=== PATIENT | male | born 1945 | race Caucasian/White ===

== ENCOUNTER → 2016-10-26 | Outpatient (CLI) | payer BC | END | disposition home or self-care (01) | LOC: C.MAMM 09:15 | PROVIDERS: ATTEND Family Medicine | DX: M40.209 Unspecified kyphosis, site unspecified (principal); R29.890 Loss of height ==

== ENCOUNTER → 2017-01-03 | Outpatient (CLI) | payer BC ==
--- NOTE | 2017-01-03 16:02 | DIAGNOSTIC IMAGING REPORT ---
Brain MRI WITHOUT CONTRAST HISTORY: G20 [id number] Memory [id number] TECHNIQUE: Multiplanar multisequence MRI of the brain was performed without the use of contrast. COMPARISON STUDY: None. FINDINGS: There are no areas of restricted diffusion to suggest acute infarction. The midline structures are intact. The paranasal sinuses are clear. The mastoid air cells are clear. The ventricles and sulci are within normal limits for age. There is no mass, hematoma, midline shift. The major vascular flow-voids at the skull base are well maintained. Best seen on axial T2 image 11 within the left occipital lobe there is a linear focus of increased T2 signal. This likely represents a small developmental venous anomaly. This is considered to be a normal variant. IMPRESSION: No acute intracranial abnormality. Electronically signed by: Sandoval Garibay M.D. 01/03/2017 4:01 PM Dictated Date/Time: 01/03/2017 3:54 PM
== END | disposition home or self-care (01) ==
LOC: C.MRIBC 14:23
PROVIDERS: ATTEND Psychiatry & Neurology Neurology
DX: G20 Parkinson's disease (principal); R41.3 Other amnesia

== ENCOUNTER → 2018-06-03 | Outpatient (CLI) | payer BC ==
--- NOTE | 2018-06-03 12:34 | DIAGNOSTIC IMAGING REPORT ---
VIDEO SWALLOW HISTORY: SILENT ASPIRATION,PARKINSONS DISEASE TECHNIQUE: Video fluoroscopic evaluation of swallowing was performed in the AP and lateral projections by the speech pathology staff. The patient is fed nectar-thick and thin liquid barium, a barium coated wafer, and barium pudding. FLUOROSCOPY TIME: 3.5 minutes. NUMBER OF FLUOROSCOPY IMAGES: 0 COMPARISON STUDY: Conventional barium swallow dated 04/04/2018 FINDINGS: With swallowing thin liquid barium via teaspoon there was no aspiration. When swallowing liquid barium via a cup, there was intermittent trace silent aspiration. There is no aspiration when swallowing nectar thick liquids putting or a cracker with paste. Note is made of a delayed initiation of swallowing with diminished epiglottic motion. There is disordered esophageal motility. IMPRESSION: 1. Small amount of silent aspiration when swallowing thin liquids. 2. Please see the speech pathologist report for detailed findings and recommendations. Electronically signed by: Giovanni Mejia M.D. 06/03/2018 12:33 PM Dictated Date/Time: 06/03/2018 12:30 PM
--- NOTE | 2018-06-03 14:24 | SWALLOWING EVALUATION ---
HISTORY: This 72 year old man was referred to [facility] ([facility]) for a Video Fluoroscopic Swallow Study (VFSS) in order to rule out aspiration, and identify the safest consistencies for oral intake. The patient participated in a Barium Swallow study on 04/04/18, which reported a small amount of SILENT aspiration and therefore the study had to be terminated. The patient reports he "coughs occasionally" with food and that more recently medications have become "stuck" in his throat and he has had to cough them up. PMH is significant for: Parkinson's Disease, HLD, and kyphosis. Current diet is regular. PROCEDURE: The patient was seen in the Radiology Department of [facility] for the VFSS. Cursory examination of the oral cavity revealed the patient to have natural upper and lower dentition in fair condition. Movement of the articulators was wnl, however a very mild lingual tremor was noted. This did not impact speech intelligibility. The patient was positioned upright on a stool for the procedure and was viewed in both the Anterior-Posterior (A-P) and Lateral planes. Volitional phonation exercises completed in the A-P plane revealed bilateral vocal fold movement. Vocal intensity was low. In the lateral plane, the patient was given the following boluses: 1 tsp. thin liquid barium x 2, single swallow thin liquid barium self-presented from a cup x4 (2 with a chin tuck), 1 tsp. nectar-thick liquid barium, single swallow nectar-thick liquid barium self-presented from a cup, 1 tsp. barium pudding, and 1 club cracker coated in barium pudding. The patient was then repositioned into the A-P plane and given the following boluses: 1 tsp. nectar thick barium, and 1 tsp. barium pudding. RESULTS: Oral Stage: Lip closure was adequate. The patient was able to maintain a cohesive liquid bolus in the oral cavity upon command. Mastication was slow and prolonged, as was lingual motion for bolus transport. There was a collection of residue along the tongue and palate after the initial swallow. The initiation of the pharyngeal swallow was delayed and triggered when the bolus head reached the pyriforms. Pharyngeal Stage: Soft palate elevation was complete. Laryngeal elevation revealed partial superior movement of the thyroid cartilage and partial approximation of the arytenoids to the epiglottic base. Anterior hyoid excursion was partially reduced. Epiglottic deflection was absent. Laryngeal vestibular closure was in-complete, as evidenced by a narrow column of contrast located in the vestibule at the height of the swallow. The pharyngeal stripping wave was present yet diminished. Pharyngeal contraction revealed bilateral bulging indicating weakness. There was partial distention and duration to the opening of the pharyngoesophageal segment (PES). Tongue base retraction was reduced, with a wide column of contrast located between the tongue base and pharyngeal wall during the swallow. There was retention in the valleculae and pyriforms after the swallow. There was evidence of inconsistent laryngeal penetration and small amounts of aspiration/micro-aspiration with thin liquid barium. At times this is SILENT. When the patient did have a cough response, a majority of aspirated liquid did redirect but not fully. A chin tuck did assist to improve airway protection but he did continue to have some small amounts of aspiration below the vocal folds inconsistently. A throat clear (self- generated) appeared to clear this as well. However, the throat clear and cued cough was weak in general. There was no aspiration of the nectar thick liquid, pudding, or cracker boluses. There was increased retention located in the valleculae and pyriforms as viscosity increased. Effortful swallowing did assist to clear this, however he did require 2-3 effortful swallows per presentation to clear. A liquid wash did not assist to fully clear. Aspiration and retention is attributed to the patient's delayed swallow and generally weak pharyngeal swallow (to include poor tongue base retraction, lack of epiglottic deflection, and reduced anterior hyoid excursion). Esophageal Stage: There was mid to distal esophageal retention with retrograde flow below the PES. This is suggestive of esophageal dysmotility and reflux. A liquid wash assisted to clear some of this but not fully. SUMMARY/RECOMMENDATIONS: The patient presents with moderate elyse-pharyngeal dysphagia. He also presents with s/s esophageal dysfunction. 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 Due to his active lifestyle, he appears to be tolerating the aspiration at this time. Therefore the following is recommended: 1. Regular (soft) "SLIPPERY" diet and THIN liquids: choose foods that are moist, loose, slippery; avoid foods that are doughy, thick, dry (e.g., soft breads, thick meat, etc.). Add condiments to foods such as sauce or gravy to assist in keeping foods moist. May need to consider modification of liquids to NECTAR thick should the patient present with worsening dysphagia with thins and repeated pneumonias. 2. Aspiration and GERD precautions: NO STRAWS. FULLY UPRIGHT for meals and for 30 minutes after meals; head of bed at least 30-degrees at all times. 3. Safe swallow strategies: Use chin tuck while swallowing thin liquids, (Small sip of liquid from the cup, hold liquid in mouth, move the chin to the chest, swallow the liquid while the chin is down), 2-3 effortful swallows per bite of food. Rest breaks while eating. Small frequent meals. 4. Stringent oral care: brush all surfaces of the mouth and tongue prior to and after meals, and before bed. This will decrease the amount of oral bacteria that can be aspirated in saliva. 5. Follow up with GI for management for esophageal dysfunction as appropriate. 6. Follow up with outpatient speech therapy for further education on study results, carryover of diet/safe swallow strategies, and establishing a generalized pharyngeal strengthening program. A summary of the results and recommendations were provided to the patient with verbal understanding. Verbal and Written education was provided as well for the components of a slippery diet, stringent oral care, and safe swallow strategies. Verbal understanding given. Thank you for referral of this patient. Please contact me at if any additional information is needed.
== END | disposition home or self-care (01) ==
LOC: C.RAD 11:05
PROVIDERS: ATTEND Family Medicine
DX: T17.900A Unspecified foreign body in respiratory tract, part unspecified causing asphyxiation, initial encounter (principal); G20 Parkinson's disease; X58.XXXA Exposure to other specified factors, initial encounter

== ENCOUNTER 2021-01-18 10:55 | Inpatient (IN) ==
--- NOTE | 2021-01-10 13:28 | PAT Medication Instructions ---
Medication Instructions Date of Service January 10, 2021 Home Medications Medication Instructions Recorded carbidopa ER 50 mg-levodopa 200 mg 1 tab PO BID #60 tab 12/23/20 tablet,extended release atorvastatin 40 mg tablet 40 mg PO HS cholecalciferol (vitamin D3) 25 mcg (1,000 unit) capsule 25 mcg PO QAM coenzyme Q10 100 mg capsule 100 mg PO QAM mecobalamin (vitamin B12) 1,000 mcg chewable tablet 1,000 mcg PO QAM omeprazole 20 mg capsule,delayed release 20 mg PO QAM carbidopa ER 50 mg-levodopa 200 mg tablet,extended release 1 tab PO BID multivitamin 1 tab PO QAM [Vitamin C Plus Zinc] 1 tab PO 3XWK STOP taking 2 weeks before surgery If surgery is within 2 weeks, stop taking as soon as possible. coenzyme Q10 100 mg capsule 100 mg PO QAM DO NOT take the morning of surgery cholecalciferol (vitamin D3) 25 mcg (1,000 unit) capsule 25 mcg PO QAM mecobalamin (vitamin B12) 1,000 mcg chewable tablet 1,000 mcg PO QAM multivitamin 1 tab PO QAM [Vitamin C Plus Zinc] 1 tab PO 3XWK Take morning of surgery With a small sip of water, OTHERWISE NOTHING TO EAT OR DRINK AFTER MIDNIGHT: omeprazole 20 mg capsule,delayed release 20 mg PO QAM carbidopa ER 50 mg-levodopa 200 mg tablet,extended release 1 tab PO BID Take evening before surgery atorvastatin 40 mg tablet 40 mg PO HS carbidopa ER 50 mg-levodopa 200 mg tablet,extended release 1 tab PO BID Other Notes If you have any questions please call us at [phone] or [phone] or [phone] or [phone]
--- NOTE | 2021-01-11 14:23 | Anesthesiology Consultation ---
Date of Service January 11, 2021 Assessment & Plan (1) Encounter for pre-operative examination: Chart Review Chart Review: Acceptable Risk for Surgery and Patient seen in Pre Admission Testing Per [facility] appt on 01/11/21, patient denies any recent travel or large group activities. No known Covid positive contacts or Covid related symptoms. No known Covid infection in the past 90 days. Preop Covid testing done at [facility] appt on 01/11/21= negative. Educated on importance of self quarantining, social distancing and wearing mask in public both for the patient and household contacts. Teaching & Discussion Pre-Anesthesia Teaching/Discussion Notes: Instructed NPO after midnight before surgery,except medications with 15 cc of water. Medication instructions provided according to the [facility] guidelines. History Surgery Operation Date: 01/18/21 12:40 Proposed Procedures p Cystoscopy, Bladder Biopsies, Possible Tumor Resection, Possible Bilateral Retrograde Pyelograms, Possible Fulguration - Hang Almeida MD Height/Weight Height: 5 ft 11 in Weight: 71.3 kg Allergies Allergy/AdvReac Type Severity Reaction Status Date / Time No Known Drug Allergies Allergy Unknown Verified 01/18/21 11:24 Medications Home Medications Medication Instructions Recorded Confirmed Last Taken atorvastatin 40 mg tablet 40 mg PO HS 07/21/20 01/18/21 01/17/21 21:30 cholecalciferol (vitamin D3) 25 25 mcg PO QAM 07/21/20 01/18/21 01/16/21 18:00 mcg (1,000 unit) capsule coenzyme Q10 100 mg capsule 100 mg PO QAM 07/21/20 01/18/21 2 Weeks Ago ~01/04/21 mecobalamin (vitamin B12) 1,000 1,000 mcg PO QAM 07/21/20 01/18/21 01/16/21 18:00 mcg chewable tablet omeprazole 20 mg capsule,delayed 20 mg PO QAM 07/21/20 01/18/21 01/18/21 06:30 release carbidopa ER 50 mg-levodopa 200 mg 1 tab PO BID #60 tab 12/23/20 01/18/21 01/18/21 07:00 tablet,extended release multivitamin 1 tab PO QAM 01/07/21 01/18/21 01/16/21 18:00 zinc sulfate-vitamin C [Vitamin C 1 tab PO 3XWK 01/07/21 01/18/21 01/12/21 Plus Zinc] Active Medications Generic Name Dose Route Start Last Admin Trade Name Stacey PRN Reason Stop Dose Admin Lactated Ringer's 1,000 mls @ 15 mls/hr 01/18/21 06:00 01/18/21 11:22 Lr IV 01/19/21 05:59 15 mls/hr .Q24H JAMIA Administration Past Medical History Medical History BPH (benign prostatic hyperplasia) History of asthma A CHILD ONLY- NO CURRENT ISSUES Hyperlipidemia Parkinson disease "MILD CASE"- STABLE - FOLLOWS WITH DR ALLEN Per 12/23/20 office note: Pt has akineto-rigid form of Parkinson's- pt is bradykinetic with abnormal gait- mildly rigidity. 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 Exercise / Class Metabolic Activity II 4-5 Yardwork/Stairs/Walk up hill (ONE FLIGHT OF STAIRS - NO CHEST PAIN OR SOB) Past Family History Family History Family/Other Lung cancer Other No family history of adverse response to anesthesia Past Surgical History Surgical History History of colonoscopy History of esophagogastroduodenoscopy (EGD) History of hernia surgery INGUINAL History of tooth extraction Past Anesthesia History No Hx of Anesthesia Complications and No Family Hx of Anesthesia Complications History of PONV No Hx of PONV and No Hx of Motion Sickness Social History Smoking Status: Never smoker Hx Alcohol Use: Yes alcohol intake frequency: holidays/special occasions only Hx Substance Use: No substance use type: does not use Review of Systems Minimal snoring- no witnessed apnea- no hx of sleep study. Patient denies chest pain, shortness of breath, dyspnea on exertion, reflux, cough, wheezing, palpitations. No hx of seizures, stroke, DC. No hx of blood clots or blood transfusions Physical Exam Vital Signs Last Vital Signs Temp 36.9 C 01/18/21 11:28 Pulse 59 L 01/18/21 11:28 Resp 18 01/18/21 11:28 BP 131/71 01/18/21 11:28 Pulse Ox 100 01/18/21 11:28 VITALS BP 99/66 (BP is normal for patient- no current dizziness) P 66 TEMP 98.5 SP02 99% RESP 16 Constitutional no acute distress ENMT Mouth: no TMJ clicking Thyromental Distance: > or= 3.5 Finger Breadths (3.5) Mallampati Class: I Neck neck extension not limited Respiratory normal respiratory effort; no respiratory distress Auscultation: lungs clear to auscultation bilaterally; no wheezes Cardiovascular Rate/Rhythm: regular rate and regular rhythm Heart Sounds: no murmur Vessels: no carotid bruit Musculoskeletal Spine: no pain with cervical ROM Extremities: extremities normal to inspection Bradykinesia- presumed secondary to Parkinson disease Psychiatric Orientation: alert Testing Laboratory Results 01/11/21 14:35 01/11/21 14:35 Urine Color Dark Yellow 01/11/21 14:35 Urine Appearance Clear (Clear) 01/11/21 14:35 Urine pH 5.0 (4.5-7.5) 01/11/21 14:35 Ur Specific Earle 1.023 (1.000-1.030) 01/11/21 14:35 Urine Protein Trace (Negative) H 01/11/21 14:35 Urine Glucose (UA) Negative (Negative) 01/11/21 14:35 Urine Ketones Trace (Negative) H 01/11/21 14:35 Urine Nitrite Negative (Negative) 01/11/21 14:35 Ur Leukocyte Esterase Negative (Negative) 01/11/21 14:35 Urine WBC (Auto) 10-30 /hpf (0-5) H 01/11/21 14:35 Urine RBC (Auto) 5-10 /hpf (0-4) H 01/11/21 14:35 U Hyaline Cast (Auto) 1-5 /lpf (0-5) 01/11/21 14:35 U Epithel Cells (Auto) >30 /lpf (0-5) H 01/11/21 14:35 Urine Bacteria (Auto) 1+ (Negative) H 01/11/21 14:35 01/11/21 14:35 Urine Culture - Final Urine,Clean Catch More than three types of organisms present, all moderate counts mixed probable skin antwan. No further identifications or sensitivities to follow. Electrocardiogram Date: 01/11/21 Findings: + SB @ (58bpm ) Rightward axis. Chest X-Ray Date: 01/11/21 Findings: + NAD
[2021-01-11 15:04] LABS: Basophils # (auto) 0.03 K/uL (0-0.2); Basophils % (auto) 0.5 %; Eosinophils % (auto) 3.2 %; Hematocrit (blood only) 41.1 % (42-52); Hemoglobin 13.8 g/dL (14.0-18.0); Immature Granulocytes # (auto) 0.01 K/uL (0.00-0.02); Immature Granulocytes % (auto) 0.2 %; Lymphocytes # (auto) 1.66 K/uL (1.2-3.4); Lymphocytes % (auto) 26.6 %; Mean Corpuscular Hemoglobin 31.4 pg (25-34); Mean Corpuscular Hgb Conc 33.6 g/dL (32-36); Mean Corpuscular Volume 93.4 fL (80-100); Mean Platelet Volume 10.4 fL (7.4-10.4); Monocytes # (auto) 0.63 K/uL (0.11-0.59); Monocytes % (auto) 10.1 %; Neutrophils % (auto) 59.4 %; Platelet Count 180 K/uL (130-400); RDW Coefficient of Variation 13.3 % (11.5-14.5); RDW Standard Deviation 45.5 fL (36.4-46.3); White Blood Count 6.23 K/uL (4.8-10.8)
[2021-01-11 15:11] LABS: Appearance Urine Clear (Clear); Bilirubin Urine Negative (Negative); Blood Urine 1+ (Negative); Color Urine Dark Yellow; Epithelial Cell Urine Auto >30 /lpf (0-5); Glucose Urine UA Negative (Negative); Ketones Urine Trace (Negative); Leukocyte Esterase Urine Negative (Negative); Nitrite Urine Negative (Negative); Protein Urine Trace (Negative); Specific Gravity Urine 1.023 (1.000-1.030); Urobilinogen Urine Negative (Negative)
--- NOTE | 2021-01-11 15:19 | XRay Report ---
XR chest Pre-admission PA/Lat HISTORY: 75 years-old Male pat preoperative exam. No acute chest complaints COMPARISON: Chest radiograph 04/04/2020 TECHNIQUE: PA and lateral views of the chest FINDINGS: Cardiomediastinal and hilar silhouettes are within normal limits. Nipple shadows project of the lung bases. Hyperinflation. No pneumothorax, pleural effusion, airspace consolidation or overt pulmonary e ila. The bones of the chest appear grossly intact. IMPRESSION: No acute process. ACT 112: Negative or not required by law. The above report was generated using voice recognition software. It may contain grammatical, syntax o r spelling errors. Electronically signed by: Michael Briones M.D. 01/11/2021 3:17 PM
[2021-01-11 15:25] LABS: Bacteria Urine Automated 1+ (Negative); Sperm Urine Present (None Prsent)
[2021-01-11 15:30] LABS: BUN Creatinine Ratio 21.5 (10-20); Calcium 8.4 mg/dl (8.5-10.1); Creatinine Clr Calc Pharmacy 51.4 ml/min; Est GFR (African American) 63.3; Est GFR (Non-African American) 54.6; Potassium 4.4 mmol/L (3.5-5.1)
--- NOTE | 2021-01-12 14:29 | Electrocardiogram Report ---
Test Reason : Blood Pressure : / mmHG Vent. Rate : 058 BPM Atrial Rate : 058 BPM P-R Int : 160 ms QRS Dur : 082 ms QT Int : 428 ms P-R-T Axes : 085 091 083 degrees QTc Int : 420 ms Sinus bradycardia Rightward axis Borderline ECG No previous ECGs available Confirmed by Yakov Potts ([id number]) on 01/12/2021 2:29:11 PM Referred By: Hang Almeida Confirmed By:Yakov Potts
[~2021-01-18 10:55] MED LIST: CIPROFLOXACIN / D5W 400 MG/200 ML BAG IV SCH; LR 15ML/HR IV SCH
[2021-01-18] MEDS ORDERED: PROPOFOL IV EMULSION 10 MG/ML 20 ML VIAL IV ONE ×2 (10:59→14:12)
[2021-01-18] MEDS ORDERED: LIDOCAINE HCL 2% 2 ML VIAL/AMP(20MG/ML) INFIL ONE (10:59)
[2021-01-18] MEDS ORDERED: fentaNYL citrate 100 MCG/2 ML VIAL ONE (11:00)
[2021-01-18] MEDS ORDERED: ONDANSETRON INJ 2 MG/ML 2 ML VIAL ONE (11:00)
--- NOTE | 2021-01-18 12:37 | History & Physical Bridge Note ---
Date of Service January 18, 2021 History & Physical Bridge Note I have examined the patient, reviewed the History & Physical and in the interval since the performance of the History & Physical I have noted the following changes of clinical significance: no changes noted
[2021-01-18] MEDS ORDERED: HYDROmorphone INJ 1 MG/ML SYRINGE IV PRN (12:41)
[2021-01-18] MEDS ORDERED: ePHEDrine sulfate 50 MG/ML AMP IV PRN (12:41)
[2021-01-18] MEDS ORDERED: ONDANSETRON INJ 2 MG/ML 2 ML VIAL IV PRN ×2 (12:41→16:49)
[2021-01-18] MEDS ORDERED: fentaNYL citrate 100 MCG/2 ML VIAL IV PRN (12:41)
[2021-01-18] MEDS ORDERED: ATROPINE SULFATE 0.1 MG/ML 10ML SYR IV PRN (12:41)
[2021-01-18] MEDS ORDERED: GLYCOPYRROLATE 0.2 MG/ML VIAL ONE ×2 (13:22→14:53)
[2021-01-18] MEDS ORDERED: PHENYLEPHRINE 100MCG/ML 5ML SYR ONE (13:40)
[2021-01-18] MEDS ORDERED: SODIUM CHLORIDE 0.9% 250 ML IV PRN (14:09)
[2021-01-18] MEDS ORDERED: SUCCINYLCHOLINE 100MG/5ML SYR IV ONE (14:13)
[2021-01-18] MEDS ORDERED: ROCURONIUM BROMIDE 10 MG/ML 5 ML VIAL IV ONE (14:24)
[2021-01-18] MEDS ORDERED: NEOSTIGMINE METHYLSULFATE 5 MG/5 ML SYR ONE (14:53)
[2021-01-18] MEDS ORDERED: BUPIVACAINE 0.5 % 5 MG/1 ML MPF 30ML VIAL ONE (15:11)
[2021-01-18] MEDS ORDERED: DEXTRAN 10% / D5W 500 ML IV PRN (15:15)
--- NOTE | 2021-01-18 15:39 | Operative Report ---
PG Post Operative Report Pre & Post Diagnosis Operation Date: 01/18/21 12:40 Pre-Op Diagnosis: Gross Hematuria, Bladder Mass Post-Op Diagnosis: Gross Hematuria, Bladder Mass I identified the patient and participated in the time-out.: Yes Procedure Operation Date: 01/18/21 12:40 Actual Procedures p cystoscopy, TURBT, exploratory laparotomy, cystotomy with closure of bladder injury, ligation of bleeding vessel.(Not Applicable) - Hang Almeida MD Surgeon Yehuda Almeida MD Distribution Dispatcher Lenard Chu; Emely Fernández Estimated Blood Loss 600 Findings Consistent with Post-Op Diagnosis Specimens Bladder tumor Description of Procedure The patient was identified in the preoperative holding area, appropriate informed consents were reviewed and completed and the patient was transferred to the operative suite. Upon arrival, appropriate antibiotics and anesthesia were administered and the patient was placed in dorsal lithotomy position and prepped and draped in sterile fashion. To begin the case I passed a 27 [place] resectoscope with 30 degree lens and visual obturator. Inspection revealed a healthy-appearing urethra and a moderately enlarged prostate. Inspection of the bladder revealed tumor covering the majority of the right lateral portion of the bladder with several larger, more protuberant tumors. In total I would estimate 9 to 10 cm of bladder was covered by tumor. The majority of this was what I would describe as "carpeting" tumor. After my inspection I exchanged the visual obturator for resecting element using a loop electrode. I began by resecting the largest portions of the tumor. This was uneventful. I then began to fulgurate the carpeted areas of the tumor. As I approached the lateral wall, unfortunately it is provoked a severe obturator reflex. There was bleeding from the defect although it was not a through and through perforation injury at that time. Bleeding was relatively copious and I began to make a concerted effort to stop this bleeding. Unfortunately after 15 to 20 minutes of attempting to stop the bleeding unsuccessfully, I made a decision to open the bladder and close this with a suture. Emely Fernández and Lenard Chu joined me at that time surgical assistance. A low midline incision was made utilizing a 10 blade scalpel after the abdomen had been reprepped. This was carried through the midline until the anterior wall of the bladder was identified. A Inocencia retractor was placed. The lateral aspect of the bladder on the right was mobilized. No palpable through and through defect was immediately appreciated. There was a small vessel that was bleeding outside of the bladder but I suspect this occurred during the dissection. This was suture-ligated in the area and then packed with Surgicel. And then turned my attention to the bladder itself. It was irrigated without clear evidence of a through and through defect. Midline area cystotomy was created and inspection of the inside of the bladder revealed the area of bleeding. I was able to utilize a 3-0 Vicryl suture to close the muscular layer through this defect. This drastically improved hemostasis. A 3-0 chromic was then utilized to close the mucosa over the defect. Inspection revealed good hemostasis. There were several small tumors that were remaining that had not yet been resected during the cystoscopic portion of the case. I used the Bovie electrocautery to burn these areas. We then began to close the anterior cystotomy. A 3-0 chromic was utilized to reapproximate the mucosa. I then closed 2 additional layers, utilizing an imbricating 0 Vicryl to buttress the mucosal layer followed by a second imbricating layer to further buttress. The b ladder was irrigated copiously and there is no evidence of leak. I did place 2 buttressing sutures outside of the area where the original bleeding occurred to make sure there was appropriate external muscular support. I reinspected the area that had previously been bleeding and it was dry. We then began to reapproximate the rectus muscle by closing the fascia with a running 0 Vicryl. Half percent Marcaine was utilized under the fascia and under the skin. [place] were placed to the skin. A new three-way Forman catheter was inserted and draining. Gentle continuous bladder irrigation was initiated and the case was concluded. He was extubated and taken to the PACU in stable condition. He was not transfused during the case and remained hemodynamically stable throughout. I have estimated 600 cc of blood loss. The case was discussed with his immediately upon conclusion and she is aware of the issues during the surgery and the need to convert to an open case. He will be kept in the hospital and monitored for a minimum of 24 hours and a Forman catheter will be left in place for a minimum of 10 to 14 days followed by a cystogram before removal. Dr. Chu assisted from incision to closure throughout the open portion of the case. I attest to the content of the Intraoperative Record and any orders documented therein. Any exceptions are noted below.
[2021-01-18 15:59] LABS: Basophils # (auto) 0.01 K/uL (0-0.2); Basophils % (auto) 0.2 %; Eosinophils # (auto) 0.09 K/uL (0-0.5); Eosinophils % (auto) 2.1 %; Hematocrit (blood only) 25.4 % (42-52); Hemoglobin 8.6 g/dL (14.0-18.0); Immature Granulocytes # (auto) 0.01 K/uL (0.00-0.02); Immature Granulocytes % (auto) 0.2 %; Lymphocytes # (auto) 0.97 K/uL (1.2-3.4); Lymphocytes % (auto) 23.2 %; Mean Corpuscular Hemoglobin 31.3 pg (25-34); Mean Corpuscular Volume 92.4 fL (80-100); Mean Platelet Volume 9.7 fL (7.4-10.4); Monocytes # (auto) 0.39 K/uL (0.11-0.59); Monocytes % (auto) 9.3 %; Neutrophils # (auto) 2.72 K/uL (1.4-6.5); Platelet Count 110 K/uL (130-400); RDW Coefficient of Variation 13.3 % (11.5-14.5); Red Blood Count 2.75 M/uL (4.7-6.1); White Blood Count 4.19 K/uL (4.8-10.8)
--- NOTE | 2021-01-18 16:15 | Anesthesiology Progress Note ---
Date of Service January 18, 2021 Anesthesia Post Procedure Vital Signs Vital Signs: Temp Pulse Pulse Resp BP BP Pulse Ox 01/18/21 16:10 68 15 110/59 L 96 01/18/21 16:00 66 14 112/63 96 01/18/21 15:50 67 16 117/71 97 01/18/21 15:40 74 17 123/73 98 01/18/21 15:34 36 C L 94 H 15 129/76 99 01/18/21 11:28 36.9 C 59 L 18 131/71 100 Transfer of Care Handoff Completed per policy Notes Mental Status: alert / awake / arousable and participated in evaluation Patient Amnestic to Procedure: Yes Nausea / Vomiting: adequately controlled Pain: adequately controlled Airway Patency, RR, SpO2: stable & adequate BP & HR: stable & adequate Hydration State: stable & adequate Anesthetic Complications: no major complications apparent and Pt Satisfied with anesthetic care
[2021-01-18 16:21] LABS: BUN Creatinine Ratio 24.6 (10-20); Calcium 6.9 mg/dl (8.5-10.1); Creatinine Clr Calc Pharmacy 61.7 ml/min; Est GFR (African American) 82.2; Est GFR (Non-African American) 70.9; Potassium 3.8 mmol/L (3.5-5.1)
[2021-01-18 16:40] LABS: Echinocytes 1+; Mean Corpuscular Hgb Conc 33.9 g/dL (32-36); Ovalocytes 1+
[2021-01-18] MEDS ORDERED: MoRPHine SULFATE 2 MG/ML CARP IV PRN (16:49)
[2021-01-18] MEDS ORDERED: MoRPHine SULFATE 4 MG/ML 1 ML CARP\\VIAL IV PRN (16:49)
[2021-01-18] MEDS ORDERED: oxyCODONE HCL IR 5 MG TAB (IMMEDIATE RELEASE) PO PRN ×2 (16:49)
[2021-01-18] MEDS ORDERED: ACETAMINOPHEN 325 MG TAB PO PRN (16:49)
[2021-01-18] MEDS: LACTATED RINGER'S 1,000 ML IV SCH (19:33)
[2021-01-18] MEDS: ceFAZolin 2000MG 2,000 MG/15 ML SYR IV SCH (19:49)
[2021-01-18] MEDS ORDERED: ATORVASTATIN 40 MG TAB PO SCH (21:00)
[2021-01-18] MEDS: CARBIDOPA/LEVODOPA 50/200MG EXT REL TAB PO SCH (21:03)
[2021-01-18] MEDS: HEPARIN SOD 5,000 UNIT/0.5 ML VIAL SQ SCH (21:07)
[2021-01-19] MEDS: LACTATED RINGER'S 1,000 ML IV SCH (02:49)
[2021-01-19] MEDS: ceFAZolin 2000MG 2,000 MG/15 ML SYR IV SCH (03:52)
[2021-01-19 06:15] LABS: Basophils # (auto) 0.01 K/uL (0-0.2); Basophils % (auto) 0.1 %; Hemoglobin 9.3 g/dL (14.0-18.0); Immature Granulocytes # (auto) 0.01 K/uL (0.00-0.02); Immature Granulocytes % (auto) 0.1 %; Lymphocytes # (auto) 0.82 K/uL (1.2-3.4); Lymphocytes % (auto) 8.6 %; Mean Corpuscular Hemoglobin 31.4 pg (25-34); Mean Corpuscular Hgb Conc 34.4 g/dL (32-36); Mean Corpuscular Volume 91.2 fL (80-100); Mean Platelet Volume 10.2 fL (7.4-10.4); Monocytes # (auto) 1.02 K/uL (0.11-0.59); Monocytes % (auto) 10.7 %; Neutrophils # (auto) 7.67 K/uL (1.4-6.5); Neutrophils % (auto) 80.5 %; Platelet Count 159 K/uL (130-400); RDW Coefficient of Variation 13.3 % (11.5-14.5); RDW Standard Deviation 44.8 fL (36.4-46.3); Red Blood Count 2.96 M/uL (4.7-6.1); White Blood Count 9.53 K/uL (4.8-10.8)
[2021-01-19 06:41] LABS: BUN Creatinine Ratio 17.1 (10-20); Calcium 7.8 mg/dl (8.5-10.1); Creatinine Clr Calc Pharmacy 49.7 ml/min; Est GFR (African American) 63.3; Est GFR (Non-African American) 54.6; Potassium 4.3 mmol/L (3.5-5.1)
[2021-01-19] MEDS: CARBIDOPA/LEVODOPA 50/200MG EXT REL TAB PO SCH (07:07)
[2021-01-19] MEDS: HEPARIN SOD 5,000 UNIT/0.5 ML VIAL SQ SCH (08:20)
--- NOTE | 2021-01-19 08:31 | Urology Progress Note ---
Date of Service January 19, 2021 Assessment & Plan (1) Bladder mass: s/p TURBT complicated by bleeding - had to convert to open - cystotomy with suture ligation of the bleeding vessels - cbi off this am - ok to dc cbi - cap extra port - will go home with catheter - cystogram next week with voiding trial if no leak - likely return to the OR in ~ 6 weeks for repeat TURBT - hope for dc home this afternoon Admission and Anticipated Discharge Date Admission Date: January 18, 2021 Subjective Doing well this AM CBI was very slow overnight and his urine remained clear denies any pain hasnt ambulated yet tolerating a diet anxious to go home Physical Exam Physical Exam: abd soft, non-tender incision still dressed bruising across the penis moderate edema urine clear with CBI clamped Results & Data ([facility]) Vital Signs (Past 12 Hours) Vital Signs Temp Pulse Pulse Resp BP BP Pulse Ox 01/19/21 06:59 37 C 71 16 95/58 L 99 01/18/21 22:20 37.4 C 84 18 110/67 98 PG Care Time/CCT Total # of Minutes Spent Total Time Spent with Patient: Total time spent is greater than 50% in coordination of care (as documented) at patient's floor/unit and/or counseling patient: Coding Level of Care Code 32247 Subseq Hosp Care Lvl 2 Diagnoses Bladder mass N32.89
[2021-01-19] MEDS ORDERED: MULTIVITAMIN TAB PO SCH (09:00)
[2021-01-19] MEDS ORDERED: PANTOprazole 40 MG TAB PO SCH (09:00)
--- NOTE | 2021-01-27 12:43 | Discharge Summary ---
Date of Service January 27, 2021 Admission HPI Per Admitting Provider Patient with a large bladder tumor admitted for TURBT. Principal Diagnosis Bladder cancer Discharge Data Allergies Allergy/AdvReac Type Severity Reaction Status Date / Time No Known Drug Allergies Allergy Unknown Verified 01/18/21 11:24 Procedures Performed Operation Date: 01/18/21 12:40 Actual Procedures s Cystoscopy, TURBT, (Not Applicable) - Hang Almeida MD p Exploratory laparotomy, cystotomy with closure of bladder injury, ligation of bleeding vessel.(Not Applicable) - Hang Almeida MD Hospital Course (1) Primary bladder malignant neoplasm: Patient was admitted for cystoscopy and TURBT, however we encountered significant bleeding during the course and converted to an open surgery. Detai ls of the procedure as dictated previously in the operative report, however he was kept in the hospital overnight with a Forman catheter in place. He progressed extremely well. Had no issues overnight, labs remained stable, hemodynamically stable. Discharged home on postoperative day 1 in stable condition. Total Time Total Time Spent Total Time Spent (In Minutes): 25 Discharge Plan Discharge Items Patient Disposition: Home - Self-Care Reason For Visit: Gross Hematuria, Bladder Mass Discharge Diagnosis: Gross hematuria, bladder mass Activity: Per Instructions section Lifting: No more than 25 pounds Bathing Comment: No tub baths/soaking. Okay to shower tomorrow. Sexual Activity: Wait until after follow-up appointment Exercise/Sports: Wait until after follow-up appointment Driving/Machine Use: Do not drive after taking narcotic pain medication Non-emergency contact: Surgeon and Urologist Call non-emergency contact if: you have any medication questions, your pain is not controlled, your temperature is above 101, your wound has increased redness, your wound has increased drainage and your wound pain has increased Follow-up/Referrals: Jeramy Ballard MD [Primary Care Provider] - 01/20/21 1:30 pm [facility],Nurse [FAKE FOR SCHEDULES] - 01/28/21 10:00 am Diet: Heart Healthy Addtl Attending Provider Instructions: Please take all medications as prescribed and keep all follow-ups as scheduled. Please call our office at [phone] with any questions, concerns or need to reschedule appointments for any reason. We are happy to assist you. We would like you to have a cystogram next week to assess for any leaking from the bladder prior to your catheter removal. The cystogram is scheduled January 28 at 8:00 am. Please arrive at the hospital, main entrance, at 7:30 am. Your voiding trial with nursing staff is scheduled January 28 at 10:00 am at [address] [place] [address]. We will likely remove your stapes from your incision at that appointment. We will call you with your postop appointment with Dr. Almeida once this is scheduled. Tips for your recovery at home: Dont be alarmed by brownish or reddish blood or clots in your urine. This is a result of the procedure. However, if this does not improve after 1 week, please contact our office. Drink plenty of fluids during the day (enough to keep your urine very light colored). This will help keep a healthy flow of urine. Do not lift >25 lbs until your followup Avoid constipation. Please use a stool softener (Colace) for the first two weeks after your procedure Be sure to finish the antibiotics as prescribed. If you go home with a catheter, please wash tubing where it enters your body twice daily with mild soap (Dove or Dial). Once your catheter is removed, expect some blood in your urine and some burning when you urinate. You should have an appointment to have this removed, if you do not please call our office to arrange. When to call [facility] at [phone]: Your urine contains heavy blood clots You are constantly leaking urine Fever of 101F or higher, chills, nausea, or vomiting Your pain is not relieved with medication Pending Studies at Discharge: Yes Studies:: Pathology Stand-Alone Forms: [employer], Smoking Cessation Medications and DC Order Prescriptions: New oxycodone-acetaminophen [Percocet] 5-325 mg tablet 1 tab PO TID PRN (Reason: pain) Qty: 10 RF: 0 Continued carbidopa-levodopa 50-200 mg tablet extended release 1 tab PO BID Qty: 60 RF: 2 cholecalciferol (vitamin D3) 25 mcg (1,000 unit) capsule 25 mcg PO QAM RF: 0 mecobalamin (vitamin B12) 1,000 mcg tablet,chewable 1,000 mcg PO QAM RF: 0 coenzyme Q10 [CoQ-10] 100 mg capsule 100 mg PO QAM RF: 0 omeprazole 20 mg capsule,delayed release(DR/EC) 20 mg PO QAM RF: 0 atorvastatin 40 mg tablet 40 mg PO HS RF: 0 multivitamin Tablet 1 tab PO QAM RF: 0 zinc sulfate-vitamin C 200-100 mg Tablet 1 tab PO 3XWK RF: 0 No Action oxybutynin chloride 5 mg tablet 5 mg PO BID PRN (Reason: bladder spasms) Qty: 30 RF: 0 Discharge Orders: Discharge Order (Routine); Ordered 01/19/21 Ordered By: Amanda Howell Admission Data Admit Date/Time: 01/18/21 15:29 Attending Provider: Hang Almeida Admit Provider: Hang Almeida Primary Care Provider: Jeramy Ballard Other Interventions: Discharge Summary Assessment (RN) Last Done: 01/19/21 13:48 Coding Level of Care Code D/C Day Management <30 mins Diagnoses Primary bladder malignant neoplasm C67.9
--- NOTE | 2021-01-31 05:57 | Coding Query ---
CODING QUERY To promote full compliance with coding requirements relating to patient care, provider participation is requested in all cases of inpatient coder uncertainty. Please assist us with the question(s) below: Coding Question(s): Patient admitted for cystoscopic bladder tumor removal. Op report mentions : " there was not a thru-and thru perforation injury at that time". Procedure converted to Open and opened bladder revealed bleeding & defect in the bladder wall which was closed. Seeking to clarify the bladder defect and perforation. Please specify the type of bladder injury that required suturing. Thanks for your hep! Doug Rutherford [facility] Physician's Response(s): There was not a full thickness bladder perforation, but there was a large bleeding vessel from the bladder wall that I could not treat cystoscopically and required an open conversion. Principal Diagnosis: "that condition established after study, to be chiefly responsible for occasioning the admission of the patient to the hospital for care." Co-Existing Principal Diagnosis: "when two or more diagnoses equally meet the criteria for principal diagnosis as determined by the circumstances of admission, diagnostic work up, and/or therapy provided, and the Alphabetic Index, Tabular List, or another coding guideline does not provide sequencing direction, any one of the diagnoses may be sequenced first." "When the physician has documented what appears to be a current diagnosis in the body of the record, but has not included the diagnosis in the final diagnostic statement, the physician should be asked whether the diagnosis should be added." (Source Coding Clinic 2 QTR90. p3-4) MARISELA
== END 2021-01-19 15:14 | disposition home or self-care (01) | DRG 654 ==
LOC: ASU 10:55 → 3N 15:29

== ENCOUNTER 2024-07-04 21:29 | Inpatient (IN) ==
[2024-07-04 22:22] LABS: Basophils # (auto) 0.02 K/uL (0.00-0.20); Basophils % (auto) 0.2 %; Hematocrit (blood only) 40.2 % (42.0-52.0); Hemoglobin 13.4 g/dl (14.0-18.0); Immature Granulocytes # (auto) 0.04 K/uL (0.01-0.20); Immature Granulocytes % (auto) 0.5 %; Lymphocytes % (auto) 9.6 %; Mean Corpuscular Hemoglobin 30.6 pg (25.0-34.0); Mean Corpuscular Hgb Conc 33.3 g/dL (32.0-36.0); Mean Corpuscular Volume 91.8 fL (80.0-100.0); Mean Platelet Volume 10.7 fL (9.4-12.4); Monocytes # (auto) 0.95 K/uL (0.11-0.59); Monocytes % (auto) 11.4 %; Neutrophils # (auto) 6.49 K/uL (1.40-6.50); Neutrophils % (auto) 78.3 %; Platelet Count 118 K/uL (130-400); RDW Coefficient of Variation 13.5 % (11.5-14.5); RDW Standard Deviation 46.3 fL (36.4-46.3); Red Blood Count 4.38 M/uL (4.70-6.10)
[2024-07-04 22:37] LABS: Alanine Aminotransferase 3 U/L (7-52); Albumin Globulin Ratio 1.2 (0.9-2); Albumin Level 4.1 gm/dl (3.4-5.0); Alkaline Phosphatase 63 U/L (34-104); Anion Gap 7 (3-11); Aspartate Aminotransferase 29 U/L (13-39); Bilirubin,Total 1.9 mg/dl (0.2-1.0); Blood Urea Nitrogen 21 mg/dl (6-23); Calcium 8.9 mg/dl (8.6-10.3); Carbon Dioxide 28 mmol/L (21-32); Chloride 96 mmol/L (98-107); Est GFR (African American) 60.9 ml/min; Est GFR (Non-African American) 52.5 ml/min; Globulin 3.3 gm/dl (2.5-4.0); Glucose 120 mg/dl (70-99(Fasting)); Potassium 4.1 mmol/L (3.5-5.1); Sodium 131 mmol/L (136-145); Total Protein 7.4 gm/dl (6.0-8.3)
[2024-07-04 22:42] LABS: Troponin I High Sensitivity 15.7 pg/ml (0-20)
[2024-07-04 23:16] LABS: INR 1.1 (0.9-1.1); Partial Thromboplastin Ratio 1.2; Partial Thromboplastin Time 33 Seconds (21-31)
--- NOTE | 2024-07-04 23:57 | Emergency Department Note ---
Impression & Plan Dysphagia, Respiratory distress, COVID Admit to the [facility] ED Provider Note NAME: DANIEL NOONAN AGE: 78 SEX: Male INFORMANT: Patient and his ED PROVIDER(S): Mena Osborn DO CHIEF COMPLAINT: choking episodes PLAN: Disposition: admit to the [facility] MEDICAL DECISION MAKING: this is a 78-year-old male patient with a past medical history of Parkinson's disease who was diagnosed with COVID today and presents to the emergency department as he is unable to take his medications because he cannot swallow them. He is also now choking on his own secretions. Patient has no previous history of dysphagia or aspiration associated with his Parkinson's. Patient appears to be in some mild respiratory distress. He was placed on supplemental oxygen. O2 saturations were stable. Chest x-ray was unremarkable. Laboratory studies revealed no leukocytosis or significant anemia. Sodium was slightly low at 131. Glucose was 120. Troponin was negative. Patient does exhibit fairly significant weakness and the dysphagia could be an exacerbation of his Parkinson's. I discussed the case with the [facility] and they will evaluate for further inpatient care. Care/management discussed with: plant hr manager and [facility] Triage Nursing notes: reviewed and agree with them. Vital Signs: reviewed and unremarkable Additional History obtained from: is at the bedside Chronic Medical/Social Conditions affecting care: Parkinson's disease Differential Diagnosis: exacerbation of Parkinson's disease, pneumonia, bronchitis, COVID-19 Diagnostics, independently interpreted by me: ECG: normal sinus rhythm at a rate of [address] segment elevation or signs of ischemia. There is no ectopy. Cardiac Monitoring: normal sinus rhythm at a rate of 68 Imaging studies: Portable chest x-ray: Scoliosis present. No pulmonary infiltrates or consolidation. No obvious signs of aspiration as per my independent interpretation HPI: 78 year old Male arrives for evaluation of shortness of breath and inability to swallow medication. patient's had COVID over the past couple of days and patient developed a significant cough and was unable to swallow his pills over the past 24 hours. Patient now is unable to tolerate his own secretions. PAST MEDICAL HISTORY: See Below, PAST SURGICAL HISTORY: See Below, SOCIAL HISTORY: See Below, HOME MEDICATIONS: See Below ALLERGIES: See Below VITALS: See Below PHYSICAL EXAMINATION: HEENT: Head - normocephalic and atraumatic. Pupils are equal, round, and reactive to light. Extraocular eye muscles are intact, and sclera are anicteric. Nose - moist nasal mucosa without discharge. Mouth - moist buccal mucosa. Oropharynx is nonerythematous and there is no tonsillar exudate or edema noted. Neck: Supple; no JVD Or cervical lymphadenopathy Heart: Regular rate and rhythm. There is a normal S1 and S2 with no murmurs, clicks, or gallops appreciated. Lungs: Patient has significant upper airway sounds. lungs are clear to auscultation bilaterally with no wheezes, rales, or rhonchi. Abdomen: Soft, completely nontender, nondistended, with good bowel sounds. There are no palpable pulsatile masses or hepatosplenomegaly. There is no guarding, rigidity, or rebound noted. Extremities: No evidence of cyanosis, clubbing, or edema. There are easily palpable peripheral pulses. Skin: warm and dry with poor turgor and no rashes. Emergency Department course: The patient was evaluated in room C5. A complete history and physical was performed. An order was placed for continuous cardiac monitoring. The patient was in a normal sinus rhythm at a rate of 68. Patient appeared to be in some respiratory distress and was placed on supplemental oxygen. A portable chest x-ray was performed. A twelve-lead EKG was obtained as described above. The patient was bolused with 500 cc of normal saline solution. He was started on normal saline drip. Case was discussed with the [facility] Hospitalist and they will evaluate for further inpatient care. Past Med/Surg History Problem List (Updated 07/06/24 @ 16:12 by Mena Osborn DO) COVID (Acute) Respiratory distress (Acute) Dysphagia (Acute) COVID Fatigue Gait disturbance Drooling GERD (gastroesophageal reflux disease) Swallowing impairment Parkinsonism Tremor Gross hematuria Bladder mass Primary bladder malignant neoplasm Encounter for pre-operative examination Hammer toes of both feet Hyperlipidemia Medical History Benign essential tremor Bladder cancer BPH (benign prostatic hyperplasia) History of asthma Hyperlipidemia Parkinson disease Twitching Zenkers diverticulum Surgical History History of bladder surgery History of colonoscopy History of esophagogastroduodenoscopy (EGD) History of hernia surgery History of tooth extraction Family History Family/Other Lung cancer Other No family history of adverse response to anesthesia Social History Smoking Status: Never smoker Second Hand Exposure: Yes ( A CHILD); Do You Dip or Chew Tobacco: No; Hx Alcohol Use: Yes Alcohol type: beer and wine Hx Substance Use: No Preferred Language: Arabic Communication Ability: Effective Machine Lead Burner Required: No Beliefs That Will Affect Care: Cheondoism Cheondoism Beliefs: DRUZE marital status: Current Living Situation: Spouse Current Living Situation Comment: AND SON current occupational status: employed 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 Feels Safe at Home: Yes Safety Concerns: Feels Safe At This Time Assistive Devices: Glasses Allergies Allergies Allergy/AdvReac Type Severity Reaction Status Date / Time No Known Drug Allergies Allergy Unknown Verified 07/05/24 08:22 Home Meds Home Medications Medication Instructions Recorded Confirmed atorvastatin 40 mg tablet 40 mg PO HS 07/21/20 07/05/24 omeprazole 20 mg capsule,delayed 20 mg PO QAM 07/21/20 07/05/24 release aspirin 81 mg tablet,delayed 81 mg PO 3XWK 12/20/21 07/05/24 release cholecalciferol (vitamin D3) 25 25 mcg PO DAILY 12/20/21 07/05/24 mcg (1,000 unit) tablet (Vitamin D3) cyanocobalamin (vitamin B-12) 1,000 mcg PO DAILY 12/20/21 07/05/24 1,000 mcg tablet nirmatrelvir 150 mg-ritonavir 100 1 ea PO UD 07/05/24 07/05/24 mg tablets in a dose pack (Paxlovid) Previous Rx's Medication Instructions Recorded solifenacin 10 mg tablet (Vesicare) 10 mg PO DAILY #90 tabs 10/22/23 carbidopa ER 50 mg-levodopa 200 mg 1 tab PO TID 90 days #270 tabs 01/14/24 tablet,extended release ropinirole 2 mg tablet,extended 2 mg PO DAILY #90 tabs 03/07/24 release 24 hr Results & Data (ED) Vital Signs Vital Signs - 24 hr 07/04/24 21:33 07/04/24 22:16 09/20/24 22:17 Temperature 36.7 C Temperature Source Temporal Artery Scan Pulse Rate 68 70 Pulse Rate from SpO2 Sensor Pulse Rhythm Regular Respiratory Rate 18 22 Blood Pressure 116/71 Blood Pressure Mean 86 Pulse Oximetry 98 96 96 Oxygen Delivery Method Room Air Room Air Room Air Oxygen Flow Rate 0 Sepsis Recent Fever Within 48 Hours Yes Sepsis New/Unexplained Change in Mental Status No Sepsis Action Taken by Nursing No Action Required 07/04/24 22:18 07/04/24 22:30 Temperature Temperature Source Pulse Rate 68 68 Pulse Rate from SpO2 Sensor 69 68 Pulse Rhythm Respiratory Rate 15 21 Blood Pressure 124/66 Blood Pressure Mean 85 Pulse Oximetry 96 95 Oxygen Delivery Method Oxygen Flow Rate Sepsis Recent Fever Within 48 Hours Sepsis New/Unexplained Change in Mental Status Sepsis Action Taken by Nursing Laboratory Data 07/06/24 05:11 07/06/24 05:11 Lab Results 07/04/24 Range/Units 21:54 WBC 8.30 (4.8-10.8) K/ul RBC 4.38 L (4.70-6.10) M/uL Hgb 13.4 L (14.0-18.0) g/dl Hct 40.2 L (42.0-52.0) % MCV 91.8 (80.0-100.0) fL MCH 30.6 (25.0-34.0) pg MCHC 33.3 (32.0-36.0) g/dL RDW Std Deviation 46.3 (36.4-46.3) fL RDW Coeff of Vijaya 13.5 (11.5-14.5) % Plt Count 118 L (130-400) K/uL MPV 10.7 (9.4-12.4) fL Immature Gran % (Auto) 0.5 % Neut % (Auto) 78.3 % Lymph % (Auto) 9.6 % Spalding % (Auto) 11.4 % Eos % (Auto) 0.0 % Baso % (Auto) 0.2 % Neut # (Auto) 6.49 (1.40-6.50) K/uL Lymph # (Auto) 0.80 L (1.20-3.40) K/uL Spalding # (Auto) 0.95 H (0.11-0.59) K/uL Eos # (Auto) 0.00 (0.00-0.50) K/uL Baso # (Auto) 0.02 (0.00-0.20) K/uL Immature Gran # (Auto) 0.04 (0.01-0.20) K/uL PT 12.0 (9.0-12.0) Seconds INR 1.1 (0.9-1.1) APTT 33 H (21-31) Seconds PTT Ratio 1.2 Sodium 131 L (136-145) mmol/L Potassium 4.1 (3.5-5.1) mmol/L Chloride 96 L (98-107) mmol/L Carbon Dioxide 28 (21-32) mmol/L Anion Gap 7 (3-11) BUN 21 (6-23) mg/dl Creatinine 1.31 (0.6-1.4) mg/dl Est Cr Clr Drug Dosing Not Reportable Est GFR ( Amer) 60.9 ml/min Est GFR (Non-Af Amer) 52.5 ml/min BUN/Creatinine Ratio 16.0 (10-20) Glucose 120 H (70-99(Fasting)) mg/dl Calcium 8.9 (8.6-10.3) mg/dl Total Bilirubin 1.9 H (0.2-1.0) mg/dl AST 29 (13-39) U/L ALT 3 L (7-52) U/L Alkaline Phosphatase 63 (34-104) U/L Troponin I High Sens 15.7 (0-20) pg/ml Total Protein 7.4 (6.0-8.3) gm/dl Albumin 4.1 (3.4-5.0) gm/dl Globulin 3.3 (2.5-4.0) gm/dl Albumin/Globulin Ratio 1.2 (0.9-2) Administered Medications Carbidopa/Levodopa (Carbidopa/Levodopa 50/200mg Ext Rel Tab) 1 tab PO TID JAMIA Stop: 08/04/24 08:59 Last Admin: 07/06/24 11:33 Dose: Not Given Documented By: Admin: 07/06/24 07:58 Dose: 1 tab Documented By: Admin: 07/05/24 21:18 Dose: 1 tab Documented By: Admin: 07/05/24 12:27 Dose: Not Given Documented By: Admin: 07/05/24 09:14 Dose: Not Given Documented By: KAYLYNN Enoxaparin Sodium (Enoxaparin Inj 40 Mg/0.4 Ml Syr) 40 mg SQ Q24H JAMIA Stop: 08/04/24 08:59 Last Admin: 07/06/24 07:58 Dose: 40 mg Documented By: Admin: 07/05/24 09:14 Dose: 40 mg Documented By: KAYLYNN Pantoprazole Sodium 40 mg/ (Syringe) 10 mls @ 5 mls/min IV DAILY@1100 JAMIA Stop: 08/04/24 10:59 Last Admin: 07/06/24 11:29 Dose: 5 mls/min Documented By: Admin: 07/05/24 12:42 Dose: 5 mls/min Documented By: KAYLYNN Acetaminophen (Ofirmev) 1,000 mg in 100 mls @ 400 mls/hr IV Q8H PRN PRN Reason: Fever Stop: 07/08/24 08:18 Last Infusion: 07/05/24 18:18 Dose: Infused Documented By: Admin: 07/05/24 17:59 Dose: 400 mls/hr Documented By: Infusion: 07/05/24 09:49 Dose: Infused Documented By: Admin: 07/05/24 09:14 Dose: 400 mls/hr Documented By: KAYLYNN Sodium Chloride (Nss) 1,000 mls @ 80 mls/hr IV .[id number] JAMIA Stop: 08/04/24 08:59 Last Infusion: 07/06/24 15:01 Dose: 80 mls/hr Documented By: Admin: 07/06/24 08:02 Dose: 125 mls/hr Documented By: Infusion: 07/06/24 08:02 Dose: Infused Documented By: Admin: 07/06/24 00:56 Dose: 125 mls/hr Documented By: Infusion: 07/06/24 00:56 Dose: Infused Documented By: Admin: 07/05/24 17:01 Dose: 125 mls/hr Documented By: Infusion: 07/05/24 17:01 Dose: Infused Documented By: Admin: 07/05/24 09:13 Dose: 125 mls/hr Documented By: KAYLYNN Dexamethasone 6 mg/ Syringe 1.5 mls @ 1 mls/min IV Q24H JAMIA Stop: 07/15/24 11:59 Last Admin: 07/06/24 11:29 Dose: 1 mls/min Documented By: Admin: 07/05/24 12:42 Dose: 1 mls/min Documented By: KAYLYNN Discontinued Medications Sodium Chloride (Nss) 500 mls @ 999 mls/hr IV .Q31M ONE Stop: 07/05/24 00:21 Last Infusion: 07/05/24 02:10 Dose: Infused Documented By: Admin: 07/05/24 00:10 Dose: 999 mls/hr Documented By: TENZIN Sodium Chloride (Nss) 500 mls @ 125 mls/hr IV .Q4H JAMIA Stop: 08/03/24 23:44 Last Admin: 07/05/24 09:18 Dose: Not Given Documented By: Infusion: 07/05/24 09:17 Dose: Infused Documented By: Admin: 07/05/24 05:37 Dose: 125 mls/hr Documented By: Infusion: 07/05/24 04:10 Dose: Infused Documented By: Admin: 07/05/24 00:10 Dose: 125 mls/hr Documented By: TENZIN Discharge Plan Visit Data Chief Complaint: Shortness of Breath/Dyspnea Stated Complaint: SOB,[facility] ED Provider: Mena Osborn Discharge Problem: Dysphagia, Respiratory distress, COVID Patient Disposition: Admitted As Inpatient Discharge Instructions Interventions: ED Discharge Assessment Last Done: 07/05/24 02:13
[2024-07-05] MEDS: SODIUM CHLORIDE 0.9% 500 ML IV ONE (00:10)
[2024-07-05] MEDS: SODIUM CHLORIDE 0.9% 500 ML IV SCH (00:10)
--- NOTE | 2024-07-05 00:15 | History & Physical Report ---
Date of Service July 05, 2024 Assessment & Plan (1) COVID: Plan: Pt is a 78 yo male with PMH of zenker's diverticulum, parkinson's disease, hx of asthma in childhood (no inhaler tx), essential tremor, and bladder cancer (2020) presenting d/t increased choking/inability to keep fluids down in the setting of COVID. COVID - positive per pt and pt's on home test; ordered COVID test for confirmation - lab work significant for no leukocytosis; VSS- satting well on room air - CXR w/o consolidations or opacities - d/t clinical stability, will defer steroids/anti-virals upon admission - continue to monitor O2 sats; if lung exam worsens, consider addition of duoneb as pt does have a remote hx of asthma Concern for aspiration/Zenker's diverticulum/Parkinson's - pt with long standing hx of parkinson's; however, no hx of dysphagia - do not suspect trouble swallowing related to COVID, but could possibly represent progression of parkinson's - despite trouble swallowing, would recommend attempting carbidopa/levodopa if pt able - continue IVF - speech therapy consulted for evaluation Hx of GERD - IV PPI HLD - hold home atorvastatin 40 mg until speech eval Diet: NPO until evaluation by speech Code: full DVT ppx: lovenox Dispo: med/surg (2) Hyperlipidemia: (3) Swallowing impairment: (4) Parkinson disease: History of Present Illness Chief Complaint: COVID+, choking, dehydration Primary Care Provider: Yehuda Coles MD Pt is a 78 yo male with PMH of zenker's diverticulum, parkinson's disease, hx of asthma in childhood (no inhaler tx), essential tremor, and bladder cancer (2020) presenting d/t increased choking/inability to keep fluids down in the setting of COVID. Pt evaluated at bedside with his . Pt's sick earlier this week with COVID. Pt developed symptoms on Sunday, but did not test at home until when he tested positive. Main symptoms of congestion and fevers. Pt's notes that he had continual issues throughout the day Sunday with sw allowing- he describes it as food/liquid going down the wrong pipe. He was able to take his night time carbidopa-levodopa but had issues trying to take ibuprofen/tylenol. Pt has had some exertional SOB but otherwise no issues breathing. Pt's noted a home pulse ox was in the low 90s to high 80s. In the ER, pt was given 1L NS and started on NS at 125 mL/hr. Allergies Allergy/AdvReac Type Severity Reaction Status Date / Time No Known Drug Allergies Allergy Unknown Verified 09/13/23 09:42 Home Medications Medication Instructions Recorded Confirmed Type atorvastatin 40 mg tablet 40 mg PO HS 07/21/20 12/27/23 History omeprazole 20 mg capsule,delayed 20 mg PO QAM 07/21/20 12/27/23 History release aspirin 81 mg tablet,delayed 81 mg PO 3XWK 12/20/21 12/27/23 History release cholecalciferol (vitamin D3) 25 25 mcg PO DAILY 12/20/21 12/27/23 History mcg (1,000 unit) tablet (Vitamin D3) cyanocobalamin (vitamin B-12) 1,000 mcg PO DAILY 12/20/21 12/27/23 History 1,000 mcg tablet solifenacin 10 mg tablet (Vesicare) 10 mg PO DAILY #90 tabs 10/22/23 12/27/23 Rx carbidopa ER 50 mg-levodopa 200 mg 1 tab PO TID 90 days #270 tabs 01/14/24 Rx tablet,extended release ropinirole 2 mg tablet,extended 2 mg PO DAILY #90 tabs 03/07/24 Rx release 24 hr nitrofurantoin 100 mg PO BID #30 caps 03/17/24 Rx monohydrate/macrocrystals 100 mg capsule Past Med/Surg History Problem List (Updated 07/05/24 @ 00:20 by Nadine Salcido DO) COVID Fatigue Gait disturbance Drooling GERD (gastroesophageal reflux disease) Swallowing impairment Parkinsonism Tremor Gross hematuria Bladder mass Primary bladder malignant neoplasm Encounter for pre-operative examination Hammer toes of both feet Hyperlipidemia Medical History Benign essential tremor Bladder cancer BPH (benign prostatic hyperplasia) History of asthma Hyperlipidemia Parkinson disease Twitching Zenkers diverticulum Surgical History History of bladder surgery History of colonoscopy History of esophagogastroduodenoscopy (EGD) History of hernia surgery History of tooth extraction Family History Family/Other Lung cancer Other No family history of adverse response to anesthesia Social History Smoking Status: Never smoker Second Hand Exposure: Yes ( A CHILD); Do You Dip or Chew Tobacco: No; Hx Alcohol Use: Yes Alcohol type: beer and wine Hx Substance Use: No Preferred Language: Trinidadian Communication Ability: Effective Capacitor Tester Required: No Beliefs That Will Affect Care: Religion Religion Beliefs: JEWISH marital status: Current Living Situation: Spouse Current Living Situation Comment: AND SON current occupational status: employed 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 Eyes: Conjunctivae normal. Respiratory: Non labored breathing. Rhonchus breathing heard throughout- but suspect upper airway sounds secondary to congestion. No wheezing. Cardiovascular: RRR. No murmurs noted. No LE edema. Gastrointestinal (Abdomen): Nontender, +BS. No masses noted. Skin: No rashes or skin lesions noted. Neurologic: Sensation grossly intact. Psychiatric: Speech of normal pace and content. Mood and affect congruent. Results & Data Results & Data Vital Signs (Past 12 Hours) Vital Signs Temp Pulse Resp BP Pulse Ox O2 Del Method O2 Flow Rate 07/04/24 22:30 68 21 124/66 95 07/04/24 22:18 68 15 96 07/04/24 22:17 70 22 96 Room Air 07/04/24 22:16 96 Room Air 0 07/04/24 21:33 36.7 C 68 18 116/71 98 Room Air Supervising Physician Co-Signing Physician Notes Attending addendum: I have physically seen this patient, have supervised the medical residents activities, and agree with the H&P unless as otherwise noted. Assessment and Plan: COVID infection- Positive home test Chest x-ray without acute findings No active treatment needed at this time Monitor oxygenation, if pulse ox worsens, or clinical examination changes, will be treated at that time Presently 96% pulse ox on room air and afebrile Parkinson's- Patient with noted findings now of drooling and difficulty swallowing Continue carbidopa levodopa, otherwise n.p.o. IV fluids as noted Consult speech therapy, suspect difficulty swallowing may be progression of Parkinson's Gastroesophageal reflux disease/Zenker's diverticulum- Pantoprazole 40 mg IV daily Resident Activity Tracking Resident Involvement: Resident Care Provided Care Provided: Adult Hospital Medicine
[2024-07-05] MEDS ORDERED: ONDANSETRON INJ 2 MG/ML 2 ML VIAL IV PRN (00:47)
[2024-07-05] MEDS ORDERED: MELATONIN 3 MG TAB PO PRN (00:47)
[2024-07-05] MEDS ORDERED: ACETAMINOPHEN 325 MG TAB PO PRN (00:47)
--- OUTSIDE RECORDS SUMMARY | 2024-07-05 02:24 | External Medical Summary | Continuity of Care Document ---
Author Name Unknown Organization 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 [address] [facility] [address] [facility] [address] [place], [place] [phone] Encounter Diagnosis Pure hypercholesterolemia, unspecified(Final) - Encounter for screening for diabetes mellitus(Final) - Discharge Disposition: Home or Self Care Attending Physician: MD Coles Christopher Referring Physician: MD Coles Christopher Allergies, Adverse Reactions, Alerts No Known Allergies Immunizations Given and Recorded Vaccine Date Status Refusal Reason influenza virus vaccine, inactivated 07/15/23 Noam rded influenza virus vaccine, inactivated 06/15/22 Noam rded influenza virus vaccine, inactivated 1 09/07/21 Re corded influenza virus vaccine, inactivated 07/07/20 Noam rded influenza virus vaccine, inactivated 2 06/21/18 Gi suzi influenza virus vaccine, inactivated 06/21/18 Give n influenza virus vaccine, inactivated 08/29/17 Give n influenza virus vaccine, inactivated 09/27/16 Give n influenza virus vaccine, inactivated 09/27/15 Give n SARS-CoV-2 (COVID-19) mRNA BNT-162b2 vax 08/16/21 Recorded SARS-CoV-2 (COVID-19) mRNA BNT-162b2 vax 12/13/20 Recorded SARS-CoV-2 (COVID-19) mRNA BNT-162b2 vax 11/15/20 Recorded SARS-CoV-2 (COVID-19) ChAdOx1 vaccine 12/11/20 Rec orded SARS-CoV-2 (COVID-19) ChAdOx1 vaccine 11/20/20 Rec orded zoster vaccine, inactivated 07/17/19 Given zoster vaccine, inactivated 05/13/19 Given tetanus toxoids-diphtheria, Td (Adult) 3 03/13/18 Given tetanus toxoids-diphtheria, Td (Adult) 08/31/92 Re corded pneumococcal 13-valent vaccine 09/27/15 Given pneumococcal 23-valent vaccine 04/22/13 Given zoster vaccine live 09/02/08 Recorded tetanus/diphtheria/pertuss, acel (Tdap) 08/26/07 R ecorded hepatitis A adult vaccine 08/19/98 Recorded hepatitis A adult vaccine 11/28/96 Recorded 1Result Comment: [facility] 2Early/Late Reason: Other : Was on a pre clinic oos 3Early/Late Reason: Other : busy rooming pts Medications aspirin 81 mg oral delayed release tablet Start: 02/14/17 9:19:00 AM EDT, See Instructions, Disp# 100 tab, Refills: 10, 1 tab PO q48hr, given to patient Start Date: 02/14/17 Status: Ordered atorvastatin 40 mg oral tablet Start: 09/15/23 5:40:00 PM EST, 1 tab, PO, qhs, Disp# 90 tab, Refills: 4, Pharmacy: [id number] Start Date: 09/15/23 Status: Ordered carbidopa-levodopa 50 mg-200 mg oral tablet, extended release Start: 05/29/22 8:08:00 AM EDT, 1 tab, PO, q8h, Disp# 270 tab, Refills: 3, other Start Date: 05/29/22 Stop Date: 05/24/23 Status: Ordered glycopyrrolate 1 mg oral tablet TAKE 1 TABLET BY MOUTH TWICE DAILY NEEDED FOR SECRETIONS FOR 30 DAYS Start Date: 05/31/23 Status: Ordered omeprazole 20 mg oral delayed release capsule Start: 09/15/23 5:40:00 PM EST, 1 cap, PO, Daily, Disp# 90 cap, Refills: 4, Pharmacy: [id number] Start Date: 09/15/23 Status: Ordered rOPINIRole Start: 06/02/24 3:44:00 PM EDT Start Date: 06/02/24 Status: Ordered solifenacin Start: 06/02/24 3:45:00 PM EDT Start Date: 06/02/24 Status: Ordered Vitamin B12 1000 mcg oral tablet Start: 12/27/16 6:23:00 PM EDT, 1 tab, PO, Daily, Disp# 100 tab, Refills: 10, given to patient Start Date: 12/27/16 Status: Ordered Vitamin D3 1000 intl units oral capsule Start: 11/06/16 9:45:00 AM EST, 1 cap, PO, Daily Start Date: 11/06/16 Status: Ordered Problem List Condition Confirmation Course Effective Dates Status Health Status Informant Bilateral cataracts Confirmed Active Bradycardia Confirmed Active Vitamin B12 deficiency Confirmed Active Diverticulosis Confirmed Active Esophageal dysmotility Confirmed Active Silent aspiration Confirmed Active History of bladder cancer Confirmed Active History of bladder repair surgery Confirmed Active Hallux valgus, bilateral Confirmed Active Hammertoe, bilateral Confirmed Active Parkinson's disease Confirmed Active Impaired fasting glucose Confirmed Active IMPOTENCE OF ORGANIC ORIGIN 1 Confirmed Active LIPOPROTEIN DEFICIENCIES Confirmed Active Metatarsalgia, left foot Confirmed Active Onychomycosis of toenail Confirmed 06/02/13 Active Medicare annual wellness visit, subsequent Confirmed Active PURE HYPERCHOLESTEROLEMIA Confirmed Active Zenkers diverticulum Confirmed Active 1occasional Procedures Procedure Date Related Diagnosis Body Site Status Cystoscopy 10/15/23 Completed CYSTOSCOPY AND TREATMENT 1 01/18/[address] of abdomen and pelvis wit h and without IV contrast 2 12/31/20 Completed Barium swallow 3 06/03/18 Complete d Barium swallow 4 04/04/18 Complete d Colonoscopy 5 04/01/18 Completed MRI of brain 6 01/03/17 Completed DEXA - Dual energy X-ray deanna ton absorptiometry 7 10/26/16 Completed DEXA - Dual energy X-ray deanna ton absorptiometry 8 09/16/08 Completed right inguinal hernia repair 1979 Completed 1See scanned operative report 2Impression: 1. A. 3.6 x 1.2 cm lobular mass along the right bladder wall. This is consistent with a urothelial malignancy. Follow-up cystoscopy recommended for further evaluation. 2. No suspicious filling defects seen within the opacified bilateral renal collecting systems or ureters. 3. No renal stones or hydronephrosis. 4. Cholelithiasis 5. Additional findings as described above. 31. Small amount of silent aspiration when swallowing thin liguieds. 2. Plese see the speech pathologist report for detailed findings and recommendations 41) Small mount of silent tracheal spiration. Therefore, study not fully completed. 2) No Zenker's diverticulum identified although snensitivity diminshed on this incomplete exam. 3) No obvious esophageal mass or stricture. 5Diverticulosis in the sigmoid colon no specimens collected 6No actue intracranial abnormality. 7Spine T-score: -0.2 Femur T-score: 0.4 8Spine T-score: 0.4 Femur T-score: 0.6 Results Laboratory List Name Date Comprehensive Metabolic Panel (COMP META B PANEL) 06/19/24 Lipid Profile (LIPOPROTEINS) 06/19/24 Most recent to oldest [Reference Range]: 1 eGFR CKD-EPI [>60 mL/min/1.73 m2] 55 mL/ min/1.73 m2 1 *LOW* (06/19/24 7:16 AM) Non-HDL 72 mg/dL 2 (06/19/24 7:16 AM) Estimated CrCl 45.51 mL/min (06/19/24 7:59 AM) Anion Gap [5-14 mmol/L] 5 mmol/L (06/19/24 7:16 AM) Alb [3.5-5.0 g/dL] 4.1 g/dL (06/19/24 7:16 AM) Alk Phos [38-126 unit/L] 80 unit/L (06/19/24 7:16 AM) ALT [<50 unit/L] 8 unit/L (06/19/24 7:16 AM) AST [15-46 unit/L] 34 unit/L (06/19/24 7:16 AM) BUN [7-20 mg/dL] 23 mg/dL *HI* (06/19/24 7:16 AM) Ca [8.4-10.2 mg/dL] 9.3 mg/dL (06/19/24 7:16 AM) Chol/HDL 2 (06/19/24 7:16 AM) Chol [125-200 mg/dL] 125 mg/dL (06/19/24 7:16 AM) Cl- [96-107 mmol/L] 104 mmol/L (06/19/24 7:16 AM) HCO3 [22-30 mmol/L] 32 mmol/L *HI* (06/19/24 7:16 AM) Cret [0.70-1.30 mg/dL] 1.34 mg/dL *HI* (06/19/24 7:16 AM) Glu [74-106 mg/dL] 103 mg/dL (06/19/24 7:16 AM) HDL [>35 mg/dL] 53 mg/dL (06/19/24 7:16 AM) K [3.5-5.1 mmol/L] 4.4 mmol/L (06/19/24 7:16 AM) LDL Chol, Calculated [50-130 mg/dL] 57 m g/dL (06/19/24 7:16 AM) Na [137-145 mmol/L] 141 mmol/L (06/19/24 7:16 AM) T Bili [0.2-1.3 mg/dL] 2.3 mg/dL *HI* (06/19/24 7:16 AM) Prot [6.3-8.2 g/dL] 7.6 g/dL (06/19/24 7:16 AM) TG [<200 mg/dL] 74 mg/dL (06/19/24 7:16 AM) 1Result Comment: Testing Performed By: [facility] [place], [address] [place] [id number] 2Result Comment: Testing Performed By: Dept of Pathology [facility], [address] [place] [id number] Social History Social History Type Response Smoking Status Never smoked cigaret guillermo Sex Male Sex Representation Male (finding) Patient Care team information Care Team Personnel Name: MD Ballard Jonathan D Position: Physician - Family Med Member Role: Primary Care Provider Address: [facility] [address] [address] [place] Care Team Related Persons Name: HAYLEY NOONAN Name: HAYLEY NOONAN
--- OUTSIDE RECORDS SUMMARY | 2024-07-05 02:25 | External Medical Summary | Continuity of Care Document ---
Author Name Unknown Organization [facility] [id number] [address] [place] [address] [phone] Care Team Providers Care Oral Surgery Physician Name Role Phone Jeramy Ballard Primary Care Physician [phone] Encounter [facility] [id number] Date(s): 06/02/24 - 06/02/24 [facility] [address] [address] [place] [phone] Encounter Diagnosis Body mass index [BMI] 22.0-22.9, adult(Discharge Diagnosis) - 06/02/24 Parkinson's disease(Discharge Diagnosis) - 06/02/24 PURE HYPERCHOLESTEROLEMIA(Discharge Diagnosis) - 06/02/24 Silent aspiration(Discharge Diagnosis) - 06/02/24 Screening for diabetes mellitus(Discharge Diagnosis) - 06/02/24 Discharge Disposition: Home or Self Care Attending Physician: MD Coles Christopher Allergies, Adverse Reactions, [...] A adult vaccine 11/28/96 Recorded 1Result Comment: [facility] 2Early/Late Reason: Other : Was on a [...] qhs, Disp# 90 tab, Refills: 4, Pharmacy: [id number] Start Date: 09/15/23 Status: Ordered carbidopa-levodopa 50 [...] Daily, Disp# 90 cap, Refills: 4, Pharmacy: [id number] Start Date: 09/15/23 Status: Ordered rOPINIRole Start: [...] PO, Daily Start Date: 11/06/16 Status: Ordered Mental Status 06/02/24 Barriers to Learning one year None evide nt Communication Barrier Present No Health Literacy Communication Barriers N ever Primary Language Turkish Problem List Condition Confirmation Course Effective Dates [...] Confirmed Active Zenkers diverticulum Confirmed Active 1occasional Diagnosis Diagnosis Type Effective Dates Health Status Clinical Service Informant Parkinson's disease Discharge Diagnosis 06/02/24 Non-Specifie d PURE HYPERCHOLESTEROLEMIA Discharge Diagnosis 06/02/24 Non-Specifie d Body mass index [BMI] 22.0-22.9, adult Discharge Diagnosis 06/02/24 Non-Specifie d Silent aspiration Discharge Diagnosis 06/02/24 Non-Specifie d Screening for diabetes mellitus Discharge Diagnosis 06/02/24 Non-Specifie d Procedures Procedure Date Related Diagnosis Body Site [...] 0.4 8Spine T-score: 0.4 Femur T-score: 0.6 Vital Signs Most recent to oldest [Reference Range]: 1 Height 176.1 cm (06/02/24 3:45 PM) Patient Weight 68.6 kg (06/02/24 3:45 PM) Body Mass Index 22.12 kg/m2 (06/02/24 3:45 PM) Heart Rate 56 bpm (06/02/24 3:45 PM) Respiratory Rate 18 br/min (06/02/24 3:45 PM) Blood Pressure 118/64mmHg (06/02/24 3:45 PM) BP Location # 1 Left Arm (06/02/24 3:45 PM) Social History Social History Type Response Smoking Status Never smoked cigaret guillermo Sex Male Sex Representation Male (finding) Medicare Annual Wellness Visit Note * MD Coles Christopher: PERFORM Event Display: Medicare Annual Wellness Visit Note Authored Date: [id number] Name:DANIEL NOONAN Patient Number: [id number] : 1945 Date of Service: 06/02/2024 Medicare Annual Wellness Visit Subsequent MAWV: Any MAWV performed after the Initial xAdditional diagnosis with separately identified service provided per additional note. Vitals & Measurements HR:56(Monitored) RR:18 BP:118/64 SpO2:97% HT:176.1cm WT:68.600kg(Dosing) WT:68.6kg BMI:22.12 I reviewed the patient's BMI and it is within normal range Pain Assessment Pain Score: 0 Pain Severity: No Pain Acceptable pain score: 0 Opioid use Assessment: Opioid use and pain severity reviewed in medication reconciliation and vital signs. Chart review and inquiry of patient finds NO USE of opioids. PHQ2 Data(Data Documented on:06/02/2024 15:45) Emotional health assessment NEGATIVE Patient Self/Mood Assessment: _ Based on shared decision-making, no further intervention will be pursued at this time. _ This is a chronic problem and is addressed in continuity. _ Recommendations for resources, monitoring, support, safety, and surveillance were reviewed. _ This warrants further evaluation at a follow-up or concurrent visit. Assessment/Plan Hearing Screening Do you have any hearing problems, or have others told you that you might?None Comments Struggle to hear/understand conversation? No Have any known hearing problems? No Hearing Assessment PROVIDER DIRECT OBSERVATION-MUST COMPLETE xNo hearing problems were directly observed with this patient today. _Hearing problems were observed with this patient today and the plan is: _. PLAN-MUST COMPLETE FOR POSITIVE FINDING FROM PATIENT OR DIRECT OBSERVATION _Based on shared decision-making, no further intervention will be pursued at this time. _This is a chronic problem and is addressed in continuity. _Recommendations for resources, monitoring, support, safety, and surveillance were reviewed. _This warrants further evaluation at a follow-up or concurrent visit. Orientation Memory Concentration Test (OMCT) Orientation Score Indication:None or no significant cognitive impairment (0-4) Cognitive Screening (IF OMCT 0-4, no further assessment required) _Based on shared decision-making, no further intervention will be pursued at this time. _This is a chronic problem and is addressed in continuity. _Recommendations for resources, monitoring, support, safety, and surveillance were reviewed. _This warrants further evaluation at a follow-up or concurrent visit. Activities of Daily Living Assistance Assessment Comments Do you need help using the phone? No Do you need help managing your finances? No Do you need help shopping? (clothes, groceries, etc.) No Do you find you need help that is not available to you? No Do you need help preparing meals? Sometimes Spouse cooks to help him care for himself more than any limitations Do you need help keeping track of and taking your medications? No Do you need help getting to bed or to the toilet? No Do you need help to eat, bathe, or dress? No Do you need help walking? No Do you need help with transportation? No Do you ever go without a seatbelt in the car? No Do you need help with doing housework (cleaning, laundry)? No ADL/IADL Assessment PROVIDER DIRECT OBSERVATION-MUST COMPLETE xThe patient did not require help in the office today (e.g. with iADL/ADLs). _Patient required assistance in the office today (e.g. with iADL/ADLs) and the plan is: _. PLAN-MUST COMPLETE FOR POSITIVE FINDING FROM PATIENT OR DIRECT OBSERVATION _Based on shared decision-making, no further intervention will be pursued at this time. xThis is a chronic problem and is addressed in continuity. _Recommendations for resources, monitoring, support, safety, and surveillance were reviewed. _This warrants further evaluation at a follow-up or concurrent visit. Falls Assessment Are you permanently unable to walk? No Have you fallen more than once in the past year? No Have you fallen and hurt yourself in the past year? Yes - Tripped on kids toys, flower thing on the front porch ('caught his foot') Is it hard for you to climb stairs or walk short distances? No Do potential fall hazards exist in your home? (e.g. loose rugs, poor lighting, new/unfamiliar surroundings, uneven floors, household clutter) Household clutter Do these safety features exist in your home? (e.g. bathroom grab bars, stair handrails) Bathroom grab bars, Stair handrails Falls Assessment PROVIDER DIRECT OBSERVATION-MUST COMPLETE xThere was no difficulty with the patients ambulation observed today. _The patient was observed to have difficulty with ambulation today. The plan is: _. PLAN-MUST COMPLETE FOR POSITIVE FINDING FROM PATIENT OR DIRECT OBSERVATION _Based on shared decision-making, no further intervention will be pursued at this time. xThis is a chronic problem and is addressed in continuity. _Recommendations for resources, monitoring, support, safety, and surveillance were reviewed. _This warrants further evaluation at a follow-up or concurrent visit. Incontinence Plan Comments Do you have difficulty getting to the bathroom on time? No Do you leak urine when you do not want to, such as when coughing, sneezing, laughing? No Do you leak urine while sleeping? Sometimes following w/ urology Incontinence Assessment _Based on shared decision-making, no further intervention will be pursued at this time. xThis is a chronic problem and is addressed in continuity. _Recommendations for resources, monitoring, support, safety, and surveillance were reviewed. _This warrants further evaluation at a follow-up or concurrent visit. Patient Health Self Assessment (Indicate in Comments for each red/positive response an assessment and plan for the patient) COUNSELING/PLAN/REFERRAL Have you seen a dental or orthodontic provider in the last year? Yes Do you always wear a seat belt in moving vehicles? Yes Do you exercise at least 150 minutes a week? Yes Do you consider your diet unhealthy? No Do you use tobacco? No Have you had 5 or more servings of alcohol in one day within the past year? No Do you use illegal street or prescription drugs? No Do you have a new sexual partner this year? No Are you having difficulty completing or enjoying sex? No Would you consider your overall health to be poor? No Do you feel disappointed with your life as it is? No Do you feel you have poor sleep? No Do you often feel lonely? No Do you struggle with your temper? No Does pain impact your life? Yes Patient renegs this statement - no it does not. Do you often feel tired during the day? No Advance Directive End of Life Discussion Living Will: Living Will (05/08/18) Power Of Car Top Bolter: Power Of Car Top Bolter (05/08/18) If no qualifying data available, choose a discussion and planning intervention below. Advance directive saved to Electronic Health Record as of date above. Advance Care Planning (ACP) Discussion Did not occur at this visit. Language Barrier/Educational Preference Barriers to Learning one year: None evident Communication Barrier Present: No Educational Needs Assessed one year: Yes Health Literacy Communication Barriers: Never Learning Preferences one year: Verbal Explanation Primary Language: Turkish Medications The patients preferred pharmacy has been reviewed and confirmed. Home aspirin(aspirin 81 mg oral delayed release tablet), See Instructions, 10 refills atorvastatin(atorvastatin 40 mg oral tablet), 1 tab, PO, qhs carbidopa-levodopa(carbidopa-levodopa 50 mg-200 mg oral tablet, extended release), 1 tab, PO, q8h, 3 refills cholecalciferol(Vitamin D3 1000 intl units oral capsule), 1000 Int_Unit= 1 cap, PO, Daily cyanocobalamin(Vitamin B12 1000 mcg oral tablet), 1000 mcg= 1 tab, PO, Daily, 10 refills glycopyrrolate(glycopyrrolate 1 mg oral tablet) omeprazole(omeprazole 20 mg oral delayed release capsule), 1 cap, PO, Daily rOPINIRole solifenacin Problem List/Past Medical History Ongoing Bilateral cataracts Bradycardia Diverticulosis Esophageal dysmotility Hallux valgus, bilateral Hammertoe, bilateral History of bladder cancer History of bladder repair surgery Impaired fasting glucose IMPOTENCE OF ORGANIC ORIGIN LIPOPROTEIN DEFICIENCIES Medicare annual wellness visit, subsequent Metatarsalgia, left foot Onychomycosis of toenail PAIN IN JOINT INVOLVING SHOULDER REGION Parkinson's disease PURE HYPERCHOLESTEROLEMIA Silent aspiration Vitamin B12 deficiency Zenkers diverticulum Resolved GENERAL MEDICAL EXAMINATION Procedure/Surgical History Cystoscopy| Service Date: 10/15/2023YSTOSCOPY AND TREATMENT| Service Date: 01/18/2021T of abdomen and pelvis with and without IV contrast| Service Date: 12/31/2020arium swallow| Service Date: 06/03/2018Barium swallow| Service Date: 04/04/2018Colonoscopy| Service Date: 04/01/2018MRI of brain| Service Date: 01/03/2017DEXA - Dual energy X-ray photon absorptiometry| ServiceDate: 10/26/2016DEXA - Dual energy X-ray photon absorptiometry| Service Date: 09/16/2008rightinguinal hernia repair| Service Date: 1978 Procedure History Last Reviewed by:MD Sanket [place] on 06/02/2024 16:42 Family History Breast cancer: Maternal Aunt. Cigarette smoker: Father. Impaired fasting glucose: Father. Lung cancer..: Maternal Aunt. Psoriatic arthritis: Son. Rheumatic heart disease: Mother. Health Status Family Member(s) Brother: History is negative Brother: History is negative Son: History is negative Son: History is negative Son: History is negative Family Member(s) Relationship: Mother, Age: 65 Years, Cause: acute renal failure after surgery for a. fib. Relationship: Father, Age: 79 Years, Cause: emphysema, Family History Last Reviewed by:MD Coles Christopher on 06/02/2024 16:42 Allergies [facility] Care Team Neurologist Dr. Acosta Urology Dr. Elle Moreno Other team members (e.g. Logging Equipment Operator, Big Data Analytics Lead) Logging Equipment Operator - Dr. Ordonez Recommendations Health Maintenance Pending(in the next year) OverDue Medicare Annual Wellness Visit due05/29/23and every 1year Adult Influenza Vaccine due04/13/24and every 1year Due Adult COVID-19 Vaccination due06/02/24Unknown Frequency Adult Social Determinants of Health Screening due06/02/24Unknown Frequency Falls Plan of Care due06/02/24Unknown Frequency Hepatitis C Screening due06/02/24One-time only Satisfied(in the past 1 year) Satisfied Adult Influenza Vaccine on07/15/23.Satisfied by MD Coles Christopher Body Mass Index on06/02/24.Satisfied by MARIANA Cordova Kyla Lipid Screening on06/07/23.Satisfied by [employer]system, [facility] [place] [id number] Health Maintenance Schedule Colorectal Cancer Screening: Completed _ Diabetes screening: Ordered _ Cholesterol screening: Ordered _ HIV Screening: Completed _ Hepatitis C Screening: Completed _ Lung Cancer Screening: N/A _ AAA Screening: N/A _ Mammography: N/A _ Osteoporosis: N/A _ Prostate Cancer Screening: followingwith urology Welcome to Medicare ECG Screening: Completed _ Electronic Signature on File Electronically Reviewed/Signed by: Yehuda Coles MD Author Signature Dt/Tm:06/02/2024 04:51 PM Department of Family [facility] Patient Care team information Care Team Personnel Name: MD Ballard Jonathan D Position: Physician - Family Med Member Role: Primary Care Provider Address: [address] [place] [address] [place] Care Team Related Persons Name: HAYLEY NOONAN Name: HAYLEY NOONAN"
--- NOTE | 2024-07-05 06:13 | Billing Data ---
Date of Service July 05, 2024 Coding Level of Care Code 79759 INT INP/OBS CARE
--- NOTE | 2024-07-05 07:44 | XRay Report ---
XR chest 1V not portable HISTORY: 78 years-old Male Chest pain, nonspecific COMPARISON: 12/26/2021 TECHNIQUE: AP view of the chest FINDINGS: Cardiomediastinal and hilar silhouettes are unchanged. The patient is mildly rotated toward the left. No pneumothorax, pleural effusion or airspace consolidation. The bones appear intact. IMPRESSION: No acute process. ACT 112: Negative or not required by law. The above report was generated using voice recognition software. It may contain grammatical, syntax o r spelling errors. Electronically signed by: Valdemar Briones M.D. 07/05/2024 7:43 AM
[2024-07-05] MEDS ORDERED: Nursing to Pharmacy Communication SCH (09:00)
[2024-07-05] MEDS: SODIUM CHLORIDE 0.9% 1,000 ML IV SCH (09:13)
[2024-07-05] MEDS: ACETAMINOPHEN 1,000 MG/100 ML VIAL IV PRN (09:14)
[2024-07-05] MEDS: ENOXAPARIN INJ 40 MG/0.4 ML SYR SQ SCH (09:14)
[2024-07-05] MEDS: CARBIDOPA/LEVODOPA 50/200MG EXT REL TAB PO SCH (09:14)
--- NOTE | 2024-07-05 11:14 | Communication Note ---
Date of Service: July 05, 2024 (1) COVID: Plan: Pt is a 78 yo male with PMH of zenker's diverticulum, parkinson's disease, hx of asthma in childhood (no inhaler tx), essential tremor, and bladder cancer (2020) presenting d/t increased choking/inability to keep fluids down in the setting of COVID. COVID - positive per pt and pt's on home test; ordered COVID test for confirmation - lab work significant for no leukocytosis; VSS- satting well on room air - CXR w/o consolidations or opacities - added dexamethasone 6mg IV 07/05 - continue to monitor O2 sats; if lung exam worsens, consider addition of duoneb as pt does have a remote hx of asthma -CRP 07/05: 16.89 -CBC/BMP stable Concern for aspiration/Zenker's diverticulum/Parkinson's - pt with long standing hx of parkinson's; however, no hx of dysphagia - do not suspect trouble swallowing related to COVID, but could possibly represent progression of parkinson's - despite trouble swallowing, would still recommend attempting patients parkinson's medications. - continue IVF - speech therapy consulted for evaluation - recommended patient be made NPO. Video swallow to be performed 07/07 Hx of GERD - IV PPI HLD -statin on hold due to NPO status Diet: NPO until 07/07 pending video swallow Code: full DVT ppx: lovenox Dispo: med/surg
--- NOTE | 2024-07-05 11:30 | Electrocardiogram Report ---
Test Reason : Blood Pressure : */* mmHG Vent. Rate : 71 BPM Atrial Rate : 71 BPM P-R Int : 160 ms QRS Dur : 74 ms QT Int : 422 ms P-R-T Axes : 80 77 84 degrees QTcB Int : 458 ms Normal sinus rhythm Normal ECG When compared with ECG of 26-Dec-2021 14:34, QT has lengthened Confirmed by Yakov Potts ([id number]) on 07/05/2024 11:30:22 AM Referred By: Confirmed By: Yakov Potts
[2024-07-05 11:39] LABS: Hematocrit (blood only) 36.9 % (42.0-52.0); Hemoglobin 12.4 g/dl (14.0-18.0); Mean Corpuscular Hemoglobin 30.4 pg (25.0-34.0); Mean Corpuscular Hgb Conc 33.6 g/dL (32.0-36.0); Mean Corpuscular Volume 90.4 fL (80.0-100.0); Mean Platelet Volume 10.9 fL (9.4-12.4); Platelet Count 101 K/uL (130-400); RDW Coefficient of Variation 13.4 % (11.5-14.5); RDW Standard Deviation 44.7 fL (36.4-46.3); Red Blood Count 4.08 M/uL (4.70-6.10); White Blood Count 7.63 K/ul (4.8-10.8)
[2024-07-05 11:55] LABS: BUN Creatinine Ratio 16.2 (10-20); C Reactive Protein 16.89 mg/dl (0-0.5); Creatinine Clr Calc Pharmacy 46.6 ml/min; Est GFR (African American) 74.4 ml/min; Est GFR (Non-African American) 64.2 ml/min; Potassium 3.6 mmol/L (3.5-5.1)
[2024-07-05] MEDS: PANTOprazole 40 MG in SYRINGE 0 ML IV SCH (12:42)
[2024-07-05] MEDS: dexAMETHasone 6 MG in SYRINGE 0 ML IV SCH (12:42)
[2024-07-05 15:03] LABS: Appearance Urine Clear (Clear); Bacteria Urine Automated None Seen (None Seen); Bilirubin Urine Negative (Negative); Blood Urine 3+ (Negative); Cast Urine Automated 0-2 /lpf (0-2); Color Urine Yellow; Epithelial Cell Urine Auto 0-2 /hpf (0-2); Glucose Urine UA Negative (Negative); Ketones Urine 1+ (Negative); Leukocyte Esterase Urine Negative (Negative); Nitrite Urine Negative (Negative); Protein Urine 1+ (Negative); RBC Urine Automated >20 /hpf (0-2); Specific Gravity Urine 1.014 (1.000-1.030); Urobilinogen Urine Negative (Negative); WBC Urine Automated 0-5 /hpf (0-5); pH Urine 5.5 (4.5-7.5)
[2024-07-06 05:57] LABS: Hematocrit (blood only) 40.4 % (42.0-52.0); Hemoglobin 13.6 g/dl (14.0-18.0); Mean Corpuscular Hemoglobin 30.5 pg (25.0-34.0); Mean Corpuscular Hgb Conc 33.7 g/dL (32.0-36.0); Mean Corpuscular Volume 90.6 fL (80.0-100.0); Mean Platelet Volume 11.3 fL (9.4-12.4); Platelet Count 107 K/uL (130-400); RDW Coefficient of Variation 13.6 % (11.5-14.5); RDW Standard Deviation 45.6 fL (36.4-46.3); Red Blood Count 4.46 M/uL (4.70-6.10); White Blood Count 8.51 K/ul (4.8-10.8)
[2024-07-06 05:59] LABS: BUN Creatinine Ratio 22.2 (10-20); C Reactive Protein 22.04 mg/dl (0-0.5); Calcium 8.4 mg/dl (8.6-10.3); Creatinine Clr Calc Pharmacy 63.6 ml/min; Est GFR (African American) 95.8 ml/min; Est GFR (Non-African American) 82.7 ml/min; Potassium 4.1 mmol/L (3.5-5.1)
--- NOTE | 2024-07-06 13:31 | Hospitalist Progress Note ---
Date of Service July 06, 2024 Assessment & Plan (1) COVID: Plan: Pt is a 78 yo male with PMH of zenker's diverticulum, parkinson's disease, hx of asthma in childhood (no inhaler tx), essential tremor, and bladder cancer (2020) presenting d/t increased choking/inability to keep fluids down in the setting of COVID. COVID-positive per testing CBC reviewed 07/06: WC within normal limits, hemoglobin 13.6 BMP reviewed 07/06/2024: Electrolytes stable CRP reviewed 07/06: Increased 22.4 Started IV dexamethasone 6 mg 07/05. Continue to monitor O2 stats. If lung exam worsens, consider addition of DuoNeb as patient has remote history of asthma AM CBC, BMP, CRP (2) Swallowing impairment: Plan: Per , patient has history of dysphagia but this has recently worsened in setting of COVID-19. Patient evaluated by speech therapy, currently n.p.o. Despite trouble swallowing, would recommend attempting patient's Parkinson's medication Per , patient has issues w/ swallowing pills at home which is similar to his episodes here. Video swallow study to be performed on 07/07 Continue IV fluids Plan Chronic conditions: Parkinson's disease: Carbidopa levodopa GERD: IV PPI DVT prophylaxis: Lovenox CODE STATUS: Full code Diet: N.p.o. Disposition: Continued inpatient stay Updated at bedside 07/06 Admission and Anticipated Discharge Date Admission Date: July 05, 2024 Subjective Patient seen and examined this morning with at bedside. Patient reports to be feeling better today. He has been coughing less. states he coughed up a decent amount of mucus yesterday and his symptoms improved following that. Patient still having issues w/ swallowing. Was able to swallow his Parkinson's medication this morning. states that patient does have difficulty at home with pills occassionally. Physical Exam 2 Constitutional: WD/WN, vitals as above Eyes: PERRL, conjunctivae normal, anicteric sclerae Respiratory: +rhonchi present, improved exam from 06/16 1 Cardiovascular: RRR, no murmur, no edema Skin: no rashes, warm and dry Psychiatric: A+Ox3, euthymic affect Results & Data Results & Data Vital Signs (Past 12 Hours) Vital Signs Temp Pulse Resp BP Pulse Ox O2 Del Method O2 Flow Rate 07/06/24 08:00 Room Air 07/06/24 07:41 36.3 C L 55 L 16 117/69 96 Nasal Cannula 2 Laboratory Results 07/06/24 05:11 07/06/24 05:11 PG Care Time/CCT Total # of Minutes Spent Total Time Spent with Patient: Total time spent is greater than 50% in coordination of care (as documented) at patient's floor/unit and/or counseling patient: Coding Level of Care Code 50355 SUB INP/OBS CARE 3/50MIN Diagnoses COVID U07.1 Swallowing impairment R13.10
[2024-07-06 20:33] VITALS: RESP 18; O2SAT 96
[2024-07-07 06:22] LABS: Hematocrit (blood only) 37.1 % (42.0-52.0); Hemoglobin 12.6 g/dl (14.0-18.0); Mean Corpuscular Hemoglobin 30.5 pg (25.0-34.0); Mean Corpuscular Volume 89.8 fL (80.0-100.0); Mean Platelet Volume 10.9 fL (9.4-12.4); Platelet Count 120 K/uL (130-400); RDW Coefficient of Variation 13.6 % (11.5-14.5); RDW Standard Deviation 44.9 fL (36.4-46.3); Red Blood Count 4.13 M/uL (4.70-6.10); White Blood Count 7.79 K/ul (4.8-10.8)
[2024-07-07 06:35] LABS: BUN Creatinine Ratio 34.1 (10-20); C Reactive Protein 10.56 mg/dl (0-0.5); Calcium 8.1 mg/dl (8.6-10.3); Creatinine Clr Calc Pharmacy 67.4 ml/min; Est GFR (African American) 98.1 ml/min; Est GFR (Non-African American) 84.6 ml/min; Potassium 4.2 mmol/L (3.5-5.1)
[2024-07-07 08:40] VITALS: PULSE 64; TEMP 98.4
--- NOTE | 2024-07-07 11:51 | Fluoroscopy Report ---
FL video swallow CLINICAL HISTORY: 78 years-old Male with h/o aspiration. Dysphagia with possible aspiration TECHNIQUE: Video fluoroscopic evaluation of swallowing was performed in the AP and lateral projection s by the speech pathology staff. The patient is fed varying consistencies of barium.. FLUOROSCOPY TIME: 2.01 minutes. 3274 images.6.64 mGy COMPARISON STUDY: 06/03/2018. FINDINGS: There is decreased hyoid excursion and epiglottic deflection throughout the study. Silent a spiration with thin liquid and nectar consistencies. Additionally, there is aspiration with pudding c onsistency with vallecular retention and disorganized oral pharyngeal transit. IMPRESSION: 1. Multiple consistency aspiration as above. 2. Please see the speech pathologist report for detailed findings and recommendations. ACT 112: Negative or not required by law. Electronically signed by: Valdemar Briones M.D. 07/07/2024 11:49 AM
--- NOTE | 2024-07-07 12:50 | Discharge Summary ---
Discharge Summary Date of Service July 07, 2024 Principal Dx & Hospital Course #1 = Principal Diagnosis (1) COVID: Pt is a 78 yo male with PMH of zenker's diverticulum, parkinson's disease, hx of asthma in childhood (no inhaler tx), essential tremor, and bladder cancer (2020) presenting d/t increased choking/inability to keep fluids down in the setting of COVID. COVID-positive per testing - stable on room air, did receive dexamethasone IV but this was not continued at discharge for pill safety with swallowing Afebrile without WBC (2) Swallowing impairment: Per , patient has history of dysphagia but this has recently worsened in setting of COVID-19. have been allowing permissive aspiration at home for years without a formal diagnosis VSS - showed silent aspiration with all liquids/textures. - discussed with [facility] - no safe diet for patient - Discussed with pt and , would not be interested in a feeding tube. Now that he is able to get some liquids down, they are comfortable taking him home and allowing for permissive aspiration. - list of hospice agencies provided - outpatient palliative care appointment in the works - did discuss Sinemet would be the most important pill to keep taking, and they can decide and continue to work through other medications they would like to take or stop Plan Dispo discharge to home today Updated at bedside 07/06, 07/07 Notes For Next Care Provider Admitted with worsening dysphagia in the setting of covid. Stable from a COVID standpoint. VSS showed no safe diet. Patient and family opted to be discharged with permissive aspiration, outpatient palliative care appointment arranged. Did not want hospice at this time- i feel this is reasonable. They understand swallowing will likely continue to get worse. Home [facility] arranged Medication Changes From Visit No changes, but did discuss he could stop non-essential medications. Admission HPI Per Admitting Provider Pt is a 78 yo male with PMH of zenker's diverticulum, parkinson's disease, hx of asthma in childhood (no inhaler tx), essential tremor, and bladder cancer (2020) presenting d/t increased choking/inability to keep fluids down in the setting of COVID. Pt evaluated at bedside with his . Pt's sick earlier this week with COVID. Pt developed symptoms on Sunday, but did not test at home until when he tested positive. Main symptoms of congestion and fevers. Pt's notes that he had continual issues throughout the day Sunday with swallowing- he describes it as food/liquid going down the wrong pipe. He was able to take his night time carbidopa-levodopa but had issues trying to take ibuprofen/tylenol. Pt has had some exertional SOB but otherwise no issues breathing. Pt's noted a home pulse ox was in the low 90s to high 80s. In the ER, pt was given 1L NS and started on NS at 125 mL/hr. Discharge Exam General: NAD, VS as above Resp: normal respiratory effort, diminished in bases, no wheezing CV: RRR, no murmur, Extremities: Moves all extremities, no edema Neuro: A&O x3, Skin: intact, no lesions noted Discharge Plan Discharge Items Patient Disposition: Home - Home Health Services Reason For Visit: COVID, DYSPHAGIA Discharge Diagnosis: Dysphagia COVID Activity: Resume your previous activity Weightbearing: Full weightbearing Non-emergency contact: Primary Care Provider Call non-emergency contact if: you have any medication questions Follow-up/Referrals: Yehuda Coles MD [Primary Care Provider] - 07/11/24 1:00 pm (Follow up within 1 week. Appointment will be with ) Rosi Schneider DNP [Nurse Practitioner] - 08/14/24 11:00 am (establish care ) Diet: Regular Addtl Attending Provider Instructions: Mr. Lozano, You were hospitalized after difficulty swallowing in the setting of a COVID infection. Thankfully, you have done well from a COVID standpoint and are no longer requiring supplemental oxygen. Recommending continuing to use the incentive spirometer at discharge. Unfortunately, you had a video swallow study done that showed you were aspirating on all thickness liquids and that there is no safe diet texture for you that would prevent these aspirations. In discussion with your family, it sounds like you have been having problems with aspiration for many years. There are no good options to treat or reverse this swallowing dysfunction as it stems from your Parkinson's. We discussed that you would not want a feeding tube and would like to return home with permissive aspiration and eating the foods you can tolerate/enjoy. Would recommend continuing to take the Sinemet as you are able to hopefully prevent things from getting worse. The other medications are less imperative to be taken, but you can continue if you desire. I did put them as continue on your discharge instructions, but they CAN be stopped. You have been supplied with a list of hospice agencies - if it becomes that you are weaker or are not getting any food time, it may be time to consider this. Your PCP could order this referral for you if needed. I have placed a referral to see the palliative care provider in the outpatient setting, to be able to focus on your goals for the next stage in your life. Please follow up with your PCP within 7-10 days of discharge. Thank you for allowing us to participate in your care! Ibeth Nair PA-C Pending Studies at Discharge: No Stand-Alone Forms: My [facility] [id number], Smoking Cessation Medications and DC Order Prescriptions: Continued carbidopa-levodopa 50-200 mg tablet extended release 1 tab PO TID 90 Days Qty: 270 3RF ropinirole 2 mg tablet extended release 24 hr 2 mg PO DAILY Qty: 90 3RF omeprazole 20 mg capsule,delayed release(DR/EC) 20 mg PO QAM atorvastatin 40 mg tablet 40 mg PO HS solifenacin [Vesicare] 10 mg tablet 10 mg PO DAILY Qty: 90 3RF cyanocobalamin (vitamin B-12) 1,000 mcg Tablet 1,000 mcg PO DAILY aspirin 81 mg Tablet,Delayed Release (Dr/Ec) 81 mg PO 3XWK cholecalciferol (vitamin D3) [Vitamin D3] 25 mcg (1,000 unit) Tablet 25 mcg PO DAILY Discontinued Paxlovid 150-100 mg tablets,dose pack 1 ea PO UD Rx Instructions: Pt started medication on 07/04/24 and was only able to take one dose. Discharge Orders: Discharge Order (Routine); Ordered 07/07/24 Ordered By: Ibeth Nair Admission Data Admit Date/Time: 07/05/24 00:47 Attending Provider: Abigail Stratton Admit Provider: Nadien Salcido Primary Care Provider: Yehuda Coles Other Providers: Vishal Romero; [facility] Other Interventions: Discharge Summary Assessment (RN) Last Done: 07/07/24 12:50 Hospital Stay Data Consultations 07/04/24 23:50 ED Decision to Admit Stat Diagnostic Imagining Performed Chest X-Ray 07/04/24 21:38 XR chest 1V not portable HISTORY: 78 years-old Male Chest pain, nonspecific COMPARISON: 12/26/2021 TECHNIQUE: AP view of the chest FINDINGS: Cardiomediastinal and hilar silhouettes are unchanged. The patient is mildly rotated toward the left. No pneumothorax, pleural effusion or airspace consolidation. The bones appear intact. IMPRESSION: No acute process. ACT 112: Negative or not required by law. The above report was generated using voice recognition software. It may contain grammatical, syntax or spelling errors. Electronically signed by: Valdemar Briones M.D. 07/05/2024 7:43 AM Videofluoroscopic Swallow 07/07/24 07:00 FL video swallow CLINICAL HISTORY: 78 years-old Male with h/o aspiration. Dysphagia with possible aspiration TECHNIQUE: Video fluoroscopic evaluation of swallowing was performed in the AP and lateral projections by the speech pathology staff. The patient is fed varying consistencies of barium.. FLUOROSCOPY TIME: 2.01 minutes. 3274 images.6.64 mGy COMPARISON STUDY: 06/03/2018. FINDINGS: There is decreased hyoid excursion and epiglottic deflection throughout the study. Silent aspiration with thin liquid and nectar consistencies. Additionally, there is aspiration with pudding consistency with vallecular retention and disorganized oral pharyngeal transit. IMPRESSION: 1. Multiple consistency aspiration as above. 2. Please see the speech pathologist report for detailed findings and recommendations. ACT 112: Negative or not required by law. Electronically signed by: Valdemar Briones M.D. 07/07/2024 11:49 AM Pending Results Patient Have Any Pending Studies at Discharge: No Discharge Instructions Given to Patient (Per Discharging Provider) Mr. Lozano, Daron were hospitalized after difficulty swallowing in the setting of a COVID infection. Thankfully, you have done well from a COVID standpoint and are no longer requiring supplemental oxygen. Recommending continuing to use the incentive spirometer at discharge. Unfortunately, you had a video swallow study done that showed you were aspirating on all thickness liquids and that there is no safe diet texture for you that would prevent these aspirations. In discussion with your family, it sounds like you have been having problems with aspiration for many years. There are no good options to treat or reverse this swallowing dysfunction as it stems from your Parkinson's. We discussed that you would not want a feeding tube and would like to return home with permissive aspiration and eating the foods you can tolerate/enjoy. Would recommend continuing to take the Sinemet as you are able to hopefully prevent things from getting worse. The other medications are less imperative to be taken, but you can continue if you desire. I did put them as continue on your discharge instructions, but they CAN be stopped. You have been supplied with a list of hospice agencies - if it becomes that you are weaker or are not getting any food time, it may be time to consider this. Your PCP could order this referral for you if needed. I have placed a referral to see the palliative care provider in the outpatient setting, to be able to focus on your goals for the next stage in your life. Please follow up with your PCP within 7-10 days of discharge. Thank you for allowing us to participate in your care! Ibeth Nair PA-C Supervising Physician Co-Signing Physician Notes PA Supervision Note: I did not personally see or examine the patient today, but I verified all thomas points of RICK Nair's assessment and plan with the following exceptions/additions: None Time spent day of discharge 40 minutes including direct patient care, medication reconciliation, documentation, review of labs and images, and coordination of care. Total Time Total Time Spent Total Time Spent (In Minutes): Time spent day of discharge 45 minutes including direct patient care, medication reconciliation, documentation, review of labs and images, and coordination of care. Coding Level of Care Code 16181 INP/OBS DISCH >30 MIN Diagnoses COVID U07.1 Swallowing impairment R13.10
[2024-07-07 12:51] VITALS: BP 129/72
== END 2024-07-07 16:45 | disposition home health service (06) | DRG 179 ==
LOC: ED 21:29 → 3E 07-05 00:47 → SUATTDRO 07-05 00:47 → 3E 07-05 02:13

== ENCOUNTER 2024-10-23 19:11 | Inpatient (IN) ==
--- NOTE | 2024-10-23 19:34 | Emergency Department Note ---
Impression & Plan Sepsis, Acute UTI, Weakness ED Provider Note NAME: DANIEL NOONAN AGE: 79 SEX: M : 1945 ARRIVES VIA: Walk-In INFORMANT: Patient ED PROVIDER(S): Reggie Wellington DO CHIEF COMPLAINT: Altered mental status, fever HPI: Patient is a 79-year-old male with a past medical history of Parkinson's, GERD, bladder cancer who presents to the ER following having a cystoscopy performed yesterday. Per the who is present at bedside and provides additional history Dr. Almeida said to her that he was in there for prolonged period of time as it was a difficult procedure. She noticed that he became more confused this afternoon and was febrile and urinated himself. Patient denies any head pain chest pain. No belly pain. denies any trauma. ADDITIONAL HISTORY OBTAINED: Per HPI Chronic Medical/Social Conditions Affecting Care: Per HPI PAST MEDICAL HISTORY:See Below PAST SURGICAL HISTORY:See Below FAMILY HISTORY:See Below SOCIAL HISTORY:See Below HOME MEDICATIONS:See Below ALLERGIES:See Below VITALS:See Below PHYSICAL EXAMINATION: GENERAL: Sitting up in bed, alert, disheveled, cachectic, slightly ill-appearing EYE EXAM: normal conjunctiva. PERRL and EOM's grossly intact. OROPHARYNX: mucous membranes are moist NECK: supple, no nuchal rigidity, no adenopathy, non-tender LUNGS: Clear to auscultation. Normal chest wall mechanics HEART: Tachycardic, S1 normal and S2 normal ABDOMEN: abdomen soft, non-tender, normo-active bowel sounds, no masses, no rebound or guarding. UPPER EXTREMITIES: upper extremities are grossly normal. LOWER EXTREMITIES: No pitting edema. NEURO EXAM: Normal sensorium, cranial nerves II-XII grossly intact, normal speech, no gross weakness of arms, no gross weakness of legs. MEDICAL DECISION MAKING: Patient is a 79-year-old male who presents ER for the above-stated complaint. IV was established and blood work was obtained. He is found to be febrile and tachycardic with a temp of 39.1. IV was established and blood work was obtained. Labs show white count of 10.8. No significant anemia. INR unremarkable. BMP is fairly unremarkable. Lactate had 0.9. Mag at 1.6. LFTs and bilirubin were unremarkable. Troponin was negative. Pro-Anmol 0.03. UA consistent with UTI. Viral panel was negative. Patient was given 1.5 L of IV fluids as well as IV Rocephin. Case was discussed with the hospitalist for further evaluation management treatment of his sepsis likely secondary to the UTI from recent intervention. Consults/Care Managements Discussions: Per [facility] Triage Nursing notes reviewed. Limited review of prior medical records performed Vital Signs: reviewed and remarkable for febrile and tacky Differential diagnosis: Differential diagnosis includes etiologies such as sepsis, UTI, pneumonia, metabolic, electrolyte abnormalities, cardiac sources, intracerebral event, toxicologic, neurological, as well as others were entertained. ER treatment provided: See below Diagnostics interpreted by me include EKG and cardiac monitoring as listed below: -Cardiac Monitoring: An order was placed for continuous cardiac monitoring. The monitor shows a rate of 92 with sinus rhythm. -ECG: Sinus rhythm rate 92 Normal axis No PVCs QTc 403 -Laboratory studies:Interpreted by me as stated above in MDM and shown below. Imaging studies: Xrays: As interpreted by me: Portable AP upright 1 view of the chest shows no focal infiltrate CTs show: none Procedures:none Critical Care: None Past Med/Surg History Problem List (Updated 10/23/24 @ 21:51 by eRggie Wellington DO) Weakness (Acute) Acute UTI (Acute) Sepsis (Acute) Fatigue Gait disturbance Drooling Hammer toes of both feet Encounter for pre-operative examination Primary bladder malignant neoplasm Bladder mass Gross hematuria Tremor Parkinsonism GERD (gastroesophageal reflux disease) Medical History (Updated 10/23/24 @ 21:51 by Reggie Wellington DO) Gait disturbance Respiratory distress hx, w/recent Covid illness in 07/05/24, "no current issues" COVID Dysphagia Hyperlipidemia Hx of hyperlipidemia GERD (gastroesophageal reflux disease) History of dysphagia pt seen by [facility] [facility] while inpt 06/2024 for COVID; 'no safe diet for patient... allow for permissive aspiration'. pt denies issues currently History of COVID-19 07/05/24 admitted [facility] (through 07/07/24); sx resolved Bladder cancer Dx'ed Spring 2020 - Cysto, TURBT 01/18/21- initially uneventful until a severe obturator reflex was provoked- had increased bleeding- converted from LMA to ETT anesthesia per 01/18/21 anesthesia record. -Had repeat procedures 02/22/21 and 01/10/22 without noted issues; has also completed BCG tx Benign essential tremor Bilateral index fingers Twitching Only occurs when falling asleep or when asleep Zenkers diverticulum Parkinson disease following with [facility]; per most recent note 12/2023: "Parkinson's disease with Parkinson's gait and some bradykinesia with mild cogwheel. He is doing fairly well on his current dose of carbidopa/levodopa, 50/200 ER twice daily. His drooling is improved and his fatigue is stable. He does not have much in the way of tremor today"... stable- continue current medication regimen History of asthma A CHILD ONLY- NO CURRENT ISSUES BPH (benign prostatic hyperplasia) Surgical History (Updated 07/22/24 @ 10:35 by Christa Hemphill PA-C) History of bladder surgery TURBT X 3: most recent: 01/10/22: [place]: LMA#5, atraumatic placement x 1 History of esophagogastroduodenoscopy (EGD) History of colonoscopy History of tooth extraction History of hernia surgery INGUINAL Family History Family/Other Lung cancer Other No family history of adverse response to anesthesia Social History Smoking Status: Never smoker Second Hand Exposure: Yes (hx as child); Do You Dip or Chew Tobacco: No; Hx Alcohol Use: Yes Alcohol type: beer and wine Hx Substance Use: No Preferred Language: Gibraltarian Communication Ability: Effective 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 Beliefs That Will Affect Care: None marital status: Current Living Situation: Spouse Current Living Situation Comment: AND SON current occupational status: employed 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 Feels Safe at Home: Yes Assistive Devices: Glasses Allergies Allergies Allergy/AdvReac Type Severity Reaction Status Date / Time No Known Drug Allergies Allergy Unknown Verified 07/22/24 08:01 Home Meds Home Medications Medication Instructions Recorded Confirmed omeprazole 20 mg capsule,delayed 20 mg PO QAM 07/21/2025 release aspirin 81 mg tablet,delayed 81 mg PO 3XWK 12/20/2125 release cholecalciferol (vitamin D3) 25 25 mcg PO DAILY 12/20/2125 mcg (1,000 unit) tablet (Vitamin D3) cyanocobalamin (vitamin B-12) 1,000 mcg PO DAILY 12/20/21 10/23/24 1,000 mcg tablet ropinirole 2 mg tablet,extended 2 mg PO QAM 07/22/24 10/23/24 release 24 hr solifenacin 10 mg tablet 10 mg PO DAILY 10/23/24 10/23/24 Previous Rx's Medication Instructions Recorded carbidopa ER 50 mg-levodopa 200 mg 1 tab PO TID 90 days #270 tabs 01/14/24 tablet,extended release Results & Data (ED) Vital Signs Vital Signs - 24 hr 10/23/24 19:13 10/23/24 19:53 10/23/24 20:05 Temperature 39.1 C H Temperature Source Oral Pulse Rate 97 H 85 Pulse Rate [Apical] 94 H Respiratory Rate 18 22 Respiratory Effort / Characteristics Non-Labored Spontaneous Respiratory Depth Normal Respiratory Pattern Regular Blood Pressure 137/77 Blood Pressure [Right Arm] 122/68 Blood Pressure Mean 97 Blood Pressure Mean [Right Arm] 86 Blood Pressure Position Sitting Pulse Oximetry 98 98 Oxygen Delivery Method Room Air Room Air Sepsis Recent Fever Within 48 Hours Yes Sepsis New/Unexplained Change in Mental Status N/A Sepsis Action Taken by Nursing No Action Required 10/23/24 22:00 10/23/24 22:26 Temperature 37.4 C Temperature Source Oral Pulse Rate Pulse Rate [Apical] 90 Respiratory Rate 19 Respiratory Effort / Characteristics Respiratory Depth Respiratory Pattern Blood Pressure Blood Pressure [Right Arm] 102/59 L Blood Pressure Mean Blood Pressure Mean [Right Arm] 73 Blood Pressure Position Pulse Oximetry 96 Oxygen Delivery Method Room Air Sepsis Recent Fever Within 48 Hours Sepsis New/Unexplained Change in Mental Status Sepsis Action Taken by Nursing Laboratory Data 10/23/24 19:25 10/23/24 19:25 Lab Results 10/23/24 10/23/24 10/23/24 Range/Units 19:25 19:54 21:25 WBC 10.82 H (4.8-10.8) K/ul RBC 4.25 L (4.70-6.10) M/uL Hgb 13.2 L (14.0-18.0) g/dl Hct 39.2 L (42.0-52.0) % MCV 92.2 (80.0-100.0) fL MCH 31.1 (25.0-34.0) pg MCHC 33.7 (32.0-36.0) g/dL RDW Std Deviation 45.6 (36.4-46.3) fL RDW Coeff of Vijaya 13.5 (11.5-14.5) % Plt Count 159 (130-400) K/uL MPV 9.7 (9.4-12.4) fL Immature Gran % (Auto) 0.3 % Neut % (Auto) 89.0 % Lymph % (Auto) 4.3 % Meeker % (Auto) 5.8 % Eos % (Auto) 0.3 % Baso % (Auto) 0.3 % Neut # (Auto) 9.63 H (1.40-6.50) K/uL Lymph # (Auto) 0.47 L (1.20-3.40) K/uL Meeker # (Auto) 0.63 H (0.11-0.59) K/uL Eos # (Auto) 0.03 (0.00-0.50) K/uL Baso # (Auto) 0.03 (0.00-0.20) K/uL Immature Gran # (Auto) 0.03 (0.01-0.20) K/uL PT 11.6 (9.0-12.0) Seconds INR 1.1 (0.9-1.1) APTT 26 (21-31) Seconds PTT Ratio 1.0 Sodium 138 (136-145) mmol/L Potassium 4.3 (3.5-5.1) mmol/L Chloride 102 (98-107) mmol/L Carbon Dioxide 28 (21-32) mmol/L Anion Gap 8 (3-11) BUN 29 H (6-23) mg/dl Creatinine 1.29 (0.6-1.4) mg/dl Est Cr Clr Drug Dosing Not Reportable eGFR 57.11 BUN/Creatinine Ratio 22.5 H (10-20) Glucose 151 H (70-99(Fasting)) mg/dl Lactate 2.4 H* 0.9 (0.4-2.0) mmol/L Calcium 8.8 (8.6-10.3) mg/dl Magnesium 1.6 L (1.7-2.4) mg/dl Total Bilirubin 1.2 H (0.2-1.0) mg/dl AST 16 (13-39) U/L ALT 3 L (7-52) U/L Alkaline Phosphatase 62 (34-104) U/L Troponin I High Sens 6.4 (0-20) pg/ml Total Protein 6.8 (6.0-8.3) gm/dl Albumin 4.2 (3.4-5.0) gm/dl Globulin 2.6 (2.5-4.0) gm/dl Albumin/Globulin Ratio 1.6 (0.9-2) Procalcitonin 0.03 (0-0.5) ng/ml Urine Color Yellow Urine Appearance Slightly Cloudy (Clear) Urine pH 6.5 (4.5-7.5) Ur Specific Pritchett 1.025 (1.000-1.030) Urine Protein 2+ H (Negative) Urine Glucose (UA) Negative (Negative) Urine Ketones Negative (Negative) Urine Blood 3+ H (Negative) Urine Nitrite Negative (Negative) Urine Bilirubin Negative (Negative) Urine Urobilinogen Negative (Negative) Ur Leukocyte Esterase 2+ H (Negative) Urine RBC 3-5 H (0-2) /hpf Urine WBC 21-50 H (0-5) /hpf Ur Epithelial Cells 0-2 (0-2) /hpf Urine Bacteria 1+ H (None Seen) Adenovirus (PCR) Not Detected (NotDetected) B. pertussis DNA (PCR) Not Detected (NotDetected) B.parapertussis DNA PCR Not Detected (NotDetected) C. pneumoniae DNA (PCR) Not Detected (NotDetected) Coronavirus OC43 (PCR) Not Detected (NotDetected) Coronavirus HKU1 (PCR) Not Detected (NotDetected) Coronavirus 229E (PCR) Not Detected (NotDetected) SARS-CoV-2 (PCR) Not Detected (NotDetected) Coronavirus NL63 (PCR) Not Detected (NotDetected) Human Metapneumovir PCR Not Detected (NotDetected) Influenza Type A (PCR) Not Detected (NotDetected) Influenza Type B (PCR) Not Detected (NotDetected) M. pneumoniae (PCR) Not Detected (NotDetected) Parainfluenza 1 (PCR) Not Detected (NotDetected) Parainfluenza 2 (PCR) Not Detected (NotDetected) Parainfluenza 3 (PCR) Not Detected (NotDetected) Parainfluenza 4 (PCR) Not Detected (NotDetected) RSV (PCR) Not Detected (NotDetected) Entero/Rhino (PCR) Not Detected (NotDetected) Administered Medications Discontinued Medications Ceftriaxone Sodium (Rocephin) 2,000 mg in 50 mls @ 100 mls/hr IV NOW STA Stop: 10/23/24 19:58 Last Infusion: 10/23/24 20:52 Dose: Infused Documented By: Admin: 10/23/24 20:00 Dose: 100 mls/hr Documented By: BMK Sodium Chloride (Nss) 1,000 mls @ 999 mls/hr IV .Q1H1M ONE Stop: 10/23/24 20:29 Last Infusion: 10/23/24 21:37 Dose: Infused Documented By: Admin: 10/23/24 19:58 Dose: 999 mls/hr Documented By: BMK Sodium Chloride (Nss) 500 mls @ 999 mls/hr IV .Q31M ONE Stop: 10/23/24 21:38 Last Infusion: 10/23/24 21:57 Dose: Infused Documented By: Admin: 10/23/24 21:32 Dose: 999 mls/hr Documented By: BMK Sodium Chloride (Nss) 1,000 mls @ 999 mls/hr IV .Q1H1M ONE Stop: 10/23/24 22:10 Last Infusion: 10/23/24 21:57 Dose: Infused Documented By: Admin: 10/23/24 21:32 Dose: 999 mls/hr Documented By: PETTYK Ibuprofen (Ibuprofen 200 Mg Tab) 400 mg PO NOW STA Stop: 10/23/24 19:32 Last Admin: 10/23/24 20:02 Dose: 400 mg Documented By: BMK Imaging Data Radiologist's Impression: Chest X-Ray 10/23/24 19:21 Exam(s): XR CXR 1 VIEW EXAM: XR Chest, 1 View CLINICAL HISTORY: Reason for exam: Sepsis. TECHNIQUE: Frontal view of the chest. COMPARISON: July 04, 2024 FINDINGS: Lungs: Lung volumes are low with mild proximal vascular crowding in the lung bases. No acute infiltrate or consolidation is identified. Pleural space: Unremarkable. No pneumothorax. Heart: Unremarkable. No cardiomegaly. Mediastinum: Unremarkable. Normal mediastinal contour. Bones/joints: Unremarkable. No acute fracture. Upper abdomen: There is no pneumoperitoneum under the diaphragm. IMPRESSION: Lung volumes are low with mild proximal vascular crowding in the lung bases. No acute infiltrate or consolidation is identified. Electronically signed by: Amarjit Finnegan MD 10/23/24 21:15 PM Discharge Plan Visit Data Chief Complaint: Fever Stated Complaint: FEVER, CONFUSION, BALANCE ED Provider: Reggie Wellington Discharge Problem: Sepsis, Acute UTI, Weakness Forms Stand Alone Forms: [facility] Prescriptions Prescriptions: No Action carbidopa-levodopa 50-200 mg tablet extended release 1 tab PO TID 90 Days Qty: 270 3RF omeprazole 20 mg capsule,delayed release(DR/EC) 20 mg PO QAM cyanocobalamin (vitamin B-12) 1,000 mcg Tablet 1,000 mcg PO DAILY aspirin 81 mg Tablet,Delayed Release (Dr/Ec) 81 mg PO 3XWK cholecalciferol (vitamin D3) [Vitamin D3] 25 mcg (1,000 unit) Tablet 25 mcg PO DAILY ropinirole 2 mg tablet extended release 24 hr 2 mg PO QAM solifenacin 10 mg tablet 10 mg PO DAILY Referrals Referrals: Yehuda Coles MD [Primary Care Provider] - Discharge Problem: Sepsis Qualifiers: Sepsis type: sepsis due to unspecified organism Sepsis acute organ dysfunction status: unspecified Qualified Code(s): A41.9 - Sepsis, unspecified organism
[2024-10-23 19:58] LABS: Basophils # (auto) 0.03 K/uL (0.00-0.20); Basophils % (auto) 0.3 %; Eosinophils # (auto) 0.03 K/uL (0.00-0.50); Eosinophils % (auto) 0.3 %; Hematocrit (blood only) 39.2 % (42.0-52.0); Hemoglobin 13.2 g/dl (14.0-18.0); Immature Granulocytes # (auto) 0.03 K/uL (0.01-0.20); Immature Granulocytes % (auto) 0.3 %; Lymphocytes # (auto) 0.47 K/uL (1.20-3.40); Lymphocytes % (auto) 4.3 %; Mean Corpuscular Hemoglobin 31.1 pg (25.0-34.0); Mean Corpuscular Hgb Conc 33.7 g/dL (32.0-36.0); Mean Corpuscular Volume 92.2 fL (80.0-100.0); Mean Platelet Volume 9.7 fL (9.4-12.4); Monocytes # (auto) 0.63 K/uL (0.11-0.59); Monocytes % (auto) 5.8 %; Neutrophils # (auto) 9.63 K/uL (1.40-6.50); Platelet Count 159 K/uL (130-400); RDW Coefficient of Variation 13.5 % (11.5-14.5); RDW Standard Deviation 45.6 fL (36.4-46.3); Red Blood Count 4.25 M/uL (4.70-6.10); White Blood Count 10.82 K/ul (4.8-10.8)
[2024-10-23] MEDS: SODIUM CHLORIDE 0.9% 1,000 ML IV ONE ×2 (19:58→21:32)
[2024-10-23] MEDS: cefTRIAXone SODIUM 2,000 MG/50 ML BAG IV STA (20:00)
[2024-10-23] MEDS: IBUPROFEN 200 MG TAB PO STA (20:02)
[2024-10-23 20:04] LABS: Appearance Urine Slightly Cloudy (Clear); Bilirubin Urine Negative (Negative); Blood Urine 3+ (Negative); Color Urine Yellow; Glucose Urine UA Negative (Negative); Ketones Urine Negative (Negative); Leukocyte Esterase Urine 2+ (Negative); Nitrite Urine Negative (Negative); Protein Urine 2+ (Negative); Specific Gravity Urine 1.025 (1.000-1.030); Urobilinogen Urine Negative (Negative); pH Urine 6.5 (4.5-7.5)
[2024-10-23 20:05] LABS: Alanine Aminotransferase 3 U/L (7-52); Albumin Globulin Ratio 1.6 (0.9-2); Albumin Level 4.2 gm/dl (3.4-5.0); Alkaline Phosphatase 62 U/L (34-104); Anion Gap 8 (3-11); Aspartate Aminotransferase 16 U/L (13-39); BUN Creatinine Ratio 22.5 (10-20); Bilirubin,Total 1.2 mg/dl (0.2-1.0); Blood Urea Nitrogen 29 mg/dl (6-23); Calcium 8.8 mg/dl (8.6-10.3); Carbon Dioxide 28 mmol/L (21-32); Chloride 102 mmol/L (98-107); Globulin 2.6 gm/dl (2.5-4.0); Glucose 151 mg/dl (70-99(Fasting)); Magnesium 1.6 mg/dl (1.7-2.4); Potassium 4.3 mmol/L (3.5-5.1); Sodium 138 mmol/L (136-145); Total Protein 6.8 gm/dl (6.0-8.3)
[2024-10-23 20:10] LABS: Troponin I High Sensitivity 6.4 pg/ml (0-20)
[2024-10-23 20:14] LABS: Bacteria Urine 1+ (None Seen); Epithelial Cell Urine 0-2 /hpf (0-2); WBC Urine 21-50 /hpf (0-5)
[2024-10-23 20:22] LABS: INR 1.1 (0.9-1.1); Partial Thromboplastin Time 26 Seconds (21-31); Prothrombin Time 11.6 Seconds (9.0-12.0)
[2024-10-23 21:03] LABS: Adenovirus PCR Not Detected (NotDetected); Bordetella parapertussis PCR Not Detected (NotDetected); Bordetella pertussis PCR Not Detected (NotDetected); Chlamydia pneumoniae PCR Not Detected (NotDetected); Coronavirus 229E PCR Not Detected (NotDetected); Coronavirus CoV-2 (COVID19)PCR Not Detected (NotDetected); Coronavirus HKU1 PCR Not Detected (NotDetected); Coronavirus NL63 PCR Not Detected (NotDetected); Coronavirus OC43PCR Not Detected (NotDetected); Human Metapneumovirus PCR Not Detected (NotDetected); Influenza A PCR Not Detected (NotDetected); Influenza B PCR Not Detected (NotDetected); Mycoplasma pneumoniae PCR Not Detected (NotDetected); Parainfluenza Virus 1 PCR Not Detected (NotDetected); Parainfluenza Virus 2 PCR Not Detected (NotDetected); Parainfluenza Virus 3 PCR Not Detected (NotDetected); Parainfluenza Virus 4 PCR Not Detected (NotDetected); Respiratory Syncytial VirusPCR Not Detected (NotDetected); Rhinovirus/Enterovirus PCR Not Detected (NotDetected)
--- NOTE | 2024-10-23 21:16 | XRay Report ---
Exam(s): XR CXR 1 VIEW EXAM: XR Chest, 1 View CLINICAL HISTORY: Reason for exam: Sepsis. TECHNIQUE: Frontal view of the chest. COMPARISON: July 04, 2024 FINDINGS: Lungs: Lung volumes are low with mild proximal vascular crowding in the lung bases. No acute infiltrate or consolidation is identified. Pleural space: Unremarkable. No pneumothorax. Heart: Unremarkable. No cardiomegaly. Mediastinum: Unremarkable. Normal mediastinal contour. Bones/joints: Unremarkable. No acute fracture. Upper abdomen: There is no pneumoperitoneum under the diaphragm. IMPRESSION: Lung volumes are low with mild proximal vascular crowding in the lung bases. No acute infiltrate or consolidation is identified. Electronically signed by: Amarjit Finnegan MD 10/23/24 21:15 PM
[2024-10-23] MEDS: SODIUM CHLORIDE 0.9% 500 ML IV ONE (21:32)
[2024-10-23] MEDS: LIDOCAINE 2% JELLY 5 ML TUBE EXT ONE (23:06)
[2024-10-23] MEDS: SODIUM CHLORIDE 0.9% 1,000 ML IV STA (23:06)
[2024-10-23] MEDS ORDERED: ONDANSETRON INJ 2 MG/ML 2 ML VIAL IV PRN (23:46)
[2024-10-23] MEDS ORDERED: MAGNESIUM HYDROXIDE SUSP 30 ML UDC PO PRN (23:46)
[2024-10-23] MEDS ORDERED: ALUMINUM/MAGNESIUM SUSP 30 ML UDC PO PRN (23:46)
[2024-10-23] MEDS ORDERED: POLYETHYLENE (MIRALAX) 17 GM PACK PO PRN (23:46)
--- NOTE | 2024-10-24 00:07 | History & Physical Report ---
Date of Service October 23, 2024 Assessment & Plan (1) Sepsis: (2) Acute UTI: (3) Parkinsonism: (4) GERD (gastroesophageal reflux disease): (5) Hypomagnesemia: (6) Urinary retention: Plan 79 yo male PMHx Parkinson syndrome, GERD, bladder cancer admitted with fever, fatigue, meeting sepsis criteria. #Sepsis VSS on admission Likely urinary source after instrumentation, tumor resection 10/24/24 Total 2.5L crystalloid resuscitation provided Lactate recheck 0.9 Follow BCx, UCx Continue ceftriaxone CBC, CMP ordered for AM #Acute urinary retention Voided less than 100cc, bladder scan showed residual 452cc Forman catheter placed #Hypomagnesemia Will give 2g IV, recheck am #Parkinson disease Continue carbidopa/levodopa Continue ropinirole #GERD Protonix daily FENGI: s/p 2.5L NSS, Regular diet Code status: full DVT prophylaxis: Lovenox Isolation: none Disposition: medical Admission and Anticipated Discharge Date Admission Date: October 23, 2024 History of Present Illness Primary Care Provider: Yehuda Coles MD 79 yo male PMHx Parkinson syndrome, GERD, bladder cancer admitted with fever, fatigue, meeting sepsis criteria. He was feeling well today until around 1600 when he returned from his usual 2 mile walk. When he returned home he began feeling very fatigued. His also reports that he was confused and not acting normally. He underwent cystoscopy with resection of small tumor 10/22/23. Pt remains fatigued in the emergency department, but overall is felling slightly better. No acute complaints. Denies CP, SOB. ED Course: Received 1.5L NSS BCx, UCx sent Started on ceftriaxone CXR negative Labs remarkable for mild leukocytosis, lactate was 2.4 on admission, hypomagnesemia, procal was normal Allergies Allergy/AdvReac Type Severity Reaction Status Date / Time No Known Drug Allergies Allergy Unknown Verified 07/22/24 08:01 Home Medications Medication Instructions Recorded Confirmed Type omeprazole 20 mg capsule,delayed 20 mg PO QAM 07/21/20 10/23/24 History release aspirin 81 mg tablet,delayed 81 mg PO 3XWK 12/20/21 10/23/24 History release cholecalciferol (vitamin D3) 25 25 mcg PO DAILY 12/20/21 10/23/24 History mcg (1,000 unit) tablet (Vitamin D3) cyanocobalamin (vitamin B-12) 1,000 mcg PO DAILY 12/20/21 10/23/24 History 1,000 mcg tablet carbidopa ER 50 mg-levodopa 200 mg 1 tab PO TID 90 days #270 tabs 01/14/24 10/23/24 Rx tablet,extended release ropinirole 2 mg tablet,extended 2 mg PO QAM 07/22/24 10/23/24 History release 24 hr solifenacin 10 mg tablet 10 mg PO DAILY 10/23/24 10/23/24 History Past Med/Surg History Problem List (Updated 10/24/24 @ 14:41 by Saundra Jansen MD) Bacteremia Urinary retention Hypomagnesemia Weakness (Acute) Acute UTI (Acute) Sepsis (Acute) Fatigue Gait disturbance Drooling Hammer toes of both feet Encounter for pre-operative examination Primary bladder malignant neoplasm Bladder mass Gross hematuria Tremor Parkinsonism GERD (gastroesophageal reflux disease) Medical History Gait disturbance Respiratory distress hx, w/recent Covid illness in 07/05/24, "no current issues" COVID Dysphagia Hyperlipidemia Hx of hyperlipidemia GERD (gastroesophageal reflux disease) History of dysphagia pt seen by HOME DAY CARE PROVIDER while inpt 06/2024 for COVID; 'no safe diet for patient... allow for permissive aspiration'. pt denies issues currently History of COVID-19 07/05/24 admitted [facility] (through 07/07/24); sx resolved Bladder cancer Dx'ed Spring 2020 - Cysto, TURBT 01/18/21- initially uneventful until a severe obturator reflex was provoked- had increased bleeding- converted from LMA to ETT anesthesia per 01/18/21 anesthesia record. -Had repeat procedures 02/22/21 and 01/10/22 without noted issues; has also completed BCG tx Benign essential tremor Bilateral index fingers Twitching Only occurs when falling asleep or when asleep [place] diverticulum Parkinson disease following with [facility]; per most recent note 12/2023: "Parkinson's disease with Parkinson's gait and some bradykinesia with mild cogwheel. He is doing fairly well on his current dose of carbidopa/levodopa, 50/200 ER twice daily. His drooling is improved and his fatigue is stable. He does not have much in the way of tremor today"... stable- continue current medication regimen History of asthma A CHILD ONLY- NO CURRENT ISSUES BPH (benign prostatic hyperplasia) Surgical History (Reviewed 10/24/24 @ :23 by Ella Finnegan DO) History of bladder surgery TURBT X 3: most recent: 01/10/22: [place]: LMA#5, atraumatic placement x 1 History of esophagogastroduodenoscopy (EGD) History of colonoscopy History of tooth extraction History of hernia surgery INGUINAL Family History Family/Other Lung cancer Other No family history of adverse response to anesthesia Social History (Reviewed 10/24/24 @ :23 by Ella Finnegan DO) Smoking Status: Never smoker Do You Dip or Chew Tobacco: No; Hx Alcohol Use: Yes Alcohol type: beer and wine Hx Substance Use: No Preferred Language: Turkmen Communication Ability: Effective Assembler Clip On Sunglasses Required: No Beliefs That Will Affect Care: None marital status: Current Living Situation: Spouse Current Living Situation Comment: AND SON current occupational status: employed 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 Feels Safe at Home: Yes Safety Concerns: Feels Safe At This Time Assistive Devices: Walker Review of Systems Review of Systems: reviewed, per HPI Physical Exam Physical Exam: Constitutional: ill-appearing, no acute distress HEENT: NCAT, no conjunctival injection CV: regular rhythm, no murmur appreciated, extremities well-perfused, no LE edema Resp: CTABL, no wheezes/rales/rhonchi appreciated, no increased work of breathing GI: soft, nondistended, nontender MSK: no gross deformities appreciated Skin: warm, dry, no rash appreciated Neuro: alert, oriented, no focal neurologic deficit appreciated Results & Data Results & Data Vital Signs (Past 12 Hours) Vital Signs Temp Pulse Pulse Resp BP BP Pulse Ox 10/23/24 23:23 37.1 C 88 20 100/66 10/23/24 22:26 37.4 C 10/23/24 22:00 90 19 102/59 L 96 10/23/24 20:05 94 H 22 122/68 98 10/23/24 19:53 85 10/23/24 19:13 39.1 C H 97 H 18 137/77 98 O2 Del Method 10/23/24 23:23 10/23/24 22:26 10/23/24 22:00 Room Air 10/23/24 20:05 Room Air 10/23/24 19:53 10/23/24 19:13 Room Air Laboratory Results Laboratory Results WBC 10.82 K/ul (4.8-10.8) H 10/23/24 19: RBC 4.25 M/uL (4.70-6.10) L 10/23/24 19: Hgb 13.2 g/dl (14.0-18.0) L 10/23/24: Hct 39.2 % (42.0-52.0) L 10/23/24: MCV 92.2 fL (80.0-100.0) 10/23/24: MCH 31.1 pg (25.0-34.0) 10/23/24: MCHC 33.7 g/dL (32.0-36.0) 10/23/24: RDW Std Deviation 45.6 fL (36.4-46.3) 10/23/24: RDW Coeff of Vijaya 13.5 % (11.5-14.5) 10/23/24: Plt Count 159 K/uL (130-400) 10/23/24: MPV 9.7 fL (9.4-12.4) 10/23/24: Immature Gran % (Auto) 0.3 % 10/23/24: Neut % (Auto) 89.0 % 10/23/24: Lymph % (Auto) 4.3 % 10/23/24: [place] % (Auto) 5.8 % 10/23/24: Eos % (Auto) 0.3 % 10/23/24: Baso % (Auto) 0.3 % 10/23/24: Neut # (Auto) 9.63 K/uL (1.40-6.50) H 10/23/24: Lymph # (Auto) 0.47 K/uL (1.20-3.40) L 10/23/24: [place] # (Auto) 0.63 K/uL (0.11-0.59) H 10/23/24 19:25 Eos # (Auto) 0.03 K/uL (0.00-0.50) 10/23/24:25 Baso # (Auto) 0.03 K/uL (0.00-0.20) 10/23/24:25 Immature Gran # (Auto) 0.03 K/uL (0.01-0.20) 10/23/24:25 PT 11.6 Seconds (9.0-12.0) 10/23/24: INR 1.1 (0.9-1.1) 10/23/24: APTT 26 Seconds (21-31) 10/23/24: PTT Ratio 1.0 10/23/24:25 Sodium 138 mmol/L (136-145) 10/23/24: Potassium 4.3 mmol/L (3.5-5.1) 10/23/24:25 Chloride 102 mmol/L (98-107) 10/23/24:25 Carbon Dioxide 28 mmol/L (21-32) 10/23/24:25 Anion Gap 8 (3-11) 10/23/24:25 BUN 29 mg/dl (6-23) H 10/23/24: Creatinine 1.29 mg/dl (0.6-1.4) 10/23/24: Est Cr Clr Drug Dosing Not Reportable 10/23/24: eGFR 57.11 10/23/24:25 BUN/Creatinine Ratio 22.5 (10-20) H 10/23/24:25 Glucose 151 mg/dl (70-99(Fasting)) H 10/23/24:25 Lactate 0.9 mmol/L (0.4-2.0) 10/23/24: Calcium 8.8 mg/dl (8.6-10.3) 10/23/24: Magnesium 1.6 mg/dl (1.7-2.4) L 10/23/24:25 Total Bilirubin 1.2 mg/dl (0.2-1.0) H 10/23/24:25 AST 16 U/L (13-39) 10/23/24:25 ALT 3 U/L (7-52) L 10/23/24: Alkaline Phosphatase 62 U/L (34-104) 10/23/24: Troponin I High Sens 6.4 pg/ml (0-20) 10/23/24: Total Protein 6.8 gm/dl (6.0-8.3) 10/23/24: Albumin 4.2 gm/dl (3.4-5.0) 10/23/24: Globulin 2.6 gm/dl (2.5-4.0) 10/23/24: Albumin/Globulin Ratio 1.6 (0.9-2) 10/23/24: Procalcitonin 0.03 ng/ml (0-0.5) 10/23/24: Urine Color Yellow 10/23/24 19:54 Urine Appearance Slightly Cloudy (Clear) 10/23/24 19: Urine pH 6.5 (4.5-7.5) 10/23/24 19: Ur Specific [place] 1.025 (1.000-1.030) 10/23/24 19:54 Urine Protein 2+ (Negative) H 10/23/24 19:54 Urine Glucose (UA) Negative (Negative) 10/23/24 19: Urine Ketones Negative (Negative) 10/23/24 19:54 Urine Blood 3+ (Negative) H 10/23/24 19:54 Urine Nitrite Negative (Negative) 10/23/24 19:54 Urine Bilirubin Negative (Negative) 10/23/24 19:54 Urine Urobilinogen Negative (Negative) 10/23/24 19:54 Ur Leukocyte Esterase 2+ (Negative) H 10/23/24 19:54 Urine RBC 3-5 /hpf (0-2) H 10/23/24 19:54 Urine WBC 21-50 /hpf (0-5) H 10/23/24 19:54 Ur Epithelial Cells 0-2 /hpf (0-2) 10/23/24 19:54 Urine Bacteria 1+ (None Seen) H 10/23/24 19:54 Adenovirus (PCR) Not Detected (NotDetected) 10/23/24: B. pertussis DNA (PCR) Not Detected (NotDetected) 01/09/25 19:25 B.parapertussis DNA PCR Not Detected (NotDetected) 10/23/24 19:25 C. pneumoniae DNA (PCR) Not Detected (NotDetected) 10/23/24 19:25 Coronavirus OC43 (PCR) Not Detected (NotDetected) 10/23/24 19:25 Coronavirus HKU1 (PCR) Not Detected (NotDetected) 10/23/24 19:25 Coronavirus 229E (PCR) Not Detected (NotDetected) 10/23/24 19:25 SARS-CoV-2 (PCR) Not Detected (NotDetected) 10/23/24 19:25 Coronavirus NL63 (PCR) Not Detected (NotDetected) 10/23/24 19:25 Human Metapneumovir PCR Not Detected (NotDetected) 10/23/24 19:25 Influenza Type A (PCR) Not Detected (NotDetected) 10/23/24 19:25 Influenza Type B (PCR) Not Detected (NotDetected) 10/23/24 19:25 M. pneumoniae (PCR) Not Detected (NotDetected) 10/23/24 19:25 Parainfluenza 1 (PCR) Not Detected (NotDetected) 10/23/24 19:25 Parainfluenza 2 (PCR) Not Detected (NotDetected) 10/23/24 19:25 Parainfluenza 3 (PCR) Not Detected (NotDetected) 10/23/24 19:25 Parainfluenza 4 (PCR) Not Detected (NotDetected) 10/23/24 19:25 RSV (PCR) Not Detected (NotDetected) 10/23/24 19:25 Entero/Rhino (PCR) Not Detected (NotDetected) 10/23/24 19:25 Impressions Chest X-Ray 10/23/24 19:21 Exam(s): XR CXR 1 VIEW EXAM: XR Chest, 1 View CLINICAL HISTORY: Reason for exam: Sepsis. TECHNIQUE: Frontal view of the chest. COMPARISON: July 04, 2024 FINDINGS: Lungs: Lung volumes are low with mild proximal vascular crowding in the lung bases. No acute infiltrate or consolidation is identified. Pleural space: Unremarkable. No pneumothorax. Heart: Unremarkable. No cardiomegaly. Mediastinum: Unremarkable. Normal mediastinal contour. Bones/joints: Unremarkable. No acute fracture. Upper abdomen: There is no pneumoperitoneum under the diaphragm. IMPRESSION: Lung volumes are low with mild proximal vascular crowding in the lung bases. No acute infiltrate or consolidation is identified. Electronically signed by: Amarjit Finnegan MD 10/23/24 21:15 PM Code Status & VTE Plan VTE Prophylaxis Plan VTE Prophylaxis will be ordered: Yes Supervising Physician Co-Signing Physician Notes Patient seen and examined, chart reviewed, case discussed with Dr. Chavira and I agree with the assessment and plan as above. In brief, patient is a 79yo male with history of Parkinson's disease, GERD, Bladder cancer presenting with sepsis following cystoscopy - tumor resection 10/24/24. Post-void residual urine volume of 452mL On exam patient is awake and alert, slow to respond to questions Skin - intact, no rashes HEENT - MMM, Neck supple Heart - +S1/S2, regular, no m/r/g Lungs - CTA, no rales/rhonchi/wheezes Abd - +BS, soft, NT/ND Ext - warm, well perfused Labs and images reviewed Assessment/Plan Sepsis following cystoscopy, tumor resection. Patient received 2.5L crystalloid. -Forman placed for post-void retention -Continue Ceftriaxone -Continue IVF -Remainder as above Resident Activity Tracking Resident Involvement: Resident Care Provided Care Provided: Adult Hospital Medicine (1) Sepsis Sepsis acute organ dysfunction status: unspecified Sepsis type: sepsis due to unspecified organism Qualified Code(s): A41.9 - Sepsis, unspecified organism (3) Parkinsonism Dyskinesia presence: unspecified whether dyskinesia Fluctuating manifestations: unspecified whether manifestations fluctuate Parkinsonism type: Parkinson's disease Qualified Code(s): G20.A1 - Parkinson's disease without dyskinesia, without mention of fluctuations (4) GERD (gastroesophageal reflux disease) Esophagitis presence: esophagitis presence not specified Qualified Code(s): K21.9 - Gastro-esophageal reflux disease without esophagitis
[2024-10-24] MEDS ORDERED: Nursing to Pharmacy Communication SCH ×2 (00:15→20:45)
[2024-10-24] MEDS: ENOXAPARIN INJ 40 MG/0.4 ML SYR SQ SCH (00:54)
[2024-10-24] MEDS: MAGNESIUM SULFATE / D5W 1 GM/100 ML BAG IV SCH ×2 (00:59→23:41)
--- NOTE | 2024-10-24 01:22 | Billing Data ---
Date of Service October 23, 2024 Coding Level of Care Code 02647 INT INP/OBS CARE
[2024-10-24] MEDS: CARBIDOPA/LEVODOPA 50/200MG EXT REL TAB PO SCH (06:03)
[2024-10-24 07:27] LABS: Hematocrit (blood only) 37.9 % (42.0-52.0); Hemoglobin 12.7 g/dl (14.0-18.0); Mean Corpuscular Hemoglobin 30.8 pg (25.0-34.0); Mean Corpuscular Hgb Conc 33.5 g/dL (32.0-36.0); Mean Platelet Volume 10.1 fL (9.4-12.4); Platelet Count 155 K/uL (130-400); RDW Coefficient of Variation 13.5 % (11.5-14.5); RDW Standard Deviation 45.9 fL (36.4-46.3); Red Blood Count 4.12 M/uL (4.70-6.10); White Blood Count 20.24 K/ul (4.8-10.8)
[2024-10-24] MEDS: ACETAMINOPHEN 325 MG TAB PO PRN (07:38)
[2024-10-24 07:49] LABS: Basophils # (auto) 0.03 K/uL (0.00-0.20); Basophils % (auto) 0.1 %; Immature Granulocytes # (auto) 0.33 K/uL (0.01-0.20); Immature Granulocytes % (auto) 1.6 %; Lymphocytes # (auto) 0.84 K/uL (1.20-3.40); Lymphocytes % (auto) 4.2 %; Monocytes # (auto) 0.77 K/uL (0.11-0.59); Monocytes % (auto) 3.8 %; Neutrophils # (auto) 18.27 K/uL (1.40-6.50); Neutrophils % (auto) 90.3 %
[2024-10-24 07:56] LABS: Albumin Globulin Ratio 1.5 (0.9-2); Albumin Level 3.5 gm/dl (3.4-5.0); BUN Creatinine Ratio 21.5 (10-20); Bilirubin,Total 2.1 mg/dl (0.2-1.0); Calcium 8.1 mg/dl (8.6-10.3); Creatinine Clr Calc Pharmacy 52.8 ml/min; Globulin 2.4 gm/dl (2.5-4.0); Potassium 4.2 mmol/L (3.5-5.1); Total Protein 5.9 gm/dl (6.0-8.3)
[2024-10-24] MEDS ORDERED: OXYBUTYNIN CHLORIDE XL 5 MG TABCR PO SCH (09:00)
[2024-10-24] MEDS ORDERED: CARBIDOPA/LEVODOPA 50/200MG EXT REL TAB PO SCH (09:00)
[2024-10-24] MEDS: rOPINIRole HCL 1 MG TABLET PO SCH (09:05)
[2024-10-24] MEDS: CYANOCOBALAMIN (B-12) 500 MCG TABLET PO SCH (09:05)
[2024-10-24] MEDS: IBUPROFEN 200 MG TAB PO STA (09:05)
[2024-10-24] MEDS: PANTOprazole 40 MG TAB PO SCH (09:05)
[2024-10-24] MEDS: CHOLECALCIFEROL 25 MCG (1000 UNITS) TAB PO SCH (09:05)
[2024-10-24] MEDS ORDERED: VANCOMYCIN CONSULT ACTIVE PRN (09:15)
[2024-10-24] MEDS: SODIUM CHLORIDE 0.9% 1,000 ML IV ONE ×2 (10:12→20:22)
[2024-10-24] MEDS: AMPICILLIN 2,000 MG in SODIUM CHLOR 0.9% MINI-B 100 ML IV SCH (10:14)
[2024-10-24] MEDS: VANCOMYCIN HCL 1,500 MG in SODIUM CHLORIDE 0.9% 500 ML IV ONE (10:50)
[2024-10-24 11:02] LABS: A calco-baum cmplx NotReported Not Detected (NotDetected); Bact fragilis Not Reported Not Detected (NotDetected); Blood Culture Id Panel See PCR Comment (NotDetected); C auris Not Reported Not Detected (NotDetected); Calbicans Not Reported Not Detected (NotDetected); Candida glabrata Not Reported Not Detected (NotDetected); Candida krusei Not Reported Not Detected (NotDetected); Cneoformans/gatti Not Reported Not Detected (NotDetected); Cparapsilosis Not Reported Not Detected (NotDetected); E cloacae compx Not Reported Not Detected (NotDetected); Efaecalis Not Reported DETECTED (NotDetected); Efaecium Not Reported Not Detected (NotDetected); Enterobacterales Not Reported Not Detected (NotDetected); Escherichia coli Not Reported Not Detected (NotDetected); H influenzae Not Reported Not Detected (NotDetected); K aerogenes Not Reported Not Detected (NotDetected); Koxytoca Not Reported Not Detected (NotDetected); Kpneumoniae grp Not Reported Not Detected (NotDetected); Lmonocyt Not Reported Not Detected (NotDetected); N meningitidis Not Reported Not Detected (NotDetected); P aeruginosa Not Reported Not Detected (NotDetected); Proteus spp Not Reported Not Detected (NotDetected); Salmonella spp Not Reported Not Detected (NotDetected); Staph lugdunensis Not Reported Not Detected (NotDetected); Staph spp. Not Reported Not Detected (NotDetected); Staphaureus Not Reported Not Detected (NotDetected); Staphepi Not Reported Not Detected (NotDetected); Stenmaltophilia Not Reported Not Detected (NotDetected); Strep agal(GrpB) Not Reported Not Detected (NotDetected); Strep pneum Not Reported Not Detected (NotDetected); Strep pyog (GrpA) Not Reported Not Detected (NotDetected); Strep spp Not Reported Not Detected (NotDetected); VanAB Resistant Gene VRE Not Detected (NotDetected)
[2024-10-24 11:17] LABS: Enterococcus faecalis DETECTED (NotDetected)
[2024-10-24] MEDS: SODIUM CHLORIDE 0.9% 1,000 ML IV SCH (11:48)
--- NOTE | 2024-10-24 14:42 | Hospitalist Progress Note ---
Date of Service October 24, 2024 Assessment & Plan (1) Sepsis: (2) Acute UTI: (3) Parkinsonism: (4) GERD (gastroesophageal reflux disease): (5) Hypomagnesemia: (6) Urinary retention: (7) Bacteremia: (8) Bladder mass: Plan 79 yo male PMHx Parkinson syndrome, GERD, bladder cancer admitted with fever, fatigue, meeting sepsis criteria. #Sepsis Secondary to E fecalis UTI Blood cultures also positive for gram positive, full characterization pending Likely urinary source after instrumentation, tumor resection 10/24/24 Total 2.5L crystalloid resuscitation provided Lactate recheck 0.9 Start IV Ampicllin and vancomycin consult ID #Recent bladder tumor resection Admission and Anticipated Discharge Date Admission Date: October 23, 2024 Subjective patient seen and examined, by the bedside, feels chills and fevers Review of Systems Review of Systems: All systems reviewed are negative, apart from the ones contained in the history. Physical Exam Physical Exam: The patient is awake, alert and oriented 3, well developed and well nourished, normocephalic and atraumatic, lying in bed and in no acute distress. HEENT--PERRL, EOMI, mucous membranes and oropharynx mildly dry Neck--supple. No JVD. No bruits. Thyroid normal, trachea midline, no adenopathy. Heart--normal S1 and S2. No murmurs, rubs or gallops. Lungs--clear bilaterally, no respiratory distress, no accessory muscle use. Abdomen--normal bowel sounds and soft. Extremities--no cyanosis or clubbing. No edema. Dermatologic--normal skin turgor, normal color, no abnormal lymph nodes, no rash. Neurologic--cranial nerves II through XII grossly intact. Rheumatologic--normal range of motion. Psychiatric--normal affect. Results & Data Results & Data Vital Signs (Past 12 Hours) Vital Signs Temp Pulse Resp BP Pulse Ox O2 Del Method 10/24/24 13:39 97.3 F L 95 H 17 103/59 L 92 Room Air 10/24/24 11:29 65 20 89/65 L 95 Room Air 10/24/24 10:47 98.2 F 63 18 79/39 L 92 Room Air 10/24/24 10:05 99.3 F 64 18 74/39 L 92 Room Air 10/24/24 08:35 101.3 F H 10/24/24 07:42 101.8 F H 92 H 20 104/59 L 90 Room Air 10/24/24 07:20 Room Air PG Care Time/CCT Total # of Minutes Spent Total Time Spent with Patient: Total time spent is greater than 50% in coordination of care (as documented) at patient's floor/unit and/or counseling patient: Coding Level of Care Code 65271 SUB INP/OBS CARE 2/35MIN Diagnoses Sepsis A41.9 Sepsis acute organ dysfunction status: unspecified Sepsis type: sepsis due to unspecified organism Acute UTI N39.0 Parkinson's disease, unspecified whether dyskinesia present, unspecified whether manifestations fluctuate G20.A1 Parkinsonism type: Parkinson's disease Dyskinesia presence: unspecified whether dyskinesia Fluctuating manifestations: unspecified whether manifestations fluctuate Gastroesophageal reflux disease, unspecified whether esophagitis present K21.9 Esophagitis presence: esophagitis presence not specified Hypomagnesemia E83.42 Urinary retention R33.9 Bacteremia R78.81 Bladder mass N32.89 Time Spent (min) 35 (1) Sepsis Sepsis acute organ dysfunction status: unspecified Sepsis type: sepsis due to unspecified organism Qualified Code(s): A41.9 - Sepsis, unspecified organism (3) Parkinsonism Parkinsonism type: Parkinson's disease Dyskinesia presence: unspecified whether dyskinesia Fluctuating manifestations: unspecified whether manifestations fluctuate Qualified Code(s): G20.A1 - Parkinson's disease without dyskinesia, without mention of fluctuations (4) GERD (gastroesophageal reflux disease) Esophagitis presence: esophagitis presence not specified Qualified Code(s): K21.9 - Gastro-esophageal reflux disease without esophagitis
--- NOTE | 2024-10-24 15:37 | Infectious Disease Consult ---
Date of Consultation October 24, 2024 Assessment & Plan (1) Bacteremia: (2) Urinary retention: (3) Acute UTI: Plan This is a 79-year-old male with a past medical history of Parkinson's disease, GERD, bladder cancer status post TURP. complicated by significant bleeding requiring open conversion, status post BCG presents with confusion and fever. His is at bedside and provides most of the history. He underwent cystoscopy on 10/22/2023 which showed an ulcerated area on the posterior part of the prostate which was previously resected: no tumor recurrence but the area appeared irritated. Fulguration of the ulcerated area was unsuccessful. The procedure was prolonged. He was discharged with no issues. The next day during a walk with his , he became confused and incontinent of urine. He subsequently developed fevers and sweats and presented to the ED. He denies nausea, vomiting, dysuria, back pain, abdominal pain In the ED temperature 39.1, pulse 97, respiratory rate 18, blood pressure 137/77, O2 sats 98% on room air. Labs: WBC 10.82---> 20.24, BUN 29, creatinine 1.29, total bili 1.22, lactate 2.4--> 0.9. Urinalysis 2+ leukocyte esterase, negative nitrites, 2150 WBC, 35 RBC, 1+ bacteria. Blood culture with Enterococcus faecalis through [facility], VRE not detected. UC with E faecalis Hospital course complicated by worsening leukocytosis and hypotension. He received a dose of ceftriaxone and vancomycin. Ampicillin was started this morning. Found to be retaining, urine owusu placed. Infectious disease consulted for bacteremia. Microbiology Blood culture 10/23 2/ bottles GPC in chains ( E faecalis on BCID) Urine culture 10/23 > 100 K Enterococcus faecalis Antibiotics: Ceftriaxone 10/23 Vancomycin 10/24 Ampicillin 10/24 # Sepsis # E faecalis bacteremia and UTI # status Post cystoscopy 10/22 # Bladder cancer status post TURP # Leukocytosis, worsening # Acute urinary retention, owusu placed Discussion: Sepsis likely secondary to E faecalis bacteremia secondary to urinary Luciano source post urinary procedure. No prosthetics or hardware. Clinical picture is worsening with fevers, hypotension and leukocytosis. Ampicillin was started today. E faecalis on [facility] ID with no VRE. Recommendations. Septic on ampicillin with continued fever, worsening leukocytosis and hypotension Given worsening clinical picture ( received ampicillin and vanco this am )Discontinued Ampicillin Started zosyn4.5 g IV q8 hr and Daptomycin 8 mg/kg IV daily pending further culture data/ E faecalis likely Ampicillin S per BCID If only E faecalis on cultures, can deescalate to AMP Repeat BC 10/25 Follow up GPC in chains from 10/23 BC. If Amp S E feacalis grows only, can deescalate antibiotics to Ampicillin 2g IV q4 hours ( cr cl 52) CHECK TTE in setting of Enterococcus Feacalis bacteremia Thank you for this consult. ID will continue to follow. ID will not round or review the chart over the weekend. Call covering provider at [facility] at [phone] with questions. I will return on service , Sunday10/27/24 Tano Faust MD, MPH Infectious Disease [facility] Consultation Information Consultation was provided via telemedicine using two-way real-time interactive telecommunication between the patient and the telemedicine provider. For the duration of the visit, the provider was performing the assessment from a different facility than the patient. This includesuse of bluetooth stethoscope forauscultationperformed by the telepresenter that the telemedicine provider can hear if described in the physical exam. Viscosity Worker contact information: Please call [facility] . (Phone Number For Physician Use Only) After establishing a telemedicine visit, patient was: Patient was verified with two unique identifiers Time Spent with Patient: Initial => 75 min History of Present Illness Reason for Consultation: Bacteremia Requesting Physician: Saundra Jansen MD Attending Physician: Saundra Jansen MD History of Present Illness This is a 79-year-old male with a past medical history of Parkinson's disease, GERD, bladder cancer status post TURP. complicated by significant bleeding requiring open conversion, status post BCG presents with confusion and fever. His is at bedside and provides most of the history. He underwent cystoscopy on 10/22/2023 which showed an ulcerated area on the posterior part of the prostate which was previously resected: no tumor recurrence but the area appeared irritated. Fulguration of the ulcerated area was unsuccessful. The procedure was prolonged. He was discharged with no issues. The next day during a walk with his , he became confused and incontinent of urine. He subsequently developed fevers and sweats and presented to the ED. He denies nausea, vomiting, dysuria, back pain, abdominal pain In the ED temperature 39.1, pulse 97, respiratory rate 18, blood pressure 137/77, O2 sats 98% on room air. Labs: WBC 10.82---> 20.24, BUN 29, creatinine 1.29, total bili 1.22, lactate 2.4--> 0.9. Urinalysis 2+ leukocyte esterase, negative nitrites, 2150 WBC, 35 RBC, 1+ bacteria. Blood culture with Enterococcus faecalis through ID, VRE not detected. UC with E faecalis Hospital course complicated by worsening leukocytosis and hypotension. He received a dose of ceftriaxone and vancomycin. Ampicillin was started this morning. Found to be retaining, urine owusu placed. Infectious disease consulted for bacteremia. Allergies Allergy/AdvReac Type Severity Reaction Status Date / Time No Known Drug Allergies Allergy Unknown Verified 07/22/24 08:01 Home Medications Medication Instructions Recorded Confirmed Type omeprazole 20 mg capsule,delayed 20 mg PO QAM 07/21/20 10/23/24 History release aspirin 81 mg tablet,delayed 81 mg PO 3XWK 12/20/21 10/23/24 History release cholecalciferol (vitamin D3) 25 25 mcg PO DAILY 12/20/21 10/23/24 History mcg (1,000 unit) tablet (Vitamin D3) cyanocobalamin (vitamin B-12) 1,000 mcg PO DAILY 12/20/21 10/23/24 History 1,000 mcg tablet carbidopa ER 50 mg-levodopa 200 mg 1 tab PO TID 90 days #270 tabs 01/14/24 10/23/24 Rx tablet,extended release ropinirole 2 mg tablet,extended 2 mg PO QAM 07/22/24 10/23/24 History release 24 hr solifenacin 10 mg tablet 10 mg PO DAILY 10/23/24 10/23/24 History Patient History Medical History Gait disturbance Respiratory distress hx, w/recent Covid illness in 07/05/24, "no current issues" COVID Dysphagia Hyperlipidemia Hx of hyperlipidemia GERD (gastroesophageal reflux disease) History of dysphagia pt seen by TRANSPORTATION PLANNER while inpt 06/2024 for COVID; 'no safe diet for patient... a llow for permissive aspiration'. pt denies issues currently History of COVID-19 07/05/24 admitted [facility] (through 07/07/24); sx resolved Bladder cancer Dx'ed Spring 2020 - Cysto, TURBT 01/18/21- initially uneventful until a severe obturator reflex was provoked- had increased bleeding- converted from LMA to ETT anesthesia per 01/18/21 anesthesia record. -Had repeat procedures 02/22/21 and 01/10/22 without noted issues; has also completed BCG tx Benign essential tremor Bilateral index fingers Twitching Only occurs when falling asleep or when asleep Zenkers diverticulum Parkinson disease following with [facility]; per most recent note 12/2023: "Parkinson's disease with Parkinson's gait and some bradykinesia with mild cogwheel. He is doing fairly well on his current dose of carbidopa/levodopa, 50/200 ER twice daily. His drooling is improved and his fatigue is stable. He does not have much in the way of tremor today"... stable- continue current medication regimen History of asthma A CHILD ONLY- NO CURRENT ISSUES BPH (benign prostatic hyperplasia) Surgical History History of bladder surgery TURBT X 3: most recent: 01/10/22: GA: LMA#5, atraumatic placement x 1 History of esophagogastroduodenoscopy (EGD) History of colonoscopy History of tooth extraction History of hernia surgery INGUINAL Family History Family/Other Lung cancer Other No family history of adverse response to anesthesia Social History Smoking Status: Never smoker Do You Dip or Chew Tobacco: No; Hx Alcohol Use: Yes Alcohol type: beer and wine Hx Substance Use: No Preferred Language: Albanian Communication Ability: Effective Technical Information Specialist Required: No Beliefs That Will Affect Care: None marital status: Current Living Situation: Spouse Current Living Situation Comment: AND SON current occupational status: employed 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 Pertinent positives as per HPi Physical Exam Physical Exam: General- fatigued appearing. comfortable, warm to touch, many blankets on Neck- supple HEENT-Anicteric sclera, AT/NC Lungs- Non labored breathing Abdomen- soft , not tender - No suprapubic tenderness, owusu in place with yellow urine. Neuro- AAO times 3 Psych- cooperative Results & Data Vital Signs (Past 12 Hours) Vital Signs Temp Pulse Resp BP Pulse Ox O2 Del Method 10/24/24 15:21 37.3 C 84 20 95/59 L 93 Room Air 10/24/24 13:39 36.3 C L 95 H 17 103/59 L 92 Room Air 10/24/24 11:29 65 20 89/65 L 95 Room Air 10/24/24 10:47 36.8 C 63 18 79/39 L 92 Room Air 10/24/24 10:05 37.4 C 64 18 74/39 L 92 Room Air 10/24/24 08:35 38.5 C H 10/24/24 07:42 38.8 C H 92 H 20 104/59 L 90 Room Air 10/24/24 07:20 Room Air Laboratory Results Laboratory Results - last 48 hr 10/23/24 10/23/24 10/23/24 19:25 19:54 21:25 WBC 10.82 H RBC 4.25 L Hgb 13.2 L Hct 39.2 L MCV 92.2 MCH 31.1 MCHC 33.7 RDW Std Deviation 45.6 RDW Coeff of Vijaya 13.5 Plt Count 159 MPV 9.7 Immature Gran % (Auto) 0.3 Neut % (Auto) 89.0 Lymph % (Auto) 4.3 [place] % (Auto) 5.8 Eos % (Auto) 0.3 Baso % (Auto) 0.3 Neut # (Auto) 9.63 H Lymph # (Auto) 0.47 L [place] # (Auto) 0.63 H Eos # (Auto) 0.03 Baso # (Auto) 0.03 Immature Gran # (Auto) 0.03 PT 11.6 INR 1.1 APTT 26 PTT Ratio 1.0 Sodium 138 Potassium 4.3 Chloride 102 Carbon Dioxide 28 Anion Gap 8 BUN 29 H Creatinine 1.29 Est Cr Clr Drug Dosing Not Reportable eGFR 57.11 BUN/Creatinine Ratio 22.5 H Glucose 151 H Lactate 2.4 H* 0.9 Calcium 8.8 Magnesium 1.6 L Total Bilirubin 1.2 H AST 16 ALT 3 L Alkaline Phosphatase 62 Troponin I High Sens 6.4 Total Protein 6.8 Albumin 4.2 Globulin 2.6 Albumin/Globulin Ratio 1.6 Procalcitonin 0.03 Urine Color Yellow Urine Appearance Slightly Cloudy Urine pH 6.5 Ur Specific [place] 1.025 Urine Protein 2+ H Urine Glucose (UA) Negative Urine Ketones Negative Urine Blood 3+ H Urine Nitrite Negative Urine Bilirubin Negative Urine Urobilinogen Negative Ur Leukocyte Esterase 2+ H Urine RBC 3-5 H Urine WBC 21-50 H Ur Epithelial Cells 0-2 Urine Bacteria 1+ H Adenovirus (PCR) Not Detected B. pertussis DNA (PCR) Not Detected B.parapertussis DNA PCR Not Detected C. pneumoniae DNA (PCR) Not Detected Coronavirus OC43 (PCR) Not Detected Coronavirus HKU1 (PCR) Not Detected Coronavirus 229E (PCR) Not Detected SARS-CoV-2 (PCR) Not Detected Coronavirus NL63 (PCR) Not Detected Enterococc faecalis PCR DETECTED A Human Metapneumovir PCR Not Detected Influenza Type A (PCR) Not Detected Influenza Type B (PCR) Not Detected M. pneumoniae (PCR) Not Detected Parainfluenza 1 (PCR) Not Detected Parainfluenza 2 (PCR) Not Detected Parainfluenza 3 (PCR) Not Detected Parainfluenza 4 (PCR) Not Detected RSV (PCR) Not Detected Entero/Rhino (PCR) Not Detected Joselito/B-Vanco Res Genes VRE Not Detected Bld Cult ID Panel PCR See PCR Comment 10/24/24 06:47 WBC 20.24 H D RBC 4.12 L Hgb 12.7 L Hct 37.9 L MCV 92.0 MCH 30.8 MCHC 33.5 RDW Std Deviation 45.9 RDW Coeff of Vijaya 13.5 Plt Count 155 MPV 10.1 Immature Gran % (Auto) 1.6 Neut % (Auto) 90.3 Lymph % (Auto) 4.2 [place] % (Auto) 3.8 Eos % (Auto) 0.0 Baso % (Auto) 0.1 Neut # (Auto) 18.27 H Lymph # (Auto) 0.84 L [place] # (Auto) 0.77 H Eos # (Auto) 0.00 Baso # (Auto) 0.03 Immature Gran # (Auto) 0.33 H PT INR APTT PTT Ratio Sodium 137 Potassium 4.2 Chloride 106 Carbon Dioxide 26 Anion Gap 5 BUN 26 H Creatinine 1.21 Est Cr Clr Drug Dosing 52.8 eGFR 61.67 BUN/Creatinine Ratio 21.5 H Glucose 108 H Lactate Calcium 8.1 L Magnesium 2.0 Total Bilirubin 2.1 H D AST 15 ALT 8 Alkaline Phosphatase 45 Troponin I High Sens Total Protein 5.9 L Albumin 3.5 Globulin 2.4 L Albumin/Globulin Ratio 1.5 Procalcitonin Urine Color Urine Appearance Urine pH Ur Specific [place] Urine Protein Urine Glucose (UA) Urine Ketones Urine Blood Urine Nitrite Urine Bilirubin Urine Urobilinogen Ur Leukocyte Esterase Urine RBC Urine WBC Ur Epithelial Cells Urine Bacteria Adenovirus (PCR) B. pertussis DNA (PCR) B.parapertussis DNA PCR C. pneumoniae DNA (PCR) Coronavirus OC43 (PCR) Coronavirus HKU1 (PCR) Coronavirus 229E (PCR) SARS-CoV-2 (PCR) Coronavirus NL63 (PCR) Enterococc faecalis PCR Human Metapneumovir PCR Influenza Type A (PCR) Influenza Type B (PCR) M. pneumoniae (PCR) Parainfluenza 1 (PCR) Parainfluenza 2 (PCR) Parainfluenza 3 (PCR) Parainfluenza 4 (PCR) RSV (PCR) Entero/Rhino (PCR) Joselito/B-Vanco Res Genes Bld Cult ID Panel PCR Diagnostic Findings Microbiology 10/23/24 19:25 Blood Aerobic Blood Culture - Preliminary Gram positive cocci in chains 10/23/24 19:25 Blood Anaerobic Blood Culture - Preliminary Gram positive cocci in chains 10/23/24 19:54 Urine,Clean Catch Urine Culture - Preliminary Enterococcus faecalis Chest X-Ray 10/23/24 19:21 Exam(s): XR CXR 1 VIEW EXAM: XR Chest, 1 View CLINICAL HISTORY: Reason for exam: Sepsis. TECHNIQUE: Frontal view of the chest. COMPARISON: July 04, 2024 FINDINGS: Lungs: Lung volumes are low with mild proximal vascular crowding in the lung bases. No acute infiltrate or consolidation is identified. Pleural space: Unremarkable. No pneumothorax. Heart: Unremarkable. No cardiomegaly. Mediastinum: Unremarkable. Normal mediastinal contour. Bones/joints: Unremarkable. No acute fracture. Upper abdomen: There is no pneumoperitoneum under the diaphragm. IMPRESSION: Lung volumes are low with mild proximal vascular crowding in the lung bases. No acute infiltrate or consolidation is identified. Electronically signed by: Amarjit Finnegan MD 10/23/24 21:15 PM Medications Administered Home Medications Medication Instructions Recorded Confirmed Last Taken omeprazole 20 mg capsule,delayed 20 mg PO QAM 07/21/20 10/23/24 10/23/24 release aspirin 81 mg tablet,delayed 81 mg PO 3XWK 12/20/21 10/23/24 10/23/24 release cholecalciferol (vitamin D3) 25 25 mcg PO DAILY 12/20/21 10/23/24 10/23/24 mcg (1,000 unit) tablet (Vitamin D3) cyanocobalamin (vitamin B-12) 1,000 mcg PO DAILY 12/20/21 10/23/24 10/23/24 1,000 mcg tablet carbidopa ER 50 mg-levodopa 200 mg 1 tab PO TID 90 days #270 tabs 01/14/24 10/23/24 10/23/24 tablet,extended release ropinirole 2 mg tablet,extended 2 mg PO QAM 07/22/24 10/23/24 10/23/24 release 24 hr solifenacin 10 mg tablet 10 mg PO DAILY 10/23/24 10/23/24 10/23/24 Active Medications Generic Name Dose Route Start Last Admin Trade Name Freq PRN Reason Stop Dose Admin Acetaminophen 650 mg 10/23/24 23:46 10/24/24 13:30 Acetaminophen 325 Mg Tab PO 11/22/24 23:45 650 mg Q4H PRN Administration pain/fever Carbidopa/Levodopa 1 tab 10/24/24 06:30 10/24/24 06:03 Carbidopa/Levodopa 50/200mg Ext Rel Tab PO 11/23/24 06:29 1 tab DAILY@0630,1500,2100 JAMIA Administration Cyanocobalamin 1,000 mcg 10/24/24 09:00 10/24/24 09:25 Cyanocobalamin (B-12) 500 Mcg Tablet PO 11/23/24 08:59 Not Given DAILY JAMIA Enoxaparin Sodium 40 mg 10/23/24 23:46 10/24/24 00:54 Enoxaparin Inj 40 Mg/0.4 Ml Syr SQ 11/22/24 23:45 40 mg Q24H JAMIA Administration Ampicillin Sodium 2,000 mg/ 100 mls @ 200 mls/hr 10/24/24 09:30 10/24/24 10:48 Sodium Chloride IV 10/24/24 18:00 Infused Q6H JAMIA Infusion Sodium Chloride 1,000 mls @ 125 mls/hr 10/24/24 11:30 10/24/24 11:48 Nss IV 10/25/24 11:29 125 mls/hr .Q8H JAMIA Administration Pantoprazole Sodium 40 mg 10/24/24 09:00 10/24/24 09:05 Pantoprazole 40 Mg Tab PO 11/23/24 08:59 40 mg QAM JAMIA Administration Ropinirole HCl 2 mg 10/24/24 09:00 10/24/24 09:05 Ropinirole Hcl 1 Mg Tablet PO 11/23/24 08:59 2 mg QAM JAMIA Administration Vitamin D 25 mcg 10/24/24 09:00 10/24/24 09:25 Cholecalciferol 25 Mcg (1000 Units) Tab PO 11/23/24 08:59 Not Given DAILY JAMIA
[2024-10-24] MEDS: IBUPROFEN 200 MG TAB PO PRN (17:07)
[2024-10-24] MEDS: PIPERACILLIN/TAZOBACTAM 4.5 GM/100 ML BAG IV ONE (17:07)
[2024-10-24] MEDS: DAPTOmycin 600 MG in SYRINGE 0 ML IV SCH (17:08)
[2024-10-24] MEDS ORDERED: AMPICILLIN 2,000 MG in SODIUM CHLOR 0.9% MINI-B 100 ML IV SCH (20:00)
[2024-10-24] MEDS ORDERED: cefTRIAXone SODIUM 2,000 MG/50 ML BAG IV SCH (20:00)
[2024-10-24] MEDS: MELATONIN 3 MG TAB PO PRN (20:22)
[2024-10-24] MEDS: OXYBUTYNIN CHLORIDE XL 5 MG TABCR PO SCH (20:22)
[2024-10-24] MEDS ORDERED: STAT IV Infusion **Titration per Protocol STA (22:04)
--- NOTE | 2024-10-24 22:15 | Critical Care Consultation ---
Date of Consultation October 24, 2024 Assessment & Plan (1) Septic shock due to Enterococcus fecalis: (2) Urinary retention: (3) Acute UTI: (4) Primary bladder malignant neoplasm: (5) DAVE (acute kidney injury): Plan Neurologic: Multimodal pain management. APAP PRN pain/fever. Monitor closely for ETOH W/D. Add MVI, folic acid, thiamine. Home Requip, carbidopa levodopa. Cardiovascular: Septic shock. MAP goal > 65mmHg. Continue ASA Respiratory: SpO2 goal > 92%. IS/Flutter. Encourage deep breathing. HOB 30. Gastrointestinal: Advance MAGDIEL. SUP: Home PPI Bowel regimen: Senna Endocrine: Random cortisol pending. BG 140-180 per SCC guidelines. Infectious disease: ID is on board, appreciate continued recommendations. Zosyn and Daptomycin as ordered. Will consider repeat BC to ensure clearance. TTE pending to R/O EC MSK/Skin/Other: No acute concerns Nephrology: Owusu for retention and accurate I/O monitor. Removal as able with void trial. Replete electrolytes for goal K > 4 and Mg > 2. Lactate pending. DVT PPX: Enoxaparin Code status: Full Supervising Physician Co-Signing Physician Notes Patient seen and examined. EMR reviewed. Discussed with critical care ROBERT overnight and agree with assessment plan as noted. For additional details please refer to my progress note from 10/25/2024 History of Present Illness Reason for Consultation: Septic shock Requesting Physician: Loly Attending Physician: Saundra Jansen MD History of Present Illness Mr. Petey Lozano is a 79YOM with a history of Parkinsonism, bladder CA s/p TURPT and BCG tx, GERD, urinary retention who was admitted to [facility] on 10/23/2024 secondary to fevers following a recent cystoscopy. He was found to be bacteremic secondary to UTI. Initially received ceftriaxone and vancomycin. Started on ampicillin 1/10 AM. Seen by Infectious Disease who transitioned patient to Zosyn and Daptomycin given clinical decompensation. He was also found to be retaining urine, thus owusu placed. ICU was consulted due to septic shock. Patient seen on arrival to ICU 104. He is AAOx3. No current complaints. Specifically denies chills, headache, chest pain, shortness of breath, abdominal pain, n/v/d, numbness/paresthesias, skin lesion, and weight fluctuations. He is requiring minimal vasopressor. Saturating well on room air. Bradycardic at times which appears chronic based on chart review. Allergies Allergy/AdvReac Type Severity Reaction Status Date / Time No Known Drug Allergies Allergy Unknown Verified 07/22/24 08:01 Home Medications Medication Instructions Recorded Confirmed Type omeprazole 20 mg capsule,delayed 20 mg PO QAM 07/21/20 10/23/24 History release aspirin 81 mg tablet,delayed 81 mg PO 3XWK 12/20/21 10/23/24 History release cholecalciferol (vitamin D3) 25 25 mcg PO DAILY 12/20/21 10/23/24 History mcg (1,000 unit) tablet (Vitamin D3) cyanocobalamin (vitamin B-12) 1,000 mcg PO DAILY 12/20/21 10/23/24 History 1,000 mcg tablet carbidopa ER 50 mg-levodopa 200 mg 1 tab PO TID 90 days #270 tabs 01/14/24 10/23/24 Rx tablet,extended release ropinirole 2 mg tablet,extended 2 mg PO QAM 07/22/24 10/23/24 History release 24 hr solifenacin 10 mg tablet 10 mg PO DAILY 10/23/24 10/23/24 History Patient History Medical History Gait disturbance Respiratory distress hx, w/recent Covid illness in 07/05/24, "no current issues" COVID Dysphagia Hyperlipidemia Hx of hyperlipidemia GERD (gastroesophageal reflux disease) History of dysphagia pt seen by [facility]INE W[employer] TENDER while inpt 06/2024 for COVID; 'no safe diet for patient... allow for permissive aspiration'. pt denies issues currently History of COVID-19 07/05/24 admitted [facility] (through 07/07/24); sx resolved Bladder cancer Dx'ed Spring 2020 - Cysto, TURBT 01/18/21- initially uneventful until a severe obturator reflex was provoked- had increased bleeding- converted from LMA to ETT anesthesia per 01/18/21 anesthesia record. -Had repeat procedures 02/22/21 and 01/10/22 without noted issues; has also completed BCG tx Benign essential tremor Bilateral index fingers Twitching Only occurs when falling asleep or when asleep Zenkers diverticulum Parkinson disease following with [facility]; per most recent note 12/2023: "Parkinson's disease with Parkinson's gait and some bradykinesia with mild cogwheel. He is doing fairly well on his current dose of carbidopa/levodopa, 50/200 ER twice daily. His drooling is improved and his fatigue is stable. He does not have much in the way of tremor today"... stable- continue current medication regimen History of asthma A CHILD ONLY- NO CURRENT ISSUES BPH (benign prostatic hyperplasia) Surgical History History of bladder surgery TURBT X 3: most recent: 01/10/22: GA: LMA#5, atraumatic placement x 1 History of esophagogastroduodenoscopy (EGD) History of colonoscopy History of tooth extraction History of hernia surgery INGUINAL Family History Family/Other Lung cancer Other No family history of adverse response to anesthesia Social History Smoking Status: Never smoker Do You Dip or Chew Tobacco: No; Hx Alcohol Use: Yes Alcohol type: beer and wine Hx Substance Use: No Preferred Language: Turkish Communication Ability: Effective Soils Engineer Required: No Beliefs That Will Affect Care: None marital status: Current Living Situation: Spouse Current Living Situation Comment: AND SON current occupational status: employed 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 in no acute distress. Eyes: PERRL, conjunctivae normal, anicteric sclerae ENMT: external ear and nose normal, oropharynx normal Neck: trachea midline, no thyromegaly Respiratory: normal respiratory effort, lungs clear to auscultation Cardiovascular: RRR, no murmur, no edema Sinus bradycardia Gastrointestinal (Abdomen): normal bowel sounds, soft, nontender, no hepatosplenomegaly Skin: no rashes, warm and dry Neurologic: PERRL, EOMI, accommodation nl, no face palsy, no dysarthria Genitourinary: Owusu in place draining light yellow urine. Results & Data Results & Data Vital Signs (Past 12 Hours) Vital Signs Temp Pulse Resp BP Pulse Ox O2 Del Method 10/24/24 21:36 89/52 L 10/24/24 19:58 36.5 C 69 14 83/46 L 92 Room Air 10/24/24 15:21 37.3 C 84 20 95/59 L 93 Room Air 10/24/24 13:39 36.3 C L 95 H 17 103/59 L 92 Room Air 10/24/24 11:29 65 20 89/65 L 95 Room Air 10/24/24 10:47 36.8 C 63 18 79/39 L 92 Room Air Laboratory Results Reviewed Diagnostic Findings Reviewed Medications Administered See VEL Coding Level of Care Code 34939 IN/OBS CONSULT LVL 2,35M Diagnoses Septic shock due to Enterococcus fecalis A41.81; R65.21 Urinary retention R33.9 Acute UTI N39.0 Primary bladder malignant neoplasm C67.9 DAVE (acute kidney injury) N17.9
[2024-10-24] MEDS: NOREPINEPHRINE/D5W 4 MG/250 ML PLCT IV SCH (22:44)
[2024-10-24 23:02] LABS: BUN Creatinine Ratio 19.3 (10-20); Calcium 7.4 mg/dl (8.6-10.3); Creatinine Clr Calc Pharmacy 45.6 ml/min; Magnesium 1.7 mg/dl (1.7-2.4); Potassium 3.9 mmol/L (3.5-5.1)
[2024-10-24] MEDS: PLASMA-LYTE A 1,000 ML IV SCH (23:11)
[2024-10-24] MEDS: POTASSIUM CHLORIDE CRTAB 20 MEQ TABCR PO STA (23:41)
[2024-10-25] MEDS: PIPERACILLIN/TAZOBACTAM 4.5 GM/100 ML BAG IV SCH (01:16)
[2024-10-25 05:30] LABS: Hematocrit (blood only) 33.6 % (42.0-52.0); Hemoglobin 11.3 g/dl (14.0-18.0); Mean Corpuscular Hgb Conc 33.6 g/dL (32.0-36.0); Mean Corpuscular Volume 92.1 fL (80.0-100.0); Mean Platelet Volume 10.1 fL (9.4-12.4); Platelet Count 117 K/uL (130-400); RDW Coefficient of Variation 13.9 % (11.5-14.5); RDW Standard Deviation 46.8 fL (36.4-46.3); Red Blood Count 3.65 M/uL (4.70-6.10); White Blood Count 17.97 K/ul (4.8-10.8)
[2024-10-25 05:44] LABS: BUN Creatinine Ratio 18.5 (10-20); Calcium 7.6 mg/dl (8.6-10.3); Creatinine Clr Calc Pharmacy 49.1 ml/min; Magnesium 2.6 mg/dl (1.7-2.4); Phosphorus 2.3 mg/dl (2.5-4.9)
[2024-10-25] MEDS: ASPIRIN 81 MG ECTAB PO SCH (07:25)
[2024-10-25] MEDS: ICU Protocol for HYPERglycemia SCH (07:26)
--- NOTE | 2024-10-25 09:56 | Critical Care Progress Note ---
Date of Service October 25, 2024 Assessment & Plan (1) Septic shock due to Enterococcus fecalis: (2) Urinary retention: (3) Acute UTI: (4) Primary bladder malignant neoplasm: (5) DAVE (acute kidney injury): Plan Impression: 79-year-old male with Parkinson's disease admitted with septic shock due to enterococcal bacteremia after cystoscopy. Transferred to the ICU 10/24/2024 for pressor agents. Recommendations: 1. Neurologic: Patient remains at his baseline state. History of Parkinson's. Continue carbidopa levodopa and follow clinically. 2. Cardiovascular: Septic shock. Reassuring lactate was normal. He appears adequately volume resuscitated currently. Continue norepinephrine as tolerated. Given relative adrenal insufficiency will place on hydrocortisone and Florinef and start midodrine. May be some component of autonomic dysreflexia given his underlying Parkinson's disease which may be contributing as well. 3. Pulmonary: Pulmonary toilet. May need incentive spirometry if required supplemental oxygen. 4. ID: Enterococcal bacteremia: Management per ID. Currently on Zosyn daptomycin with plans to de-escalate to ampicillin. Surveillance cultures will be obtained to ensure clearance of bacteremia. Echo pending. White blood cell count decreasing. 5. GI: No current issues. Liquid diet as tolerated. 6. Renal: ICU electrolyte replacement protocol. Discontinue ibuprofen for now to avoid additional renal insult. 7. Heme-onc: No current issues. 8. Endocrine: Glycemic control per ICU protocol. Relative adrenal insufficiency in the setting of septic shock. Will place on hydrocortisone 50 mg IV every 6 and start Florinef. DVT prophylaxis: Lovenox Patient is critically ill with multiorgan system dysfunction and severe sepsis with septic shock. A total of 40 minutes critical care time was spent in evaluation management and coordination of care with this patient including discussion with family at the bedside. Will continue to follow in the ICU pending resolution of his hemodynamic instability Admission and Anticipated Discharge Date Admission Date: October 23, 2024 Subjective Patient seen and examined. EMR reviewed. Discussed with overnight critical care ROBERT as well as with bedside critical care nurse and on multidisciplinary rounds. Patient reports feeling reasonably well currently. He denies any nausea or vomiting. No chest pain or palpitations. Mental status appears appropriate. Review of Systems Review of Systems: All systems reviewed & are unremarkable except as noted in Subjective Physical Exam Constitutional: WD/WN, vitals as above Neck: trachea midline, no thyromegaly Respiratory: normal respiratory effort, lungs clear to auscultation Cardiovascular: RRR, no murmur, no edema Gastrointestinal (Abdomen): normal bowel sounds, soft, nontender, no hepatosplenomegaly Musculoskeletal: Extremities: extremities normal to inspection Skin: no rashes, warm and dry Neurologic: Nonfocal exam Lymphatic: no cervical lymphadenopathy Results & Data Results & Data Vital Signs (Past 12 Hours) Vital Signs Temp Pulse Pulse Resp BP BP Pulse Ox 10/25/24 09:12 60 20 93 10/25/24 09:01 105/52 L 10/25/24 08:57 60 18 91 10/25/24 08:03 69 18 91 10/25/24 08:00 85/52 L 10/25/24 07:31 81/56 L 10/25/24 07:24 80 21 92 10/25/24 07:00 68 18 101/55 L 92 10/25/24 06:03 57 L 18 92 10/25/24 06:00 37.0 C 115/60 10/25/24 06:00 115/60 10/25/24 06:00 115/60 10/25/24 05:51 52 L 17 91 10/25/24 05:14 95/53 L 10/25/24 05:14 95/53 L 10/25/24 05:09 56 L 18 93 10/25/24 05:06 55 L 18 91 10/25/24 05:00 96/54 L 10/25/24 05:00 96/54 L 10/25/24 04:42 63 19 93 10/25/24 04:31 100/58 L 10/25/24 04:24 61 25 H 91 10/25/24 04:06 59 L 16 92 10/25/24 04:00 112/61 10/25/24 04:00 60 19 112/61 92 10/25/24 03:30 55 L 115/63 10/25/24 03:00 36.5 C 55 L 19 107/60 92 10/25/24 02:00 60 19 111/63 95 10/25/24 01:45 123/61 10/25/24 01:45 123/61 10/25/24 01:45 123/61 10/25/24 01:45 56 L 11 L 95 10/25/24 01:39 57 L 20 94 10/25/24 01:21 53 L 18 95 10/25/24 01:00 36.5 C 55 L 19 109/59 L 95 10/25/24 00:15 104/66 10/25/24 00:09 57 L 18 92 10/25/24 00:00 63 19 92 10/25/24 00:00 126/61 10/25/24 00:00 126/61 10/24/24 23:54 50 L 18 93 10/24/24 23:45 121/64 10/24/24 23:42 51 L 18 92 10/24/24 23:36 51 L 18 92 10/24/24 23:30 52 L 18 113/65 92 10/24/24 23:24 48 L 18 92 10/24/24 23:21 49 L 10/24/24 23:15 118/59 L 10/24/24 22:48 63 95 10/24/24 22:45 82/50 L 10/24/24 22:45 36.5 C 82/50 L 10/24/24 22:45 61 19 95 10/24/24 22:37 93/52 L 10/24/24 22:36 58 L O2 Del Method 10/25/24 09:12 10/25/24 09:01 10/25/24 08:57 10/25/24 08:03 10/25/24 08:00 10/25/24 07:31 10/25/24 07:24 10/25/24 07:00 Room Air 10/25/24 06:03 10/25/24 06:00 10/25/24 06:00 10/25/24 06:00 10/25/24 05:51 10/25/24 05:14 10/25/24 05:14 10/25/24 05:09 10/25/24 05:06 10/25/24 05:00 10/25/24 05:00 10/25/24 04:42 10/25/24 04:31 10/25/24 04:24 10/25/24 04:06 10/25/24 04:00 10/25/24 04:00 Room Air 10/25/24 03:30 10/25/24 03:00 Room Air 10/25/24 02:00 Room Air 10/25/24 01:45 10/25/24 01:45 10/25/24 01:45 10/25/24 01:45 10/25/24 01:39 10/25/24 01:21 10/25/24 01:00 Room Air 10/25/24 00:15 10/25/24 00:09 Room Air 10/25/24 00:00 10/25/24 00:00 10/25/24 00:00 10/24/24 23:54 10/24/24 23:45 10/24/24 23:42 10/24/24 23:36 10/24/24 23:30 Room Air 10/24/24 23:24 10/24/24 23:21 10/24/24 23:15 10/24/24 22:48 10/24/24 22:45 10/24/24 22:45 10/24/24 22:45 10/24/24 22:37 10/24/24 22:36 Room Air Critical Care Results & Data Vital Signs (Past 12 Hours) Vital Signs Temp Pulse Pulse Resp BP BP Pulse Ox 10/25/24 09:12 60 20 93 10/25/24 09:01 105/52 L 10/25/24 08:57 60 18 91 10/25/24 08:03 69 18 91 10/25/24 08:00 85/52 L 10/25/24 07:31 81/56 L 10/25/24 07:24 80 21 92 10/25/24 07:00 68 18 101/55 L 92 10/25/24 06:03 57 L 18 92 10/25/24 06:00 37.0 C 115/60 10/25/24 06:00 115/60 10/25/24 06:00 115/60 10/25/24 05:51 52 L 17 91 10/25/24 05:14 95/53 L 10/25/24 05:14 95/53 L 10/25/24 05:09 56 L 18 93 10/25/24 05:06 55 L 18 91 10/25/24 05:00 96/54 L 10/25/24 05:00 96/54 L 10/25/24 04:42 63 19 93 10/25/24 04:31 100/58 L 10/25/24 04:24 61 25 H 91 10/25/24 04:06 59 L 16 92 10/25/24 04:00 112/61 10/25/24 04:00 60 19 112/61 92 10/25/24 03:30 55 L 115/63 10/25/24 03:00 36.5 C 55 L 19 107/60 92 10/25/24 02:00 60 19 111/63 95 10/25/24 01:45 123/61 10/25/24 01:45 123/61 10/25/24 01:45 123/61 10/25/24 01:45 56 L 11 L 95 10/25/24 01:39 57 L 20 94 10/25/24 01:21 53 L 18 95 10/25/24 01:00 36.5 C 55 L 19 109/59 L 95 10/25/24 00:15 104/66 10/25/24 00:09 57 L 18 92 10/25/24 00:00 63 19 92 10/25/24 00:00 126/61 10/25/24 00:00 126/61 10/24/24 23:54 50 L 18 93 10/24/24 23:45 121/64 10/24/24 23:42 51 L 18 92 10/24/24 23:36 51 L 18 92 10/24/24 23:30 52 L 18 113/65 92 10/24/24 23:24 48 L 18 92 10/24/24 23:21 49 L 10/24/24 23:15 118/59 L 10/24/24 22:48 63 95 10/24/24 22:45 82/50 L 10/24/24 22:45 36.5 C 82/50 L 10/24/24 22:45 61 19 95 10/24/24 22:37 93/52 L 10/24/24 22:36 58 L O2 Del Method 10/25/24 09:12 10/25/24 09:01 10/25/24 08:57 10/25/24 08:03 10/25/24 08:00 10/25/24 07:31 10/25/24 07:24 10/25/24 07:00 Room Air 10/25/24 06:03 10/25/24 06:00 10/25/24 06:00 10/25/24 06:00 10/25/24 05:51 10/25/24 05:14 10/25/24 05:14 10/25/24 05:09 10/25/24 05:06 10/25/24 05:00 10/25/24 05:00 10/25/24 04:42 10/25/24 04:31 10/25/24 04:24 10/25/24 04:06 10/25/24 04:00 10/25/24 04:00 Room Air 10/25/24 03:30 10/25/24 03:00 Room Air 10/25/24 02:00 Room Air 10/25/24 01:45 10/25/24 01:45 10/25/24 01:45 10/25/24 01:45 10/25/24 01:39 10/25/24 01:21 10/25/24 01:00 Room Air 10/25/24 00:15 10/25/24 00:09 Room Air 10/25/24 00:00 10/25/24 00:00 10/25/24 00:00 10/24/24 23:54 10/24/24 23:45 10/24/24 23:42 10/24/24 23:36 10/24/24 23:30 Room Air 10/24/24 23:24 10/24/24 23:21 10/24/24 23:15 10/24/24 22:48 10/24/24 22:45 10/24/24 22:45 10/24/24 22:45 10/24/24 22:37 10/24/24 22:36 Room Air Lab & Micro Results (Past 24 Hours) RBC 3.65 M/uL (4.70-6.10) L 10/25/24 WBC 17.97 K/ul (4.8-10.8) H 10/25/24 Hgb 11.3 g/dl (14.0-18.0) L 10/25/24 Hct 33.6 % (42.0-52.0) L 10/25/24 MCV 92.1 fL (80.0-100.0) 10/25/24 MCH 31.0 pg (25.0-34.0) 10/25/24 MCHC 33.6 g/dL (32.0-36.0) 10/25/24 RDW Standard Deviation 46.8 fL (36.4-46.3) H 10/25/24 RDW Coefficient of Variation 13.9 % (11.5-14.5) 10/25/24 Plt Count 117 K/uL (130-400) L 10/25/24 MPV 10.1 fL (9.4-12.4) 10/25/24 Na 135 mmol/L (136-145) L 10/25/24 K 4.0 mmol/L (3.5-5.1) 10/25/24 Cl 109 mmol/L (98-107) H 10/25/24 CO2 22 mmol/L (21-32) 10/25/24 Anion Gap 4 (3-11) 10/25/24 BUN 24 mg/dl (6-23) H 10/25/24 Creatinine 1.30 mg/dl (0.6-1.4) 10/25/24 BUN/Creatinine Ratio 18.5 (10-20) 10/25/24 Glu 153 mg/dl (70-99(Fasting)) H 10/25/24 Ca 7.6 mg/dl (8.6-10.3) L 10/25/24 Phosphorus Level 2.3 mg/dl (2.5-4.9) L 10/25/24 Mg 2.6 mg/dl (1.7-2.4) H 10/25/24 04:52 Calcium Level 7.6 mg/dl (8.6-10.3) L 10/25/24 04:52 Microbiology 10/23/24 19:54 Urine Culture - Preliminary Urine,Clean Catch Enterococcus faecalis 10/23/24 19:25 Aerobic Blood Culture - Preliminary Blood No growth in Aerobic bottle after 24 hours. Anaerobic Blood Culture - Preliminary No growth in Anaerobic bottle after 24 hours. 10/23/24 19:25 Aerobic Blood Culture - Preliminary Blood Gram positive cocci in chains Anaerobic Blood Culture - Preliminary Gram positive cocci in chains I & O Totals 24 Hours 10/24/24 10/25/24 10/26/24 06:59 06:59 06:59 Intake Total 2750 / 2750 4492.837 / 4492.837 1263.375 / 1263.375 Output Total 800 / 800 1125 / 1125 400 / 400 Balance 1949 / 1949 3367.837 / 3367.837 863.375 / 863.375 Cumulative 10/23/24 19:11 thru 10/25/24 09:18 Intake Total 8506.212 Output Total 2325 Balance 6181.212 RT Ventilator Mngmt (Last Documented) Ventilator Ordered Settings Respiratory Rate 20 10/25/24 09:12 Ventilator - PT Measurements Respiratory Rate 20 Coding Level of Care Code 80642 CRITICAL CARE 1ST 30-74M Diagnoses Septic shock due to Enterococcus fecalis A41.81; R65.21 Urinary retention R33.9 Acute UTI N39.0 Primary bladder malignant neoplasm C67.9 DAVE (acute kidney injury) N17.9
[2024-10-25] MEDS: HYDROCORTISONE SOD 50 MG in SYRINGE 0 ML IV SCH (10:55)
[2024-10-25] MEDS: FLUDROCORTISONE ACETATE 0.1 MG TAB PO SCH (10:55)
[2024-10-25] MEDS: MIDODRINE HCL 2.5 MG TAB PO SCH (10:55)
[2024-10-25] MEDS: CALCIUM GLUCONATE 1,000 MG/60 ML BAG IV SCH (10:55)
--- NOTE | 2024-10-25 11:45 | Hospitalist Progress Note ---
Date of Service October 25, 2024 Assessment & Plan (1) Sepsis: (2) Acute UTI: (3) Parkinsonism: (4) GERD (gastroesophageal reflux disease): (5) Hypomagnesemia: (6) Urinary retention: Plan 79 yo male PMHx Parkinson syndrome, GERD, bladder cancer admitted with fever, fatigue, meeting sepsis criteria. #Septic shock Likely urinary source after instrumentation, tumor resection 10/24/24 Secondary to E fecalis currently in ICU, on pressor support Will obtain 2 D ECHO to r/o vegatations continue IV Zosyn and IV daptomycin Appreciate ID recs #Acute urinary retention Voided less than 100cc, bladder scan showed residual 452cc Forman catheter placed #Hypomagnesemia Will give 2g IV, recheck am #Parkinson disease Continue carbidopa/levodopa Continue ropinirole #GERD Protonix daily FENGI: s/p 2.5L NSS, Regular diet Code status: full DVT prophylaxis: Lovenox Isolation: none Disposition: medical Admission and Anticipated Discharge Date Admission Date: October 23, 2024 Subjective patient seen and examined, currently in the ICU Review of Systems Review of Systems: All systems reviewed are negative, apart from the ones contained in the history. Physical Exam Physical Exam: The patient is awake, alert and oriented 3, well developed and well nourished, normocephalic and atraumatic, lying in bed and in no acute distress. HEENT--PERRL, EOMI, mucous membranes and oropharynx mildly dry Neck--supple. No JVD. No bruits. Thyroid normal, trachea midline, no adenopathy. Heart--normal S1 and S2. No murmurs, rubs or gallops. Lungs--clear bilaterally, no respiratory distress, no accessory muscle use. Abdomen--normal bowel sounds and soft. Extremities--no cyanosis or clubbing. No edema. Dermatologic--normal skin turgor, normal color, no abnormal lymph nodes, no rash. Neurologic--cranial nerves II through XII grossly intact. Rheumatologic--normal range of motion. Psychiatric--normal affect. Results & Data Results & Data Vital Signs (Past 12 Hours) Vital Signs Temp Pulse Pulse Resp BP BP Pulse Ox 10/25/24 11:01 117/66 10/25/24 10:57 67 18 90 10/25/24 10:45 118/63 10/25/24 10:45 118/63 10/25/24 10:45 56 L 23 91 10/25/24 10:31 133/61 10/25/24 10:24 54 L 20 93 10/25/24 10:16 119/58 L 10/25/24 10:12 77 21 91 10/25/24 10:00 70 22 10/25/24 09:31 81/48 L 10/25/24 09:30 65 18 91 10/25/24 09:12 60 20 93 10/25/24 09:01 105/52 L 10/25/24 08:57 60 18 91 10/25/24 08:03 69 18 91 10/25/24 08:00 85/52 L 10/25/24 07:31 81/56 L 10/25/24 07:24 80 21 92 10/25/24 07:00 68 18 101/55 L 92 10/25/24 06:03 57 L 18 92 10/25/24 06:00 98.6 F 115/60 10/25/24 06:00 115/60 10/25/24 06:00 115/60 10/25/24 05:51 52 L 17 91 10/25/24 05:14 95/53 L 10/25/24 05:14 95/53 L 10/25/24 05:09 56 L 18 93 10/25/24 05:06 55 L 18 91 10/25/24 05:00 96/54 L 10/25/24 05:00 96/54 L 10/25/24 04:42 63 19 93 10/25/24 04:31 100/58 L 10/25/24 04:24 61 25 H 91 10/25/24 04:06 59 L 16 92 10/25/24 04:00 112/61 10/25/24 04:00 60 19 112/61 92 10/25/24 03:30 55 L 115/63 10/25/24 03:00 97.7 F 55 L 19 107/60 92 10/25/24 02:00 60 19 111/63 95 10/25/24 01:45 123/61 10/25/24 01:45 123/61 10/25/24 01:45 123/61 10/25/24 01:45 56 L 11 L 95 10/25/24 01:39 57 L 20 94 01/11/25 01:21 53 L 18 95 10/25/24 01:00 97.7 F 55 L 19 109/59 L 95 10/25/24 00:15 104/66 10/25/24 00:09 57 L 18 92 10/25/24 00:00 63 19 92 10/25/24 00:00 126/61 10/25/24 00:00 126/61 10/24/24 23:54 50 L 18 93 10/24/24 23:45 121/64 O2 Del Method 10/25/24 11:01 10/25/24 10:57 10/25/24 10:45 10/25/24 10:45 10/25/24 10:45 10/25/24 10:31 10/25/24 10:24 10/25/24 10:16 10/25/24 10:12 10/25/24 10:00 10/25/24 09:31 10/25/24 09:30 10/25/24 09:12 10/25/24 09:01 10/25/24 08:57 10/25/24 08:03 10/25/24 08:00 10/25/24 07:31 10/25/24 07:24 10/25/24 07:00 Room Air 10/25/24 06:03 10/25/24 06:00 10/25/24 06:00 10/25/24 06:00 10/25/24 05:51 10/25/24 05:14 10/25/24 05:14 10/25/24 05:09 10/25/24 05:06 10/25/24 05:00 10/25/24 05:00 10/25/24 04:42 10/25/24 04:31 10/25/24 04:24 10/25/24 04:06 10/25/24 04:00 10/25/24 04:00 Room Air 10/25/24 03:30 10/25/24 03:00 Room Air 10/25/24 02:00 Room Air 10/25/24 01:45 10/25/24 01:45 10/25/24 01:45 10/25/24 01:45 10/25/24 01:39 10/25/24 01:21 10/25/24 01:00 Room Air 10/25/24 00:15 10/25/24 00:09 Room Air 10/25/24 00:00 10/25/24 00:00 10/25/24 00:00 10/24/24 23:54 10/24/24 23:45 PG Care Time/CCT Total # of Minutes Spent Total Time Spent with Patient: Total time spent is greater than 50% in coordination of care (as documented) at patient's floor/unit and/or counseling patient: Coding Level of Care Code 01986 SUB INP/OBS CARE 2/35MIN Diagnoses Sepsis A41.9 Sepsis acute organ dysfunction status: unspecified Sepsis type: sepsis due to unspecified organism Acute UTI N39.0 Parkinson's disease, unspecified whether dyskinesia present, unspecified whether manifestations fluctuate G20.A1 Parkinsonism type: Parkinson's disease Dyskinesia presence: unspecified whether dyskinesia Fluctuating manifestations: unspecified whether manifestations fluctuate Gastroesophageal reflux disease, unspecified whether esophagitis present K21.9 Esophagitis presence: esophagitis presence not specified Hypomagnesemia E83.42 Urinary retention R33.9 Time Spent (min) 35 (1) Sepsis Sepsis acute organ dysfunction status: unspecified Sepsis type: sepsis due to unspecified organism Qualified Code(s): A41.9 - Sepsis, unspecified organism (3) Parkinsonism Parkinsonism type: Parkinson's disease Dyskinesia presence: unspecified whether dyskinesia Fluctuating manifestations: unspecified whether manifestations fluctuate Qualified Code(s): G20.A1 - Parkinson's disease without dyskinesia, without mention of fluctuations (4) GERD (gastroesophageal reflux disease) Esophagitis presence: esophagitis presence not specified Qualified Code(s): K21.9 - Gastro-esophageal reflux disease without esophagitis
--- NOTE | 2024-10-25 17:18 | XCELERA ---
[id number] \\[email or web address]\[id number]
[2024-10-25] MEDS: INSULIN ASPART PER UNIT CHARGE SC SCH (20:35)
[2024-10-26 04:51] LABS: Basophils # (auto) 0.03 K/uL (0.00-0.20); Basophils % (auto) 0.2 %; Hematocrit (blood only) 37.5 % (42.0-52.0); Hemoglobin 12.7 g/dl (14.0-18.0); Immature Granulocytes # (auto) 0.15 K/uL (0.01-0.20); Immature Granulocytes % (auto) 0.8 %; Lymphocytes # (auto) 0.78 K/uL (1.20-3.40); Lymphocytes % (auto) 4.3 %; Mean Corpuscular Hemoglobin 30.5 pg (25.0-34.0); Mean Corpuscular Hgb Conc 33.9 g/dL (32.0-36.0); Mean Corpuscular Volume 89.9 fL (80.0-100.0); Monocytes # (auto) 0.99 K/uL (0.11-0.59); Monocytes % (auto) 5.5 %; Neutrophils # (auto) 16.03 K/uL (1.40-6.50); Neutrophils % (auto) 89.2 %; Platelet Count 147 K/uL (130-400); RDW Coefficient of Variation 13.6 % (11.5-14.5); RDW Standard Deviation 44.9 fL (36.4-46.3); Red Blood Count 4.17 M/uL (4.70-6.10); White Blood Count 17.98 K/ul (4.8-10.8)
[2024-10-26 04:59] LABS: BUN Creatinine Ratio 16.8 (10-20); Calcium 8.5 mg/dl (8.6-10.3); Creatinine Clr Calc Pharmacy 50.3 ml/min; Potassium 3.8 mmol/L (3.5-5.1)
--- NOTE | 2024-10-26 08:39 | Critical Care Progress Note ---
Date of Service October 26, 2024 Assessment & Plan (1) Septic shock due to Enterococcus fecalis: (2) Urinary retention: (3) Acute UTI: (4) Primary bladder malignant neoplasm: (5) DAVE (acute kidney injury): Plan Impression: 79-year-old male with Parkinson's disease admitted with septic shock due to enterococcal bacteremia after cystoscopy. Transferred to the ICU 10/24/2024 for pressor agents. 24-hour events: Patient's pressors are been weaned off as of this morning. He is mildly delirious. Recommendations: 1. Neurologic: Patient remains at his baseline state. History of Parkinson's. Continue carbidopa levodopa and follow clinically. Mild agitated delirium early this morning better with family present at bedside. Continue to try and maintain sleep-wake cycles and avoid medications potentially contributing to delirium. Frequent reorientation 2. Cardiovascular: Septic shock. Reassuring lactate was normal. He appears adequately volume resuscitated currently. Now off norepinephrine. Continue hydrocortisone and Florinef and midodrine. May be some component of autonomic dysreflexia given his underlying Parkinson's disease which may be contributing as well. If his blood pressure holds this morning, he can likely return back to the floor 3. Pulmonary: Pulmonary toilet. May need incentive spirometry if required supplemental oxygen. 4. ID: Enterococcal bacteremia: Management per ID. Currently on Zosyn daptomycin with plans to de-escalate to ampicillin. Surveillance cultures will be obtained to ensure clearance of bacteremia. Transthoracic echo showed no obvious vegetation. White blood cell count stable this morning. 5. GI: No current issues. Liquid diet as tolerated. 6. Renal: ICU electrolyte replacement protocol. 7. Heme-onc: No current issues. 8. Endocrine: Glycemic control per ICU protocol. Relative adrenal insufficiency in the setting of septic shock. Continue hydrocortisone 50 mg IV and Florinef 0.1 mg p.o. daily. If hemodynamics remain stable, these can be tapered off over the next 5 days DVT prophylaxis: Lovenox If the patient remains off pressors, he can likely downgrade to the floor at which time critical care services will sign off. Admission and Anticipated Discharge Date Admission Date: October 23, 2024 Subjective Patient seen and examined. EMR reviewed. Discussed with critical care nurse at bedside as well as on multidisciplinary rounds. Reviewed with patient family at bedside. Patient is doing reasonably well. Has been off his pressors since early this morning. He has been up to the chair. Tolerating a diet. He did suffer some mild agitated delirium early this morning but this appears to have resolved with having his family present. He is pleasantly confused. Review of Systems Review of Systems: All systems reviewed & are unremarkable except as noted in Subjective Physical Exam Constitutional: WD/WN, vitals as above Neck: trachea midline, no thyromegaly Respiratory: normal respiratory effort, lungs clear to auscultation Cardiovascular: RRR, no murmur, no edema Gastrointestinal (Abdomen): normal bowel sounds, soft, nontender, no hepatosplenomegaly Musculoskeletal: Extremities: extremities normal to inspection Skin: no rashes, warm and dry Psychiatric: Mild delirium currently. Lymphatic: no cervical lymphadenopathy Results & Data Results & Data Vital Signs (Past 12 Hours) Vital Signs Temp Pulse Resp BP Pulse Ox O2 Del Method O2 Flow Rate 10/26/24 06:00 69 19 120/71 95 Nasal Cannula 2 10/26/24 05:30 77 18 130/80 92 Nasal Cannula 2 10/26/24 05:00 68 15 92 10/26/24 04:33 76 91 10/26/24 04:00 80 22 93 Nasal Cannula 2 10/26/24 04:00 36.8 C 131/70 10/26/24 04:00 131/70 10/26/24 04:00 131/70 10/26/24 03:33 77 20 93 10/26/24 03:30 146/61 H 10/26/24 03:30 146/61 H 10/26/24 03:15 61 19 92 10/26/24 03:06 65 18 93 10/26/24 03:00 152/77 H 10/26/24 03:00 152/77 H 10/26/24 02:57 60 18 92 10/26/24 02:36 51 L 21 93 10/26/24 02:31 141/66 H 10/26/24 02:30 55 L 19 141/66 H 93 Nasal Cannula 2 10/26/24 02:27 49 L 22 93 10/26/24 02:06 83 24 89 L 10/26/24 02:00 36.8 C 144/71 H Room Air 10/26/24 01:48 83 15 89 L 10/26/24 01:30 145/68 H 10/26/24 01:30 59 L 20 89 L 10/26/24 01:01 156/78 H 10/26/24 01:01 156/78 H 10/26/24 01:01 156/78 H 10/26/24 01:01 156/78 H 10/26/24 01:00 24 89 L 10/26/24 00:57 51 L 19 91 10/26/24 00:31 139/107 H 10/26/24 00:21 20 91 10/26/24 00:03 50 L 16 90 10/26/24 00:00 36.8 C 134/64 10/26/24 00:00 51 L 10/25/24 23:57 59 L 19 90 10/25/24 23:39 51 L 18 91 10/25/24 23:30 124/63 10/25/24 23:30 124/63 10/25/24 23:30 124/63 10/25/24 23:15 67 19 92 10/25/24 23:03 52 L 18 90 10/25/24 23:00 120/60 10/25/24 23:00 120/60 10/25/24 23:00 120/60 10/25/24 22:48 53 L 17 91 10/25/24 22:33 53 L 19 90 10/25/24 22:31 110/61 10/25/24 22:31 110/61 10/25/24 22:31 110/61 10/25/24 22:27 57 L 18 91 10/25/24 22:03 48 L 19 91 Room Air 10/25/24 22:00 120/73 10/25/24 22:00 120/73 10/25/24 22:00 120/73 10/25/24 22:00 120/73 10/25/24 22:00 120/73 10/25/24 21:41 Room Air 10/25/24 21:39 51 L 18 90 10/25/24 21:36 66 18 91 10/25/24 21:31 137/73 10/25/24 21:31 137/73 10/25/24 21:31 137/73 10/25/24 21:31 137/73 10/25/24 21:27 52 L 27 H 92 10/25/24 21:00 50 L 17 91 Room Air 01/11/25 21:00 119/72 10/25/24 21:00 119/72 10/25/24 21:00 119/72 Critical Care Results & Data Vital Signs (Past 12 Hours) Vital Signs Temp Pulse Resp BP Pulse Ox O2 Del Method O2 Flow Rate 10/26/24 06:00 69 19 120/71 95 Nasal Cannula 2 10/26/24 05:30 77 18 130/80 92 Nasal Cannula 2 10/26/24 05:00 68 15 92 10/26/24 04:33 76 91 10/26/24 04:00 80 22 93 Nasal Cannula 2 10/26/24 04:00 36.8 C 131/70 10/26/24 04:00 131/70 10/26/24 04:00 131/70 10/26/24 03:33 77 20 93 10/26/24 03:30 146/61 H 10/26/24 03:30 146/61 H 10/26/24 03:15 61 19 92 10/26/24 03:06 65 18 93 10/26/24 03:00 152/77 H 10/26/24 03:00 152/77 H 10/26/24 02:57 60 18 92 10/26/24 02:36 51 L 21 93 10/26/24 02:31 141/66 H 10/26/24 02:30 55 L 19 141/66 H 93 Nasal Cannula 2 10/26/24 02:27 49 L 22 93 10/26/24 02:06 83 24 89 L 10/26/24 02:00 36.8 C 144/71 H Room Air 10/26/24 01:48 83 15 89 L 10/26/24 01:30 145/68 H 10/26/24 01:30 59 L 20 89 L 10/26/24 01:01 156/78 H 10/26/24 01:01 156/78 H 10/26/24 01:01 156/78 H 10/26/24 01:01 156/78 H 10/26/24 01:00 24 89 L 10/26/24 00:57 51 L 19 91 10/26/24 00:31 139/107 H 10/26/24 00:21 20 91 10/26/24 00:03 50 L 16 90 10/26/24 00:00 36.8 C 134/64 10/26/24 00:00 51 L 10/25/24 23:57 59 L 19 90 10/25/24 23:39 51 L 18 91 10/25/24 23:30 124/63 10/25/24 23:30 124/63 10/25/24 23:30 124/63 10/25/24 23:15 67 19 92 10/25/24 23:03 52 L 18 90 10/25/24 23:00 120/60 10/25/24 23:00 120/60 10/25/24 23:00 120/60 10/25/24 22:48 53 L 17 91 10/25/24 22:33 53 L 19 90 10/25/24 22:31 110/61 10/25/24 22:31 110/61 10/25/24 22:31 110/61 10/25/24 22:27 57 L 18 91 10/25/24 22:03 48 L 19 91 Room Air 10/25/24 22:00 120/73 10/25/24 22:00 120/73 10/25/24 22:00 120/73 10/25/24 22:00 120/73 10/25/24 22:00 120/73 10/25/24 21:41 Room Air 10/25/24 21:39 51 L 18 90 10/25/24 21:36 66 18 91 10/25/24 21:31 137/73 10/25/24 21:31 137/73 10/25/24 21:31 137/73 10/25/24 21:31 137/73 10/25/24 21:27 52 L 27 H 92 10/25/24 21:00 50 L 17 91 Room Air 10/25/24 21:00 119/72 10/25/24 21:00 119/72 10/25/24 21:00 119/72 Lab & Micro Results (Past 24 Hours) RBC 4.17 M/uL (4.70-6.10) L 10/26/24 WBC 17.98 K/ul (4.8-10.8) H 10/26/24 Hgb 12.7 g/dl (14.0-18.0) L 10/26/24 Hct 37.5 % (42.0-52.0) L 10/26/24 MCV 89.9 fL (80.0-100.0) 10/26/24 MCH 30.5 pg (25.0-34.0) 10/26/24 MCHC 33.9 g/dL (32.0-36.0) 10/26/24 RDW Standard Deviation 44.9 fL (36.4-46.3) 10/26/24 RDW Coefficient of Variation 13.6 % (11.5-14.5) 10/26/24 Plt Count 147 K/uL (130-400) 10/26/24 MPV 11.0 fL (9.4-12.4) 10/26/24 Neutrophils (%) (Auto) 89.2 % 10/26/24 Lymphocytes (%) (Auto) 4.3 % 10/26/24 Monocytes # (Auto) 0.99 K/uL (0.11-0.59) H 10/26/24 Eosinophils # (Auto) 0.00 K/uL (0.00-0.50) 10/26/24 Immature Granulocyte % (Auto) 0.8 % 10/26/24 Neutrophils # (Auto) 16.03 K/uL (1.40-6.50) H 10/26/24 Lymphocytes # (Auto) 0.78 K/uL (1.20-3.40) L 10/26/24 Monocytes # (Auto) 0.99 K/uL (0.11-0.59) H 10/26/24 Eosinophils # (Auto) 0.00 K/uL (0.00-0.50) 10/26/24 Basophils # (Auto) 0.03 K/uL (0.00-0.20) 10/26/24 Immature Granulocyte # (Auto) 0.15 K/uL (0.01-0.20) 5 Na 137 mmol/L (136-145) 10/26/24 K 3.8 mmol/L (3.5-5.1) 10/26/24 Cl 109 mmol/L (98-107) H 10/26/24 CO2 21 mmol/L (21-32) 10/26/24 Anion Gap 7 (3-11) 10/26/24 BUN 22 mg/dl (6-23) 10/26/24 Creatinine 1.31 mg/dl (0.6-1.4) 10/26/24 BUN/Creatinine Ratio 16.8 (10-20) 10/26/24 Glu 162 mg/dl (70-99(Fasting)) H 10/26/24 Ca 8.5 mg/dl (8.6-10.3) L 10/26/24 Calcium Level 8.5 mg/dl (8.6-10.3) L 10/26/24 04:05 Microbiology 10/23/24 19:25 Aerobic Blood Culture - Preliminary Blood No growth in Aerobic bottle after 48 hours. Anaerobic Blood Culture - Preliminary No growth in Anaerobic bottle after 48 hours. 10/23/24 19:54 Urine Culture - Final Urine,Clean Catch Enterococcus faecalis 10/23/24 19:25 Aerobic Blood Culture - Preliminary Blood Enterococcus faecalis Anaerobic Blood Culture - Preliminary Enterococcus faecalis I & O Totals 24 Hours 10/25/24 10/26/24 10/27/24 06:59 06:59 06:59 Intake Total 4492.837 / 4492.837 2764.117 / 2764.117 Output Total 1125 / 1125 205 / 0 Balance 3367.837 / 3367.837 714.117 / 714.117 Cumulative 10/23/24 19:11 thru 10/26/24 05:38 Intake Total 42647.954 Output Total 3975 Balance 6031.954 RT Ventilator Mngmt (Last Documented) Ventilator Ordered Settings Respiratory Rate 19 10/26/24 06:00 Ventilator - PT Measurements Respiratory Rate 19 Coding Level of Care Code 22402 SUB INP/OBS CARE 3/50MIN Diagnoses Septic shock due to Enterococcus fecalis A41.81; R65.21 Urinary retention R33.9 Acute UTI N39.0 Primary bladder malignant neoplasm C67.9 DAVE (acute kidney injury) N17.9
[2024-10-26] MEDS ORDERED: MELATONIN 3 MG TAB PO PRN (10:34)
--- NOTE | 2024-10-26 10:39 | Hospitalist Progress Note ---
Date of Service October 26, 2024 Assessment & Plan (1) Sepsis: (2) Acute UTI: (3) Parkinsonism: (4) GERD (gastroesophageal reflux disease): (5) Hypomagnesemia: (6) Urinary retention: Plan 79 yo male PMHx Parkinson syndrome, GERD, bladder cancer admitted with fever, fatigue, meeting sepsis criteria. #Septic shock Likely urinary source after instrumentation, tumor resection 10/24/24 Secondary to E fecalis Now resolved He is off pressors He is clinically much improved, although WBC still elevated. could be due to steriod 2 D ECHO did not suggest vegetaions continue IV Zosyn and IV daptomycin Will de escalate antibiotics once repeat cultures finalize Appreciate ID recs #Acute urinary retention Forman catheter placed continue oxybutynin #Hypomagnesemia Will give 2g IV, recheck am #Parkinson disease Continue carbidopa/levodopa Continue ropinirole #GERD Protonix daily FENGI: s/p 2.5L NSS, Regular diet Code status: full DVT prophylaxis: Lovenox Isolation: none Disposition: medical Ok to transfer out of ICU later today Admission and Anticipated Discharge Date Admission Date: October 23, 2024 Subjective patient seen and examined, family by the bed side, he is sitting up in the chair, said he did not sleep well last night Review of Systems Review of Systems: All systems reviewed are negative, apart from the ones contained in the history. Physical Exam Physical Exam: The patient is awake, alert and oriented 3, well developed and well nourished, normocephalic and atraumatic, lying in bed and in no acute distress. HEENT--PERRL, EOMI, mucous membranes and oropharynx mildly dry Neck--supple. No JVD. No bruits. Thyroid normal, trachea midline, no adenopathy. Heart--normal S1 and S2. No murmurs, rubs or gallops. Lungs--clear bilaterally, no respiratory distress, no accessory muscle use. Abdomen--normal bowel sounds and soft. Extremities--no cyanosis or clubbing. No edema. Dermatologic--normal skin turgor, normal color, no abnormal lymph nodes, no rash. Neurologic--cranial nerves II through XII grossly intact. Rheumatologic--normal range of motion. Psychiatric--normal affect. Results & Data Results & Data Vital Signs (Past 12 Hours) Vital Signs Temp Pulse Resp BP Pulse Ox O2 Del Method O2 Flow Rate 10/26/24 10:00 92/54 L 10/26/24 09:48 57 L 15 94 10/26/24 09:30 98/55 L 10/26/24 09:12 60 16 94 Room Air 10/26/24 09:06 68 15 92 10/26/24 09:00 62 17 92 10/26/24 08:20 99/54 L 10/26/24 08:03 80 17 10/26/24 08:00 98.6 F 10/26/24 07:30 77 24 95 10/26/24 07:30 118/80 10/26/24 07:03 60 18 95 10/26/24 07:00 118/69 10/26/24 06:00 69 19 120/71 95 Nasal Cannula 2 10/26/24 05:30 77 18 130/80 92 Nasal Cannula 2 10/26/24 05:00 68 15 92 10/26/24 04:33 76 91 10/26/24 04:00 80 22 93 Nasal Cannula 2 10/26/24 04:00 98.2 F 131/70 10/26/24 04:00 131/70 10/26/24 04:00 131/70 10/26/24 03:33 77 20 93 10/26/24 03:30 146/61 H 10/26/24 03:30 146/61 H 10/26/24 03:15 61 19 92 10/26/24 03:06 65 18 93 10/26/24 03:00 152/77 H 10/26/24 03:00 152/77 H 10/26/24 02:57 60 18 92 10/26/24 02:36 51 L 21 93 10/26/24 02:31 141/66 H 10/26/24 02:30 55 L 19 141/66 H 93 Nasal Cannula 2 10/26/24 02:27 49 L 22 93 10/26/24 02:06 83 24 89 L 10/26/24 02:00 98.2 F 144/71 H Room Air 10/26/24 01:48 83 15 89 L 10/26/24 01:30 145/68 H 10/26/24 01:30 59 L 20 89 L 10/26/24 01:01 156/78 H 10/26/24 01:01 156/78 H 10/26/24 01:01 156/78 H 10/26/24 01:01 156/78 H 10/26/24 01:00 24 89 L 10/26/24 00:57 51 L 19 91 10/26/24 00:31 139/107 H 10/26/24 00:21 20 91 10/26/24 00:03 50 L 16 90 10/26/24 00:00 98.2 F 134/64 10/26/24 00:00 51 L 10/25/24 23:57 59 L 19 90 10/25/24 23:39 51 L 18 91 10/25/24 23:30 124/63 10/25/24 23:30 124/63 10/25/24 23:30 124/63 10/25/24 23:15 67 19 92 10/25/24 23:03 52 L 18 90 10/25/24 23:00 120/60 10/25/24 23:00 120/60 10/25/24 23:00 120/60 10/25/24 22:48 53 L 17 91 PG Care Time/CCT Total # of Minutes Spent Total Time Spent with Patient: Total time spent is greater than 50% in coordination of care (as documented) at patient's floor/unit and/or counseling patient: Coding Level of Care Code 28852 SUB INP/OBS CARE 2/35MIN Diagnoses Sepsis A41.9 Sepsis acute organ dysfunction status: unspecified Sepsis type: sepsis due to unspecified organism Acute UTI N39.0 Parkinson's disease, unspecified whether dyskinesia present, unspecified whether manifestations fluctuate G20.A1 Parkinsonism type: Parkinson's disease Dyskinesia presence: unspecified whether dyskinesia Fluctuating manifestations: unspecified whether manifestations fluctuate Gastroesophageal reflux disease, unspecified whether esophagitis present K21.9 Esophagitis presence: esophagitis presence not specified Hypomagnesemia E83.42 Urinary retention R33.9 Time Spent (min) 35 (1) Sepsis Sepsis acute organ dysfunction status: unspecified Sepsis type: sepsis due to unspecified organism Qualified Code(s): A41.9 - Sepsis, unspecified organism (3) Parkinsonism Parkinsonism type: Parkinson's disease Dyskinesia presence: unspecified whether dyskinesia Fluctuating manifestations: unspecified whether manifestations fluctuate Qualified Code(s): G20.A1 - Parkinson's disease without dyskinesia, without mention of fluctuations (4) GERD (gastroesophageal reflux disease) Esophagitis presence: esophagitis presence not specified Qualified Code(s): K21.9 - Gastro-esophageal reflux disease without esophagitis
[2024-10-27 09:32] LABS: Hematocrit (blood only) 35.9 % (42.0-52.0); Hemoglobin 12.1 g/dl (14.0-18.0); Mean Corpuscular Hemoglobin 30.4 pg (25.0-34.0); Mean Corpuscular Hgb Conc 33.7 g/dL (32.0-36.0); Mean Corpuscular Volume 90.2 fL (80.0-100.0); Mean Platelet Volume 11.3 fL (9.4-12.4); Platelet Count 161 K/uL (130-400); RDW Coefficient of Variation 13.9 % (11.5-14.5); RDW Standard Deviation 46.2 fL (36.4-46.3); Red Blood Count 3.98 M/uL (4.70-6.10); White Blood Count 10.29 K/ul (4.8-10.8)
[2024-10-27 09:48] LABS: BUN Creatinine Ratio 22.6 (10-20); Calcium 8.6 mg/dl (8.6-10.3); Creatinine Clr Calc Pharmacy 49.5 ml/min; Potassium 3.9 mmol/L (3.5-5.1)
--- NOTE | 2024-10-27 10:14 | Hospitalist Progress Note ---
Date of Service October 27, 2024 Assessment & Plan (1) Sepsis: (2) Acute UTI: (3) Parkinsonism: (4) GERD (gastroesophageal reflux disease): (5) Hypomagnesemia: (6) Urinary retention: Plan 79 yo male PMHx Parkinson syndrome, GERD, bladder cancer admitted with fever, fatigue, meeting sepsis criteria. #Septic shock Now resolved Likely urinary source after instrumentation, tumor resection 10/24/24 Secondary to E fecalis 2 D ECHO did not suggest vegetaions Both urine and blood cultures growing E Fecalis, sensitive to Ampicillin. Will change abx to Ampicillin 2g Q4H per Id recs ID to advice on the duration of abx #Acute urinary retention Owusu catheter placed continue oxybutynin will remove owusu and do a voiding trial #Hypomagnesemia Will give 2g IV, recheck am #Parkinson disease Continue carbidopa/levodopa Continue ropinirole #GERD Protonix daily FENGI: s/p 2.5L NSS, Regular diet Code status: full DVT prophylaxis: Lovenox Isolation: none Disposition: medical continue to monitor Admission and Anticipated Discharge Date Admission Date: October 23, 2024 Subjective patient seen and examined, family by the bed side, he is sitting up in the chair, Review of Systems Review of Systems: All systems reviewed are negative, apart from the ones contained in the history. Physical Exam Physical Exam: The patient is awake, alert and oriented 3, well developed and well nourished, normocephalic and atraumatic, lying in bed and in no acute distress. HEENT--PERRL, EOMI, mucous membranes and oropharynx mildly dry Neck--supple. No JVD. No bruits. Thyroid normal, trachea midline, no adenopathy. Heart--normal S1 and S2. No murmurs, rubs or gallops. Lungs--clear bilaterally, no respiratory distress, no accessory muscle use. Abdomen--normal bowel sounds and soft. Extremities--no cyanosis or clubbing. No edema. Dermatologic--normal skin turgor, normal color, no abnormal lymph nodes, no rash. Neurologic--cranial nerves II through XII grossly intact. Rheumatologic--normal range of motion. Psychiatric--normal affect. Results & Data Results & Data Vital Signs (Past 12 Hours) Vital Signs Temp Pulse Pulse Resp BP BP Pulse Ox 10/27/24 07:21 97.3 F L 42 L 16 135/72 97 10/27/24 04:26 97.7 F 44 L 18 123/71 95 10/27/24 00:00 45 L 10/26/24 22:44 98.2 F 43 L 16 107/62 97 10/26/24 22:40 32 L O2 Del Method 10/27/24 07:21 Room Air 10/27/24 04:26 Room Air 10/27/24 00:00 10/26/24 22:44 Room Air 10/26/24 22:40 PG Care Time/CCT Total # of Minutes Spent Total Time Spent with Patient: Total time spent is greater than 50% in coordination of care (as documented) at patient's floor/unit and/or counseling patient: Coding Level of Care Code 20050 SUB INP/OBS CARE 2/35MIN Diagnoses Sepsis A41.9 Sepsis acute organ dysfunction status: unspecified Sepsis type: sepsis due to unspecified organism Acute UTI N39.0 Parkinson's disease, unspecified whether dyskinesia present, unspecified whether manifestations fluctuate G20.A1 Parkinsonism type: Parkinson's disease Dyskinesia presence: unspecified whether dyskinesia Fluctuating manifestations: unspecified whether manifestations fluctuate Gastroesophageal reflux disease, unspecified whether esophagitis present K21.9 Esophagitis presence: esophagitis presence not specified Hypomagnesemia E83.42 Urinary retention R33.9 Time Spent (min) 35 (1) Sepsis Sepsis acute organ dysfunction status: unspecified Sepsis type: sepsis due to unspecified organism Qualified Code(s): A41.9 - Sepsis, unspecified organism (3) Parkinsonism Parkinsonism type: Parkinson's disease Dyskinesia presence: unspecified whether dyskinesia Fluctuating manifestations: unspecified whether manifestations fluctuate Qualified Code(s): G20.A1 - Parkinson's disease without dyskinesia, without mention of fluctuations (4) GERD (gastroesophageal reflux disease) Esophagitis presence: esophagitis presence not specified Qualified Code(s): K21.9 - Gastro-esophageal reflux disease without esophagitis
[2024-10-27] MEDS ORDERED: AMPICILLIN SOD 1 GM VIAL IV SCH (10:15)
[2024-10-27] MEDS: AMPICILLIN 2,000 MG in SODIUM CHLOR 0.9% MINI-B 100 ML IV SCH (10:39)
--- NOTE | 2024-10-27 13:01 | Infectious Disease Progress Nt ---
Date of Service October 27, 2024 Assessment & Plan (1) Bacteremia: (2) Urinary retention: (3) Acute UTI: Plan This is a 79-year-old male with a past medical history of Parkinson's disease, GERD, bladder cancer status post TURP. complicated by significant bleeding requiring open conversion, status post BCG presents with confusion and fever. His is at bedside and provides most of the history. He underwent cystoscopy on 10/22/2023 which showed an ulcerated area on the posterior part of the prostate which was previously resected: no tumor recurrence but the area appeared irritated. Fulguration of the ulcerated area was unsuccessful. The procedure was prolonged. He was discharged with no issues. The next day during a walk with his , he became confused and incontinent of urine. He subsequently developed fevers and sweats and presented to the ED. He denies nausea, vomiting, dysuria, back pain, abdominal pain In the ED temperature 39.1, pulse 97, respiratory rate 18, blood pressure 137/77, O2 sats 98% on room air. Labs: WBC 10.82---> 20.24, BUN 29, creatinine 1.29, total bili 1.22, lactate 2.4--> 0.9. Urinalysis 2+ leukocyte esterase, negative nitrites, 2150 WBC, 35 RBC, 1+ bacteria. Blood culture with Enterococcus faecalis through ID, VRE not detected. UC with E faecalis Hospital course complicated by worsening leukocytosis and hypotension. He received a dose of ceftriaxone and vancomycin. Ampicillin was started this morning. Found to be retaining, urine owusu placed. Infectious disease consulted for bacteremia. Microbiology Blood culture 10/23 2/, E faecalis AMP S Urine culture 10/23 > 100 K Enterococcus faecalis Blood culture 10/26 NGTD Antibiotics: Ceftriaxone 10/23 Vancomycin 10/24 Ampicillin 10/24 Dapto 10/24-ongoing zosyn 10/24-ongoing # Sepsis # E faecalis bacteremia and UTI # status Post cystoscopy 10/22 # Bladder cancer status post TURP # Leukocytosis, worsening # Acute urinary retention, owusu placed Discussion: Sepsis likely secondary to E faecalis bacteremia secondary to urinary source post urinary procedure. No prosthetics or hardware. 10/24- Clinical picture is worsening with fevers, hypotension and leukocytosis. Ampicillin was started today, ABX broadened to dapto/zosyn. 10/27- Late Sunday night patient was transferred to the ICU for hypotension requiring pressors. He is now off pressors and back on medical floors. Repeat blood cultures no growth to date. TTE with mild aortic regurgitation, no visualized vegetation.Clinicaly improving WBC normalized. Foely removed. Una barragan is Amp S Recommendations. transition from Dapto and Zosyn to Ampicillin 2 g IV q4 hours If cr cl < 50, the change to Ampicillin 2g Iv q 6 hours FU BC 10/25 Monitor cr cl If repeat BC remain NG from 10/26, then anticipate a 10 day course of antibiotics from sterile blood culture. Can likely transition to oral antibiotics once ready for discharge to complete therapy with amoxicillin 1 g p.o. every 8 hours (10/26 - 11/05).Cr cl currently 50. ID will sign off. Please call with questions/concerns or if repeat blood cultures from 10/26 positive. Tano Faust MD, MPH Infectious Disease [facility], [facility] Call [phone] with questions Admission and Anticipated Discharge Date Admission Date: October 23, 2024 Subjective Subsequent visit was provided via telemedicine using two-way real-time interactive telecommunication between the patient and the telemedicine provider. For the duration of the visit, the provider was performing the assessment from a different facility than the patient. This includesuse of bluetooth stethoscope forauscultationperformed by the telepresenter that the telemedicine provider can hear if described in the physical exam. Nurse Practitioner Adult contact information: Please call [facility] Center . (Phone Number For Physician Use Only) After establishing a telemedicine visit, patient was: Patient was verified with two unique identifiers Time Spent with Patient: Subsequent => 35 min weekend event reviewed-- ICU gort hypotension/ pressors --> back to floors Sp owusu removal Afebrile WBC down to 10.29 Physical Exam Physical Exam: General- NAD, comfortable Neck- supple HEENT-Anicteric sclera, AT/NC Lungs- Non labored breathing Abdomen- soft , not tender - No suprapubic tenderness, sp owusu removal Neuro- AAO times 3 Psych- cooperative Results & Data Vital Signs (Past 12 Hours) Vital Signs Temp Pulse Pulse Resp BP BP Pulse Ox 10/27/24 08:00 68 10/27/24 07:21 36.3 C L 42 L 16 135/72 97 10/27/24 04:26 36.5 C 44 L 18 123/71 95 O2 Del Method 10/27/24 08:00 10/27/24 07:21 Room Air 10/27/24 04:26 Room Air Laboratory Results Short CBC 10/27/24 Range/Units 09:01 WBC 10.29 (4.8-10.8) K/ul Hgb 12.1 L (14.0-18.0) g/dl Hct 35.9 L (42.0-52.0) % Plt Count 161 (130-400) K/uL BMP 10/27/24 09:01 Sodium 138 Potassium 3.9 Chloride 108 H Carbon Dioxide 22 BUN 30 H Creatinine 1.33 Glucose 206 H Calcium 8.6 Diagnostic Findings Microbiology 10/26/24 09:11 Blood Aerobic Blood Culture - Preliminary No growth in Aerobic bottle after 24 hours. 10/26/24 09:11 Blood Anaerobic Blood Culture - Preliminary No growth in Anaerobic bottle after 24 hours. 10/26/24 09:16 Blood Aerobic Blood Culture - Preliminary No growth in Aerobic bottle after 24 hours. 10/26/24 09:16 Blood Anaerobic Blood Culture - Preliminary No growth in Anaerobic bottle after 24 hours. 10/23/24 19:25 Blood Aerobic Blood Culture - Final Enterococcus faecalis 10/23/24 19:25 Blood Anaerobic Blood Culture - Final Enterococcus faecalis 10/23/24 19:25 Blood Aerobic Blood Culture - Preliminary No growth in Aerobic bottle after 48 hours. 10/23/24 19:25 Blood Anaerobic Blood Culture - Preliminary No growth in Anaerobic bottle after 48 hours. 10/23/24 19:54 Urine,Clean Catch Urine Culture - Final Enterococcus faecalis Medications Administered Home Medications Medication Instructions Recorded Confirmed Last Taken omeprazole 20 mg capsule,delayed 20 mg PO QAM 07/21/20 10/23/24 10/23/24 release aspirin 81 mg tablet,delayed 81 mg PO 3XWK 12/20/21 10/23/24 10/23/24 release cholecalciferol (vitamin D3) 25 25 mcg PO DAILY 12/20/21 10/23/24 10/23/24 mcg (1,000 unit) tablet (Vitamin D3) cyanocobalamin (vitamin B-12) 1,000 mcg PO DAILY 12/20/21 10/23/24 10/23/24 1,000 mcg tablet carbidopa ER 50 mg-levodopa 200 mg 1 tab PO TID 90 days #270 tabs 01/14/24 10/23/24 10/23/24 tablet,extended release ropinirole 2 mg tablet,extended 2 mg PO QAM 07/22/24 10/23/24 10/23/24 release 24 hr solifenacin 10 mg tablet 10 mg PO DAILY 10/23/24 10/23/24 10/23/24 Active Medications Generic Name Dose Route Start Last Admin Trade Name Stacey PRN Reason Stop Dose Admin Acetaminophen 650 mg 10/23/24 23:46 10/26/24 20:08 Acetaminophen 325 Mg Tab PO 11/22/24 23:45 650 mg Q4H PRN Administration pain/fever Aspirin 81 mg 10/25/24 09:00 10/27/24 08:40 Aspirin 81 Mg Ectab PO 11/24/24 08:59 81 mg Q2D JAMIA Administration Carbidopa/Levodopa 1 tab 10/24/24 06:30 10/27/24 05:54 Carbidopa/Levodopa 50/200mg Ext Rel Tab PO 11/23/24 06:29 1 tab DAILY@0630,1500,2100 JAMIA Administration Cyanocobalamin 1,000 mcg 10/24/24 09:00 10/27/24 08:39 Cyanocobalamin (B-12) 500 Mcg Tablet PO 11/23/24 08:59 1,000 mcg DAILY JAMIA Administration Enoxaparin Sodium 40 mg 10/23/24 23:46 10/26/24 21:59 Enoxaparin Inj 40 Mg/0.4 Ml Syr SQ 11/22/24 23:45 40 mg Q24H JAMIA Administration Fludrocortisone Acetate 0.1 mg 10/25/24 10:00 10/27/24 08:40 Fludrocortisone Acetate 0.1 Mg Tab PO 11/24/24 09:59 0.1 mg QAM JAMIA Administration Hydrocortisone Sodium 1 mls @ 4 mls/min 10/25/24 10:00 10/27/24 09:00 Succinate 50 mg/ Syringe IV 11/24/24 09:59 4 mls/min Q6H JAMIA Administration Ampicillin Sodium 2,000 mg/ 100 mls @ 200 mls/hr 10/27/24 11:00 10/27/24 11:32 Sodium Chloride IV 11/10/24 10:59 Infused Q4H JAMIA Infusion Insulin Aspart 0 units 10/25/24 21:00 10/27/24 12:06 Insulin Aspart Per Unit Charge SC 11/24/24 20:59 6 units ACHS JAMIA Administration Midodrine 5 mg 10/25/24 12:00 10/27/24 12:06 Midodrine Hcl 2.5 Mg Tab PO 11/24/24 11:59 5 mg TID@0800,1200,1700 JAMIA Administration Oxybutynin Chloride 10 mg 10/24/24 21:00 10/26/24 20:07 Oxybutynin Chloride Xl 5 Mg Tabcr PO 11/23/24 08:59 10 mg HS JAMIA Administration Pantoprazole Sodium 40 mg 10/24/24 09:00 10/27/24 08:40 Pantoprazole 40 Mg Tab PO 11/23/24 08:59 40 mg QAM JAMIA Administration Ropinirole HCl 2 mg 10/24/24 09:00 10/27/24 08:40 Ropinirole Hcl 1 Mg Tablet PO 11/23/24 08:59 2 mg QAM JAMIA Administration Vitamin D 25 mcg 10/24/24 09:00 10/27/24 08:40 Cholecalciferol 25 Mcg (1000 Units) Tab PO 11/23/24 08:59 25 mcg DAILY JAMIA Administration
--- NOTE | 2024-10-28 10:51 | Hospitalist Progress Note ---
Date of Service October 28, 2024 Assessment & Plan (1) Sepsis: (2) Acute UTI: (3) Parkinsonism: (4) GERD (gastroesophageal reflux disease): (5) Hypomagnesemia: (6) Urinary retention: Plan 79 yo male PMHx Parkinson syndrome, GERD, bladder cancer admitted with fever, fatigue, meeting sepsis criteria. #Septic shock Now resolved Likely urinary source after instrumentation, tumor resection 10/24/24 Secondary to E fecalis 2 D ECHO did not suggest vegetaions Both urine and blood cultures growing E Fecalis, sensitive to Ampicillin. Will change abx to Ampicillin 2g Q4H per Id recs Per ID can d/c on PO Amoxicillin till 11/05 #Acute urinary retention Resolved Owusu has been removed, passed voiding trial #Hypomagnesemia Will give 2g IV, recheck am #Parkinson disease Continue carbidopa/levodopa Continue ropinirole #GERD Protonix daily Bradycardia HR in the 40's Etiology is uncertain Not on any meds that slows the heart rate will obtain EKG FENGI: s/p 2.5L NSS, Regular diet Code status: full DVT prophylaxis: Lovenox Isolation: none Disposition: medical continue to monitor, hopefully d/c in the next 24 hrs Admission and Anticipated Discharge Date Admission Date: October 23, 2024 Subjective patient seen and examined, owusu has been removed, he voided after removal, ambulating the hallway Review of Systems Review of Systems: All systems reviewed are negative, apart from the ones contained in the history. Physical Exam Physical Exam: The patient is awake, alert and oriented 3, well developed and well nourished, normocephalic and atraumatic, lying in bed and in no acute distress. HEENT--PERRL, EOMI, mucous membranes and oropharynx mildly dry Neck--supple. No JVD. No bruits. Thyroid normal, trachea midline, no adenopathy. Heart--normal S1 and S2. No murmurs, rubs or gallops. Lungs--clear bilaterally, no respiratory distress, no accessory muscle use. Abdomen--normal bowel sounds and soft. Extremities--no cyanosis or clubbing. No edema. Dermatologic--normal skin turgor, normal color, no abnormal lymph nodes, no rash. Neurologic--cranial nerves II through XII grossly intact. Rheumatologic--normal range of motion. Psychiatric--normal affect. Results & Data Results & Data Vital Signs (Past 12 Hours) Vital Signs Temp Pulse Pulse Resp BP Pulse Ox O2 Del Method 10/28/24 07:21 98.2 F 41 L 18 94 Room Air 10/28/24 02:42 98.2 F 42 L 18 122/68 95 Room Air 10/28/24 00:00 43 L 10/27/24 22:57 97.7 F 43 L 18 128/71 95 Room Air PG Care Time/CCT Total # of Minutes Spent Total Time Spent with Patient: Total time spent is greater than 50% in coordination of care (as documented) at patient's floor/unit and/or counseling patient: Coding Level of Care Code 92062 SUB INP/OBS CARE 2/35MIN Diagnoses Sepsis A41.9 Sepsis acute organ dysfunction status: unspecified Sepsis type: sepsis due to unspecified organism Acute UTI N39.0 Parkinson's disease, unspecified whether dyskinesia present, unspecified whether manifestations fluctuate G20.A1 Parkinsonism type: Parkinson's disease Dyskinesia presence: unspecified whether dyskinesia Fluctuating manifestations: unspecified whether manifestations fluctuate Gastroesophageal reflux disease, unspecified whether esophagitis present K21.9 Esophagitis presence: esophagitis presence not specified Hypomagnesemia E83.42 Urinary retention R33.9 Time Spent (min) 35 (1) Sepsis Sepsis acute organ dysfunction status: unspecified Sepsis type: sepsis due to unspecified organism Qualified Code(s): A41.9 - Sepsis, unspecified organism (3) Parkinsonism Parkinsonism type: Parkinson's disease Dyskinesia presence: unspecified whether dyskinesia Fluctuating manifestations: unspecified whether manifestations fluctuate Qualified Code(s): G20.A1 - Parkinson's disease without dyskinesia, without mention of fluctuations (4) GERD (gastroesophageal reflux disease) Esophagitis presence: esophagitis presence not specified Qualified Code(s): K21.9 - Gastro-esophageal reflux disease without esophagitis
[2024-10-28] MEDS: MIDODRINE HCL 2.5 MG TAB PO SCH (12:30)
[2024-10-29 07:09] LABS: Hematocrit (blood only) 35.7 % (42.0-52.0); Mean Corpuscular Hemoglobin 29.8 pg (25.0-34.0); Mean Corpuscular Hgb Conc 33.6 g/dL (32.0-36.0); Mean Corpuscular Volume 88.6 fL (80.0-100.0); Mean Platelet Volume 10.6 fL (9.4-12.4); Platelet Count 187 K/uL (130-400); RDW Coefficient of Variation 13.7 % (11.5-14.5); RDW Standard Deviation 44.2 fL (36.4-46.3); Red Blood Count 4.03 M/uL (4.70-6.10); White Blood Count 8.85 K/ul (4.8-10.8)
[2024-10-29 07:29] LABS: BUN Creatinine Ratio 28.3 (10-20); Calcium 8.3 mg/dl (8.6-10.3); Creatinine Clr Calc Pharmacy 51.9 ml/min; Potassium 3.8 mmol/L (3.5-5.1)
[2024-10-29] MEDS: TAMSULOSIN HCL 0.4 MG CAP PO ONE (08:32)
--- NOTE | 2024-10-29 09:45 | Urology Consultation ---
Date of Consultation October 29, 2024 Assessment & Plan (1) Acute UTI: (2) Septic shock due to Enterococcus fecalis: (3) Bacteremia: (4) Urinary retention: 79 yo/M admitted for acute UTI/sepsis and bacteremia after outpatient cystoscopy. Patient afebrile and hemodynamically stable Labs today reviewedcreatinine 1.27, WBC 8.85, hemoglobin 12.0 Urine and blood cultures 10/23/2024 with Enterococcus faecalis Repeat blood cultures 10/26 with no growth to date ID note reviewedpatient transitioned back to Ampicillin and will be transitioned to PO abx at discharge Regarding urinary retention, recommend replacement of Forman catheter due to elevated PVRs and requiring straight catheterization Recommend keep catheter for approximately 1 week Will arrange outpatient voiding trial in urology office next week Continue antibiotics and medical management per hospital service will sign off, please contact our service with any additional questions/concerns during hospitalization History of Present Illness Reason for Consultation: Urinary retention Requesting Physician: Dr. Jansen Attending Physician: Saundra Jansen MD History of Present Illness This is a 79-year-old male with past medical history of Parkinson disease, BPH, and bladder cancer who presented to the emergency department on 10/23/2024 for evaluation of fever and altered mental after outpatient cystoscopy performed on 10/22/2024. On arrival to ED, he was febrile and tachycardic. Lab work showed white count of 10.82, hemoglobin 13.2, creatinine 1.29, lactate 2.4. Urinalysis showed 3+ blood, 2+ LE, 3-5 RBC, 21-50 WBC and 1+ bacteria. Urine and blood cultures obtained. He was treated with IV fluids, ceftriaxone in ED. He was admitted to the medicine service for acute UTI and sepsis. Urine and blood cultures 10/23/2024 with Enterococcus faecalis. Hospital course complicated by worsening leukocytosis and hypotension. Antibiotics broadened. ID consulted. He was transferred to the ICU on 10/24/2024 for pressors. Forman catheter was placed for urinary retention. Forman removed on 10/27 for voiding trial. He has been voiding spontaneously after catheter removal, but having small, frequent voids. Post void residual bladder scans monitored and between 200-500 mL per nursing documentation. He was straight catheterized x2 for 500 mL overnight. Urology is consulted for urinary retention. Patient seen and examined at bedside this morning. (Edda) present. Patient awake and sitting up in bedside chair. Generally feeling better. He is voiding small, frequent voids since catheter removal. PVRs were started overnight. Bowels are moving. No fever or chills. Allergies Allergy/AdvReac Type Severity Reaction Status Date / Time No Known Drug Allergies Allergy Unknown Verified 07/22/24 08:01 Home Medications Medication Instructions Recorded Confirmed Type omeprazole 20 mg capsule,delayed 20 mg PO QAM 07/21/20 10/23/24 History release aspirin 81 mg tablet,delayed 81 mg PO 3XWK 12/20/21 10/23/24 History release cholecalciferol (vitamin D3) 25 25 mcg PO DAILY 12/20/21 10/23/24 History mcg (1,000 unit) tablet (Vitamin D3) cyanocobalamin (vitamin B-12) 1,000 mcg PO DAILY 12/20/21 10/23/24 History 1,000 mcg tablet carbidopa ER 50 mg-levodopa 200 mg 1 tab PO TID 90 days #270 tabs 01/14/24 10/23/24 Rx tablet,extended release ropinirole 2 mg tablet,extended 2 mg PO QAM 07/22/24 10/23/24 History release 24 hr solifenacin 10 mg tablet 10 mg PO DAILY 10/23/24 10/23/24 History Patient History Medical History Gait disturbance Respiratory distress hx, w/recent Covid illness in 07/05/24, "no current issues" COVID Dysphagia Hyperlipidemia Hx of hyperlipidemia GERD (gastroesophageal reflux disease) History of dysphagia pt seen by PANEL INSTRUMENT REPAIRER while inpt 06/2024 for COVID; 'no safe diet for patient... allow for permissive aspiration'. pt denies issues currently History of COVID-19 07/05/24 admitted [facility] (through 07/07/24); sx resolved Bladder cancer Dx'ed Spring 2020 - Cysto, TURBT 01/18/21- initially uneventful until a severe obturator reflex was provoked- had increased bleeding- converted from LMA to ETT anesthesia per 01/18/21 anesthesia record. -Had repeat procedures 02/22/21 and 01/10/22 without noted issues; has also completed BCG tx Benign essential tremor Bilateral index fingers Twitching Only occurs when falling asleep or when asleep Zenkers diverticulum Parkinson disease following with [facility]; per most recent note 12/2023: "Parkinson's disease with Parkinson's gait and some bradykinesia with mild cogwheel. He is doing fairly well on his current dose of carbidopa/levodopa, 50/200 ER twice daily. His drooling is improved and his fatigue is stable. He does not have much in the way of tremor today"... stable- continue current medication regimen History of asthma A CHILD ONLY- NO CURRENT ISSUES BPH (benign prostatic hyperplasia) Surgical History History of bladder surgery TURBT X 3: most recent: 01/10/22: [place]: LMA#5, atraumatic placement x 1 History of esophagogastroduodenoscopy (EGD) History of colonoscopy History of tooth extraction History of hernia surgery INGUINAL Family History Family/Other Lung cancer Other No family history of adverse response to anesthesia Social History Smoking Status: Never smoker Do You Dip or Chew Tobacco: No; Hx Alcohol Use: Yes Alcohol type: beer and wine Hx Substance Use: No Preferred Language: Thai Communication Ability: Effective Adjunct History Instructor Required: No Beliefs That Will Affect Care: None marital status: Current Living Situation: Spouse Current Living Situation Comment: AND SON current occupational status: employed 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 Feels Safe at Home: Yes Safety Concerns: Feels Safe At This Time Assistive Devices: Walker Review of Systems Review of Systems: All systems reviewed & are unremarkable except as noted in HPI & below Physical Exam Constitutional: sitting up in bedside chair, NAD Respiratory: normal respiratory effort; no respiratory distress and no labored breathing Gastrointestinal (Abdomen): Inspection/Auscultation: abdomen normal to inspection Musculoskeletal: Head/Neck/Chest: normocephalic Neurologic: moves all extremities and awake Psychiatric: Orientation: alert and oriented x 3 Results & Data Vital Signs (Past 12 Hours) Vital Signs Temp Pulse Pulse Resp BP Pulse Ox O2 Del Method 10/29/24 08:00 Room Air 10/29/24 08:00 57 L 10/29/24 07:10 36.9 C 57 L 18 135/69 97 Room Air 10/29/24 02:38 37.1 C 65 143/97 H 94 Room Air 10/29/24 00:00 48 L 10/28/24 22:53 36.5 C 51 L 18 129/70 94 Room Air PG Care Time/CCT Total # of Minutes Spent Total Time Spent with Patient: Total time spent is greater than 50% in coordination of care (as documented) at patient's floor/unit and/or counseling patient: Coding Level of Care Code 69044 INT INP/OBS CARE 2/55MIN Diagnoses Acute UTI N39.0 Septic shock due to Enterococcus fecalis A41.81; R65.21 Bacteremia R78.81 Urinary retention R33.9
[2024-10-29 10:13] VITALS: PULSE 69; RESP 19; TEMP 98.1; O2SAT 96
[2024-10-29 12:24] VITALS: BP 135/72
--- NOTE | 2024-10-29 12:25 | Discharge Summary ---
Date of Service October 29, 2024 Admission HPI Per Admitting Provider 79 yo male PMHx Parkinson syndrome, GERD, bladder cancer admitted with fever, fatigue, meeting sepsis criteria. He was feeling well today until around 1600 when he returned from his usual 2 mile walk. When he returned home he began feeling very fatigued. His also reports that he was confused and not acting normally. He underwent cystoscopy with resection of small tumor 10/22/23. Pt remains fatigued in the emergency department, but overall is felling slightly better. No acute complaints. Denies CP, SOB. ED Course: Received 1.5L NSS BCx, UCx sent Started on ceftriaxone CXR negative Labs remarkable for mild leukocytosis, lactate was 2.4 on admission, hypomagnesemia, procal was normal Admission Exam (Per Admitting) Constitutional The patient is awake, alert and oriented 3, well developed and well nourished, normocephalic and atraumatic, lying in bed and in no acute distress. HEENT--PERRL, EOMI, mucous membranes and oropharynx mildly dry Neck--supple. No JVD. No bruits. Thyroid normal, trachea midline, no adenopathy. Heart--normal S1 and S2. No murmurs, rubs or gallops. Lungs--clear bilaterally, no respiratory distress, no accessory muscle use. Abdomen--normal bowel sounds and soft. Extremities--no cyanosis or clubbing. No edema. Dermatologic--normal skin turgor, normal color, no abnormal lymph nodes, no rash. Neurologic--cranial nerves II through XII grossly intact. Rheumatologic--normal range of motion. Psychiatric--normal affect. Discharge Data Consultations 10/23/24 21:06 ED Decision to Admit Stat 10/24/24 11:27 Consult Infectious Diseases Routine 10/24/24 23:16 Consult Stamps Or Coins Salesperson Routine 10/29/24 09:08 Consult Urology Routine Hospital Course (1) Sepsis: (2) Acute UTI: (3) Parkinsonism: (4) GERD (gastroesophageal reflux disease): (5) Hypomagnesemia: (6) Urinary retention: Plan 79 yo male PMHx Parkinson syndrome, GERD, bladder cancer admitted with fever, fatigue, meeting sepsis criteria. #Septic shock Now resolved Likely urinary source after instrumentation, tumor resection 10/24/24 Secondary to E fecalis 2 D ECHO did not suggest vegetaions Both urine and blood cultures growing E Fecalis, sensitive to Ampicillin. Will change abx to Ampicillin 2g Q4H per Id recs Per ID can d/c on PO Amoxicillin 1gm Q8hrs till 11/05 #Acute urinary retention maintain owusu Follow up with urolgy outpatieent in 1 week #Hypomagnesemia Will give 2g IV, recheck am #Parkinson disease Continue carbidopa/levodopa Continue ropinirole #GERD Protonix daily Bradycardia HR in the 40's Etiology is uncertain Not on any meds that slows the heart rate will obtain EKG FENGI: s/p 2.5L NSS, Regular diet Code status: full DVT prophylaxis: Lovenox Isolation: none Disposition: medical d/c home Coding Level of Care Code 79618 INP/OBS DISCH >30 MIN Diagnoses Sepsis A41.9 Sepsis acute organ dysfunction status: unspecified Sepsis type: sepsis due to unspecified organism Acute UTI N39.0 Parkinson's disease, unspecified whether dyskinesia present, unspecified whether manifestations fluctuate G20.A1 Parkinsonism type: Parkinson's disease Dyskinesia presence: unspecified whether dyskinesia Fluctuating manifestations: unspecified whether manifestations fluctuate Gastroesophageal reflux disease, unspecified whether esophagitis present K21.9 Esophagitis presence: esophagitis presence not specified Hypomagnesemia E83.42 Urinary retention R33.9 Time Spent (min) 35
== END 2024-10-29 13:22 | disposition home health service (06) | DRG 862 ==
LOC: ED 19:11 → SUATTDRO 22:16 → 3W 22:16 → 1E 10-24 22:39 → 2E 10-26 21:18

== ENCOUNTER 2024-12-23 04:07 | Inpatient (IN) ==
[2024-12-23 05:08] LABS: Basophils # (auto) 0.04 K/uL (0.00-0.20); Basophils % (auto) 0.4 %; Eosinophils # (auto) 0.17 K/uL (0.00-0.50); Eosinophils % (auto) 1.5 %; Hematocrit (blood only) 38.5 % (42.0-52.0); Hemoglobin 12.9 g/dl (14.0-18.0); Immature Granulocytes # (auto) 0.03 K/uL (0.01-0.20); Immature Granulocytes % (auto) 0.3 %; Lymphocytes # (auto) 0.69 K/uL (1.20-3.40); Lymphocytes % (auto) 6.3 %; Mean Corpuscular Hemoglobin 30.4 pg (25.0-34.0); Mean Corpuscular Hgb Conc 33.5 g/dL (32.0-36.0); Mean Corpuscular Volume 90.6 fL (80.0-100.0); Mean Platelet Volume 10.1 fL (9.4-12.4); Monocytes # (auto) 0.99 K/uL (0.11-0.59); Neutrophils # (auto) 9.05 K/uL (1.40-6.50); Neutrophils % (auto) 82.5 %; Platelet Count 172 K/uL (130-400); RDW Coefficient of Variation 13.6 % (11.5-14.5); RDW Standard Deviation 44.8 fL (36.4-46.3); Red Blood Count 4.25 M/uL (4.70-6.10); White Blood Count 10.97 K/ul (4.8-10.8)
[2024-12-23 05:10] LABS: Albumin Level 4.1 gm/dl (3.4-5.0); BUN Creatinine Ratio 26.1 (10-20); Bilirubin Direct 0.2 mg/dl (0-0.2); Bilirubin,Total 1.6 mg/dl (0.2-1.0); Creatinine Clr Calc Pharmacy 50.3 ml/min; Magnesium 1.6 mg/dl (1.7-2.4); Potassium 4.1 mmol/L (3.5-5.1); Total Protein 6.8 gm/dl (6.0-8.3)
[2024-12-23 05:16] LABS: Troponin I High Sensitivity 4.6 pg/ml (0-20)
[2024-12-23] MEDS: PIPERACILLIN/TAZOBACTAM 4.5 GM/100 ML BAG IV ONE (05:21)
[2024-12-23] MEDS: ACETAMINOPHEN 1,000 MG/100 ML VIAL IV STA (05:21)
[2024-12-23] MEDS: SODIUM CHLORIDE 0.9% 1,000 ML IV SCH (05:21)
[2024-12-23 05:30] LABS: Appearance Urine Cloudy (Clear); Bacteria Urine Automated 4+ (None Seen); Bilirubin Urine Negative (Negative); Blood Urine Trace (Negative); Cast Urine Automated 0-2 /lpf (0-2); Color Urine Yellow; Epithelial Cell Urine Auto 0-2 /hpf (0-2); Glucose Urine UA Negative (Negative); Ketones Urine Negative (Negative); Leukocyte Esterase Urine 2+ (Negative); Nitrite Urine Positive (Negative); Protein Urine Trace (Negative); Specific Gravity Urine 1.015 (1.000-1.030); Urobilinogen Urine Negative (Negative); WBC Urine Automated >50 /hpf (0-5); pH Urine 6.5 (4.5-7.5)
--- NOTE | 2024-12-23 05:34 | CT Scan Report ---
EXAM: CT head/brain wo con CLINICAL HISTORY: AMS TECHNIQUE: Multiple axial images are obtained from the skull base to the vertex without contrast. CT scan was performed according to ALARA (as low as reasonable achievable). COMPARISON: None. FINDINGS: There is cerebral atrophy. No evidence of space occupying lesion, hemorrhage, edema, mass effect, midline shift, extra axial collection, or hydrocephalus is noted. Basal cisterns are symmetric and normal in size and configuration. Chronic lacunar infarct in right basal ganglia. There are scattered periventricular hypodensities as can be seen with chronic microvascular ischemic changes. The roberts-white matter differentiation is preserved. Visualized paranasal sinuses and mastoid air cells are well aerated. Orbital contents are within normal limits. Bony structures are intact. IMPRESSION: 1. No evidence of acute intracranial abnormality is demonstrated. 2. Chronic microvascular ischemic changes. 3. Cerebral atrophy. Electronically signed by Igor Arreola 12-23-2024 05:33 AM
[2024-12-23 06:07] LABS: Adenovirus PCR Not Detected (NotDetected); Bordetella parapertussis PCR Not Detected (NotDetected); Bordetella pertussis PCR Not Detected (NotDetected); Chlamydia pneumoniae PCR Not Detected (NotDetected); Coronavirus 229E PCR Not Detected (NotDetected); Coronavirus CoV-2 (COVID19)PCR Not Detected (NotDetected); Coronavirus HKU1 PCR Not Detected (NotDetected); Coronavirus NL63 PCR Not Detected (NotDetected); Coronavirus OC43PCR Not Detected (NotDetected); Human Metapneumovirus PCR Not Detected (NotDetected); Influenza A PCR Not Detected (NotDetected); Influenza B PCR Not Detected (NotDetected); Mycoplasma pneumoniae PCR Not Detected (NotDetected); Parainfluenza Virus 1 PCR Not Detected (NotDetected); Parainfluenza Virus 2 PCR Not Detected (NotDetected); Parainfluenza Virus 3 PCR Not Detected (NotDetected); Parainfluenza Virus 4 PCR Not Detected (NotDetected); Respiratory Syncytial VirusPCR Not Detected (NotDetected); Rhinovirus/Enterovirus PCR Not Detected (NotDetected)
--- NOTE | 2024-12-23 06:16 | XRay Report ---
EXAM: XR chest 1V portable CLINICAL HISTORY: Sepsis. TECHNIQUE: An X-ray image of the chest is obtained in AP projection. COMPARISON: 11/20/2024. FINDINGS: Pulmonary Parenchyma: Lungs show bilateral prominent bronchovascular markings. No evidence of consolidation, collapse, or focal opacities. No pulmonary nodules are identified. No evidence of pleural effusion or pleural thickening. Heart and Mediastinum: Prominent aortic arch. Heart size and shape are normal. No mediastinal widening or masses. No mediastinal lymphadenopathy. Bilateral hilar enlargement, mostly vascular. Bony Thorax: Bony thorax appears intact without fractures or deformities. Soft Tissues: Soft tissues overlying the chest wall are unremarkable. IMPRESSION: 1. Bilateral prominent bronchovascular markings. 2. Bilateral hilar enlargement. 3. No acute cardiopulmonary abnormalities are identified. 4. No interval changes. Electronically signed by Jeff Schmitz 12-23-2024 06:16 AM
--- NOTE | 2024-12-23 06:45 | History & Physical Report ---
Date of Service December 23, 2024 Assessment & Plan (1) BPH w urinary obs/LUTS: (2) Catheter-associated urinary tract infection: (3) Hypomagnesemia: (4) Confusion and disorientation: (5) Primary bladder malignant neoplasm: Plan The patient is a 79-year-old male past medical history including BPH with LUTS, parkinsonism, B12 deficiency, GERD, restless leg syndrome, bladder spasm, gait disturbance, hammertoes of both feet, bladder mass, history of gross hematuria, and GERD.The patient is brought to the emergency department after his was woken up by turning on the lights in the middle of the night at 3:00 in the morning looking for her, acting confused and disoriented. The patient had been to urology office at 8 AM for Forman catheter removal, and had a successful voiding trial. She reports that during the day she thought he was urinating relatively normally, but frequent small amounts. He had gone to bed usual time this evening, and then as noted, she found him wandering in the [place] looking for him her acting confused disoriented. Emergency department, workup included CT scan of head which was negative, urinalysis showed significant for positive signs of infection, and he was referred for evaluation for admission to the [facility] service. Emergency department he was here following, normal saline 1 L bolus, Zosyn 4.5 g IV, Tylenol 1 g IV. Confusion and disorientation- Likely secondary to urinary tract infection BioFire testing negative CT scan head negative # #Catheter associated urinary tract infection Follow urine culture and sensitivity Status post normal saline 1 L fluid bolus in ED LR at 80 mL/h x 1 L Patient with borderline blood pressure at this point, will be admitted to PCU for close monitoring Most recent urine culture and sensitivity on 10/23/[address] on Unasyn 3 g IV every 6 hours Hypomagnesemia- Give magnesium sulfate 2 g IV Repeat laboratories in a.m. Chronic medical conditions: Parkinsonism: Continue carbidopa-levodopa B12 deficiency-continue supplement D3 deficiency continue supplement GERD-change omeprazole to pantoprazole per formulary interchange Restless leg syndrome-continue ropinirole Bladder spasm-continue Solifenacin History of Present Illness Chief Complaint: The patient is brought to the emergency department after his was woken up by turning on the lights in the middle of the night at 3:00 in the morning looking for her, acting confused and disoriented. The patient had been to urology office at 8 AM for Forman catheter removal, and had a successful voiding trial. She reports that during the day she thought he was urinating relatively normally, but frequent small amounts. He had gone to bed usual time this evening, and then as noted, she found him wandering in the melan[place] looking for him her acting confused disoriented. Emergency department, workup included CT scan of head which was negative, urinalysis showed significant for positive signs of infection, and he was referred for evaluation for admission to the [facility] service. Primary Care Provider: Sue Loaiza The patient is a 79-year-old male past medical history including BPH with LUTS, parkinsonism, B12 deficiency, GERD, restless leg syndrome, bladder spasm, gait disturbance, hammertoes of both feet, bladder mass, history of gross hematuria, and GERD.The patient is brought to the emergency department after his was woken up by turning on the lights in the middle of the night at 3:00 in the morning looking for her, acting confused and disoriented. The patient had been to urology office at 8 AM for Forman catheter removal, and had a successful voiding trial. She reports that during the day she thought he was urinating relatively normally, but frequent small amounts. He had gone to bed usual time this evening, and then as noted, she found him wandering in the melan[place] looking for him her acting confused disoriented. Emergency department, workup included CT scan of head which was negative, urinalysis showed significant for positive signs of infection, and he was referred for evaluation for admission to the [facility] service. Allergies Allergy/AdvReac Type Severity Reaction Status Date / Time No Known Drug Allergies Allergy Unknown Verified 07/22/24 08:01 Home Medications Medication Instructions Recorded Confirmed Type omeprazole 20 mg capsule,delayed 20 mg PO QAM 07/21/20 10/23/24 History release aspirin 81 mg tablet,delayed 81 mg PO 3XWK 12/20/21 10/23/24 History release cholecalciferol (vitamin D3) 25 25 mcg PO DAILY 12/20/21 10/23/24 History mcg (1,000 unit) tablet (Vitamin D3) cyanocobalamin (vitamin B-12) 1,000 mcg PO DAILY 12/20/21 10/23/24 History 1,000 mcg tablet carbidopa ER 50 mg-levodopa 200 mg 1 tab PO TID 90 days #270 tabs 01/14/24 10/23/24 Rx tablet,extended release ropinirole 2 mg tablet,extended 2 mg PO QAM 07/22/24 10/23/24 History release 24 hr solifenacin 10 mg tablet 10 mg PO DAILY 10/23/24 10/23/24 History ampicillin 500 mg capsule 500 mg PO TID #21 caps 11/26/24 11/26/24 Rx Past Med/Surg History Problem List (Updated 12/23/24 @ 06:36 by Vishal Romero MD) Confusion and disorientation Catheter-associated urinary tract infection BPH w urinary obs/LUTS Benign prostatic hyperplasia (BPH) with straining on urination DAVE (acute kidney injury) Septic shock due to Enterococcus fecalis Bacteremia Urinary retention Hypomagnesemia Weakness (Acute) Sepsis (Acute) Fatigue Gait disturbance Drooling Hammer toes of both feet Encounter for pre-operative examination Primary bladder malignant neoplasm Bladder mass Gross hematuria Tremor Parkinsonism GERD (gastroesophageal reflux disease) Medical History Gait disturbance Respiratory distress hx, w/recent Covid illness in 07/05/24, "no current issues" COVID Dysphagia Hyperlipidemia Hx of hyperlipidemia GERD (gastroesophageal reflux disease) History of dysphagia pt seen by [facility] while inpt 06/2024 for COVID; 'no safe diet for patient... allow for permissive aspiration'. pt denies issues currently History of COVID-19 07/05/24 admitted [facility] (through 07/07/24); sx resolved Bladder cancer Dx'ed Spring 2020 - Cysto, TURBT 01/18/21- initially uneventful until a severe obturator reflex was provoked- had increased bleeding- converted from LMA to ETT anesthesia per 01/18/21 anesthesia record. -Had repeat procedures 02/22/21 and 01/10/22 without noted issues; has also completed BCG tx Benign essential tremor Bilateral index fingers Twitching Only occurs when falling asleep or when asleep Zenkers diverticulum Parkinson disease following with [facility]; per most recent note 12/2023: "Parkinson's disease with Parkinson's gait and some bradykinesia with mild cogwheel. He is doing fairly well on his current dose of carbidopa/levodopa, 50/200 ER twice daily. His drooling is improved and his fatigue is stable. He does not have much in the way of tremor today"... stable- continue current medication regimen History of asthma A CHILD ONLY- NO CURRENT ISSUES BPH (benign prostatic hyperplasia) Surgical History History of bladder surgery TURBT X 3: most recent: 01/10/22: [place]: LMA#5, atraumatic placement x 1 History of esophagogastroduodenoscopy (EGD) History of colonoscopy History of tooth extraction History of hernia surgery INGUINAL Family History Family/Other Lung cancer Other No family history of adverse response to anesthesia Social History Smoking Status: Never smoker Do You Dip or Chew Tobacco: No; Hx Alcohol Use: Yes Alcohol type: beer and wine Hx Substance Use: No Preferred Language: Maltese Communication Ability: Effective [employer]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 Beliefs That Will Affect Care: None marital status: Current Living Situation: Spouse Current Living Situation Comment: AND SON current occupational status: employed 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 The review of systems is otherwise negative other than for that already noted above, and at least 10 systems have been reviewed. Physical Exam Physical Exam: The patient is awake, appears fatigued and intermittently disoriented. Well developed and well nourished, normocephalic and atraumatic, lying in bed and in no acute distress. HEENT--PERRL, EOMI, mucous membranes and oropharynx mildly dry. Neck--supple. No JVD. No bruits. Thyroid normal, trachea midline, no adenopathy. Heart--normal S1 and S2. No murmurs, rubs or gallops. Lungs--clear bilaterally, no respiratory distress, no accessory muscle use. Abdomen--normal bowel sounds and soft. Nontender. Nondistended, no hernias or masses, no organomegaly. Extremities--no cyanosis or clubbing. No edema. Dermatologic--normal skin turgor, normal color, no abnormal lymph nodes, no rash. Neurologic--cranial nerves II through XII grossly intact. Rheumatologic--normal range of motion. Psychiatric--normal affect. Results & Data Results & Data Vital Signs (Past 12 Hours) Vital Signs Temp Pulse Resp BP Pulse Ox O2 Del Method 12/23/24 05:21 74 16 108/60 97 Room Air 12/23/24 04:40 85 12/23/24 04:35 Room Air 12/23/24 04:19 144/70 H 12/23/24 04:16 37.7 C H 87 17 144/70 H 96 Room Air Laboratory Results Laboratory Results WBC 10.97 K/ul (4.8-10.8) H 12/23/24 04:34 RBC 4.25 M/uL (4.70-6.10) L 12/23/24 04:34 Hgb 12.9 g/dl (14.0-18.0) L 12/23/24 04:34 Hct 38.5 % (42.0-52.0) L 12/23/24 04:34 MCV 90.6 fL (80.0-100.0) 12/23/24 04:34 MCH 30.4 pg (25.0-34.0) 12/23/24 04:34 MCHC 33.5 g/dL (32.0-36.0) 12/23/24 04:34 RDW Std Deviation 44.8 fL (36.4-46.3) 12/23/24 04:34 RDW Coeff of Vijaya 13.6 % (11.5-14.5) 12/23/24 04:34 Plt Count 172 K/uL (130-400) 12/23/24 04:34 MPV 10.1 fL (9.4-12.4) 12/23/24 04:34 Immature Gran % (Auto) 0.3 % 12/23/24 04:34 Neut % (Auto) 82.5 % 12/23/24 04:34 Lymph % (Auto) 6.3 % 12/23/24 04:34 [place] % (Auto) 9.0 % 12/23/24 04:34 Eos % (Auto) 1.5 % 12/23/24 04:34 Baso % (Auto) 0.4 % 12/23/24 04:34 Neut # (Auto) 9.05 K/uL (1.40-6.50) H 12/23/24 04:34 Lymph # (Auto) 0.69 K/uL (1.20-3.40) L 12/23/24 04:34 [place] # (Auto) 0.99 K/uL (0.11-0.59) H 12/23/24 04:34 Eos # (Auto) 0.17 K/uL (0.00-0.50) 12/23/24 04:34 Baso # (Auto) 0.04 K/uL (0.00-0.20) 12/23/24 04:34 Immature Gran # (Auto) 0.03 K/uL (0.01-0.20) 12/23/24 04:34 Sodium 137 mmol/L (136-145) 12/23/24 04:34 Potassium 4.1 mmol/L (3.5-5.1) 12/23/24 04:34 Chloride 102 mmol/L (98-107) 12/23/24 04:34 Carbon Dioxide 29 mmol/L (21-32) 12/23/24 04:34 Anion Gap 6 (3-11) 12/23/24 04:34 BUN 31 mg/dl (6-23) H 12/23/24 04:34 Creatinine 1.19 mg/dl (0.6-1.4) 12/23/24 04:34 Est Cr Clr Drug Dosing 50.3 ml/min 12/23/24 04:34 eGFR 62.91 12/23/24 04:34 BUN/Creatinine Ratio 26.1 (10-20) H 12/23/24 04:34 Glucose 120 mg/dl (70-99(Fasting)) H 12/23/24 04:34 Lactate 0.8 mmol/L (0.4-2.0) 12/23/24 05:01 Calcium 9.0 mg/dl (8.6-10.3) 12/23/24 04:34 Magnesium 1.6 mg/dl (1.7-2.4) L 12/23/24 04:34 Total Bilirubin 1.6 mg/dl (0.2-1.0) H 12/23/24 04:34 Direct Bilirubin 0.2 mg/dl (0-0.2) 12/23/24 04:34 AST 15 U/L (13-39) 12/23/24 04:34 ALT 4 U/L (7-52) L 12/23/24 04:34 Alkaline Phosphatase 62 U/L (34-104) 12/23/24 04:34 Troponin I High Sens 4.6 pg/ml (0-20) 12/23/24 04:34 Total Protein 6.8 gm/dl (6.0-8.3) 12/23/24 04:34 Albumin 4.1 gm/dl (3.4-5.0) 12/23/24 04:34 Procalcitonin 0.07 ng/ml (0-0.5) 12/23/24 04:34 Urine Color Yellow 12/23/24 04:45 Urine Appearance Cloudy (Clear) A 12/23/24 04:45 Urine pH 6.5 (4.5-7.5) 12/23/24 04:45 Ur Specific George 1.015 (1.000-1.030) 12/23/24 04:45 Urine Protein Trace (Negative) H 12/23/24 04:45 Urine Glucose (UA) Negative (Negative) 12/23/24 04:45 Urine Ketones Negative (Negative) 12/23/24 04:45 Urine Blood Trace (Negative) H 12/23/24 04:45 Urine Nitrite Positive (Negative) A 12/23/24 04:45 Urine Bilirubin Negative (Negative) 12/23/24 04:45 Urine Urobilinogen Negative (Negative) 12/23/24 04:45 Ur Leukocyte Esterase 2+ (Negative) H 12/23/24 04:45 Urine WBC (Auto) >50 /hpf (0-5) H 12/23/24 04:45 Urine RBC (Auto) 3-5 /hpf (0-2) H 12/23/24 04:45 U Hyaline Cast (Auto) 0-2 /lpf (0-2) 12/23/24 04:45 U Epithel Cells (Auto) 0-2 /hpf (0-2) 12/23/24 04:45 Urine Bacteria (Auto) 4+ (None Seen) H 12/23/24 04:45 Adenovirus (PCR) Not Detected (NotDetected) 12/23/24 04:34 B. pertussis DNA (PCR) Not Detected (NotDetected) 12/23/24 04:34 B.parapertussis DNA PCR Not Detected (NotDetected) 12/23/24 04:34 C. pneumoniae DNA (PCR) Not Detected (NotDetected) 12/23/24 04:34 Coronavirus OC43 (PCR) Not Detected (NotDetected) 12/23/24 04:34 Coronavirus HKU1 (PCR) Not Detected (NotDetected) 12/23/24 04:34 Coronavirus 229E (PCR) Not Detected (NotDetected) 12/23/24 04:34 SARS-CoV-2 (PCR) Not Detected (NotDetected) 12/23/24 04:34 Coronavirus NL63 (PCR) Not Detected (NotDetected) 12/23/24 04:34 Human Metapneumovir PCR Not Detected (NotDetected) 12/23/24 04:34 Influenza Type A (PCR) Not Detected (NotDetected) 12/23/24 04:34 Influenza Type B (PCR) Not Detected (NotDetected) 12/23/24 04:34 M. pneumoniae (PCR) Not Detected (NotDetected) 12/23/24 04:34 Parainfluenza 1 (PCR) Not Detected (NotDetected) 12/23/24 04:34 Parainfluenza 2 (PCR) Not Detected (NotDetected) 12/23/24 04:34 Parainfluenza 3 (PCR) Not Detected (NotDetected) 12/23/24 04:34 Parainfluenza 4 (PCR) Not Detected (NotDetected) 12/23/24 04:34 RSV (PCR) Not Detected (NotDetected) 12/23/24 04:34 Entero/Rhino (PCR) Not Detected (NotDetected) 12/23/24 04:34 Impressions Chest X-Ray 12/23/24 04:35 EXAM: XR chest 1V portable CLINICAL HISTORY: Sepsis. TECHNIQUE: An X-ray image of the chest is obtained in AP projection. COMPARISON: 11/20/2024. FINDINGS: Pulmonary Parenchyma: Lungs show bilateral prominent bronchovascular markings. No evidence of consolidation, collapse, or focal opacities. No pulmonary nodules are identified. No evidence of pleural effusion or pleural thickening. Heart and Mediastinum: Prominent aortic arch. Heart size and shape are normal. No mediastinal widening or masses. No mediastinal lymphadenopathy. Bilateral hilar enlargement, mostly vascular. Bony Thorax: Bony thorax appears intact without fractures or deformities. Soft Tissues: Soft tissues overlying the chest wall are unremarkable. IMPRESSION: 1. Bilateral prominent bronchovascular markings. 2. Bilateral hilar enlargement. 3. No acute cardiopulmonary abnormalities are identified. 4. No interval changes. Electronically signed by Jeff Schmitz 12-23-2024 06:[address] 12/23/24 04:35 EXAM: CT head/brain wo con CLINICAL HISTORY: AMS TECHNIQUE: Multiple axial images are obtained from the skull base to the vertex without contrast. CT scan was performed according to ALARA (as low as reasonable achievable). COMPARISON: None. FINDINGS: There is cerebral atrophy. No evidence of space occupying lesion, hemorrhage, edema, mass effect, midline shift, extra axial collection, or hydrocephalus is noted. Basal cisterns are symmetric and normal in size and configuration. Chronic lacunar infarct in right basal ganglia. There are scattered periventricular hypodensities as can be seen with chronic microvascular ischemic changes. The roberts-white matter differentiation is preserved. Visualized paranasal sinuses and mastoid air cells are well aerated. Orbital contents are within normal limits. Bony structures are intact. IMPRESSION: 1. No evidence of acute intracranial abnormality is demonstrated. 2. Chronic microvascular ischemic changes. 3. Cerebral atrophy. Electronically signed by Igor Arreola 12-23-2024 05:33 AM Code Status & VTE Plan Code Status Full code VTE Prophylaxis Plan VTE Prophylaxis will be ordered: Yes PG Care Time/CCT Total # of Minutes Spent Total Time Spent with Patient: Total time spent is greater than 50% in coordination of care (as documented) at patient's floor/unit and/or counseling patient: Coding Level of Care Code 73533 INT INP/OBS CARE 3/75MIN Diagnoses BPH w urinary obs/LUTS N40.1; N13.8 Catheter-associated urinary tract infection T83.511A; N39.0 Hypomagnesemia E83.42 Confusion and disorientation R41.0 Primary bladder malignant neoplasm C67.9
--- NOTE | 2024-12-23 07:08 | Emergency Department Note ---
Impression & Plan UTI (urinary tract infection), Acute alteration in mental status ED Provider Note CHIEF COMPLAINT: Altered mental status, fever HISTORY OF PRESENT ILLNESS: This 79-year-old male patient past medical history of indwelling Forman catheter until yesterday when it was removed, bladder CA, parkinsonism, GERD, BPH, presents to the emergency department with complaints of altered mentation. Patient was noted to have a low-grade fever. states she woke up to the patient flipping the light switch in the middle of the night and stating that he was "looking for her in the living room." Patient states he was easy to redirect however was a bit confused. He did have a Forman catheter removed with urology yesterday after passing a voiding trial. She states he has been urinating frequently but seems to be able to do so without difficulty. There is been no recent trauma or head injury. No chest pain or shortness of breath. REVIEW OF SYSTEMS: A review of systems was performed with positives and pertinent negatives listed in the history of present illness. 10 systems were reviewed and are otherwise negative. ALLERGIES: see below MEDICATIONS: see below PMH: see below SOCIAL HISTORY: see below DDx: Intracranial mass, intracranial hemorrhage, stroke, infectious etiology such as UTI, viral syndrome, pneumonia among others. PHYSICAL EXAM: Vital signs reviewed. General: Well-appearing 79-year-old male, in no significant distress. HEENT: No scleral icterus, PERRLA, neck supple. Atraumatic. Cardiovascular: Regular rate and rhythm, no extra sounds. Pulmonary: Clear to auscultation bilaterally, normal work of breathing. Abdomen: Soft, nontender, nondistended, positive bowel sounds. Musculoskeletal: Atraumatic, no peripheral edema. Neurologic: Patient awake alert and oriented x 3, speech is clear Skin: Warm, dry, no rash EMERGENCY DEPARTMENT COURSE/MDM: This patient was evaluated and appeared to be in no significant distress. IV access was obtained and laboratory work was drawn. 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 Laboratory work reveals no significant findings. Chest x- ray is clear. The head CT is negative for acute process. Patient was unable to produce a urine specimen after several hours in the ED. He did receive IV hydration. A UA was obtained and is significant for likely infection. This will be sent for culture. Patient was medicated with IV Zosyn. Patient's case was discussed with the hospitalist service to evaluate the patient for admission and further management. Patient is aware of the findings and agrees. MONITORING: An order for cardiac monitoring was placed and the patient is noted to be in a normal sinus rhythm at 74 beats per minute. RADIOLOGY: chest x-ray to my evaluation reveals no evidence of acute cardiopulmonary process. Head CT: IMPRESSION: 1. No evidence of acute intracranial abnormality is demonstrated. 2. Chronic microvascular ischemic changes. 3. Cerebral atrophy. EKG: To my interpretation reveals normal sinus rhythm at [address] segments. QTc of 420. No PVC, no PAC. DISPOSITION: Admit Past Med/Surg History Problem List (Updated 12/28/24 @ 17:09 by Belle Mckeon MD) Acute alteration in mental status (Acute) UTI (urinary tract infection) (Acute) Confusion and disorientation Catheter-associated urinary tract infection BPH w urinary obs/LUTS Benign prostatic hyperplasia (BPH) with straining on urination DAVE (acute kidney injury) Septic shock due to Enterococcus fecalis Bacteremia Urinary retention Hypomagnesemia Weakness (Acute) Sepsis (Acute) Fatigue Gait disturbance Drooling Hammer toes of both feet Encounter for pre-operative examination Primary bladder malignant neoplasm Bladder mass Gross hematuria Tremor Parkinsonism GERD (gastroesophageal reflux disease) Medical History Gait disturbance Respiratory distress hx, w/recent Covid illness in 07/05/24, "no current issues" COVID Dysphagia Hyperlipidemia Hx of hyperlipidemia GERD (gastroesophageal reflux disease) History of dysphagia pt seen by [employer]ER while inpt 06/2024 for COVID; 'no safe diet for patient... allow for permissive aspiration'. pt denies issues currently History of COVID-19 07/05/24 admitted [facility] (through 07/07/24); sx resolved Bladder cancer Dx'ed Spring 2020 - Cysto, TURBT 01/18/21- initially uneventful until a severe obturator reflex was provoked- had increased bleeding- converted from LMA to ETT anesthesia per 01/18/21 anesthesia record. -Had repeat procedures 02/22/21 and 01/10/22 without noted issues; has also completed BCG tx Benign essential tremor Bilateral index fingers Twitching Only occurs when falling asleep or when asleep Zenkers diverticulum Parkinson disease following with [facility]; per most recent note 12/2023: "Parkinson's disease with Parkinson's gait and some bradykinesia with mild cogwheel. He is doing fairly well on his current dose of carbidopa/levodopa, 50/200 ER twice daily. His drooling is improved and his fatigue is stable. He does not have much in the way of tremor today"... stable- continue current medication regimen History of asthma A CHILD ONLY- NO CURRENT ISSUES BPH (benign prostatic hyperplasia) Surgical History History of bladder surgery TURBT X 3: most recent: 01/10/22: GA: LMA#5, atraumatic placement x 1 History of esophagogastroduodenoscopy (EGD) History of colonoscopy History of tooth extraction History of hernia surgery INGUINAL Family History Family/Other Lung cancer Other No family history of adverse response to anesthesia Social History Smoking Status: Never smoker Do You Dip or Chew Tobacco: No; Hx Alcohol Use: No Hx Substance Use: No Preferred Language: Pakistani Communication Ability: Effective Filemaker Developer Required: No Beliefs That Will Affect Care: None marital status: Current Living Situation: Spouse Current Living Situation Comment: lives at home with current occupational status: 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 Feels Safe at Home: Yes Assistive Devices: Walker Allergies Allergies Allergy/AdvReac Type Severity Reaction Status Date / Time No Known Drug Allergies Allergy Unknown Verified 12/23/24 08:26 Home Meds Home Medications Medication Instructions Recorded Confirmed omeprazole 20 mg capsule,delayed 20 mg PO QAM 07/21/20 12/23/24 release aspirin 81 mg tablet,delayed 81 mg PO 3XWK 12/20/21 12/23/24 release cholecalciferol (vitamin D3) 25 25 mcg PO DAILY 12/20/21 12/23/24 mcg (1,000 unit) tablet (Vitamin D3) cyanocobalamin (vitamin B-12) 1,000 mcg PO DAILY 12/20/21 12/23/24 1,000 mcg tablet ropinirole 2 mg tablet,extended 2 mg PO QAM 07/22/24 12/23/24 release 24 hr carbidopa ER 50 mg-levodopa 200 mg 1 tab PO QID 12/23/24 12/23/24 tablet,extended release Previous Rx's Medication Instructions Recorded solifenacin 10 mg tablet 10 mg PO DAILY #90 tabs 12/23/24 ciprofloxacin HCl 500 mg tablet 500 mg PO BID 7 days #14 tabs 12/25/24 Results & Data (ED) Vital Signs Vital Signs - 24 hr 12/23/24 04:16 12/23/24 04:19 12/23/24 04:35 Temperature 37.7 C H Temperature Source Oral Pulse Rate 87 Pulse Rate from SpO2 Sensor Respiratory Rate 17 Respiratory Effort / Characteristics Non-Labored Spontaneous Respiratory Depth Normal Respiratory Pattern Regular Blood Pressure 144/70 H 144/70 H Blood Pressure Mean 94 104 Pulse Oximetry 96 Oxygen Delivery Method Room Air Room Air Sepsis Recent Fever Within 48 Hours Yes Sepsis New/Unexplained Change in Mental Status No Sepsis Action Taken by Nursing No Action Required 12/23/24 04:40 12/23/24 05:21 12/23/24 05:36 Temperature Temperature Source Pulse Rate 85 74 80 Pulse Rate from SpO2 Sensor 80 Respiratory Rate 16 12 Respiratory Effort / Characteristics Respiratory Depth Respiratory Pattern Blood Pressure 108/60 114/61 Blood Pressure Mean 80 78 Pulse Oximetry 97 99 Oxygen Delivery Method Room Air Sepsis Recent Fever Within 48 Hours Sepsis New/Unexplained Change in Mental Status Sepsis Action Taken by Nursing 12/23/24 06:00 12/23/24 06:03 12/23/24 06:24 Temperature Temperature Source Pulse Rate 77 72 Pulse Rate from SpO2 Sensor 77 73 Respiratory Rate 14 22 Respiratory Effort / Characteristics Respiratory Depth Respiratory Pattern Blood Pressure 106/61 106/61 101/58 L Blood Pressure Mean 79 76 72 Pulse Oximetry 97 97 Oxygen Delivery Method Sepsis Recent Fever Within 48 Hours Sepsis New/Unexplained Change in Mental Status Sepsis Action Taken by Nursing 12/23/24 06:27 12/23/24 06:45 Temperature Temperature Source Pulse Rate 74 69 Pulse Rate from SpO2 Sensor 74 Respiratory Rate 16 17 Respiratory Effort / Characteristics Respiratory Depth Respiratory Pattern Blood Pressure 103/59 L 98/57 L Blood Pressure Mean 73 61 Pulse Oximetry 97 94 Oxygen Delivery Method Room Air Sepsis Recent Fever Within 48 Hours Sepsis New/Unexplained Change in Mental Status Sepsis Action Taken by Skilled Nursing Medications Current Medication List: was personally reviewed by me Laboratory Data Attestation: I reviewed the patient's lab results. 12/25/24 05:44 12/25/24 05:44 Lab Results 12/23/24 12/23/24 12/23/24 Range/Units 04:34 04:45 05:01 WBC 10.97 H (4.8-10.8) K/ul RBC 4.25 L (4.70-6.10) M/uL Hgb 12.9 L (14.0-18.0) g/dl Hct 38.5 L (42.0-52.0) % MCV 90.6 (80.0-100.0) fL MCH 30.4 (25.0-34.0) pg MCHC 33.5 (32.0-36.0) g/dL RDW Std Deviation 44.8 (36.4-46.3) fL RDW Coeff of Vijaya 13.6 (11.5-14.5) % Plt Count 172 (130-400) K/uL MPV 10.1 (9.4-12.4) fL Immature Gran % (Auto) 0.3 % Neut % (Auto) 82.5 % Lymph % (Auto) 6.3 % [place] % (Auto) 9.0 % Eos % (Auto) 1.5 % Baso % (Auto) 0.4 % Neut # (Auto) 9.05 H (1.40-6.50) K/uL Lymph # (Auto) 0.69 L (1.20-3.40) K/uL [place] # (Auto) 0.99 H (0.11-0.59) K/uL Eos # (Auto) 0.17 (0.00-0.50) K/uL Baso # (Auto) 0.04 (0.00-0.20) K/uL Immature Gran # (Auto) 0.03 (0.01-0.20) K/uL Sodium 137 (136-145) mmol/L Potassium 4.1 (3.5-5.1) mmol/L Chloride 102 (98-107) mmol/L Carbon Dioxide 29 (21-32) mmol/L Anion Gap 6 (3-11) BUN 31 H (6-23) mg/dl Creatinine 1.19 (0.6-1.4) mg/dl Est Cr Clr Drug Dosing 50.3 ml/min eGFR 62.91 BUN/Creatinine Ratio 26.1 H (10-20) Glucose 120 H (70-99(Fasting)) mg/dl Lactate 0.8 (0.4-2.0) mmol/L Calcium 9.0 (8.6-10.3) mg/dl Magnesium 1.6 L (1.7-2.4) mg/dl Total Bilirubin 1.6 H (0.2-1.0) mg/dl Direct Bilirubin 0.2 (0-0.2) mg/dl AST 15 (13-39) U/L ALT 4 L (7-52) U/L Alkaline Phosphatase 62 (34-104) U/L Troponin I High Sens 4.6 (0-20) pg/ml Total Protein 6.8 (6.0-8.3) gm/dl Albumin 4.1 (3.4-5.0) gm/dl Procalcitonin 0.07 (0-0.5) ng/ml Urine Color Yellow Urine Appearance Cloudy A (Clear) Urine pH 6.5 (4.5-7.5) Ur Specific [place] 1.015 (1.000-1.030) Urine Protein Trace H (Negative) Urine Glucose (UA) Negative (Negative) Urine Ketones Negative (Negative) Urine Blood Trace H (Negative) Urine Nitrite Positive A (Negative) Urine Bilirubin Negative (Negative) Urine Urobilinogen Negative (Negative) Ur Leukocyte Esterase 2+ H (Negative) Urine WBC (Auto) >50 H (0-5) /hpf Urine RBC (Auto) 3-5 H (0-2) /hpf U Hyaline Cast (Auto) 0-2 (0-2) /lpf U Epithel Cells (Auto) 0-2 (0-2) /hpf Urine Bacteria (Auto) 4+ H (None Seen) Adenovirus (PCR) Not Detected (NotDetected) B. pertussis DNA (PCR) Not Detected (NotDetected) B.parapertussis DNA PCR Not Detected (NotDetected) C. pneumoniae DNA (PCR) Not Detected (NotDetected) Coronavirus OC43 (PCR) Not Detected (NotDetected) Coronavirus HKU1 (PCR) Not Detected (NotDetected) Coronavirus 229E (PCR) Not Detected (NotDetected) SARS-CoV-2 (PCR) Not Detected (NotDetected) Coronavirus NL63 (PCR) Not Detected (NotDetected) Human Metapneumovir PCR Not Detected (NotDetected) Influenza Type A (PCR) Not Detected (NotDetected) Influenza Type B (PCR) Not Detected (NotDetected) M. pneumoniae (PCR) Not Detected (NotDetected) Parainfluenza 1 (PCR) Not Detected (NotDetected) Parainfluenza 2 (PCR) Not Detected (NotDetected) Parainfluenza 3 (PCR) Not Detected (NotDetected) Parainfluenza 4 (PCR) Not Detected (NotDetected) RSV (PCR) Not Detected (NotDetected) Entero/Rhino (PCR) Not Detected (NotDetected) Administered Medications Discontinued Medications Acetaminophen (Acetaminophen 325 Mg Tab) 650 mg PO Q4H PRN PRN Reason: Pain or Fever Stop: 01/22/25 09:59 Last Admin: 12/23/24 15:08 Dose: 650 mg Documented By: CHAPARRITA Aspirin (Aspirin 81 Mg Ectab) 81 mg PO [id number] [facility] Stop: 01/23/25 08:59 Last Admin: 12/24/24 09:15 Dose: 81 mg Documented By: ALBERTINA Carbidopa/Levodopa (Carbidopa/Levodopa 50/200mg Ext Rel Tab) 1 tab PO TID [facility] Stop: 01/22/25 09:09 Last Admin: 12/25/24 12:10 Dose: 1 tab Documented By: Admin: 12/25/24 07:54 Dose: 1 tab Documented By: Admin: 12/24/24 20:31 Dose: 1 tab Documented By: Admin: 12/24/24 14:06 Dose: 1 tab Documented By: Admin: 12/24/24 09:15 Dose: 1 tab Documented By: Admin: 12/23/24 20:21 Dose: 1 tab Documented By: Admin: 12/23/24 13:37 Dose: 1 tab Documented By: Admin: 12/23/24 10:32 Dose: 1 tab Documented By: CHAPARRITA Enoxaparin Sodium (Enoxaparin Inj 40 Mg/0.4 Ml Syr) 40 mg SQ Q24H [facility] Stop: 01/22/25 09:59 Last Admin: 12/25/24 07:55 Dose: 40 mg Documented By: Admin: 12/24/24 09:15 Dose: 40 mg Documented By: Admin: 12/23/24 10:32 Dose: 40 mg Documented By: CHAPARRITA Sodium Chloride (Nss) 1,000 mls @ 999 mls/hr IV .Q1H1M JAMIA Stop: 12/23/24 05:45 Last Infusion: 12/23/24 06:24 Dose: Infused Documented By: Admin: 12/23/24 05:21 Dose: 999 mls/hr Documented By: YOGI Piperacillin Sod/Tazobactam Sod (Zosyn) 4.5 gm in 100 mls @ 200 mls/hr IV NOW ONE; Protocol Stop: 12/23/24 05:06 Last Infusion: 12/23/24 05:52 Dose: Infused Documented By: Admin: 12/23/24 05:21 Dose: 200 mls/hr Documented By: YOGI Acetaminophen (Ofirmev) 1,000 mg in 100 mls @ 400 mls/hr IV NOW STA Stop: 12/23/24 04:51 Last Infusion: 12/23/24 05:42 Dose: Infused Documented By: Admin: 12/23/24 05:21 Dose: 400 mls/hr Documented By: YOGI Magnesium Sulfate/Dextrose (Magnesium Sulfate / D5w) 1 gm in 100 mls @ 50 mls/hr IV Q2H [facility] Stop: 12/23/24 10:29 Last Infusion: 12/23/24 12:32 Dose: Infused Documented By: Admin: 12/23/24 10:31 Dose: 50 mls/hr Documented By: Infusion: 12/23/24 09:14 Dose: Infused Documented By: Admin: 12/23/24 07:14 Dose: 50 mls/hr Documented By: SANA Lactated Ringer's (Lr) 1,000 mls @ 80 mls/hr IV .[id number] JAMIA Stop: 12/23/24 18:59 Last Infusion: 12/23/24 20:00 Dose: Infused Documented By: [facility] Admin: 12/23/24 07:13 Dose: 80 mls/hr Documented By: SANA Ampicillin Sodium/Sulbactam Sodium (Unasyn) 3,000 mg in 100 mls @ 200 mls/hr IV Q6H [facility] Stop: 01/02/25 11:59 Last Infusion: 12/24/24 06:26 Dose: Infused Documented By: Admin: 12/24/24 05:56 Dose: 200 mls/hr Documented By: Infusion: 12/24/24 00:00 Dose: Infused Documented By: [facility] Admin: 12/23/24 23:22 Dose: 200 mls/hr Documented By: Infusion: 12/23/24 18:01 Dose: Infused Documented By: Admin: 12/23/24 17:21 Dose: 200 mls/hr Documented By: Infusion: 12/23/24 13:21 Dose: Infused Documented By: Admin: 12/23/24 12:33 Dose: 200 mls/hr Documented By: CHAPARRITA Vancomycin HCl 1,500 mg/ (Sodium Chloride) 530 mls @ 200 mls/hr IV NOW ONE Stop: 12/23/24 18:38 Last Infusion: 12/23/24 20:03 Dose: Infused Documented By: [facility] Admin: 12/23/24 17:24 Dose: 200 mls/hr Documented By: CHAPARRITA Vancomycin HCl (Vancomycin Hcl) 1,000 mg in 270 mls @ 200 mls/hr IV Q18H [facility] Stop: 01/03/25 05:59 Last Infusion: 12/24/24 08:04 Dose: Infused Documented By: Admin: 12/24/24 06:43 Dose: 200 mls/hr Documented By: [facility] Ceftriaxone Sodium (Rocephin) 2,000 mg in 50 mls @ 100 mls/hr IV Q24H [facility] Stop: 01/03/25 11:59 Last Infusion: 12/25/24 13:00 Dose: Infused Documented By: Admin: 12/25/24 12:10 Dose: 100 mls/hr Documented By: Infusion: 12/24/24 13:15 Dose: Infused Documented By: Admin: 12/24/24 12:22 Dose: 100 mls/hr Documented By: ALBERTINA Oxybutynin Chloride (Oxybutynin Chloride Xl 5 Mg Tabcr) 10 mg PO DAILY JAMIA Stop: 01/22/25 09:59 Last Admin: 12/25/24 07:54 Dose: 10 mg Documented By: Admin: 12/24/24 09:15 Dose: 10 mg Documented By: Admin: 12/23/24 10:32 Dose: 10 mg Documented By: CHAPARRITA Pantoprazole Sodium (Pantoprazole 40 Mg Tab) 40 mg PO QAM [facility] Stop: 01/22/25 09:59 Last Admin: 12/25/24 07:54 Dose: 40 mg Documented By: Admin: 12/24/24 09:15 Dose: 40 mg Documented By: Admin: 12/23/24 10:32 Dose: 40 mg Documented By: CHAPARRITA Ropinirole HCl (Ropinirole Hcl 1 Mg Tablet) 1 mg PO BID [facility] Stop: 01/22/25 09:59 Last Admin: 12/25/24 07:54 Dose: 1 mg Documented By: Admin: 12/24/24 20:31 Dose: 1 mg Documented By: Admin: 12/24/24 09:16 Dose: 1 mg Documented By: Admin: 12/23/24 20:21 Dose: 1 mg Documented By: Admin: 12/23/24 10:35 Dose: 1 mg Documented By: CHAPARRITA Imaging Data Radiologist's Impression: Chest X-Ray 12/23/24 04:35 EXAM: XR chest 1V portable CLINICAL HISTORY: Sepsis. TECHNIQUE: An X-ray image of the chest is obtained in AP projection. COMPARISON: 11/20/2024. FINDINGS: Pulmonary Parenchyma: Lungs show bilateral prominent bronchovascular markings. No evidence of consolidation, collapse, or focal opacities. No pulmonary nodules are identified. No evidence of pleural effusion or pleural thickening. Heart and Mediastinum: Prominent aortic arch. Heart size and shape are normal. No mediastinal widening or masses. No mediastinal lymphadenopathy. Bilateral hilar enlargement, mostly vascular. Bony Thorax: Bony thorax appears intact without fractures or deformities. Soft Tissues: Soft tissues overlying the chest wall are unremarkable. IMPRESSION: 1. Bilateral prominent bronchovascular markings. 2. Bilateral hilar enlargement. 3. No acute cardiopulmonary abnormalities are identified. 4. No interval changes. Electronically signed by Jeff Schmitz 12-23-2024 06:[address] 12/23/24 04:35 EXAM: CT head/brain wo con CLINICAL HISTORY: AMS TECHNIQUE: Multiple axial images are obtained from the skull base to the vertex without contrast. CT scan was performed according to ALARA (as low as reasonable achievable). COMPARISON: None. FINDINGS: There is cerebral atrophy. No evidence of space occupying lesion, hemorrhage, edema, mass effect, midline shift, extra axial collection, or hydrocephalus is noted. Basal cisterns are symmetric and normal in size and configuration. Chronic lacunar infarct in right basal ganglia. There are scattered periventricular hypodensities as can be seen with chronic microvascular ischemic changes. The roberts-white matter differentiation is preserved. Visualized paranasal sinuses and mastoid air cells are well aerated. Orbital contents are within normal limits. Bony structures are intact. IMPRESSION: 1. No evidence of acute intracranial abnormality is demonstrated. 2. Chronic microvascular ischemic changes. 3. Cerebral atrophy. Electronically signed by Igor Arreola 12-23-2024 05:33 AM Discharge Plan Visit Data Chief Complaint: Confusion Stated Complaint: FEVER, CONFUSION S/P CATHETER REMOVAL 12/22 ED Provider: Belle Mckeon Discharge Problem: UTI (urinary tract infection), Acute alteration in mental status Patient Disposition: Admitted As Inpatient Discharge Instructions Interventions: ED Discharge Assessment Last Done: 12/23/24 08:30 Discharge Problem: UTI (urinary tract infection) Qualifiers: Urinary tract infection type: acute cystitis Hematuria presence: without hematuria Qualified Code(s): N30.00 - Acute cystitis without hematuria
[2024-12-23] MEDS: LACTATED RINGER'S 1,000 ML IV SCH (07:13)
[2024-12-23] MEDS: MAGNESIUM SULFATE / D5W 1 GM/100 ML BAG IV SCH (07:14)
[2024-12-23] MEDS ORDERED: DOCUSATE SODIUM 100 MG CAP PO PRN (09:10)
[2024-12-23] MEDS ORDERED: ONDANSETRON INJ 2 MG/ML 2 ML VIAL IV PRN (09:10)
[2024-12-23] MEDS ORDERED: MELATONIN 3 MG TAB PO PRN (09:10)
[2024-12-23] MEDS: CARBIDOPA/LEVODOPA 50/200MG EXT REL TAB PO SCH (10:32)
[2024-12-23] MEDS: OXYBUTYNIN CHLORIDE XL 5 MG TABCR PO SCH (10:32)
[2024-12-23] MEDS: ENOXAPARIN INJ 40 MG/0.4 ML SYR SQ SCH (10:32)
[2024-12-23] MEDS: PANTOprazole 40 MG TAB PO SCH (10:32)
[2024-12-23] MEDS: rOPINIRole HCL 1 MG TABLET PO SCH (10:35)
[2024-12-23] MEDS: AMPICILLIN/SULBACTAM SOD 3,000 MG/100 ML BAG IV SCH (12:33)
[2024-12-23] MEDS: ACETAMINOPHEN 325 MG TAB PO PRN (15:08)
[2024-12-23] MEDS ORDERED: VANCOMYCIN CONSULT ACTIVE PRN (15:40)
[2024-12-23] MEDS: VANCOMYCIN HCL 1,500 MG in SODIUM CHLORIDE 0.9% 500 ML IV ONE (17:24)
--- NOTE | 2024-12-23 18:28 | Pharmacy Report ---
Pharmacy PK ABX Note - Date of Service December 23, 2024 - Assessment and Plan Assessment 79 year old M receiving UNASYN + VANCOMYCIN for treatment of possible catheter associated urinary tract infection with recent owusu removal. Pertinent microbiologic data includes: urine/blood cultures pending. WBC mildly elevated, febrile, soft blood pressure. Most recent E. faecalis infection and patient was started on unasyn. Vancomycin added in addition this afternoon as patient continues w/ fever. Could consider broadening unasyn if worsening as UA was nitrite positive- unasyn with lower sensitivities on our antibiogram for gram negative coverage, although previous was sensitive (08/07 kleb oxytoca). Await culture data. Plan Vancomycin * Loading dose: 1500 mg IV x 1 * Maintenance dose: 1000 mg IV every 18 hours * Regimen is predicted to achieve target AUC/BJ of 400-600 mg/L.hr * Random level to be ordered if continued >48 hours. Pharmacy will continue to follow and will adjust dose/frequency as necessary. Thank you. Pharmacy has transitioned to AUC monitoring for vancomycin. AUC/BJ is the preferred PK/PD target and is associated with decreased risk of nephrotoxicity compared to traditional trough targets.
[2024-12-24 06:14] LABS: Basophils # (auto) 0.03 K/uL (0.00-0.20); Basophils % (auto) 0.3 %; Eosinophils % (auto) 1.1 %; Hematocrit (blood only) 34.8 % (42.0-52.0); Hemoglobin 11.5 g/dl (14.0-18.0); Immature Granulocytes # (auto) 0.03 K/uL (0.01-0.20); Immature Granulocytes % (auto) 0.3 %; Lymphocytes # (auto) 1.06 K/uL (1.20-3.40); Lymphocytes % (auto) 11.8 %; Mean Corpuscular Hemoglobin 30.1 pg (25.0-34.0); Mean Corpuscular Volume 91.1 fL (80.0-100.0); Mean Platelet Volume 10.3 fL (9.4-12.4); Monocytes # (auto) 1.06 K/uL (0.11-0.59); Monocytes % (auto) 11.8 %; Neutrophils # (auto) 6.68 K/uL (1.40-6.50); Neutrophils % (auto) 74.7 %; Platelet Count 132 K/uL (130-400); RDW Coefficient of Variation 13.6 % (11.5-14.5); RDW Standard Deviation 45.9 fL (36.4-46.3); Red Blood Count 3.82 M/uL (4.70-6.10); White Blood Count 8.96 K/ul (4.8-10.8)
[2024-12-24 06:35] LABS: BUN Creatinine Ratio 17.1 (10-20); Calcium 8.4 mg/dl (8.6-10.3); Creatinine Clr Calc Pharmacy 48.7 ml/min; Potassium 3.9 mmol/L (3.5-5.1)
[2024-12-24] MEDS: VANCOMYCIN HCL 1,000 MG/270 ML BAG IV SCH (06:43)
--- NOTE | 2024-12-24 06:43 | Electrocardiogram Report ---
Test Reason : Blood Pressure : */* mmHG Vent. Rate : 77 BPM Atrial Rate : 77 BPM P-R Int : 158 ms QRS Dur : 74 ms QT Int : 372 ms P-R-T Axes : 63 64 73 degrees QTcB Int : 420 ms Normal sinus rhythm Normal ECG When compared with ECG of 20-Nov-2024 15:05, No significant change was found Confirmed by Jeremías Sanchez ([id number]) on 12/24/2024 6:43:42 AM Referred By: REFERRED SELF Confirmed By: Jeremías Sanchez
[2024-12-24] MEDS: ASPIRIN 81 MG ECTAB PO SCH (09:15)
--- NOTE | 2024-12-24 10:40 | Hospitalist Progress Note ---
Date of Service December 24, 2024 Assessment & Plan (1) BPH w urinary obs/LUTS: (2) Catheter-associated urinary tract infection: (3) Hypomagnesemia: (4) Confusion and disorientation: (5) Primary bladder malignant neoplasm: Plan The patient is a 79-year-old male past medical history including BPH with LUTS, parkinsonism, B12 deficiency, GERD, restless leg syndrome, bladder spasm, gait disturbance, hammertoes of both feet, bladder mass, history of gross hematuria, and GERD.The patient is brought to the emergency department after his was woken up by turning on the lights in the middle of the night at 3:00 in the morning looking for her, acting confused and disoriented. The patient had been to urology office at 8 AM for Forman catheter removal, and had a successful voiding trial. She reports that during the day she thought he was urinating relatively normally, but frequent small amounts. He had gone to bed usual time this evening, and then as noted, she found him wandering in the melanite looking for him her acting confused disoriented. Emergency department, workup included CT scan of head which was negative, urinalysis showed significant for positive signs of infection, and [facility] he was here following, normal saline 1 L bolus, Zosyn 4.5 g IV, Tylenol 1 g IV. Suspected Metabolic encephalopathy Confusion and disorientation- Likely secondary to urinary tract infection BioFire testing negative CT scan head negative # #Catheter associated urinary tract infection Urine cultures growing gram negative baccilli, full characterization and sensitivity pending continue Unasyn and vanc (vanc was added after he spike a fvere despite being on unasyn) Hypomagnesemia- Give magnesium sulfate 2 g IV Repeat laboratories in a.m. Primary bladder malignant neoplasm: History of high-grade bladder cancer, status post TURBT Follows up with urology outpatient, last visit was 11/26/2024 Currently with indwelling catheter Plan is for TURP in the future if the patient desires spontaneous voiding Chronic medical conditions: Parkinsonism: Continue carbidopa-levodopa B12 deficiency-continue supplement D3 deficiency continue supplement GERD-change omeprazole to pantoprazole per formulary interchange Restless leg syndrome-continue ropinirole Bladder spasm-continue Solifenacin Admission and Anticipated Discharge Date Admission Date: December 23, 2024 Subjective Patient seen and examined today, doing overall better, no longer confused, at the bedside Review of Systems Review of Systems: All systems reviewed are negative, apart from the ones contained in the history. Physical Exam Physical Exam: The patient is awake, alert and oriented 3, well developed and well nourished, normocephalic and atraumatic, lying in bed and in no acute distress. HEENT--PERRL, EOMI, mucous membranes and oropharynx mildly dry Neck--supple. No JVD. No bruits. Thyroid normal, trachea midline, no adenopathy. Heart--normal S1 and S2. No murmurs, rubs or gallops. Lungs--clear bilaterally, no respiratory distress, no accessory muscle use. Abdomen--normal bowel sounds and soft. Extremities--no cyanosis or clubbing. No edema. Dermatologic--normal skin turgor, normal color, no abnormal lymph nodes, no rash. Neurologic--cranial nerves II through XII grossly intact. Rheumatologic--normal range of motion. Psychiatric--normal affect. Results & Data Results & Data Vital Signs (Past 12 Hours) Vital Signs Temp Pulse Resp BP Pulse Ox O2 Del Method O2 Del Method 12/24/24 09:10 Room Air 12/24/24 08:09 97.3 F L 73 18 109/64 97 Nasal Cannula 12/24/24 03:09 98.2 F 69 18 117/68 96 Nasal Cannula 12/23/24 23:11 99.9 F H 64 18 105/62 95 Nasal Cannula O2 Flow Rate 12/24/24 09:10 12/24/24 08:09 1 12/24/24 03:09 2.0 12/23/24 23:11 2.0 PG Care Time/CCT Total # of Minutes Spent Total Time Spent with Patient: Total time spent is greater than 50% in coordination of care (as documented) at patient's floor/unit and/or counseling patient: Coding Level of Care Code 21093 SUB INP/OBS CARE 2/35MIN Diagnoses BPH w urinary obs/LUTS N40.1; N13.8 Catheter-associated urinary tract infection T83.511A; N39.0 Hypomagnesemia E83.42 Confusion and disorientation R41.0 Primary bladder malignant neoplasm C67.9 Time Spent (min) 35
[2024-12-24] MEDS: cefTRIAXone SODIUM 2,000 MG/50 ML BAG IV SCH (12:22)
[2024-12-25 06:22] LABS: Basophils # (auto) 0.03 K/uL (0.00-0.20); Basophils % (auto) 0.4 %; Eosinophils # (auto) 0.25 K/uL (0.00-0.50); Eosinophils % (auto) 3.4 %; Hematocrit (blood only) 35.6 % (42.0-52.0); Hemoglobin 12.1 g/dl (14.0-18.0); Immature Granulocytes # (auto) 0.02 K/uL (0.01-0.20); Immature Granulocytes % (auto) 0.3 %; Lymphocytes # (auto) 1.38 K/uL (1.20-3.40); Mean Corpuscular Hemoglobin 30.3 pg (25.0-34.0); Mean Corpuscular Volume 89.2 fL (80.0-100.0); Mean Platelet Volume 10.4 fL (9.4-12.4); Monocytes % (auto) 13.8 %; Neutrophils # (auto) 4.59 K/uL (1.40-6.50); Neutrophils % (auto) 63.1 %; Platelet Count 147 K/uL (130-400); RDW Coefficient of Variation 13.2 % (11.5-14.5); RDW Standard Deviation 43.8 fL (36.4-46.3); Red Blood Count 3.99 M/uL (4.70-6.10); White Blood Count 7.27 K/ul (4.8-10.8)
[2024-12-25 06:35] LABS: BUN Creatinine Ratio 18.9 (10-20); Calcium 8.9 mg/dl (8.6-10.3); Creatinine Clr Calc Pharmacy 53.9 ml/min; Magnesium 1.9 mg/dl (1.7-2.4)
[2024-12-25 08:20] VITALS: RESP 18; TEMP 97.5; O2SAT 95
--- NOTE | 2024-12-25 10:24 | Discharge Summary ---
Date of Service December 25, 2024 Admission HPI Per Admitting Provider The patient is a 79-year-old male past medical history including BPH with LUTS, parkinsonism, B12 deficiency, GERD, restless leg syndrome, bladder spasm, gait disturbance, hammertoes of both feet, bladder mass, history of gross hematuria, and GERD.The patient is brought to the emergency department after his was woken up by turning on the lights in the middle of the night at 3:00 in the morning looking for her, acting confused and disoriented. The patient had been to urology office at 8 AM for Forman catheter removal, and had a successful voiding trial. She reports that during the day she thought he was urinating relatively normally, but frequent small amounts. He had gone to bed usual time this evening, and then as noted, she found him wandering in the melanite looking for him her acting confused disoriented. Emergency department, workup included CT scan of head which was negative, urinalysis showed significant for positive signs of infection, and [facility] Admission Exam (Per Admitting) Constitutional The patient is awake, alert and oriented 3, well developed and well nourished, normocephalic and atraumatic, lying in bed and in no acute distress. HEENT--PERRL, EOMI, mucous membranes and oropharynx mildly dry Neck--supple. No JVD. No bruits. Thyroid normal, trachea midline, no adenopathy. Heart--normal S1 and S2. No murmurs, rubs or gallops. Lungs--clear bilaterally, no respiratory distress, no accessory muscle use. Abdomen--normal bowel sounds and soft. Extremities--no cyanosis or clubbing. No edema. Dermatologic--normal skin turgor, normal color, no abnormal lymph nodes, no rash. Neurologic--cranial nerves II through XII grossly intact. Rheumatologic--normal range of motion. Psychiatric--normal affect. Discharge Data Consultations 12/23/24 06:26 ED Decision to Admit Stat Hospital Course (1) BPH w urinary obs/LUTS: (2) Catheter-associated urinary tract infection: (3) Hypomagnesemia: (4) Confusion and disorientation: (5) Primary bladder malignant neoplasm: Plan The patient is a 79-year-old male past medical history including BPH with LUTS, parkinsonism, B12 deficiency, GERD, restless leg syndrome, bladder spasm, gait disturbance, hammertoes of both feet, bladder mass, history of gross hematuria, and GERD.The patient is brought to the emergency department after his was woken up by turning on the lights in the middle of the night at 3:00 in the morning looking for her, acting confused and disoriented. The patient had been to urology office at 8 AM for Forman catheter removal, and had a successful voiding trial. She reports that during the day she thought he was urinating relatively normally, but frequent small amounts. He had gone to bed usual time this evening, and then as noted, she found him wandering in the melanite looking for him her acting confused disoriented. Emergency department, workup included CT scan of head which was negative, urinalysis showed significant for positive signs of infection, and he was referred for evaluation for admission to the [facility] service. Emergency department he was here following, normal saline 1 L bolus, Zosyn 4.5 g IV, Tylenol 1 g IV. Suspected Metabolic encephalopathy Confusion and disorientation- Likely secondary to urinary tract infection BioFire testing negative CT scan head negative # #Catheter associated urinary tract infection Urine cultures growing klebsiella pneumonia, thakur sensitive Will discharge him on PO Ciprofloxacin 500mg BID for 7 days Urged to follow up with urology outpatient Hypomagnesemia- resolved Primary bladder malignant neoplasm: History of high-grade bladder cancer, status post TURBT Follows up with urology outpatient, last visit was 11/26/2024 Currently with indwelling catheter Plan is for TURP in the future if the patient desires spontaneous voiding Chronic medical conditions: Parkinsonism: Continue carbidopa-levodopa B12 deficiency-continue supplement D3 deficiency continue supplement GERD-change omeprazole to pantoprazole per formulary interchange Restless leg syndrome-continue ropinirole Bladder spasm-continue Solifenacin Coding Level of Care Code 69209 INP/OBS DISCH >30 MIN Diagnoses BPH w urinary obs/LUTS N40.1; N13.8 Catheter-associated urinary tract infection T83.511A; N39.0 Hypomagnesemia E83.42 Confusion and disorientation R41.0 Primary bladder malignant neoplasm C67.9 Time Spent (min) 35
[2024-12-25 14:04] VITALS: BP 112/74
[2024-12-25 15:27] VITALS: PULSE 68
== END 2024-12-25 15:33 | disposition home health service (06) | DRG 698 ==
LOC: SUATTDRO → ED 04:07 → 4W 06:22

== ENCOUNTER 2025-07-03 17:58 | Inpatient (IN) ==
--- NOTE | 2025-07-03 18:39 | Emergency Department Note ---
Impression & Plan Pyelonephritis, Acute UTI ED Provider Note NAME: DANIEL NOONAN AGE: 79 SEX: M : 1945 ARRIVES VIA: Walk-In INFORMANT: Patient ED PROVIDER(S): Reggie Wellington DO CHIEF COMPLAINT: Altered mental status HPI: Patient is a 81-[id number]-year-old male with a past medical history of chronic indwelling Forman and confusion as well as Parkinson's disease per the who presents to bedside who provides the majority of the history. She notes that they were seen here over night/early this morning as the Forman came out. It was replaced and they were discharged home. Upon getting home he has been having fevers of 101. He has been way more confused and has been sleeping consequently she brought him back in. He denies any headache or change in vision. No chest pain or shortness of breath. No belly pain. No back pain. No urinary symptoms. ADDITIONAL HISTORY OBTAINED: Per HPI Chronic Medical/Social Conditions Affecting Care: Per HPI PAST MEDICAL HISTORY:See Below PAST SURGICAL HISTORY:See Below FAMILY HISTORY:See Below SOCIAL HISTORY:See Below HOME MEDICATIONS:See Below ALLERGIES:See Below VITALS:See Below PHYSICAL EXAMINATION: GENERAL: Sitting up in bed, alert, well appearing, well nourished, no distress, non-toxic EYE EXAM: normal conjunctiva. PERRL and EOM's grossly intact. OROPHARYNX: no exudate, no erythema, lips, buccal mucosa, and tongue normal and mucous membranes are moist NECK: supple, no nuchal rigidity, no adenopathy, non-tender LUNGS: Clear to auscultation. Normal chest wall mechanics HEART: no murmurs, S1 normal and S2 normal ABDOMEN: abdomen soft, non-tender, normo-active bowel sounds, no masses, no rebound or guarding. UPPER EXTREMITIES: upper extremities are grossly normal. LOWER EXTREMITIES: No pitting edema. NEURO EXAM: Oriented to person and place but not year, cranial nerves II-XII grossly intact, normal speech, no gross weakness of arms, no gross weakness of legs. MEDICAL DECISION MAKING: Patient is a 79-year-old male who presents to the ER for altered mental status brought in by and has a fever. IV was established and blood work was obtained. Labs showed no significant leukocytosis. No anemia. BMP is fairly unremarkable. T. bili was slightly up at 2.4. Troponin negative. Pro-Anmol 0.14. UA is consistent with UTI. External records were reviewed which included his urine microbiology which showed Klebsiella and Enterococcus. This did appear to be sensitive to Zosyn. Patient was given IV Zosyn. CT abdomen pelvis suggested possible pyelo-. Discussed case with the hospitalist for further evaluation management treatment. Consults/Care Managements Discussions: Per [facility] Triage Nursing notes reviewed. Limited review of prior medical records performed Vital Signs: reviewed and remarkable for HTN Differential diagnosis: Differential diagnosis includes etiologies such as sepsis, UTI, pneumonia, metabolic, electrolyte abnormalities, cardiac sources, intracerebral event, toxicologic, neurological, as well as others were entertained. ER treatment provided: See below Diagnostics interpreted by me include EKG and cardiac monitoring as listed below: -Cardiac Monitoring: An order was placed for continuous cardiac monitoring. The monitor shows a rate of 99 with sinus rhythm. -ECG: Sinus rhythm rate of 100 Normal axis No PVCs QTc 446 -Laboratory studies:Interpreted by me as stated above in MDM and shown below. Imaging studies: Xrays: As interpreted by me: Portable AP upright 1 view of the chest shows no focal Lutrate CTs show: CT abdomen pelvis as described above Procedures:none Critical Care: None Past Med/Surg History Problem List (Updated 07/03/25 @ 23:52 by Reggie Wellington DO) Acute UTI (Acute) Pyelonephritis (Acute) Elevated bilirubin Pyelonephritis of left kidney Dislodged Forman catheter (Acute) Anxiety Acute alteration in mental status (Acute) UTI (urinary tract infection) (Acute) Confusion and disorientation Catheter-associated urinary tract infection BPH w urinary obs/LUTS Benign prostatic hyperplasia (BPH) with straining on urination DAVE (acute kidney injury) Septic shock due to Enterococcus fecalis Bacteremia Urinary retention Hypomagnesemia Weakness (Acute) Sepsis (Acute) Fatigue Gait disturbance Drooling Hammer toes of both feet Encounter for pre-operative examination Primary bladder malignant neoplasm Bladder mass Gross hematuria Tremor Parkinsonism GERD (gastroesophageal reflux disease) Medical History Gait disturbance Respiratory distress hx, w/recent Covid illness in 07/05/24, "no current issues" COVID Dysphagia Hyperlipidemia Hx of hyperlipidemia GERD (gastroesophageal reflux disease) History of dysphagia pt seen by TECHNOLOGY COORDINATOR while inpt 06/2024 for COVID; 'no safe diet for patient... allow for permissive aspiration'. pt denies issues currently History of COVID-19 07/05/24 admitted [facility] (through 07/07/24); sx resolved Bladder cancer Dx'ed Spring 2020 - Cysto, TURBT 01/18/21- initially uneventful until a severe obturator reflex was provoked- had increased bleeding- converted from LMA to ETT anesthesia per 01/18/21 anesthesia record. -Had repeat procedures 02/22/21 and 01/10/22 without noted issues; has also completed BCG tx Benign essential tremor Bilateral index fingers Twitching Only occurs when falling asleep or when asleep Zenkers diverticulum Parkinson disease following with [facility]; per most recent note 12/2023: "Parkinson's disease with Parkinson's gait and some bradykinesia with mild cogwheel. He is doing fairly well on his current dose of carbidopa/levodopa, 50/200 ER twice daily. His drooling is improved and his fatigue is stable. He does not have much in the way of tremor today"... stable- continue current medication regimen History of asthma A CHILD ONLY- NO CURRENT ISSUES BPH (benign prostatic hyperplasia) Surgical History History of bladder surgery TURBT X 3: most recent: 01/10/22: [place]: LMA#5, atraumatic placement x 1 History of esophagogastroduodenoscopy (EGD) History of colonoscopy History of tooth extraction History of hernia surgery INGUINAL Family History Family/Other Lung cancer Other No family history of adverse response to anesthesia Social History Smoking Status: Never smoker Do You Dip or Chew Tobacco: No; Hx Alcohol Use: No Hx Substance Use: No Preferred Language: Zimbabwean Communication Ability: Effective Nurse Obgyn Required: No Beliefs That Will Affect Care: None marital status: Current Living Situation: Spouse Current Living Situation Comment: lives at home with current occupational status: employed 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 Other Information That Helps Us Care for You: No Feels Safe at Home: Yes Safety Concerns: Feels Safe At This Time Assistive Devices: None Allergies Allergies Allergy/AdvReac Type Severity Reaction Status Date / Time No Known Allergies Allergy Verified 07/03/25 20:34 Home Meds Home Medications Medication Instructions Recorded Confirmed aspirin 81 mg tablet,delayed 81 mg PO 3XWK 12/20/21 07/03/25 release cholecalciferol (vitamin D3) 25 25 mcg PO QDL 12/20/21 07/03/25 mcg (1,000 unit) tablet (Vitamin D3) cyanocobalamin (vitamin B-12) 1,000 mcg PO QDL 12/20/21 07/03/25 1,000 mcg tablet Lactobacillus acidophilus 10 10,000 mmu cells PO DAILY 07/03/25 07/03/25 billion cell capsule (Probiotic) d-mannose 500 mg capsule 500 mg PO DAILY 07/03/25 07/03/25 solifenacin 10 mg tablet 10 mg PO HS 07/03/25 07/03/25 Previous Rx's Medication Instructions Recorded escitalopram oxalate 5 mg tablet 5 mg PO DAILY #30 tabs 01/26/25 methenamine hippurate 1 gram tablet 1 g PO DAILY #30 tabs 02/06/25 carbidopa ER 50 mg-levodopa 200 mg 1 tab PO QID #120 tabs 03/04/25 tablet,extended release ropinirole 2 mg tablet,extended 2 mg PO QAM #30 tabs 03/04/25 release 24 hr Results & Data (ED) Vital Signs Vital Signs - 24 hr 07/03/25 18:10 07/03/25 18:23 07/03/25 19:20 Temperature 37.5 C Temperature Source Temporal Artery Scan Pulse Rate 84 98 H Pulse Rate [Apical] 99 H Pulse Rhythm [Apical] Regular Pulse Strength [Apical] Respiratory Rate 20 18 Respiratory Effort / Characteristics Non-Labored Spontaneous Respiratory Depth Normal Respiratory Pattern Regular Blood Pressure 153/78 H Blood Pressure [Right Arm] 124/69 Blood Pressure Mean 103 Blood Pressure Mean [Right Arm] 87 Blood Pressure Position [Right Arm] Semi-fowlers Pulse Oximetry 97 97 Oxygen Delivery Method Room Air Room Air Sepsis Recent Fever Within 48 Hours Yes Sepsis New/Unexplained Change in Mental Status N/A Sepsis Action Taken by Nursing No Action Required 07/03/25 19:26 07/03/25 19:48 07/03/25 21:00 Temperature 37.9 C H Temperature Source Oral Pulse Rate Pulse Rate [Apical] 83 Pulse Rhythm [Apical] Regular Pulse Strength [Apical] Normal Respiratory Rate 17 Respiratory Effort / Characteristics Non-Labored Spontaneous Respiratory Depth Normal Respiratory Pattern Regular Blood Pressure Blood Pressure [Right Arm] 115/57 L Blood Pressure Mean Blood Pressure Mean [Right Arm] 76 Blood Pressure Position [Right Arm] Lying Pulse Oximetry 97 98 Oxygen Delivery Method Room Air Room Air Sepsis Recent Fever Within 48 Hours Sepsis New/Unexplained Change in Mental Status Sepsis Action Taken by Nursing Laboratory Data 07/03/25 19:15 07/03/25 19:15 Lab Results 07/03/25 07/03/25 Range/Units 19:15 19:44 WBC 10.00 (4.8-10.8) K/ul RBC 4.20 L (4.70-6.10) M/uL Hgb 12.5 L (14.0-18.0) g/dl Hct 38.2 L (42.0-52.0) % MCV 91.0 (80.0-100.0) fL MCH 29.8 (25.0-34.0) pg MCHC 32.7 (32.0-36.0) g/dL RDW Std Deviation 45.6 (36.4-46.3) fL RDW Coeff of Vijaya 13.6 (11.5-14.5) % Plt Count 195 (130-400) K/uL MPV 9.7 (9.4-12.4) fL Immature Gran % (Auto) 0.3 % Neut % (Auto) 87.2 % Lymph % (Auto) 5.8 % [place] % (Auto) 6.0 % Eos % (Auto) 0.4 % Baso % (Auto) 0.3 % Neut # (Auto) 8.72 H (1.40-6.50) K/uL Lymph # (Auto) 0.58 L (1.20-3.40) K/uL [place] # (Auto) 0.60 H (0.11-0.59) K/uL Eos # (Auto) 0.04 (0.00-0.50) K/uL Baso # (Auto) 0.03 (0.00-0.20) K/uL Immature Gran # (Auto) 0.03 (0.01-0.20) K/uL Sodium 136 (136-145) mmol/L Potassium 4.3 (3.5-5.1) mmol/L Chloride 101 (98-107) mmol/L Carbon Dioxide 29 (21-32) mmol/L Anion Gap 6 (3-11) BUN 24 H (6-23) mg/dl Creatinine 1.09 (0.6-1.4) mg/dl Est Cr Clr Drug Dosing 60.4 ml/min eGFR 69.90 BUN/Creatinine Ratio 22.0 H (10-20) Glucose 113 H (70-99(Fasting)) mg/dl Lactate 1.1 (0.4-2.0) mmol/L Calcium 8.9 (8.6-10.3) mg/dl Magnesium 1.9 (1.7-2.4) mg/dl Total Bilirubin 2.4 H (0.2-1.0) mg/dl Direct Bilirubin 0.4 H (0-0.2) mg/dl AST 9 L (13-39) U/L ALT < 3 L (7-52) U/L Alkaline Phosphatase 56 (34-104) U/L Troponin I High Sens 7.5 (0-20) pg/ml Total Protein 7.2 (6.0-8.3) gm/dl Albumin 4.2 (3.4-5.0) gm/dl Procalcitonin 0.14 (0-0.5) ng/ml Urine Color Yellow Urine Appearance Clear (Clear) Urine pH 6.5 (4.5-7.5) Ur Specific [place] 1.016 (1.000-1.030) Urine Protein Negative (Negative) Urine Glucose (UA) Negative (Negative) Urine Ketones 1+ H (Negative) Urine Blood Trace H (Negative) Urine Nitrite Positive A (Negative) Urine Bilirubin Negative (Negative) Urine Urobilinogen Negative (Negative) Ur Leukocyte Esterase 2+ H (Negative) Urine WBC (Auto) 21-50 H (0-5) /hpf Urine RBC (Auto) 6-10 H (0-2) /hpf U Hyaline Cast (Auto) 0-2 (0-2) /lpf U Epithel Cells (Auto) 0-2 (0-2) /hpf Urine Bacteria (Auto) 1+ H (None Seen) Urine Comment Administered Medications Lactated Ringer's (Lr) 1,000 mls @ 80 mls/hr IV .[id number] JAMIA Stop: 07/04/25 10:29 Last Admin: 07/03/25 23:00 Dose: 80 mls/hr Documented By: jun Discontinued Medications Carbidopa/Levodopa (Carbidopa/Levodopa 50/200mg Ext Rel Tab) 1 tab PO NOW STA Stop: 07/03/25 21:47 Last Admin: 07/03/25 22:24 Dose: 1 tab Documented By: TIARRA Carbidopa/Levodopa (Carbidopa/Levodopa 50/200mg Ext Rel Tab) 1 tab PO NOW STA Stop: 07/03/25 22:03 Last Admin: 07/03/25 22:26 Dose: Not Given Documented By: TIARRA Piperacillin Sod/Tazobactam Sod (Zosyn) 4.5 gm in 100 mls @ 200 mls/hr IV NOW ONE; Protocol Stop: 07/03/25 20:58 Last Infusion: 07/03/25 21:30 Dose: Infused Documented By: Admin: 07/03/25 20:57 Dose: 200 mls/hr Documented By: TIARRA Ioversol (Optiray 320 100ml) 93 ml IV ONCE ONE Stop: 07/03/25 20:19 Last Admin: 07/03/25 20:18 Dose: 93 ml Documented By: EDK Imaging Data Radiologist's Impression: Abdomen/Pelvis CT 07/03/25 18:34 EXAMINATION: CT of the abdomen and pelvis performed after the administration of IV contrast TECHNIQUE: Helical CT images from the lung bases through the symphysis pubis were obtained with contrast. Coronal and sagittal reformatted images were generated at a workstation for further assessment. Dose reduction techniques were achieved by using automatic exposure control and/or adjustment of mA and/or kV according to patient size and/or use of iterative reconstruction technique. COMPARISON: 10/12/2024 HISTORY: Abdominal pain FINDINGS: Lower chest: Bibasilar atelectasis versus scarring is seen. Liver: Hepatic cysts are seen. Gallbladder and biliary tree: Cholelithiasis is seen without evidence of cholecystitis. No intra- or extrahepatic biliary ductal dilation. Pancreas: Unremarkable, no focal lesions. Spleen: Unremarkable. Adrenals: Unremarkable. Kidneys and ureters: No hydronephrosis. There is subtle, patchy hypoenhancing areas in the cortex of the left kidney.. Bladder: Diffuse homogeneous wall thickening is seen. There is a suprapubic catheter. The bladder is incompletely distended. Reproductive organs: Prostatomegaly is seen. Bowel: The appendix is normal. Lymph nodes: No pathologic lymphadenopathy. Peritoneum: Normal. Vessels: Unremarkable. Abdominal wall: Unremarkable. Bones: Degenerative changes in the visualized spine. IMPRESSION: Left renal, patchy, subtle hypoenhancing areas, which may be seen with pyelonephritis. Suprapubic catheter in place. Electronically signed by Yehuda Ray 07-03-2025 8:38 PM Chest X-Ray 07/03/25 18:34 Exam(s): XR CXR 1 VIEW EXAM: XR Chest, 1 View CLINICAL HISTORY: Reason for exam: Sepsis. TECHNIQUE: Frontal view of the chest. COMPARISON: Chest radiograph on 12/23/2024 FINDINGS: Hardware: None. Lungs/pleura: Small left pleural effusion. Prominent lung markings. Heart/mediastinum: Mild enlargement of the cardiac silhouette. Soft tissues: Unremarkable. Bones: No acute fracture. Upper abdomen: Normal. IMPRESSION: 1. Small left pleural effusion. 2. Prominent lung markings may be secondary to technique versus pulmonary vasculature congestion. Electronically signed by: Hilary Salomon M.D. 07/03/25 21:49 PM Discharge Plan Visit Data Chief Complaint: Illness Stated Complaint: FEVER HISTORY OF SEPIS ED Provider: Reggie Wellington Discharge Problem: Pyelonephritis, Acute UTI Patient Disposition: Admitted As Inpatient Condition: Fair Discharge Instructions Interventions: ED Discharge Assessment Last Done: 07/03/25 22:21
[2025-07-03 19:37] LABS: Hematocrit (blood only) 38.2 % (42.0-52.0); Hemoglobin 12.5 g/dl (14.0-18.0); Immature Granulocytes # (auto) 0.03 K/uL (0.01-0.20); Immature Granulocytes % (auto) 0.3 %; Mean Corpuscular Hemoglobin 29.8 pg (25.0-34.0); Mean Corpuscular Volume 91.0 fL (80.0-100.0); Platelet Count 195 K/uL (130-400); RDW Standard Deviation 45.6 fL (36.4-46.3); Red Blood Count 4.20 M/uL (4.70-6.10); White Blood Count 10.00 K/ul (4.8-10.8)
[2025-07-03 19:56] LABS: Anion Gap 6 (3-11); Blood Urea Nitrogen 24 mg/dl (6-23); Calcium 8.9 mg/dl (8.6-10.3); Carbon Dioxide 29 mmol/L (21-32); Chloride 101 mmol/L (98-107); Creatinine Clr Calc Pharmacy 60.4 ml/min; Glucose 113 mg/dl (70-99(Fasting)); Potassium 4.3 mmol/L (3.5-5.1); Sodium 136 mmol/L (136-145)
[2025-07-03 20:01] LABS: Alanine Aminotransferase < 3 U/L (7-52); Albumin Level 4.2 gm/dl (3.4-5.0); Alkaline Phosphatase 56 U/L (34-104); Bilirubin,Total 2.4 mg/dl (0.2-1.0); Magnesium 1.9 mg/dl (1.7-2.4); Total Protein 7.2 gm/dl (6.0-8.3)
[2025-07-03 20:17] LABS: Appearance Urine Clear (Clear); Bacteria Urine Automated 1+ (None Seen); Cast Urine Automated 0-2 /lpf (0-2); Epithelial Cell Urine Auto 0-2 /hpf (0-2); Glucose Urine UA Negative (Negative); WBC Urine Automated 21-50 /hpf (0-5)
[2025-07-03] MEDS: OPTIRAY 320 100ml IV ONE (20:18)
--- NOTE | 2025-07-03 20:38 | CT Scan Report ---
EXAMINATION: CT of the abdomen and pelvis performed after the administration of IV contrast TECHNIQUE: Helical CT images from the lung bases through the symphysis pubis were obtained with contrast. Coronal and sagittal reformatted images were generated at a workstation for further assessment. Dose reduction techniques were achieved by using automatic exposure control and/or adjustment of mA and/or kV according to patient size and/or use of iterative reconstruction technique. COMPARISON: 10/12/2024 HISTORY: Abdominal pain FINDINGS: Lower chest: Bibasilar atelectasis versus scarring is seen. Liver: Hepatic cysts are seen. Gallbladder and biliary tree: Cholelithiasis is seen without evidence of cholecystitis. No intra- or extrahepatic biliary ductal dilation. Pancreas: Unremarkable, no focal lesions. Spleen: Unremarkable. Adrenals: Unremarkable. Kidneys and ureters: No hydronephrosis. There is subtle, patchy hypoenhancing areas in the cortex of the left kidney.. Bladder: Diffuse homogeneous wall thickening is seen. There is a suprapubic catheter. The bladder is incompletely distended. Reproductive organs: Prostatomegaly is seen. Bowel: The appendix is normal. Lymph nodes: No pathologic lymphadenopathy. Peritoneum: Normal. Vessels: Unremarkable. Abdominal wall: Unremarkable. Bones: Degenerative changes in the visualized spine. IMPRESSION: Left renal, patchy, subtle hypoenhancing areas, which may be seen with pyelonephritis. Suprapubic catheter in place. Electronically signed by Yehuda Ray 07-03-2025 8:38 PM
[2025-07-03] MEDS: PIPERACILLIN/TAZOBACTAM 4.5 GM/100 ML BAG IV ONE (20:57)
--- NOTE | 2025-07-03 21:19 | History & Physical Report ---
Date of Service July 03, 2025 Assessment & Plan (1) Catheter-associated urinary tract infection: (2) Pyelonephritis of left kidney: (3) Elevated bilirubin: Plan 79-year-old male PMHx BPH with LUTS, parkinsonism, B12 deficiency, GERD, RLS, bladder spasm, gait disturbances, hammertoes of both feet, bladder mass, history of gross hematuria, and GERD presenting for confusion and dizziness with associated fever. Indwelling catheter changed day of arrival (07/03/2025). CBC without leukocytosis and renal function stable. He does show evidence suggestive of UTI and pyelonephritis on UA/CTAP respectively. Lactate and procal WNL, not meeting sepsis criteria. Bilirubin + direct bilirubin are elevated, CTAP revealing cholelithiasis without evidence of cholecystitis. Admission for management of pyelonephritis/UTI. #Catheter associated UTI/Pyelonephritis L kidney Presenting with confusion and dizziness starting day of arrival. Catheter had become dislodged earlier day of arrival, seen in ED, catheter changed. Later developed a fever of 101 F Tmax and had onset of dizziness and confusion per . He does have a history of Klebsiella growing in cultures. On methenamine hippurate daily. Not meeting sepsis criteria at admission, however is borderline for temperature and respirations. Will admit to PCU for close monitoring. - CBC without leukocytosis, H&H 12.5/38.2; CMP BUN 24, creatinine 1.09; lactate 1.1; procalcitonin 0.14 - CBC, BMP am - UA suggestive of infection; pending cx - CTAP L renal patchy subtle hypoenhancing area may be seen with pyelonephritis - Hold methenamine while on abx - Gentle IVF LR @ 80 mL/hr x 1L - Zofran prn N/V - Acetaminophen prn fever/pain - Zosyn IV #Elevated bilirubin No abdominal pain, with history of elevation in the past. - Bili 2.4, direct 0.4 - CTAP does reveal cholelithiasis without cholecystitis, liver with hepatic cysts - Monitor #Parkinsonism- Carbidopa-levodopa - continue #Psych- Escitalopram - continue #RLS- Ropinirole - continue #Bladder spasm/History of bladder cancer s/p TURBT x 3- Solifenacin - continue Dispo: Admit, PCU -- borderline meeting sepsis, requiring close monitoring - de- escalate as appropriate VTE Prophylaxis: SCDs This document was dictated utilizing [employer]. Please excuse any grammatical errors that may be secondary to use of this software. Admission and Anticipated Discharge Date Admission Date: 07/03/2025 History of Present Illness Chief Complaint: Dizziness/Confusion Primary Care Provider: Sue Josse 79-year-old male PMHx BPH with LUTS, parkinsonism, B12 deficiency, GERD, RLS, bladder spasm, gait disturbances, hammertoes of both feet, bladder mass, history of gross hematuria, and GERD presenting for confusion and dizziness with associated fever. Indwelling catheter changed day of arrival (07/03/2025) after recent change on 06/29/2025 by urology. 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 At that time, his catheter was still in place and without abnormalities. He then woke around 0230 to use the r estroom and his noticed that the catheter was out, with the balloon deflated. He was seen in the ED where the catheter was replaced and he was sent home. Once home, he slept most of the day per his . Around 1400 he awoke and was complaining of feeling cold. His took his temperature at that time and found it to be 101 F. He did develop some rigors at that time and seemed "more confused" and spaced out per . He denies any complaints at present. He feels well, denying abdominal pain, N/V/D/C, numbness/tingling, chills, URI symptoms, or additional concerns. 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 ED evaluation CBC without leukocytosis, H&H 12.5/38.2; CMP BUN 24, ratio 22, glucose 113, bilirubin 2.4, direct bilirubin 0.4, AST 9, ALT < 3; lactate 1.1; procalcitonin 0.14; troponin 7.5; UA suggestive of infection; CTAP left renal patchy subtle hypoenhancing area may be seen with pyelonephritis, suprapubic cath in place; CXR pending official read; EKG NSR @ 100 bpm.; Provided with Zosyn 4.5 g IV in ED. Please see Dr. Finnegan's attestation for adjustments/additions to treatment plan. Allergies Allergy/AdvReac Type Severity Reaction Status Date / Time No Known Allergies Allergy Verified 07/03/25 20:34 Home Medications Medication Instructions Recorded Confirmed Type aspirin 81 mg tablet,delayed 81 mg PO 3XWK 12/20/21 07/03/25 History release cholecalciferol (vitamin D3) 25 25 mcg PO QDL 12/20/21 07/03/25 History mcg (1,000 unit) tablet (Vitamin D3) cyanocobalamin (vitamin B-12) 1,000 mcg PO QDL 12/20/21 07/03/25 History 1,000 mcg tablet escitalopram oxalate 5 mg tablet 5 mg PO DAILY #30 tabs 01/26/25 07/03/25 Rx methenamine hippurate 1 gram tablet 1 g PO DAILY #30 tabs 02/06/25 07/03/25 Rx carbidopa ER 50 mg-levodopa 200 mg 1 tab PO QID #120 tabs 03/04/25 07/03/25 Rx tablet,extended release ropinirole 2 mg tablet,extended 2 mg PO QAM #30 tabs 03/04/25 07/03/25 Rx release 24 hr Lactobacillus acidophilus 10 10,000 mmu cells PO DAILY 07/03/25 07/03/25 History billion cell capsule (Probiotic) d-mannose 500 mg capsule 500 mg PO DAILY 07/03/25 07/03/25 History solifenacin 10 mg tablet 10 mg PO HS 07/03/25 07/03/25 History Past Med/Surg History Problem List (Updated 07/03/25 @ 23:52 by Reggie Wellington DO) Acute UTI (Acute) Pyelonephritis (Acute) Elevated bilirubin Pyelonephritis of left kidney Dislodged Forman catheter (Acute) Anxiety Acute alteration in mental status (Acute) UTI (urinary tract infection) (Acute) Confusion and disorientation Catheter-associated urinary tract infection BPH w urinary obs/LUTS Benign prostatic hyperplasia (BPH) with straining on urination DAVE (acute kidney injury) Septic shock due to Enterococcus fecalis Bacteremia Urinary retention Hypomagnesemia Weakness (Acute) Sepsis (Acute) Fatigue Gait disturbance Drooling Hammer toes of both feet Encounter for pre-operative examination Primary bladder malignant neoplasm Bladder mass Gross hematuria Tremor Parkinsonism GERD (gastroesophageal reflux disease) Medical History Gait disturbance Respiratory distress hx, w/recent Covid illness in 07/05/24, "no current issues" COVID Dysphagia Hyperlipidemia Hx of hyperlipidemia GERD (gastroesophageal reflux disease) History of dysphagia 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 allow for permissive aspiration'. pt denies issues currently History of COVID-19 07/05/24 admitted [facility] (through 07/07/24); sx resolved Bladder cancer Dx'ed Spring 2020 - Cysto, TURBT 01/18/21- initially uneventful until a severe obturator reflex was provoked- had increased bleeding- converted from LMA to ETT anesthesia per 01/18/21 anesthesia record. -Had repeat procedures 02/22/21 and 01/10/22 without noted issues; has also completed BCG tx Benign essential tremor Bilateral index fingers Twitching Only occurs when falling asleep or when asleep Zenkers diverticulum Parkinson disease following with [facility]; per most recent note 12/2023: "Parkinson's disease with Parkinson's gait and some bradykinesia with mild cogwheel. He is doing fairly well on his current dose of carbidopa/levodopa, 50/200 ER twice daily. His drooling is improved and his fatigue is stable. He does not have much in the way of tremor today"... stable- continue current medication regimen History of asthma A CHILD ONLY- NO CURRENT ISSUES BPH (benign prostatic hyperplasia) Surgical History History of bladder surgery TURBT X 3: most recent: 01/10/22: GA: LMA#5, atraumatic placement x 1 History of esophagogastroduodenoscopy (EGD) History of colonoscopy History of tooth extraction History of hernia surgery INGUINAL Family History Family/Other Lung cancer Other No family history of adverse response to anesthesia Social History Smoking Status: Never smoker Do You Dip or Chew Tobacco: No; Hx Alcohol Use: No Hx Substance Use: No Preferred Language: Georgian Communication Ability: Effective Market Editor Required: No Beliefs That Will Affect Care: None marital status: Current Living Situation: Spouse Current Living Situation Comment: lives at home with current occupational status: employed 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 Other Information That Helps Us Care for You: No Feels Safe at Home: Yes Safety Concerns: Feels Safe At This Time Assistive Devices: None Review of Systems Review of Systems: All systems reviewed & are unremarkable except as noted in Subjective Physical Exam Physical Exam: General: No acute distress Skin: Warm and dry Head: Normocephalic, atraumatic Eyes: PERRL, conjunctivae clear, sclera non-icteric ENT: External ear and ear canal without swelling; nose atraumatic; good dentition, tongue normal appearance, pharynx normal Neck: Supple, no LAD Cardio: RRR, no M/G/R, S1 and S2 normal Resp: No respiratory distress, Lungs CTA in all lobes bilaterally, no wheezes, rales, or rhonchi Abdomen: Soft, symmetric, nontender; No masses or hepatosplenomegaly; Bowel sounds normoactive : Catheter in place, draining clear-yellow urine MSK: No deformities; pulses palpable and equal; trace pitting edema BLE to mid- calf. Neuro: Awake, alert; Sensation intact bilaterally; CN grossly intact Psych: Answers questions when directly asked; Appropriate mood and affect. present in room at time of visit. Results & Data Results & Data Vital Signs (Past 12 Hours) Vital Signs Temp Pulse Pulse Resp BP BP Pulse Ox 07/03/25 19:48 37.9 C H 07/03/25 19:26 97 07/03/25 19:20 99 H 18 124/69 97 07/03/25 18:23 98 H 07/03/25 18:10 37.5 C 84 20 153/78 H 97 O2 Del Method 07/03/25 19:48 07/03/25 19:26 Room Air 07/03/25 19:20 Room Air 07/03/25 18:23 07/03/25 18:10 Room Air Laboratory Results 07/03/25 19:44 Urine Culture - Pending Urine,Straight Cath 07/03/25 19:15 Aerobic Blood Culture - Pending Blood Anaerobic Blood Culture - Pending 07/03/25 19:15 Aerobic Blood Culture - Pending Blood Anaerobic Blood Culture - Pending 07/03/25 07/03/25 19:44 19:15 WBC 10.00 RBC 4.20 L Hgb 12.5 L Hct 38.2 L MCV 91.0 MCH 29.8 MCHC 32.7 RDW Std Deviation 45.6 RDW Coeff of Vijaya 13.6 Plt Count 195 MPV 9.7 Immature Gran % (Auto) 0.3 Neut % (Auto) 87.2 Lymph % (Auto) 5.8 [place] % (Auto) 6.0 Eos % (Auto) 0.4 Baso % (Auto) 0.3 Neut # (Auto) 8.72 H Lymph # (Auto) 0.58 L [place] # (Auto) 0.60 H Eos # (Auto) 0.04 Baso # (Auto) 0.03 Immature Gran # (Auto) 0.03 Sodium 136 Potassium 4.3 Chloride 101 Carbon Dioxide 29 Anion Gap 6 BUN 24 H Creatinine 1.09 Est Cr Clr Drug Dosing 60.4 eGFR 69.90 BUN/Creatinine Ratio 22.0 H Glucose 113 H Lactate 1.1 Calcium 8.9 Magnesium 1.9 Total Bilirubin 2.4 H Direct Bilirubin 0.4 H AST 9 L ALT < 3 L Alkaline Phosphatase 56 Troponin I High Sens 7.5 Total Protein 7.2 Albumin 4.2 Procalcitonin 0.14 Urine Color Yellow Urine Appearance Clear Urine pH 6.5 Ur Specific [place] 1.016 Urine Protein Negative Urine Glucose (UA) Negative Urine Ketones 1+ H Urine Blood Trace H Urine Nitrite Positive A Urine Bilirubin Negative Urine Urobilinogen Negative Ur Leukocyte Esterase 2+ H Urine WBC (Auto) 21-50 H Urine RBC (Auto) 6-10 H U Hyaline Cast (Auto) 0-2 U Epithel Cells (Auto) 0-2 Urine Bacteria (Auto) 1+ H Urine Comment Diagnostic Findings Abdomen/Pelvis CT 07/03/25 18:34 EXAMINATION: CT of the abdomen and pelvis performed after the administration of IV contrast TECHNIQUE: Helical CT images from the lung bases through the symphysis pubis were obtained with contrast. Coronal and sagittal reformatted images were generated at a workstation for further assessment. Dose reduction techniques were achieved by using automatic exposure control and/or adjustment of mA and/or kV according to patient size and/or use of iterative reconstruction technique. COMPARISON: 10/12/2024 HISTORY: Abdominal pain FINDINGS: Lower chest: Bibasilar atelectasis versus scarring is seen. Liver: Hepatic cysts are seen. Gallbladder and biliary tree: Cholelithiasis is seen without evidence of cholecystitis. No intra- or extrahepatic biliary ductal dilation. Pancreas: Unremarkable, no focal lesions. Spleen: Unremarkable. Adrenals: Unremarkable. Kidneys and ureters: No hydronephrosis. There is subtle, patchy hypoenhancing areas in the cortex of the left kidney.. Bladder: Diffuse homogeneous wall thickening is seen. There is a suprapubic catheter. The bladder is incompletely distended. Reproductive organs: Prostatomegaly is seen. Bowel: The appendix is normal. Lymph nodes: No pathologic lymphadenopathy. Peritoneum: Normal. Vessels: Unremarkable. Abdominal wall: Unremarkable. Bones: Degenerative changes in the visualized spine. IMPRESSION: Left renal, patchy, subtle hypoenhancing areas, which may be seen with pyelonephritis. Suprapubic catheter in place. Electronically signed by Yehuda Ray 07-03-2025 8:38 PM Medications Administered Zosyn 4.5 g IV ECG Additional Comments: NSR 100 bpm, WI 168, QRS 76, QT/QTc 346/446, PRT 72/82/77 Code Status & VTE Plan Code Status DNR/DNI Supervising Physician Co-Signing Physician Notes Patient seen and examined, chart reviewed, case discussed with SIMRAN Metcalf and I agree with the assessment and plan as above. Patient with fever and somnolence following catheter replacement Findings most consistent with pyelonephritis Will continue Zosyn for now Follow cultures Gentle IVF Continue Carbidopa-Levodopa - received PM dose in the ER Maintain Forman catheter for now Remainder as above PG Care Time/CCT Total # of Minutes Spent Total Time Spent with Patient: Total time spent is greater than 50% in coordination of care (as documented) at patient's floor/unit and/or counseling patient: Coding Level of Care Code 08349 INT INP/OBS CARE 3/75MIN Diagnoses Catheter-associated urinary tract infection T83.511A; N39.0 Pyelonephritis of left kidney N12 Elevated bilirubin R17
--- NOTE | 2025-07-03 21:50 | XRay Report ---
Exam(s): XR CXR 1 VIEW EXAM: XR Chest, 1 View CLINICAL HISTORY: Reason for exam: Sepsis. TECHNIQUE: Frontal view of the chest. COMPARISON: Chest radiograph on 12/23/2024 FINDINGS: Hardware: None. Lungs/pleura: Small left pleural effusion. Prominent lung markings. Heart/mediastinum: Mild enlargement of the cardiac silhouette. Soft tissues: Unremarkable. Bones: No acute fracture. Upper abdomen: Normal. IMPRESSION: 1. Small left pleural effusion. 2. Prominent lung markings may be secondary to technique versus pulmonary vasculature congestion. Electronically signed by: Hilary Salomon M.D. 07/03/25 21:49 PM
[2025-07-03] MEDS: CARBIDOPA/LEVODOPA 50/200MG EXT REL TAB PO STA ×2 (22:24→22:26)
[2025-07-03] MEDS ORDERED: POLYETHYLENE (MIRALAX) 17 GM PACK PO PRN (22:59)
[2025-07-03] MEDS ORDERED: ONDANSETRON INJ 2 MG/ML 2 ML VIAL IV PRN (22:59)
[2025-07-03] MEDS ORDERED: MELATONIN 3 MG TAB PO PRN (22:59)
[2025-07-03] MEDS: LACTATED RINGER'S 1,000 ML IV SCH (23:00)
[2025-07-04] MEDS: PIPERACILLIN/TAZOBACTAM 4.5 GM/100 ML BAG IV SCH (01:38)
[2025-07-04] MEDS: CARBIDOPA/LEVODOPA 50/200MG EXT REL TAB PO SCH (06:18)
--- NOTE | 2025-07-04 08:10 | Urology Consultation ---
Date of Consultation July 04, 2025 Assessment & Plan (1) Acute UTI: (2) Urinary retention: Plan 79-year-old male with a history of bladder cancer who follows with Dr. Almeida and also has a chronic catheter who was admitted to the hospital due to UTI and possible left pyelonephritis. Afebrile with stable vitals currently. Labs show a white blood cell count of 10, creatinine at baseline 1.09 and a urinalysis that was grossly positive but is expected in the setting of a chronic catheter. Cultures are pending. Independently reviewed the CT scan of the abdomen and pelvis which shows a catheter in appropriate position with a decompressed bladder and some patchy hypoenhancing areas in the left kidney. Patient was started on Zosyn. No urologic intervention necessary Recommend total 14 days of antibiotics. Follow-up cultures and tailor accordingly. If patient is not improving, recommend repeat imaging to rule out abscess. If patient had abscess, he would require transfer to a tertiary care center where they can place a drain. Maintain Forman catheter I do long discussion with the about options. Explained that in a patient with urinary retention and recurrent UTIs, is a challenging thing to manage as he will be chronically colonized and we have to pay more attention to symptoms to determine if he has a UTI. We discussed UTI prophylaxis and potential prophylactic antibiotics in the future. Per their decision, they have declined to do any further cystoscopy surveillance with Dr. Almeida given his overall health picture. I did offer follow-up in our urology office but they would like to think about this and just continue cath exchanges at this time. They did inquire about treating with antibiotic at time of exchange which is not unreasonable. They will call if they want any further outpatient clinic follow- up to discuss recurrent UTIs but otherwise we will continue regular scheduled cath exchanges. Urology to sign off. History of Present Illness Attending Physician: Mani Larsen MD History of Present Illness 79-year-old male with a history of bladder cancer who follows with Dr. Almeida and also has a chronic catheter who was admitted to the hospital due to UTI and possible left pyelonephritis. Afebrile with stable vitals currently. Labs show a white blood cell count of 10, creatinine at baseline 1.09 and a urinalysis that was grossly positive but is expected in the setting of a chronic catheter. Cultures are pending. Independently reviewed the CT scan of the abdomen and pelvis which shows a catheter in appropriate position with a decompressed bladder and some patchy hypoenhancing areas in the left kidney. Patient was started on Zosyn. Patient reports feeling better today. His is in the room with him. Allergies Allergy/AdvReac Type Severity Reaction Status Date / Time No Known Allergies Allergy Verified 07/03/25 20:34 Home Medications Medication Instructions Recorded Confirmed Type aspirin 81 mg tablet,delayed 81 mg PO 3XWK 12/20/21 07/03/25 History release cholecalciferol (vitamin D3) 25 25 mcg PO QDL 12/20/21 07/03/25 History mcg (1,000 unit) tablet (Vitamin D3) cyanocobalamin (vitamin B-12) 1,000 mcg PO QDL 12/20/21 07/03/25 History 1,000 mcg tablet escitalopram oxalate 5 mg tablet 5 mg PO DAILY #30 tabs 01/26/25 07/03/25 Rx methenamine hippurate 1 gram tablet 1 g PO DAILY #30 tabs 02/06/25 07/03/25 Rx carbidopa ER 50 mg-levodopa 200 mg 1 tab PO QID #120 tabs 03/04/25 07/03/25 Rx tablet,extended release ropinirole 2 mg tablet,extended 2 mg PO QAM #30 tabs 03/04/25 07/03/25 Rx release 24 hr Lactobacillus acidophilus 10 10,000 mmu cells PO DAILY 07/03/25 07/03/25 History billion cell capsule (Probiotic) d-mannose 500 mg capsule 500 mg PO DAILY 07/03/25 07/03/25 History solifenacin 10 mg tablet 10 mg PO HS 07/03/25 07/03/25 History Patient History Medical History Gait disturbance Respiratory distress hx, w/recent Covid illness in 07/05/24, "no current issues" COVID Dysphagia Hyperlipidemia Hx of hyperlipidemia GERD (gastroesophageal reflux disease) History of dysphagia 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 allow for permissive aspiration'. pt denies issues currently History of COVID-19 07/05/24 admitted [facility] (through 07/07/24); sx resolved Bladder cancer Dx'ed Spring 2020 - Cysto, TURBT 01/18/21- initially uneventful until a severe obturator reflex was provoked- had increased bleeding- converted from LMA to ETT anesthesia per 01/18/21 anesthesia record. -Had repeat procedures 02/22/21 and 01/10/22 without noted issues; has also completed BCG tx Benign essential tremor Bilateral index fingers Twitching Only occurs when falling asleep or when asleep Zenkers diverticulum Parkinson disease following with [facility]; per most recent note 12/2023: "Parkinson's disease with Parkinson's gait and some bradykinesia with mild cogwheel. He is doing fairly well on his current dose of carbidopa/levodopa, 50/200 ER twice daily. His drooling is improved and his fatigue is stable. He does not have much in the way of tremor today"... stable- continue current medication regimen History of asthma A CHILD ONLY- NO CURRENT ISSUES BPH (benign prostatic hyperplasia) Surgical History History of bladder surgery TURBT X 3: most recent: 01/10/22: GA: LMA#5, atraumatic placement x 1 History of esophagogastroduodenoscopy (EGD) History of colonoscopy History of tooth extraction History of hernia surgery INGUINAL Family History Family/Other Lung cancer Other No family history of adverse response to anesthesia Social History Smoking Status: Never smoker Do You Dip or Chew Tobacco: No; Hx Alcohol Use: No Hx Substance Use: No Preferred Language: Bermudian Communication Ability: Effective Quality Review Specialist Required: No Beliefs That Will Affect Care: None marital status: Current Living Situation: Spouse Current Living Situation Comment: lives at home with current occupational status: 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 Other Information That Helps Us Care for You: No Feels Safe at Home: Yes Safety Concerns: Feels Safe At This Time Assistive Devices: None Physical Exam Physical Exam: General: Alert and oriented, no acute distress HEENT: Normocephalic, mucous membranes moist Pulmonary: Nonlabored respirations Abdomen: Nondistended : Forman catheter draining clear yellow urine Extremities: Moves all 4 spontaneously Neuro: No gross deficits Skin: Warm, dry, no rashes noted Results & Data Vital Signs (Past 12 Hours) Vital Signs Temp Pulse Pulse Resp BP BP Pulse Ox 07/04/25 07:40 37.2 C 75 18 111/58 L 97 07/04/25 02:35 36.9 C 87 18 122/64 92 07/04/25 00:02 07/03/25 22:52 87 07/03/25 22:32 36.9 C 86 18 114/63 97 07/03/25 22:21 85 17 115/57 L 99 07/03/25 21:00 83 17 115/57 L 98 O2 Del Method 07/04/25 07:40 Room Air 07/04/25 02:35 Room Air 07/04/25 00:02 Room Air 07/03/25 22:52 07/03/25 22:32 Room Air 07/03/25 22:21 Room Air 07/03/25 21:00 Room Air PG Care Time/CCT Total # of Minutes Spent Total Time Spent with Patient: Total time spent is greater than 50% in coordination of care (as documented) at patient's floor/unit and/or counseling patient: Coding Level of Care Code 68681 INT INP/OBS CARE 2/55MIN Diagnoses Acute UTI N39.0 Urinary retention R33.9
[2025-07-04] MEDS: ESCITALOPRAM OXALATE 10 MG TAB PO SCH (08:30)
[2025-07-04 08:53] LABS: A calco-baum cmplx NotReported Not Detected (NotDetected); Bact fragilis Not Reported Not Detected (NotDetected); Blood Culture Id Panel See PCR Comment (NotDetected); C auris Not Reported Not Detected (NotDetected); CTX-M Resistant Gene Not Detected (NotDetected); Calbicans Not Reported Not Detected (NotDetected); Candida glabrata Not Reported Not Detected (NotDetected); Candida krusei Not Reported Not Detected (NotDetected); Cneoformans/gatti Not Reported Not Detected (NotDetected); Cparapsilosis Not Reported Not Detected (NotDetected); Ctropicalis Not Reported Not Detected (NotDetected); E cloacae compx Not Reported Not Detected (NotDetected); Efaecalis Not Reported Not Detected (NotDetected); Efaecium Not Reported Not Detected (NotDetected); Enterobacterales DETECTED (NotDetected); Enterobacterales Not Reported DETECTED (NotDetected); Escherichia coli Not Reported Not Detected (NotDetected); H influenzae Not Reported Not Detected (NotDetected); IMP Resistant Gene Not Detected (NotDetected); K aerogenes Not Reported Not Detected (NotDetected); KPC Resistant Gene Not Detected (NotDetected); Koxytoca Not Reported Not Detected (NotDetected); Kpneumoniae grp Not Reported DETECTED (NotDetected); Lmonocyt Not Reported Not Detected (NotDetected); N meningitidis Not Reported Not Detected (NotDetected); NDM Resistant Gene Not Detected (NotDetected); OXA 48 Like Resistant Gene Not Detected (NotDetected); P aeruginosa Not Reported Not Detected (NotDetected); Proteus spp Not Reported Not Detected (NotDetected); Salmonella spp Not Reported Not Detected (NotDetected); Staph lugdunensis Not Reported Not Detected (NotDetected); Staph spp. Not Reported Not Detected (NotDetected); Staphaureus Not Reported Not Detected (NotDetected); Staphepi Not Reported Not Detected (NotDetected); Stenmaltophilia Not Reported Not Detected (NotDetected); Strep agal(GrpB) Not Reported Not Detected (NotDetected); Strep pneum Not Reported Not Detected (NotDetected); Strep pyog (GrpA) Not Reported Not Detected (NotDetected); Strep spp Not Reported Not Detected (NotDetected); VIM Resistant Gene Not Detected (NotDetected); mcr-1 Colistin Resistant Gene Not Detected (NotDetected)
[2025-07-04 09:00] LABS: Klebsiella pneumoniae group DETECTED (NotDetected)
--- NOTE | 2025-07-04 09:23 | Hospitalist Progress Note ---
Date of Service July 04, 2025 Assessment & Plan (1) Catheter-associated urinary tract infection: Plan: -1 out 4 blood cultures + for klebsiella -urine C&S pending -urology consult appreciated -pt with h/o of bladder ca with chronic indwelling Forman -con't abx for 14 days -ID consulted (2) Pyelonephritis of left kidney: Plan: -possible finding of CT -con't zosyn (3) Elevated bilirubin: Plan: No abdominal pain, with history of elevation in the past. - Bili 2.4, direct 0.4 - CTAP does reveal cholelithiasis without cholecystitis, liver with hepatic cysts - Monitor (4) Parkinsonism: Plan: -Carbidopa-levo Plan 79-year-old male PMHx BPH with LUTS, parkinsonism, B12 deficiency, GERD, RLS, bladder spasm, gait disturbances, hammertoes of both feet, bladder mass, history of gross hematuria, and GERD presenting for confusion and dizziness with associated fever. Indwelling catheter changed day of arrival (07/03/2025). CBC without leukocytosis and renal function stable. He does show evidence suggestive of UTI and pyelonephritis on UA/CTAP respectively. Lactate and procal WNL, not meeting sepsis criteria. Bilirubin + direct bilirubin are elevated, CTAP revealing cholelithiasis without evidence of cholecystitis. Admission for management of pyelonephritis/UTI. Admission and Anticipated Discharge Date Admission Date: July 03, 2025 Subjective Pt seen with by bedside. Appears to be at baseline. Review of Systems Review of Systems: CONST: Negative for fever, body aches and chills. HENT: Negative for neck pain/stiffness, headache, congestion, sore throat, swelling. EYES: Negative for discharge/pain or vision changes. RESP: Negative for cough/hemoptysis and shortness of breath. CV: Negative chest pain, difficulty breathing, palpitations. ABD: Negative pain, nausea, vomiting. : Negative increase frequency, dysuria, blood in urine or stool. MUSC: Negative for muscle aches, edema. SKIN: Negative rash, lesions/sores. NEURO: Negative headache, dizziness, weakness. Physical Exam Physical Exam: GENERAL APPEARANCE NAD, activity normal for age, well developed/ well nourished, no cyanosis, pallor, or diaphoresis. EYES lids/conjunctiva normal. EARS/NOSE/THROAT Mucous membranes moist, nares normal, lips/teeth normal uvula midline without oral pharyngeal erythema, exudate or swelling TMs normal bilaterally. No lymphangitis/lymphedema. HEAD/NECK normocephalic atraumatic, no facial trauma, neck is supple. RESPIRATORY respiratory effort normal, speaks in full sentences, no tripod position, no accessory muscle use. Lungs clear to auscultation without rhonchi, wheezes, rales CARDIAC Regular rate and rhythm, no edema. ABDOMINAL Soft, ND/NT. No evidence of fluid wave. No pulsatile masses on exam, rebound tenderness, Olivarez sign or pain over Mcburney's point. MUSCLES/EXTREMITIES No abnormal range of motion, no swelling. SKIN Warm, pink and dry. No rashes, dermatoses, petechiae or lesions. NEUROLOGICAL Speech is clear and appropriate. Normal level of consciousness. Gait and coordination are normal. 5/5 strength in all extremities. PSYCH Normal mood and affect. Judgement/competence is appropriate Results & Data Results & Data Vital Signs (Past 12 Hours) Vital Signs Temp Pulse Pulse Resp BP BP Pulse Ox 07/04/25 07:40 37.2 C 75 18 111/58 L 97 07/04/25 02:35 36.9 C 87 18 122/64 92 07/04/25 00:02 07/03/25 22:52 87 07/03/25 22:32 36.9 C 86 18 114/63 97 07/03/25 22:21 85 17 115/57 L 99 O2 Del Method 07/04/25 07:40 Room Air 07/04/25 02:35 Room Air 07/04/25 00:02 Room Air 07/03/25 22:52 07/03/25 22:32 Room Air 07/03/25 22:21 Room Air PG Care Time/CCT Total # of Minutes Spent Total Time Spent with Patient: Total time spent is greater than 50% in coordination of care (as documented) at patient's floor/unit and/or counseling patient: Coding Level of Care Code 32550 SUB INP/OBS CARE 2/35MIN Diagnoses Catheter-associated urinary tract infection T83.511A; N39.0 Pyelonephritis of left kidney N12 Elevated bilirubin R17 Parkinson's disease, unspecified whether dyskinesia present, unspecified whether manifestations fluctuate G20.A1 Parkinsonism type: Parkinson's disease Dyskinesia presence: unspecified whether dyskinesia Fluctuating manifestations: unspecified whether manifestations fluctuate (4) Parkinsonism Parkinsonism type: Parkinson's disease Dyskinesia presence: unspecified whether dyskinesia Fluctuating manifestations: unspecified whether manifestations fluctuate Qualified Code(s): G20.A1 - Parkinson's disease without dyskinesia, without mention of fluctuations
[2025-07-04] MEDS: CYANOCOBALAMIN (B-12) 500 MCG TABLET PO SCH (11:34)
[2025-07-04] MEDS: CHOLECALCIFEROL 25 MCG (1000 UNITS) TAB PO SCH (11:35)
--- NOTE | 2025-07-04 11:57 | Electrocardiogram Report ---
Test Reason : Blood Pressure : */* mmHG Vent. Rate : 100 BPM Atrial Rate : 100 BPM P-R Int : 168 ms QRS Dur : 76 ms QT Int : 346 ms P-R-T Axes : 72 82 77 degrees QTcB Int : 446 ms Normal sinus rhythm Normal ECG When compared with ECG of 23-Dec-2024 04:27, No significant change was found Confirmed by Lenora Ramirez ([place]) on 07/04/2025 11:57:22 AM Referred By: Yehuda Almeida Confirmed By: Lenora Ramirez
[2025-07-04] MEDS: SODIUM CHLORIDE 0.9% 1,000 ML IV ONE ×2 (13:18→15:00)
[2025-07-04] MEDS: IBUPROFEN 200 MG TAB PO STA (20:17)
[2025-07-04] MEDS: OXYBUTYNIN CHLORIDE XL 5 MG TABCR PO SCH (20:19)
[2025-07-05] MEDS: IBUPROFEN 200 MG TAB PO STA (04:05)
[2025-07-05 08:23] LABS: Hematocrit (blood only) 34.8 % (42.0-52.0); Hemoglobin 11.9 g/dl (14.0-18.0); Mean Corpuscular Hemoglobin 31.2 pg (25.0-34.0); Mean Corpuscular Volume 91.1 fL (80.0-100.0); Platelet Count 154 K/uL (130-400); RDW Standard Deviation 45.6 fL (36.4-46.3); Red Blood Count 3.82 M/uL (4.70-6.10); White Blood Count 8.57 K/ul (4.8-10.8)
[2025-07-05 08:47] LABS: Anion Gap 5.0 (3-11); Blood Urea Nitrogen 16.0 mg/dl (6-23); Calcium 8.3 mg/dl (8.6-10.3); Carbon Dioxide 27.0 mmol/L (21-32); Chloride 106.0 mmol/L (98-107); Creatinine Clr Calc Pharmacy 52.0 ml/min; Glucose 141.0 mg/dl (70-99(Fasting)); Potassium 3.4 mmol/L (3.5-5.1); Sodium 138.0 mmol/L (136-145)
--- NOTE | 2025-07-05 09:29 | Hospitalist Progress Note ---
Date of Service July 05, 2025 Assessment & Plan (1) Catheter-associated urinary tract infection: Plan: -Blood cultures + for klebsiella -urine C&S pending -urology consult appreciated -pt with h/o of bladder ca with chronic indwelling Forman -con't abx for 14 days -ID consulted -repeat blood cultures 07/05 pending -if negative can d/c home on oral abx for 14 days (2) Pyelonephritis of left kidney: Plan: -possible finding of CT -con't zosyn (3) Elevated bilirubin: Plan: No abdominal pain, with history of elevation in the past. - Bili 2.4, direct 0.4 - CTAP does reveal cholelithiasis without cholecystitis, liver with hepatic cysts - Monitor (4) Parkinsonism: Plan: -Carbidopa-levo Plan 79-year-old male PMHx BPH with LUTS, parkinsonism, B12 deficiency, GERD, RLS, bladder spasm, gait disturbances, hammertoes of both feet, bladder mass, history of gross hematuria, and GERD presenting for confusion and dizziness with associated fever. Indwelling catheter changed day of arrival (07/03/2025). CBC without leukocytosis and renal function stable. He does show evidence suggestive of UTI and pyelonephritis on UA/CTAP respectively. Lactate and procal WNL, not meeting sepsis criteria. Bilirubin + direct bilirubin are elevated, CTAP revealing cholelithiasis without evidence of cholecystitis. Admission for management of pyelonephritis/UTI. Admission and Anticipated Discharge Date Admission Date: July 03, 2025 Subjective Pt seen with by bedside. Feeling better this am, back to baseline mental status. Review of Systems Review of Systems: CONST: Negative for fever, body aches and chills. HENT: Negative for neck pain/stiffness, headache, congestion, sore throat, swelling. EYES: Negative for discharge/pain or vision changes. RESP: Negative for cough/hemoptysis and shortness of breath. CV: Negative chest pain, difficulty breathing, palpitations. ABD: Negative pain, nausea, vomiting. : Negative increase frequency, dysuria, blood in urine or stool. MUSC: Negative for muscle aches, edema. SKIN: Negative rash, lesions/sores. NEURO: Negative headache, dizziness, weakness. Physical Exam Physical Exam: GENERAL APPEARANCE NAD, activity normal for age, well developed/ well nourished, no cyanosis, pallor, or diaphoresis. EYES lids/conjunctiva normal. EARS/NOSE/THROAT Mucous membranes moist, nares normal, lips/teeth normal uvula midline without oral pharyngeal erythema, exudate or swelling TMs normal bilaterally. No lymphangitis/lymphedema. HEAD/NECK normocephalic atraumatic, no facial trauma, neck is supple. RESPIRATORY respiratory effort normal, speaks in full sentences, no tripod position, no accessory muscle use. Lungs clear to auscultation without rhonchi, wheezes, rales CARDIAC Regular rate and rhythm, no edema. ABDOMINAL Soft, ND/NT. No evidence of fluid wave. No pulsatile masses on exam, rebound tenderness, Olivarez sign or pain over Mcburney's point. MUSCLES/EXTREMITIES No abnormal range of motion, no swelling. SKIN Warm, pink and dry. No rashes, dermatoses, petechiae or lesions. NEUROLOGICAL Speech is clear and appropriate. Normal level of consciousness. Gait and coordination are normal. 5/5 strength in all extremities. PSYCH Normal mood and affect. Judgement/competence is appropriate Results & Data Results & Data Vital Signs (Past 12 Hours) Vital Signs Temp Pulse Pulse Resp BP BP Pulse Ox 07/05/25 07:00 36.6 C 62 12 106/52 L 97 07/05/25 03:20 36.4 C L 58 L 20 105/53 L 97 07/04/25 23:58 36.4 C L 61 18 94/57 L 95 07/04/25 22:06 58 L O2 Del Method 07/05/25 07:00 Room Air 07/05/25 03:20 Room Air 07/04/25 23:58 Room Air 07/04/25 22:06 PG Care Time/CCT Total # of Minutes Spent Total Time Spent with Patient: Total time spent is greater than 50% in coordination of care (as documented) at patient's floor/unit and/or counseling patient: Coding Level of Care Code 62210 SUB INP/OBS CARE 235MIN Diagnoses Catheter-associated urinary tract infection T83.511A; N39.0 Pyelonephritis of left kidney N12 Elevated bilirubin R17 Parkinson's disease, unspecified whether dyskinesia present, unspecified whether manifestations fluctuate G20.A1 Parkinsonism type: Parkinson's disease Dyskinesia presence: unspecified whether dyskinesia Fluctuating manifestations: unspecified whether manifestations fluctuate (4) Parkinsonism Parkinsonism type: Parkinson's disease Dyskinesia presence: unspecified whether dyskinesia Fluctuating manifestations: unspecified whether manifestations fluctuate Qualified Code(s): G20.A1 - Parkinson's disease without dyskinesia, without mention of fluctuations
[2025-07-06] MEDS: IBUPROFEN 200 MG TAB PO STA (00:26)
[2025-07-06 06:06] LABS: Hematocrit (blood only) 34.1 % (42.0-52.0); Hemoglobin 11.9 g/dl (14.0-18.0); Mean Corpuscular Hemoglobin 31.4 pg (25.0-34.0); Mean Corpuscular Volume 90.0 fL (80.0-100.0); Platelet Count 172 K/uL (130-400); RDW Standard Deviation 42.7 fL (36.4-46.3); Red Blood Count 3.79 M/uL (4.70-6.10); White Blood Count 7.22 K/ul (4.8-10.8)
[2025-07-06 06:46] LABS: Anion Gap 4.0 (3-11); Blood Urea Nitrogen 16.0 mg/dl (6-23); Calcium 8.3 mg/dl (8.6-10.3); Carbon Dioxide 30.0 mmol/L (21-32); Chloride 106.0 mmol/L (98-107); Creatinine Clr Calc Pharmacy 45.3 ml/min; Glucose 108.0 mg/dl (70-99(Fasting)); Potassium 3.9 mmol/L (3.5-5.1); Sodium 140.0 mmol/L (136-145)
[2025-07-06] MEDS: ASPIRIN 81 MG ECTAB PO SCH (08:15)
--- NOTE | 2025-07-06 09:03 | Infectious Disease Consult ---
Date of Consultation July 06, 2025 Assessment & Plan (1) Pyelonephritis: (2) Dislodged Owusu catheter: (3) Bacteremia: Plan Problems: #Kleb pneumo bacteremia #L pyelonephritis #Chronic indwelling owusu Micro: 07/05 BCx x2: NGTD 07/03 UCx: Kleb pneumo 07/03 BCx x2: Kleb pneumo in 1/4 bottles (R cipro. I cefuroxime, levo. Otherwise S) Abx: Zosyn 07/03 - present 79 yo M with history of bladder cancer, BPH with LUTS, chronic indwelling owusu, Parkinson disease who presented on 07/03 with confusion, dizziness, fever, found to have L pyelonephritis and Kleb pneumo bacteremia. He had recently had his indwelling owusu catheter exchanged at urology clinic on 06/29. He awoke in the middle of the night on 07/03 and noted the catheter had become dislodged, so he presented to the ED on 07/03 AM, at which time he had moderate abdominal distension. A owusu catheter was placed and a significant amount of urine was passed. He was discharged home. He then presented back to the ED in the evening due to fever, confusion. On presentation, T 37.9, hemodynamically stable. Labs showed WBC 10, 87% neutrophils, UA with 21-[address] A/P with IV Contrast showed L renal patchy subtle hypoenhancing areas, which may be seen with pyelonephritis. He was started on Zosyn. BCx grew Kleb pneumo in 1/4 bottles. UCx grew Kleb pneumo. Pt has remained afebrile without leukocytosis. Discussion: Pt with Kleb pneumo bacteremia 2/2 L pyelonephritis in the setting of dislodged indwelling owusu catheter. Recommendations: - Transitioned from Zosyn to amox/clav 875 mg PO TID (note higher dosing in the setting of gram negative bacteremia). Can continue to complete a total 7 day course through 07/10/25 Will sign off. Consultation Information This patient recommendation is based on a telemedicine consult request which was completed asynchronously through chart review and information provided by the primary physician. The patient was not seen or examined today. The evaluation is consultative in nature and all patient care and treatment decisions can either be accepted or rejected by the patient's primary hospital-based treating physician using their own independent medical judgment for their patient. Airline Stewardess contact information: Please call [facility] . (Phone Number For Physician Use Only) An e-consult was performed as the video cart is not functioning. Time Spent Reviewing Chart: 31+ minutes History of Present Illness Reason for Consultation: Kleb pneumo bacteremia Attending Physician: Angie Becerra MD History of Present Illness 79 yo M with history of bladder cancer, BPH with LUTS, chronic indwelling owusu, Parkinson disease who presented on 07/03 with confusion, dizziness, fever. He had recently had his indwelling owusu catheter exchanged at urology clinic on 06/29. He awoke in the middle of the night on 07/03 and noted the catheter had become dislodged, so he presented to the ED on 07/03 AM, at which time he had moderate abdominal distension. A owusu catheter was placed and a significant amount of urine was passed. He was then discharged home. He then presented back to the ED in the evening due to fever, confusion. On presentation, T 37.9, hemodynamically stable. Labs showed WBC 10, 87% neutrophils, UA with 21-[address] A/P with IV Contrast showed L renal patchy subtle hypoenhancing areas, which may be seen with pyelonephritis. He was started on Zosyn. BCx grew Kleb pneumo in 1/4 bottles. UCx grew Kleb pneumo. Pt has remained a febrile without leukocytosis. Allergies Allergy/AdvReac Type Severity Reaction Status Date / Time No Known Allergies Allergy Verified 07/03/25 20:34 Home Medications Medication Instructions Recorded Confirmed Type aspirin 81 mg tablet,delayed 81 mg PO 3XWK 12/20/21 07/03/25 History release cholecalciferol (vitamin D3) 25 25 mcg PO QDL 12/20/21 07/03/25 History mcg (1,000 unit) tablet (Vitamin D3) cyanocobalamin (vitamin B-12) 1,000 mcg PO QDL 12/20/21 07/03/25 History 1,000 mcg tablet escitalopram oxalate 5 mg tablet 5 mg PO DAILY #30 tabs 01/26/25 07/03/25 Rx methenamine hippurate 1 gram tablet 1 g PO DAILY #30 tabs 02/06/25 07/03/25 Rx carbidopa ER 50 mg-levodopa 200 mg 1 tab PO QID #120 tabs 03/04/25 07/03/25 Rx tablet,extended release ropinirole 2 mg tablet,extended 2 mg PO QAM #30 tabs 03/04/25 07/03/25 Rx release 24 hr Lactobacillus acidophilus 10 10,000 mmu cells PO DAILY 07/03/25 07/03/25 History billion cell capsule (Probiotic) d-mannose 500 mg capsule 500 mg PO DAILY 07/03/25 07/03/25 History solifenacin 10 mg tablet 10 mg PO HS 07/03/25 07/03/25 History Patient History Medical History Gait disturbance Respiratory distress hx, w/recent Covid illness in 07/05/24, "no current issues" COVID Dysphagia Hyperlipidemia Hx of hyperlipidemia GERD (gastroesophageal reflux disease) History of dysphagia pt seen by [facility] INSPECTOR while inpt 06/2024 for COVID; 'no safe diet for patient... allow for permissive aspiration'. pt denies issues currently History of COVID-19 07/05/24 admitted [facility] (through 07/07/24); sx resolved Bladder cancer Dx'ed Spring 2020 - Cysto, TURBT 01/18/21- initially uneventful until a severe obturator reflex was provoked- had increased bleeding- converted from LMA to ETT anesthesia per 01/18/21 anesthesia record. -Had repeat procedures 02/22/21 and 01/10/22 without noted issues; has also completed BCG tx Benign essential tremor Bilateral index fingers Twitching Only occurs when falling asleep or when asleep Zenkers diverticulum Parkinson disease following with [facility]; per most recent note 12/2023: "Parkinson's disease with Parkinson's gait and some bradykinesia with mild cogwheel. He is doing fairly well on his current dose of carbidopa/levodopa, 50/200 ER twice daily. His drooling is improved and his fatigue is stable. He does not have much in the way of tremor today"... stable- continue current medication regimen History of asthma A CHILD ONLY- NO CURRENT ISSUES BPH (benign prostatic hyperplasia) Surgical History History of bladder surgery TURBT X 3: most recent: 01/10/22: [place]: LMA#5, atraumatic placement x 1 History of esophagogastroduodenoscopy (EGD) History of colonoscopy History of tooth extraction History of hernia surgery INGUINAL Family History Family/Other Lung cancer Other No family history of adverse response to anesthesia Social History Smoking Status: Never smoker Do You Dip or Chew Tobacco: No; Hx Alcohol Use: No Hx Substance Use: No Preferred Language: Bolivian Communication Ability: Effective Striper Required: No Beliefs That Will Affect Care: None marital status: Current Living Situation: Spouse Current Living Situation Comment: lives at home with current occupational status: employed 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 Other Information That Helps Us Care for You: No Feels Safe at Home: Yes Safety Concerns: Feels Safe At This Time Assistive Devices: None Results & Data Vital Signs (Past 12 Hours) Vital Signs Temp Pulse Pulse Resp BP BP Pulse Ox 07/06/25 07:49 37.0 C 58 L 16 116/60 94 07/06/25 03:23 36.3 C L 75 18 128/71 96 07/05/25 22:29 36.7 C 66 19 105/64 96 07/05/25 21:41 64 O2 Del Method 07/06/25 07:49 Room Air 07/06/25 03:23 Room Air 07/05/25 22:29 Room Air 07/05/25 21:41 Diagnostic Findings Abdomen/Pelvis CT 07/03/25 18:34 EXAMINATION: CT of the abdomen and pelvis performed after the administration of IV contrast TECHNIQUE: Helical CT images from the lung bases through the symphysis pubis were obtained with contrast. Coronal and sagittal reformatted images were generated at a workstation for further assessment. Dose reduction techniques were achieved by using automatic exposure control and/or adjustment of mA and/or kV according to patient size and/or use of iterative reconstruction technique. COMPARISON: 10/12/2024 HISTORY: Abdominal pain FINDINGS: Lower chest: Bibasilar atelectasis versus scarring is seen. Liver: Hepatic cysts are seen. Gallbladder and biliary tree: Cholelithiasis is seen without evidence of cholecystitis. No intra- or extrahepatic biliary ductal dilation. Pancreas: Unremarkable, no focal lesions. Spleen: Unremarkable. Adrenals: Unremarkable. Kidneys and ureters: No hydronephrosis. There is subtle, patchy hypoenhancing areas in the cortex of the left kidney.. Bladder: Diffuse homogeneous wall thickening is seen. There is a suprapubic catheter. The bladder is incompletely distended. Reproductive organs: Prostatomegaly is seen. Bowel: The appendix is normal. Lymph nodes: No pathologic lymphadenopathy. Peritoneum: Normal. Vessels: Unremarkable. Abdominal wall: Unremarkable. Bones: Degenerative changes in the visualized spine. IMPRESSION: Left renal, patchy, subtle hypoenhancing areas, which may be seen with pyelonephritis. Suprapubic catheter in place. Electronically signed by Yehuda Ray 07-03-2025 8:38 PM Chest X-Ray 07/03/25 18:34 Exam(s): XR CXR 1 VIEW EXAM: XR Chest, 1 View CLINICAL HISTORY: Reason for exam: Sepsis. TECHNIQUE: Frontal view of the chest. COMPARISON: Chest radiograph on 12/23/2024 FINDINGS: Hardware: None. Lungs/pleura: Small left pleural effusion. Prominent lung markings. Heart/mediastinum: Mild enlargement of the cardiac silhouette. Soft tissues: Unremarkable. Bones: No acute fracture. Upper abdomen: Normal. IMPRESSION: 1. Small left pleural effusion. 2. Prominent lung markings may be secondary to technique versus pulmonary vasculature congestion. Electronically signed by: Hilary Salomon M.D. 07/03/25 21:49 PM Medications Administered Current Inpatient Medications Aspirin (Aspirin 81 Mg Ectab) 81 mg PO MoWeFr [facility] Stop: 08/05/25 08:59 Last Admin: 07/06/25 08:15 Dose: 81 mg Carbidopa/Levodopa (Carbidopa/Levodopa 50/200mg Ext Rel Tab) 1 tab PO QID@0600,1100,1600,2100 [facility] Stop: 08/03/25 05:59 Last Admin: 07/06/25 05:16 Dose: 1 tab Cyanocobalamin (Cyanocobalamin (B-12) 500 Mcg Tablet) 1,000 mcg PO QDL [facility] Stop: 08/03/25 11:29 Last Admin: 07/05/25 12:21 Dose: 1,000 mcg Ceftriaxone Sodium (Rocephin) 2,000 mg in 50 mls @ 100 mls/hr IV Q24H [facility] Stop: 07/20/25 07:59 Melatonin (Melatonin 3 Mg Tab) 3 mg PO HS PRN PRN Reason: Sleep Stop: 08/02/25 22:58 Ondansetron HCl (Ondansetron Inj 2 Mg/Ml 2 Ml Vial) 4 mg IV Q6H PRN PRN Reason: Nausea Stop: 08/02/25 22:58 Oxybutynin Chloride (Oxybutynin Chloride Xl 5 Mg Tabcr) 10 mg PO HS [facility] Stop: 08/03/25 20:59 Last Admin: 07/05/25 20:45 Dose: 10 mg Polyethylene Glycol (Polyethylene (Miralax) 17 Gm Pack) 17 gm PO DAILY PRN PRN Reason: Constipation Stop: 08/02/25 22:58 Ropinirole HCl (Ropinirole Hcl 2 Mg Tablet) 2 mg PO QAM [facility] Stop: 08/03/25 08:59 Last Admin: 07/06/25 08:15 Dose: 2 mg Vitamin D (Cholecalciferol 25 Mcg (1000 Units) Tab) 25 mcg PO QDL [facility] Stop: 08/03/25 11:29 Last Admin: 07/05/25 12:21 Dose: 25 mcg
[2025-07-06] MEDS: cefTRIAXone SODIUM 2,000 MG/50 ML BAG IV SCH (10:08)
[2025-07-06] MEDS: AMOXICILLIN/CLAVULANATE 875 MG TAB PO SCH (14:11)
[2025-07-06 15:39] VITALS: RESP 18
--- NOTE | 2025-07-06 17:41 | Hospitalist Progress Note ---
Date of Service July 06, 2025 Assessment & Plan (1) Catheter-associated urinary tract infection: Plan: -Blood and urine cultures + for klebsiella, resistant to Cipro -urology consult appreciated -pt with h/o of bladder ca with chronic indwelling Forman -ID consulted IV antibiotics were changed to high-dose oral Augmentin which is suitable for discharge follow-up blood cultures not strictly necessary but they were drawn and remain no growth to date at 24 hours symptoms significantly improved, hoping for discharge very early tomorrow to attend his friend's which I think is realistic (2) Pyelonephritis of left kidney: Plan: -possible finding of CT treatment as above (3) Elevated bilirubin: Plan: No abdominal pain, with history of elevation in the past. - Bili 2.4, direct 0.4 - CTAP does reveal cholelithiasis without cholecystitis, liver with hepatic cysts - Monitor, may be Gilbert syndrome (4) Parkinsonism: Plan: -Carbidopa-levo, stable Plan 79-year-old male PMHx BPH with LUTS, parkinsonism, B12 deficiency, GERD, RLS, bladder spasm, gait disturbances, hammertoes of both feet, bladder mass, history of gross hematuria, and GERD presenting for confusion and dizziness with associated fever. Indwelling catheter changed day of arrival (07/03/2025). CBC without leukocytosis and renal function stable. He does show evidence suggestive of UTI and pyelonephritis on UA/CTAP respectively. Lactate and procal WNL, not meeting sepsis criteria. Bilirubin + direct bilirubin are elevated, CTAP revealing cholelithiasis without evidence of cholecystitis. Admission for management of pyelonephritis/UTI. Admission and Anticipated Discharge Date Admission Date: July 03, 2025 Subjective no abdominal pain or dysuria feels really well today has been up and out of bed and walked around the unit request to go home as soon as possible because a good friend of his just and his is tomorrow Physical Exam 2 Physical Exam: PHYSICAL EXAMINATION Last 24h vital signs reviewed, see documentation in flowsheet General: comfortable appearing, no distress, sitting in the chair, frail and thin HEENT: Normocephalic, atraumatic, pupils round and equal, sclerae anicteric, no conjunctival injection, moist mucus membranes Lungs: Normal respiratory effort. Clear to auscultation bilaterally. No RRW Heart: Regular rate and rhythm, no murmurs. No JVD Abdomen: Soft, nontender, nondistended. Bowel sounds present. Extremities: Warm, dry, well-perfused. No extremity edema. Neuro: Alert and oriented x 4, mentally very sharp, rest tremor and some mild bradykinesia,face symmetric, moves 4 extremities well Psych: Normal affect and behavior Forman catheter with clear yellow urine Results & Data Results & Data Vital Signs (Past 12 Hours) Vital Signs Temp Pulse Pulse Resp BP Pulse Ox O2 Del Method 07/06/25 15:38 36.9 C 64 18 126/68 99 Room Air 07/06/25 14:32 62 07/06/25 11:52 37.3 C 55 L 16 102/58 L 98 Room Air 07/06/25 10:00 47 L 07/06/25 07:49 37.0 C 58 L 16 116/60 94 Room Air Laboratory Results 07/06/25 05:45 07/06/25 05:45 PG Care Time/CCT Total # of Minutes Spent Total Time Spent with Patient: Total time spent is greater than 50% in coordination of care (as documented) at patient's floor/unit and/or counseling patient: Coding Level of Care Code 45569 SUB INP/OBS CARE 2/35MIN Diagnoses Catheter-associated urinary tract infection T83.511A; N39.0 Pyelonephritis of left kidney N12 Elevated bilirubin R17 Parkinson's disease, unspecified whether dyskinesia present, unspecified whether manifestations fluctuate G20.A1 Parkinsonism type: Parkinson's disease Dyskinesia presence: unspecified whether dyskinesia Fluctuating manifestations: unspecified whether manifestations fluctuate (4) Parkinsonism Parkinsonism type: Parkinson's disease Dyskinesia presence: unspecified whether dyskinesia Fluctuating manifestations: unspecified whether manifestations fluctuate Qualified Code(s): G20.A1 - Parkinson's disease without dyskinesia, without mention of fluctuations
[2025-07-07 03:33] VITALS: BP 148/69; TEMP 98.4; O2SAT 97
[2025-07-07 06:01] LABS: Hematocrit (blood only) 35.6 % (42.0-52.0); Hemoglobin 11.8 g/dl (14.0-18.0); Mean Corpuscular Hemoglobin 29.9 pg (25.0-34.0); Mean Corpuscular Volume 90.4 fL (80.0-100.0); Platelet Count 185 K/uL (130-400); RDW Standard Deviation 44.2 fL (36.4-46.3); Red Blood Count 3.94 M/uL (4.70-6.10); White Blood Count 4.73 K/ul (4.8-10.8)
[2025-07-07 06:17] LABS: Anion Gap 6.0 (3-11); Blood Urea Nitrogen 16.0 mg/dl (6-23); Calcium 8.5 mg/dl (8.6-10.3); Carbon Dioxide 27.0 mmol/L (21-32); Chloride 106.0 mmol/L (98-107); Creatinine Clr Calc Pharmacy 59.9 ml/min; Glucose 96.0 mg/dl (70-99(Fasting)); Potassium 3.6 mmol/L (3.5-5.1); Sodium 139.0 mmol/L (136-145)
--- NOTE | 2025-07-07 07:35 | Discharge Summary ---
Discharge Summary Date of Service July 07, 2025 Principal Dx & Hospital Course #1 = Principal Diagnosis (1) Catheter-associated urinary tract infection: 79-year-old male PMHx BPH with LUTS, parkinsonism, B12 deficiency, GERD, RLS, bladder spasm, gait disturbances, hammertoes of both feet, bladder mass, history of gross hematuria, and GERD presenting for confusion and dizziness with associated fever. Indwelling catheter changed day of arrival (07/03/2025). CBC without leukocytosis and renal function stable. He does show evidence suggestive of UTI and pyelonephritis on UA/CTAP respectively. Lactate and procal WNL, not meeting sepsis criteria. Bilirubin + direct bilirubin are elevated, CTAP revealing cholelithiasis without evidence of cholecystitis. Admission for management of pyelonephritis/UTI. -Blood and urine cultures + for klebsiella, resistant to Cipro -urology consult appreciated -pt with h/o of bladder ca with chronic indwelling Forman -ID consulted IV antibiotics were changed to high-dose oral Augmentin which is suitable for discharge, EOT 07/10 follow-up blood cultures not strictly necessary but they were drawn and remain no growth to date symptoms resolved, discharging home with his Recurrent CAUTI - does take methenamine and cranberry, good hygiene and regular catheter changes (2) Pyelonephritis of left kidney: -possible finding of CT treatment as above (3) Elevated bilirubin: No abdominal pain, with history of elevation in the past ranging from 1.2-2.4. - Bili 2.4, direct 0.4 - CTAP does reveal cholelithiasis without cholecystitis, liver with hepatic cysts, no nora dil, no evidence of cirrhosis on imaging or labs - Monitor, may be Gilbert syndrome (4) Parkinsonism: -Carbidopa-levo, stable Plan Anemia - chronic, but Hg is a little lower than in past. Remained stable. Follow up in primary care. WBC mildly low today. May be effect of infection or antibiotic, recheck CBC in several weeks on follow up I discussed the discharge plan of care in detail with Mr Lozano and his at bedside Notes For Next Care Provider repeat CBC in 2-3 weeks for mild leukopenia anemia evaluation if not done previously, referred to outpatient setting Admission HPI Per Admitting Provider 79-year-old male PMHx BPH with LUTS, parkinsonism, B12 deficiency, GERD, RLS, bladder spasm, gait disturbances, hammertoes of both feet, bladder mass, history of gross hematuria, and GERD presenting for confusion and dizziness with associated fever. Indwelling catheter changed day of arrival (07/03/2025) after recent change on 06/29/2025 by urology. The night [employer] the pt was experiencing abdominal pain around 2230 before going to bed. At that time, his catheter was still in place and without abnormalities. He then woke around 0230 to use the restroom and his noticed that the catheter was out, with the balloon deflated. He was seen in the ED where the catheter was replaced and he was sent home. Once home, he slept most of the day per his . Around 1400 he awoke and was complaining of feeling cold. His took his temperature at that time and found it to be 101 F. He did develop some rigors at that time and seemed "more confused" and spaced out per . He denies any complaints at present. He feels well, denying abdominal pain, N/V/D/C, numbness/tingling, chills, URI symptoms, or additional concerns. He did have a 12-hour cough ~ 1 week [employer], now resolved. ED evaluation CBC without leukocytosis, H&H 12.5/38.2; CMP BUN 24, ratio 22, glucose 113, bilirubin 2.4, direct bilirubin 0.4, AST 9, ALT < 3; lactate 1.1; procalcitonin 0.14; troponin 7.5; UA suggestive of infection; CTAP left renal patchy subtle hypoenhancing area may be seen with pyelonephritis, suprapubic cath in place; CXR pending official read; EKG NSR @ 100 bpm.; Provided with Zosyn 4.5 g IV in ED. Please see Dr. Finnegan's attestation for adjustments/additions to treatment plan. Discharge Exam PHYSICAL EXAMINATION Last 24h vital signs reviewed, see documentation in flowsheet General: comfortable appearing, no distress, sitting in bed eating breakfast HEENT: Normocephalic, atraumatic, pupils round and equal, sclerae anicteric, no conjunctival injection, moist mucus membranes Lungs: Normal respiratory effort. Clear to auscultation bilaterally. No RRW Heart: Regular rate and rhythm, no murmurs. No JVD Abdomen: Soft, nontender, nondistended. Bowel sounds present. Neuro: Alert and oriented x 4, masked facies and bradykinesia, moves 4 extremities well Psych: Normal affect and behavior Forman catheter with clear yellow urine Discharge Plan Discharge Items Patient Disposition: Home - Self-Care Reason For Visit: PYELONEPHRITIS, UTI Discharge Diagnosis: Pyelonephritis, Klebsiella bacteremia Condition on Discharge: Fair Activity: Resume your previous activity Non-emergency contact: Primary Care Provider Call non-emergency contact if: you have any medication questions, your symptoms worsen and your temperature is above 101 Follow-up/Referrals: Sue Loaiza PA-C [Primary Care Provider] - Diet: Regular Addtl Attending Provider Instructions: You were treated for catheter-associated bladder and kidney infection. This was caused by a common bacteria called Klebsiella. One blood culture bottle also had Klebsiella. The Klebsiella is resistant to cipro The catheter was changed out and you were treated with IV antibiotic, then changed to amoxicillin/clavulanate per infectious disease recommendations. Antibiotics can cause diarrhea. You may want to take a probiotic for 2-4 weeks. If you have severe diarrhea, especially with abdominal pain or fever, seek medical attention. Antibiotics can also cause allergic reactions, if you have rash or hives stop taking the antibiotic and call your doctor. If you think you are having a severe allergic reaction, go to the ER immediately or call 911 if necessary. It was a pleasure taking care of you in the hospital, Angie Becerra MD Pending Studies at Discharge: Yes (blood cultures not finalized yet) Stand-Alone Forms: My [facility] [email or web address], Smoking Cessation Medications and DC Order Prescriptions: New amoxicillin-pot clavulanate 875-125 mg Tablet 1 tab PO TID Qty: 11 0RF Continued ropinirole 2 mg tablet extended release 24 hr 2 mg PO QAM Qty: 30 5RF carbidopa-levodopa 50-200 mg tablet extended release 1 tab PO QID Qty: 120 5RF Rx Instructions: 0600, 1100, 1600, 2100 escitalopram oxalate 5 mg tablet 5 mg PO DAILY Qty: 30 2RF methenamine hippurate 1 gram tablet 1 g PO DAILY Qty: 30 5RF cyanocobalamin (vitamin B-12) 1,000 mcg Tablet 1,000 mcg PO QDL aspirin 81 mg Tablet,Delayed Release (Dr/Ec) 81 mg PO [id number] Rx Instructions: Mon/Wed/Fri cholecalciferol (vitamin D3) [Vitamin D3] 25 mcg (1,000 unit) Tablet 25 mcg PO QDL Probiotic 10 billion cell Capsule 10,000 mmu cells PO DAILY d-mannose 500 mg Capsule 500 mg PO DAILY solifenacin 10 mg tablet 10 mg PO HS Discharge Orders: Discharge Order (Routine); Ordered 07/07/25 Ordered By: Angie Becerra Admission Data Admit Date/Time: 07/03/25 21:38 Attending Provider: Angie Becerra Admit Provider: Ella Finnegan Primary Care Provider: Sue Loaiza Other Providers: Ella Finnegan Hospital Stay Data Consultations 07/03/25 20:59 ED Decision to Admit Stat 07/04/25 09:15 Consult Infectious Diseases Routine Diagnostic Imagining Performed 07/03/25 18:34 CT abd pelvis IV con only Stat Pending Results Patient Have Any Pending Studies at Discharge: Yes (blood cultures not finalized yet) Discharge Instructions Given to Patient (Per Discharging Provider) You were treated for catheter-associated bladder and kidney infection. This was caused by a common bacteria called Klebsiella. One blood culture bottle also had Klebsiella. The Klebsiella is resistant to cipro The catheter was changed out and you were treated with IV antibiotic, then changed to amoxicillin/clavulanate per infectious disease recommendations. Antibiotics can cause diarrhea. You may want to take a probiotic for 2-4 weeks. If you have severe diarrhea, especially with abdominal pain or fever, seek medical attention. Antibiotics can also cause allergic reactions, if you have rash or hives stop taking the antibiotic and call your doctor. If you think you are having a severe allergic reaction, go to the ER immediately or call 911 if necessary. It was a pleasure taking care of you in the hospital, Angie Becerra MD Total Time Total Time Spent Total Time Spent (In Minutes): I personally spent: 40 minutes today on clinical care activities including: reviewing chart notes and vital signs reviewing labs, micro examining and counseling the patient counseling the patient's family writing orders writing prescriptions, discharge instructions documentation Coding Level of Care Code 85869 INP/OBS DISCH >30 MIN Diagnoses Catheter-associated urinary tract infection T83.511A; N39.0 Pyelonephritis of left kidney N12 Elevated bilirubin R17 Parkinson's disease, unspecified whether dyskinesia present, unspecified whether manifestations fluctuate G20.A1 Dyskinesia presence: unspecified whether dyskinesia Fluctuating manifestations: unspecified whether manifestations fluctuate Parkinsonism type: Parkinson's disease
[2025-07-07 07:41] VITALS: PULSE 80
== END 2025-07-07 08:40 | disposition home or self-care (01) | DRG 699 ==
LOC: ED 17:58 → SUATTDRO 21:38 → 2E 21:38